=== PATIENT | male | born 1940 | race Caucasian/White ===

== ENCOUNTER 2022-03-30 22:26 | Inpatient (IN) | payer MEDICARE ==
--- NOTE | 2022-03-30 23:18 | ED ---
General Adult HPI - General Chief complaint: Weakness Stated complaint: Weakness Time Seen by Provider: 03/30/22 22:48 Source: patient, RN notes reviewed Mode of arrival: EMS Limitations: no limitations - History of Present Illness Initial comments: 82-year-old male presents to the emergency department via EMS from home with complaints of progressive weakness. Patient was discharged from [facility] on March 19 after having had prostate surgery. States he has had a Humphrey catheter in for the past week but it was removed yesterday. Reports difficulty with urine output today. Also states he is constipated. Reports 2 falls today in which his legs just gave out and he was unable to maintain weight-bearing despite utilizing his walker. Patient states he has no injuries from his falls and denies head neck or back pain. He does not take any blood thinning medicines. Denies fever, chills, headache, dizziness, chest pain, shortness of breath, cough, abdominal pain, nausea, vomiting, or diarrhea. - Related Data Home Medications Medication Instructions Recorded Confirmed Atorvastatin [Lipitor] 40 mg PO DAILY@189903/30/22 03/30/22 Cholecalciferol [Vitamin D3 (25 50 mcg PO DAILY@59903/30/22 03/30/22 Mcg = 1000 Iu)] Colchicine [Colcrys] 0.6 mg PO DAILY PRN 03/30/22 03/31/22 Furosemide [Lasix] 20 mg PO MOWEFR 03/30/22 03/30/22 Insulin Lispro [humaLOG Kwikpen] See Protocol SQ DAILY PRN 03/30/22 03/30/22 Insulin NPH Human Isophane 42 unit SQ DAILY@59903/30/22 03/30/22 [humuLIN N Kwikpen] Losartan Potassium 100 mg PO HS@199903/30/22 03/30/22 Magnesium Oxide [Mag-Ox] 400 mg PO DAILY@59903/30/22 03/30/22 Metoprolol Succinate (ER) [Toprol 100 mg PO DAILY@59903/30/22 03/30/22 Xl] Multivitamins, Thera [Multivitamin 1 tab PO DAILY@59903/30/22 03/30/22 (formulary)] Mycophenolate Sodium [Mycophenolic 720 mg PO BID@0600,1900 08/02/22 08/03/22 Acid] NIFEdipine XL [Procardia Xl] 90 mg PO DAILY@0600 03/30/22 03/30/22 Nitroglycerin Sl Tabs [Nitrostat] 0.4 mg SUBLINGUAL Q5M PRN 03/30/22 03/30/22 Sertraline [Zoloft] 50 mg PO DAILY@1900 03/30/22 03/30/22 Sirolimus 3 mg PO DAILY@0600 03/30/22 03/31/22 Vit C/E/Zn/Coppr/Lutein/Zeaxan 1 cap PO BID@0600,1900 03/30/22 03/30/22 [Preservision Areds 2 Softgel] Allergies Allergy/AdvReac Type Severity Reaction Status Date / Time No Known Allergies Allergy Verified 03/30/22 23:38 Review of Systems ROS Statement: Those systems with pertinent positive or pertinent negative responses have been documented in the HPI. ROS Other: All systems not noted in ROS Statement are negative. Past Medical History Past Medical History: Coronary Artery Disease (CAD), Chest Pain / Angina, CVA/TIA Additional Past Surgical History / Comment(s): Kidney Transplant - Past Family History Father Family Medical History: Chest Pain / Angina General Exam Limitations: no limitations General appearance: alert, in no apparent distress (Well-developed, well- nourished male in no acute distress. Initial temperature 99.0, pulse 72, r espirations 18, blood pressure 143/77, pulse ox 96% on 2 L.) Head exam: Present: atraumatic, normocephalic, normal inspection Eye exam: Present: normal appearance, PERRL, EOMI. Absent: scleral icterus, conjunctival injection, periorbital swelling ENT exam: Present: normal exam, normal oropharynx, mucous membranes moist Neck exam: Present: normal inspection, full ROM. Absent: tenderness, meningis mus, lymphadenopathy Respiratory exam: Present: normal lung sounds bilaterally. Absent: respiratory distress, wheezes, rales, rhonchi, stridor, chest wall tenderness Cardiovascular Exam: Present: regular rate, normal rhythm, normal heart sounds. Absent: systolic murmur, diastolic murmur, rubs, gallop, clicks GI/Abdominal exam: Present: soft, normal bowel sounds. Absent: distended, tenderness, guarding, rebound, rigid Extremities exam: Present: full ROM, normal capillary refill, pedal edema (+1 pretibial and pedal edema bilateral lower extremities.). Absent: tenderness, joint swelling, calf tenderness Back exam: Present: normal inspection, full ROM. Absent: CVA tenderness (R), CVA tenderness (L), paraspinal tenderness, vertebral tenderness Neurological exam: Present: alert, oriented X3 Expanded Patient oriented to: Present: person, place, time Speech: Present: fluid speech Cranial nerves: EOM's Intact: Normal, Nystagmus: Normal Motor strength exam: RUE: 4, LUE: 4, RLE: 4, LLE: 4 Eye Response: (4) open spontaneously Motor Response: (6) obeys commands Verbal Response: (5) oriented Matthew Total: 15 Psychiatric exam: Present: flat affect Skin exam: Present: warm, dry, intact, other (Scattered contusions various stages of healing on bilateral upper extremities.) Course Vital Signs 03/30/22 03/31/22 22:37 02:19 Temperature 99 F Pulse Rate 72 61 Respiratory 18 18 Rate Blood Pressure 143/77 143/77 O2 Sat by Pulse 96 96 Oximetry - Reevaluation(s) Reevaluation #1: 03/31/22 02:30 This patient's care was discussed at length with my attending, Dr. Owen. Patient updated on results. Discussed hospital admission and patient is agreeable with this plan of care. 03/31/22 03:45 Dr. Owen spoke with Dr. Melo who agrees to accept this admission. Medical Decision Making - Medical Decision Making This is a 82-year-old male with a past medical history of kidney transplant, prostate surgery, CAD, and CABG who presents to the emergency department via EMS for evaluation of worsening generalized weakness and 2 falls today. Upon exam, patient is awake and alert, and in no acute distress. Vital signs are stable. Physical exam reveals no focal neurological deficit. There are no injuries from his falls today. Bladder scan reveals approximately 400 mls of retained urine therefore Humphrey catheter was placed. Laboratory Studies reveal leukocytosis (WBC 16.4), mild hyponatremia (Na 132), and renal impairment (BUN 35, creatinine 1.41)- baseline renal function is unknown. Urinalysis reveals 2+ protein, 1+ glucose, moderate blood, large leukocyte esterase with urine WBC 80, moderate amount of urine WBC clumps, and occasional urine bacteria. Covid test is negative. Given patient's leukocytosis, generalized weakness with falls, and UTI, patient will be admitted to the hospital for further evaluation and treatment. Antibiotic therapy initiated. Patient and spouse are agreeable with this plan of care. Attending: Lexie. - Lab Data Result diagrams: 03/31/22 10:44 03/31/22 10:44 Lab Results 03/30/22 03/30/22 03/30/22 Range/Units 23:09 23:32 23:32 WBC 16.4 H (3.8-10.6) k/uL RBC 4.37 (4.30-5.90) m/uL Hgb 11.2 L (13.0-17.5) gm/dL Hct 35.6 L (39.0-53.0) % MCV 81.6 (80.0-100.0) fL MCH 25.5 (25.0-35.0) pg MCHC 31.3 (31.0-37.0) g/dL RDW 15.6 H (11.5-15.5) % Plt Count 243 (150-450) k/uL MPV 7.1 Neutrophils % 88 % Lymphocytes % 3 % Monocytes % 8 % Eosinophils % 0 % Basophils % 0 % Neutrophils # 14.4 H (1.3-7.7) k/uL Lymphocytes # 0.5 L (1.0-4.8) k/uL Monocytes # 1.2 H (0-1.0) k/uL Eosinophils # 0.0 (0-0.7) k/uL Basophils # 0.0 (0-0.2) k/uL Hypochromasia Slight PT 10.9 (9.0-12.0) sec INR 1.0 (<1.2) APTT 24.7 (22.0-30.0) sec Sodium (137-145) mmol/L Potassium (3.5-5.1) mmol/L Chloride (98-107) mmol/L Carbon Dioxide (22-30) mmol/L Anion Gap mmol/L BUN (9-20) mg/dL Creatinine (0.66-1.25) mg/dL Est GFR (CKD-EPI)AfAm (>60 ml/min/1.73 sqM) Est GFR (CKD-EPI)NonAf (>60 ml/min/1.73 sqM) Glucose (74-99) mg/dL POC Glucose (mg/dL) (70-110) mg/dL POC Glu Contract Mail Carrier ID Plasma Lactic Acid Connor (0.7-2.0) mmol/L Calcium (8.4-10.2) mg/dL Phosphorus (2.5-4.5) mg/dL Magnesium (1.6-2.3) mg/dL Total Bilirubin (0.2-1.3) mg/dL AST (17-59) U/L ALT (4-49) U/L Alkaline Phosphatase (38-126) U/L Troponin I (0.000-0.034) ng/mL NT-Pro-B Natriuret Pep pg/mL Total Protein (6.3-8.2) g/dL Albumin (3.5-5.0) g/dL Urine Color Light Yellow Urine Appearance Cloudy (Clear) Urine pH 5.5 (5.0-8.0) Ur Specific [place] 1.008 (1.001-1.035) Urine Protein 2+ H (Negative) Urine Glucose (UA) 1+ H (Negative) Urine Ketones Negative (Negative) Urine Blood Moderate H (Negative) Urine Nitrite Negative (Negative) Urine Bilirubin Negative (Negative) Urine Urobilinogen <2.0 (<2.0) mg/dL Ur Leukocyte Esterase Large H (Negative) Urine RBC 2 (0-5) /hpf Urine WBC 80 H (0-5) /hpf Urine WBC Clumps Moderate H (None) /hpf Urine Bacteria Occasional H (None) /hpf Urine Mucus Rare H (None) /hpf Coronavirus (PCR) (Not Detectd) 03/30/22 03/30/22 03/30/22 Range/Units 23:32 23:32 23:32 WBC (3.8-10.6) k/uL RBC (4.30-5.90) m/uL Hgb (13.0-17.5) gm/dL Hct (39.0-53.0) % MCV (80.0-100.0) fL MCH (25.0-35.0) pg MCHC (31.0-37.0) g/dL RDW (11.5-15.5) % Plt Count (150-450) k/uL MPV Neutrophils % % Lymphocytes % % Monocytes % % Eosinophils % % Basophils % % Neutrophils # (1.3-7.7) k/uL Lymphocytes # (1.0-4.8) k/uL Monocytes # (0-1.0) k/uL Eosinophils # (0-0.7) k/uL Basophils # (0-0.2) k/uL Hypochromasia PT (9.0-12.0) sec INR (<1.2) APTT (22.0-30.0) sec Sodium 132 L (137-145) mmol/L Potassium 5.1 (3.5-5.1) mmol/L Chloride 101 (98-107) mmol/L Carbon Dioxide 25 (22-30) mmol/L Anion Gap 6 mmol/L BUN 35 H (9-20) mg/dL Creatinine 1.41 H (0.66-1.25) mg/dL Est GFR (CKD-EPI)AfAm 54 (>60 ml/min/1.73 sqM) Est GFR (CKD-EPI)NonAf 47 (>60 ml/min/1.73 sqM) Glucose 142 H (74-99) mg/dL POC Glucose (mg/dL) (70-110) mg/dL POC Glu Contract Mail Carrier ID Plasma Lactic Acid Connor 1.0 (0.7-2.0) mmol/L Calcium 9.1 (8.4-10.2) mg/dL Phosphorus 3.0 (2.5-4.5) mg/dL Magnesium 1.7 (1.6-2.3) mg/dL Total Bilirubin 0.3 (0.2-1.3) mg/dL AST 28 (17-59) U/L ALT 51 H (4-49) U/L Alkaline Phosphatase 108 (38-126) U/L Troponin I 0.027 (0.000-0.034) ng/mL NT-Pro-B Natriuret Pep pg/mL Total Protein 5.5 L (6.3-8.2) g/dL Albumin 2.9 L (3.5-5.0) g/dL Urine Color Urine Appearance (Clear) Urine pH (5.0-8.0) Ur Specific [place] (1.001-1.035) Urine Protein (Negative) Urine Glucose (UA) (Negative) Urine Ketones (Negative) Urine Blood (Negative) Urine Nitrite (Negative) Urine Bilirubin (Negative) Urine Urobilinogen (<2.0) mg/dL Ur Leukocyte Esterase (Negative) Urine RBC (0-5) /hpf Urine WBC (0-5) /hpf Urine WBC Clumps (None) /hpf Urine Bacteria (None) /hpf Urine Mucus (None) /hpf Coronavirus (PCR) (Not Detectd) 03/30/22 03/31/22 03/31/22 Range/Units 23:32 02:16 05:23 WBC (3.8-10.6) k/uL RBC (4.30-5.90) m/uL Hgb (13.0-17.5) gm/dL Hct (39.0-53.0) % MCV (80.0-100.0) fL MCH (25.0-35.0) pg MCHC (31.0-37.0) g/dL RDW (11.5-15.5) % Plt Count (150-450) k/uL MPV Neutrophils % % Lymphocytes % % Monocytes % % Eosinophils % % Basophils % % Neutrophils # (1.3-7.7) k/uL Lymphocytes # (1.0-4.8) k/uL Monocytes # (0-1.0) k/uL Eosinophils # (0-0.7) k/uL Basophils # (0-0.2) k/uL Hypochromasia PT (9.0-12.0) sec INR (<1.2) APTT (22.0-30.0) sec Sodium (137-145) mmol/L Potassium (3.5-5.1) mmol/L Chloride (98-107) mmol/L Carbon Dioxide (22-30) mmol/L Anion Gap mmol/L BUN (9-20) mg/dL Creatinine (0.66-1.25) mg/dL Est GFR (CKD-EPI)AfAm (>60 ml/min/1.73 sqM) Est GFR (CKD-EPI)NonAf (>60 ml/min/1.73 sqM) Glucose (74-99) mg/dL POC Glucose (mg/dL) 156 H (70-110) mg/dL POC Glu Contract Mail Carrier ID Martha Oseiyline Plasma Lactic Acid Connor (0.7-2.0) mmol/L Calcium (8.4-10.2) mg/dL Phosphorus (2.5-4.5) mg/dL Magnesium (1.6-2.3) mg/dL Total Bilirubin (0.2-1.3) mg/dL AST (17-59) U/L ALT (4-49) U/L Alkaline Phosphatase (38-126) U/L Troponin I (0.000-0.034) ng/mL NT-Pro-B Natriuret Pep 2950 pg/mL Total Protein (6.3-8.2) g/dL Albumin (3.5-5.0) g/dL Urine Color Urine Appearance (Clear) Urine pH (5.0-8.0) Ur Specific [place] (1.001-1.035) Urine Protein (Negative) Urine Glucose (UA) (Negative) Urine Ketones (Negative) Urine Blood (Negative) Urine Nitrite (Negative) Urine Bilirubin (Negative) Urine Urobilinogen (<2.0) mg/dL Ur Leukocyte Esterase (Negative) Urine RBC (0-5) /hpf Urine WBC (0-5) /hpf Urine WBC Clumps (None) /hpf Urine Bacteria (None) /hpf Urine Mucus (None) /hpf Coronavirus (PCR) Not Detected (Not Detectd) 03/31/22 Range/Units 07:45 WBC (3.8-10.6) k/uL RBC (4.30-5.90) m/uL Hgb (13.0-17.5) gm/dL Hct (39.0-53.0) % MCV (80.0-100.0) fL MCH (25.0-35.0) pg MCHC (31.0-37.0) g/dL RDW (11.5-15.5) % Plt Count (150-450) k/uL MPV Neutrophils % % Lymphocytes % % Monocytes % % Eosinophils % % Basophils % % Neutrophils # (1.3-7.7) k/uL Lymphocytes # (1.0-4.8) k/uL Monocytes # (0-1.0) k/uL Eosinophils # (0-0.7) k/uL Basophils # (0-0.2) k/uL Hypochromasia PT (9.0-12.0) sec INR (<1.2) APTT (22.0-30.0) sec Sodium (137-145) mmol/L Potassium (3.5-5.1) mmol/L Chloride (98-107) mmol/L Carbon Dioxide (22-30) mmol/L Anion Gap mmol/L BUN (9-20) mg/dL Creatinine (0.66-1.25) mg/dL Est GFR (CKD-EPI)AfAm (>60 ml/min/1.73 sqM) Est GFR (CKD-EPI)NonAf (>60 ml/min/1.73 sqM) Glucose (74-99) mg/dL POC Glucose (mg/dL) 168 H (70-110) mg/dL POC Glu Contract Mail Carrier ID Jayne Navarro Plasma Lactic Acid Connor (0.7-2.0) mmol/L Calcium (8.4-10.2) mg/dL Phosphorus (2.5-4.5) mg/dL Magnesium (1.6-2.3) mg/dL Total Bilirubin (0.2-1.3) mg/dL AST (17-59) U/L ALT (4-49) U/L Alkaline Phosphatase (38-126) U/L Troponin I (0.000-0.034) ng/mL NT-Pro-B Natriuret Pep pg/mL Total Protein (6.3-8.2) g/dL Albumin (3.5-5.0) g/dL Urine Color Urine Appearance (Clear) Urine pH (5.0-8.0) Ur Specific [place] (1.001-1.035) Urine Protein (Negative) Urine Glucose (UA) (Negative) Urine Ketones (Negative) Urine Blood (Negative) Urine Nitrite (Negative) Urine Bilirubin (Negative) Urine Urobilinogen (<2.0) mg/dL Ur Leukocyte Esterase (Negative) Urine RBC (0-5) /hpf Urine WBC (0-5) /hpf Urine WBC Clumps (None) /hpf Urine Bacteria (None) /hpf Urine Mucus (None) /hpf Coronavirus (PCR) (Not Detectd) - EKG Data Rate: normal EKG Comments: EKG obtained at 2222 shows atrial fibrillation with nonspecific T-wave abnormality. Ventricular rate 76, CO interval indeterminate, QRS duration 89, QT/QTC 348/379. Interpretation abnormal rhythm ECG. When compared to previous EKG there are: previous EKG unavailable - Radiology Data Radiology results: report reviewed, image reviewed Two-view chest x-ray was obtained. Report was reviewed in its entirety. Impression per Dr. Solorzano is pulmonary mild interstitial fibrotic changes. No definite acute lung disease. Disposition Clinical Impression: Generalized weakness, Falls, UTI (urinary tract infection) Disposition: ADMITTED IP TO THIS [facility] Condition: Serious Is patient prescribed a controlled substance at d/c from ED?: No Decision Date: 03/31/22 Decision Time: 03:16
[2022-03-30 23:59] LABS: Basophils % (A) 0 %; Eosinophils % (A) 0 %; HCT 35.6 % (39.0-53.0); HGB 11.2 gm/dL (13.0-17.5); Hypochromasia Slight; Lymphocytes # (A) 0.5 k/uL (1.0-4.8); Lymphocytes % (A) 3 %; MCH 25.5 pg (25.0-35.0); MCHC 31.3 g/dL (31.0-37.0); MCV 81.6 fL (80.0-100.0); Mean Platelet Volume 7.1; Monocytes # (A) 1.2 k/uL (0-1.0); Monocytes % (A) 8 %; Neutrophils # (A) 14.4 k/uL (1.3-7.7); Neutrophils % (A) 88 %; Platelet Count 243 k/uL (150-450); RBC 4.37 m/uL (4.30-5.90); RDW 15.6 % (11.5-15.5); WBC 16.4 k/uL (3.8-10.6)
[2022-03-31 00:07] LABS: Albumin 2.9 g/dL (3.5-5.0); Calcium 9.1 mg/dL (8.4-10.2); Magnesium 1.7 mg/dL (1.6-2.3); Potassium 5.1 mmol/L (3.5-5.1); Total Bilirubin 0.3 mg/dL (0.2-1.3); Total Protein 5.5 g/dL (6.3-8.2)
--- NOTE | 2022-03-31 00:08 | XR ---
EXAMINATION TYPE: XR chest 2V DATE OF EXAM: 03/30/2022 COMPARISON: NONE HISTORY: Weakness TECHNIQUE: 2 views FINDINGS: There is no heart failure or confluent pneumonic infiltrate. There is coarsening of interst itial markings. There are sternal wires. Costophrenic angles are fairly clear. Heart size is fairly n ormal. Bony thorax appears intact. IMPRESSION: Pulmonary mild interstitial fibrotic changes. No definite acute lung disease.
[2022-03-31 00:16] LABS: Partial Thromboplastin Time 24.7 sec (22.0-30.0); Prothrombin Time 10.9 sec (9.0-12.0)
[2022-03-31 02:41] LABS: Appearance,Urine Cloudy (Clear); Bacteria,Urine Occasional /hpf; Bilirubin,Urine Negative (Negative); Blood,Urine Moderate (Negative); Color,Urine Light Yellow; Glucose,Urine (UA) 1+ (Negative); Ketones,Urine Negative (Negative); Leukocyte Esterase,Urine Large (Negative); Mucus,Urine Rare /hpf; Nitrite,Urine Negative (Negative); PH, Urine 5.5 (5.0-8.0); Protein,Urine 2+ (Negative); RBC,Urine 2 /hpf (0-5); Specific Gravity,Urine 1.008 (1.001-1.035); Urobilinogen,Urine <2.0 mg/dL (<2.0); WBC,Urine 80 /hpf (0-5)
[2022-03-31] MEDS ORDERED: cefTRIAXone IN SWFI 1,000 MG/10 ML SYRINGE IVP STA (03:51)
[2022-03-31] MEDS ORDERED: NALOXONE 0.4 MG/ML 1 ML VIAL IV PRN (03:52)
[2022-03-31] MEDS ORDERED: HYDROmorphone 0.5 MG/0.5 ML SYRINGE IVP PRN (03:52)
[2022-03-31] MEDS ORDERED: MYCOPHENOLATE SODIUM 360 MG PO SCH (04:00)
--- NOTE | 2022-03-31 05:04 | P.HPIM ---
History of Present Illness H&P Date: 03/31/22 Patient is a 82-year-old male with a PMH of coronary artery disease, BPH, and kidney transplant who presents to the emergency room with complaints of weakness and falls. The patient reports that he underwent a TURP procedure on March 19 and postoperatively had a Humphrey catheter placed which was removed yesterday. Since removal of the catheter, he has been experiencing urinary incontinence as well as dysuria. Also reports that over the past few days, he has noted gradually worsening weakness. States that his legs simply gave out and he is following the ground 3-4 times, not having lost consciousness and without any head trauma. Denied fever, chills, chest pain, shortness of breath, nausea, vomiting, abdominal pain, diarrhea. After evaluation revealed a UA consistent with UTI, BUN 35, creatinine 1.41, and WBC count 16.4. Chest x-ray revealed mild interstitial fibrotic changes with no acute abnormalities noted. Review of systems: Pertinent positives and negatives as discussed in HPI, a complete review of systems was performed and all other systems are negative. Physical examination: General: non toxic, no distress, appears at stated age, overweight Derm: no unusual rashes/lesions, warm Head: atraumatic, normocephalic, symmetric Eyes: EOMI, no lid lag, anicteric sclera, pupils equal round reactive to light ENT: Nose and ears atraumatic Neck: No cervical lymphadenopathy, trachea midline, supple Mouth: no lip lesion, mucus membranes moist Cardiovascular: S1S2 reg, no murmur, positive dorsalis pedis pulse bilateral, no edema Lungs: CTA bilateral, no rhonchi, no rales, no accessory muscle use Abdominal: soft, nontender to palpation, no guarding Ext: muscle strength 5 out of 5 in all 4 extremities grossly, no gross muscle atrophy, no contractures, Neuro: CN II-XI grossly intact, no gross focal neuro deficits Psych: Alert, oriented, appropriate affect Assessment/plan UTI status post Humphrey catheter removal and recent TURP procedure -Continue with ceftriaxone -IV fluids -Urology consult in light of incontinence Chronic conditions: COPD, BPH, kidney transplant -Continue home meds DVT prophylaxis -Heparin subq The patient is admitted with an anticipated less than 2 midnight stay for evaluation of UTI. CODE STATUS: Full Code Discussed with: Patient Anticipated discharge date: In a.m. Anticipated discharge place: Home Past Medical History Past Medical History: Coronary Artery Disease (CAD), Chest Pain / Angina, CVA /TIA Additional Past Surgical History / Comment(s): Kidney Transplant - Past Family History Father Family Medical History: Chest Pain / Angina Medications and Allergies Home Medications Medication Instructions Recorded Confirmed Type Atorvastatin [Lipitor] 40 mg PO DAILY@1900 03/30/22 03/30/22 History Canagliflozin [Invokana] 50 mg PO DAILY@59903/30/22 03/30/22 History Cholecalciferol [Vitamin D3 (25 50 mcg PO DAILY@59903/30/22 03/30/22 History Mcg = 1000 Iu)] Colchicine [Colcrys] 0.6 mg PO DIRECTED PRN 03/30/22 03/30/22 History Furosemide [Lasix] 20 mg PO MOWEFR 03/30/22 03/30/22 History Insulin Lispro [humaLOG Kwikpen] See Protocol SQ DAILY PRN 03/30/22 03/30/22 History Insulin NPH Human Isophane 42 unit SQ DAILY@59903/30/22 03/30/22 History [humuLIN N Kwikpen] Losartan Potassium 100 mg PO HS@199903/30/22 03/30/22 History Magnesium Oxide [Mag-Ox] 400 mg PO DAILY@59903/30/22 03/30/22 History Metoprolol Succinate (ER) [Toprol 100 mg PO DAILY@59903/30/22 03/30/22 History Xl] Multivitamins, Thera [Multivitamin 1 tab PO DAILY@59903/30/22 03/30/22 History (formulary)] Mycophenolate Sodium [Mycophenolic 720 mg PO DIRECTED 03/30/22 03/30/22 History Acid] NIFEdipine XL [Procardia Xl] 90 mg PO DAILY@59903/30/22 03/30/22 History Nitroglycerin Sl Tabs [Nitrostat] 0.4 mg SUBLINGUAL Q5M PRN 03/30/22 03/30/22 History Sertraline [Zoloft] 50 mg PO DAILY@0 03/30/22 03/30/22 History Sirolimus 3 mg PO DIRECTED 03/30/22 03/30/22 History Vit C/E/Zn/Coppr/Lutein/Zeaxan 1 cap PO BID@0600,1900 03/30/22 03/30/22 History [Preservision Areds 2 Softgel] Allergies Allergy/AdvReac Type Severity Reaction Status Date / Time No Known Allergies Allergy Verified 03/30/22 23:38 Physical Exam Vitals: Vital Signs Temp Pulse Resp BP Pulse Ox 03/31/22 02:19 61 18 143/77 96 03/30/22 22:37 99 F 72 18 143/77 96 Intake and Output 03/30/22 03/30/22 03/31/22 14:59 22:59 06:59 Other: Weight 99.337 kg Results CBC & Chem 7: 03/30/22 23:32 03/30/22 23:32 Labs: Abnormal Lab Results - Last 24 Hours (Table) 03/30/22 03/30/22 03/30/22 Range/Units 23:09 23:32 23:32 WBC 16.4 H (3.8-10.6) k/uL Hgb 11.2 L (13.0-17.5) gm/dL Hct 35.6 L (39.0-53.0) % RDW 15.6 H (11.5-15.5) % Neutrophils # 14.4 H (1.3-7.7) k/uL Lymphocytes # 0.5 L (1.0-4.8) k/uL Monocytes # 1.2 H (0-1.0) k/uL Sodium 132 L (137-145) mmol/L BUN 35 H (9-20) mg/dL Creatinine 1.41 H (0.66-1.25) mg/dL Glucose 142 H (74-99) mg/dL ALT 51 H (4-49) U/L Total Protein 5.5 L (6.3-8.2) g/dL Albumin 2.9 L (3.5-5.0) g/dL Urine Protein 2+ H (Negative) Urine Glucose (UA) 1+ H (Negative) Urine Blood Moderate H (Negative) Ur Leukocyte Esterase Large H (Negative) Urine WBC 80 H (0-5) /hpf Urine WBC Clumps Moderate H (None) /hpf Urine Bacteria Occasional H (None) /hpf Urine Mucus Rare H (None) /hpf
[2022-03-31 05:25] LABS: Glucose,Whole Blood 156 mg/dL (70-110)
[2022-03-31] MEDS: CHOLECALCIFEROL 25 MCG (1000 IU) TABLET PO SCH (05:30)
[2022-03-31] MEDS: INSULIN NPH 300 UNIT/3 ML VIAL SQ SCH (05:30)
[2022-03-31] MEDS: METOPROLOL SUCCINATE (ER) 100 MG TAB.ER.24H PO SCH (05:30)
[2022-03-31] MEDS: ACETAMINOPHEN TAB 325 MG TAB PO PRN ×3 (05:30→19:33)
[2022-03-31] MEDS: NIFEdipine XL 90 MG TAB.ER.24 PO SCH (05:30)
[2022-03-31] MEDS: MULTIVITAMINS, THERA 1 EACH TAB PO SCH (05:31)
[2022-03-31] MEDS ORDERED: NON FORMULARY DRUG (Canagliflozin [Invokana] 100 MG Tablet) PO SCH (06:00)
[2022-03-31 07:46] LABS: Glucose,Whole Blood 168 mg/dL (70-110)
[2022-03-31] MEDS ORDERED: FAMOTIDINE 20 MG TAB PO SCH (09:00)
--- NOTE | 2022-03-31 09:34 | P.PN ---
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 Patient presented to the emergency department with a chief complaint of weakness, falls, urinary incontinence, frequency, and dysuria. Patient underwent full evaluation in the emergency department and was found to have leukocytosis with WBC count of 16.4 and renal function and BUN 35, creatinine 1.41, and GFR 47 with unknown baseline creatinine. Urine culture positive for blood and infection inpatient febrile with temperature 100.9F. Patient was admitted under our services for acute p yelonephritis in patient with history of right sided renal transplant with consultation to nephrology and infectious disease. Physical exam: Patient seen and fully evaluated at bedside. Patient very diaphoretic and febrile with temperature 100.9F at this time. Patient reported urinary frequency and burning with incontinence prior to arrival. Patient received Rocephin 1 g in ED. Rocephin discontinued and patient started on cefepime 1 g every 12 hours pending urine culture and sensitivity report. Patient started on gentle hydration with 0.9% normal saline at 50 mL per hour. Patient reports overall weakness but denies any other complaints at this time. Humphrey catheter in place. Vital signs reviewed and stable. General: Nontoxic, no distress and appears stated age. Derm: Skin warm and dry, normal coloration for ethnicity. Head: Atraumatic, normocephalic and symmetric. Eyes: EOMs intact, no lid lag, and anicteric sclera Mouth: no lip lesions, mucus membranes moist Cardiovascular: regular rate and rhythm with normal S1S2, no murmur, positive posterior tibial pulses bilaterally, and cap refill < 2 seconds. Lungs: Respirations even, regular, and unlabored on room air. Lungs CTA bilaterally, no rhonchi, no rales, no wheezing, and no accessory muscle usage. Abdominal: soft, nontender to palpation, no guarding, no appreciable organomegaly Ext: ROM intact. No gross muscle atrophy, no edema, no contractures Neuro: Speech clear, face symmetrical and CN II-XII grossly intact with no noted focal neuro deficits Psych: Alert and oriented to person, place, time, and situation. Appropriate and pleasant affect. Assessment and Plan of Care: Pyelonephritis in patient with history of right sided renal transplant and current stage III chronic kidney disease with baseline creatinine of 1.4 -Nephrology consulted -IV antibiotics: Cefepime pending urine culture and sensitivity report. -Infectious disease consulted -Symptomatic care and pain management with Tylenol as needed for pain and/or fever -Humphrey catheter care, monitor output closely. -Continue anti-rejection medication with sirolimus and hold mycophenolate sodium as recommended by nephrology due to acute pyelonephritis and signs of sepsis in patient with renal transplant. -Continue close monitoring of renal function and obtain sirolimus level with a.m. labs. -Follow up with urine culture and sensitivity reports. -Gentle IV fluid hydration with 0.9% normal saline at 50 mL's per hour. Insulin-dependent diabetes mellitus type 2 -Discontinue Invokana, places patient at risk for UTIs which poses a danger in patients with renal transplants. -Patient placed on glycemic protocol with NovoLog sliding scale Hypertension -Monitor vital signs and continue daily medication regimen with losartan and metoprolol. Hyperlipidemia -Continue daily medication regimen with atorvastatin. Generalized Weakness and recurrent falls -Patient denies injuries or pain. Reports his legs just give out and patient very weak. Likely secondary to acute pyelonephritis infection. -Treat underlying cause of acute pyelonephritis. -PT/OT consulted -Fall precautions CODE STATUS: Full code DVT prophylaxis: Heparin Discussed with: Patient and RN Anticipated discharge date: Clinical course to determine Anticipated discharge place: Home versus senior living facility A total of 40 minutes was spent on the care of this complex patient more than 50% of the time was spent in counseling and care coordination. I reviewed the documentation as provided by the MALAIKA above, who is the original author of this note. I agree with the documented assessment and plan, with the following changes: none Objective - Vital Signs Vital signs: Vital Signs Temp 100.9 F H 03/31/22 07:00 Pulse 65 03/31/22 07:00 Resp 17 03/31/22 07:00 BP 173/68 03/31/22 07:00 Pulse Ox 95 03/31/22 07:00 FiO2 Intake & Output 03/30/22 03/31/22 03/31/22 18:59 06:59 18:59 Intake Total 591 Output Total 800 Balance -800 591 Weight 99.337 kg Intake: Oral 591 Output: Urine 800 Other: Voiding Method Indwelling Catheter - Labs CBC & Chem 7: 03/31/22 10:44 03/31/22 10:44 Labs: Abnormal Lab Results - Last 24 Hours (Table) 03/30/22 03/30/22 03/30/22 Range/Units 23:09 23:32 23:32 WBC 16.4 H (3.8-10.6) k/uL Hgb 11.2 L (13.0-17.5) gm/dL Hct 35.6 L (39.0-53.0) % RDW 15.6 H (11.5-15.5) % Neutrophils # 14.4 H (1.3-7.7) k/uL Lymphocytes # 0.5 L (1.0-4.8) k/uL Monocytes # 1.2 H (0-1.0) k/uL Sodium 132 L (137-145) mmol/L BUN 35 H (9-20) mg/dL Creatinine 1.41 H (0.66-1.25) mg/dL Glucose 142 H (74-99) mg/dL POC Glucose (mg/dL) (70-110) mg/dL ALT 51 H (4-49) U/L Total Protein 5.5 L (6.3-8.2) g/dL Albumin 2.9 L (3.5-5.0) g/dL Urine Protein 2+ H (Negative) Urine Glucose (UA) 1+ H (Negative) Urine Blood Moderate H (Negative) Ur Leukocyte Esterase Large H (Negative) Urine WBC 80 H (0-5) /hpf Urine WBC Clumps Moderate H (None) /hpf Urine Bacteria Occasional H (None) /hpf Urine Mucus Rare H (None) /hpf 03/31/22 03/31/22 Range/Units 05:23 07:45 WBC (3.8-10.6) k/uL Hgb (13.0-17.5) gm/dL Hct (39.0-53.0) % RDW (11.5-15.5) % Neutrophils # (1.3-7.7) k/uL Lymphocytes # (1.0-4.8) k/uL Monocytes # (0-1.0) k/uL Sodium (137-145) mmol/L BUN (9-20) mg/dL Creatinine (0.66-1.25) mg/dL Glucose (74-99) mg/dL POC Glucose (mg/dL) 156 H 168 H (70-110) mg/dL ALT (4-49) U/L Total Protein (6.3-8.2) g/dL Albumin (3.5-5.0) g/dL Urine Protein (Negative) Urine Glucose (UA) (Negative) Urine Blood (Negative) Ur Leukocyte Esterase (Negative) Urine WBC (0-5) /hpf Urine WBC Clumps (None) /hpf Urine Bacteria (None) /hpf Urine Mucus (None) /hpf
[2022-03-31] MEDS ORDERED: hydrALAZINE HCL 20 MG/ML 1 ML VIAL IVP PRN (09:57)
[2022-03-31] MEDS ORDERED: CEFEPIME 2 GM in SODIUM CHLORIDE 0.9% 100 ML IVPB SCH (10:00)
[2022-03-31] MEDS ORDERED: DEXTROSE 50% SYRINGE 50 ML IVP PRN ×2 (10:01)
--- NOTE | 2022-03-31 10:30 | P.NPCON ---
History of Present Illness - Reason for Consult chronic renal failure - History of Present Illness Reason for consultation: Chronic kidney disease and renal transplant management History of present illness: Patient is a 82-year-old male seen in consultation for chronic kidney disease and renal transplant management. Patient has history of chronic kidney disease stage III a with baseline creatinine in the range of 1.4-2.1 outpatient. Patient received a living unrelated renal allograft from his in June 2004. He is maintained on Myfortic and Rapamune outpatient. Patient is quite confused and is not able to provide much history. Patient underwent TURP in February 2022 and has been feeling progressively weaker. He has also sustained falls along with urinary frequency and incontinence and dysuria. Patient was noted to have an elevated white count of 16.4 on admission. He is also noted to be febrile with a temperature of 100.9F this morning. Humphrey catheter was placed. He is nonoliguric. Patient does have history of diabetes. Patient was taking Invokana outpatient. Blood pressure has been on the higher side this admission. He is on room air. I don't see any nonsteroidals and his home medication list. Vital signs - Blood pressure in the higher side. Febrile. General: Awake. No acute distress. HEENT: Head exam is unremarkable. LUNGS: Breath sounds decreased. HEART: Rate and Rhythm are regular. ABDOMEN: Soft, no distention. EXTREMITITES: No edema. Past Medical History Past Medical History: Coronary Artery Disease (CAD), Chest Pain / Angina, CVA/TIA History of Any Multi-Drug Resistant Organisms: None Reported Additional Past Surgical History / Comment(s): Kidney Transplant Smoking Status: Former smoker - Past Family History Father Family Medical History: Chest Pain / Angina Medications and Allergies Home Medications Medication Instructions Recorded Confirmed Type Atorvastatin [Lipitor] 40 mg PO DAILY@1900 03/30/22 03/30/22 History Cholecalciferol [Vitamin D3 (25 50 mcg PO DAILY@0600 03/30/22 03/30/22 History Mcg = 1000 Iu)] Colchicine [Colcrys] 0.6 mg PO DAILY PRN 03/30/22 03/31/22 History Furosemide [Lasix] 20 mg PO MOWEFR 03/30/22 03/30/22 History Insulin Lispro [humaLOG Kwikpen] See Protocol SQ DAILY PRN 03/30/22 03/30/22 History Insulin NPH Human Isophane 42 unit SQ DAILY@59903/30/22 03/30/22 History [humuLIN N Kwikpen] Magnesium Oxide [Mag-Ox] 400 mg PO DAILY@59903/30/22 03/30/22 History Metoprolol Succinate (ER) [Toprol 100 mg PO DAILY@59903/30/22 03/30/22 History Xl] Multivitamins, Thera [Multivitamin 1 tab PO DAILY@59903/30/22 03/30/22 History (formulary)] Mycophenolate Sodium [Mycophenolic 720 mg PO BID@0600,189903/30/22 03/31/22 History Acid] NIFEdipine XL [Procardia Xl] 90 mg PO DAILY@59903/30/22 03/30/22 History Nitroglycerin Sl Tabs [Nitrostat] 0.4 mg SUBLINGUAL Q5M PRN 03/30/22 03/30/22 History RX: Losartan Potassium 100 mg PO HS@199903/30/22 03/30/22 History RX: Sirolimus 3 mg PO DAILY@59903/30/22 03/31/22 History Sertraline [Zoloft] 50 mg PO DAILY@189903/30/22 03/30/22 History Vit C/E/Zn/Coppr/Lutein/Zeaxan 1 cap PO BID@0600,189903/30/22 03/30/22 History [Preservision Areds 2 Softgel] Allergies Allergy/AdvReac Type Severity Reaction Status Date / Time No Known Allergies Allergy Verified 03/30/22 23:38 Physical Exam Vitals: Vital Signs Temp Pulse Pulse Resp BP BP BP 03/31/22 07:00 100.9 F H 65 17 173/68 03/31/22 05:27 185/54 03/31/22 04:57 100.8 F H 85 16 203/65 03/31/22 02:19 61 18 143/77 03/30/22 22:37 99 F 72 18 143/77 Pulse Ox 03/31/22 07:00 95 03/31/22 05:27 03/31/22 04:57 96 03/31/22 02:19 96 03/30/22 22:37 96 Intake and Output 03/30/22 03/31/22 03/31/22 22:59 06:59 14:59 Intake Total 591 Output Total 800 Balance -800 591 Intake: Oral 591 Output: Urine 800 Other: Voiding Method Indwelling Catheter Weight 99.337 kg 99.337 kg Results - Lab Results Most recent lab results Calcium 9.1 mg/dL (8.4-10.2) 03/30/22 23:32 Phosphorus 3.0 mg/dL (2.5-4.5) 03/30/22 23:32 Magnesium 1.7 mg/dL (1.6-2.3) 03/30/22 23:32 03/30/22 23:32 03/30/22 23:32 Assessment and Plan Plan: Assessment: 1. Chronic kidney disease stage IIIa. Baseline creatinine in the range of 1.42 outpatient. GFR near baseline. 2. Status post living unrelated renal transplant in 2003. 3. UTI on antibiotics. Underwent TURP in February 2022 and was also on Invokana outpatient. 4. Diabetes mellitus. 5. Hypovolemic hyponatremia. 6. Hypertension with chronic kidney disease. Plan: Start normal saline at 50 mL an hour. Hold Myfortic for now due to acute infection. Maintain home dose sirolimus. Check sirolimus level. Home antihypertensives resumed. Add hydralazine 10 mg IV every 4 hours as needed for systolic blood pressure greater than 160. Change Rocephin to cefepime. Consultations infectious disease. Continue to monitor renal function and urine output. Follow-up cultures. Case discussed with the primary team. Thank you for the consultation. I will continue to follow the patient daily during his hospital stay.
[2022-03-31 11:07] LABS: HGB 11.4 gm/dL (13.0-17.5); Hypochromasia Moderate; MCH 25.8 pg (25.0-35.0); MCHC 30.8 g/dL (31.0-37.0); MCV 83.6 fL (80.0-100.0); Mean Platelet Volume 7.5; Platelet Count 255 k/uL (150-450); RBC 4.43 m/uL (4.30-5.90); RDW 15.9 % (11.5-15.5); WBC 14.8 k/uL (3.8-10.6)
[2022-03-31 11:23] LABS: ALT 42 U/L (4-49); AST 25 U/L (17-59); African American GFR (CKD) 53 (>60 ml/min/1.73 sqM); Albumin 2.7 g/dL (3.5-5.0); Albumin/Globulin Ratio 1.1; Alkaline Phosphatase 105 U/L (38-126); Anion Gap 5 mmol/L; Blood Urea Nitrogen 34 mg/dL (9-20); Calcium 8.7 mg/dL (8.4-10.2); Carbon Dioxide 26 mmol/L (22-30); Chloride 101 mmol/L (98-107); Globulin 2.5 g/dL; Glucose 226 mg/dL (74-99); Non-African American GFR(CKD) 46 (>60 ml/min/1.73 sqM); Potassium 4.5 mmol/L (3.5-5.1); Sodium 132 mmol/L (137-145); Total Bilirubin 0.3 mg/dL (0.2-1.3); Total Protein 5.2 g/dL (6.3-8.2)
[2022-03-31] MEDS: SIROLIMUS 1 MG PO SCH (11:30)
[2022-03-31 12:36] LABS: Glucose,Whole Blood 215 mg/dL (70-110)
[2022-03-31] MEDS: SODIUM CHLORIDE 0.9% 1,000 ML IV SCH (12:47)
[2022-03-31] MEDS: INSULIN ASPART (NovoLOG) 100 UNIT/ML VIAL SQ SCH ×3 (13:01→20:39)
[2022-03-31 17:07] LABS: Glucose,Whole Blood 275 mg/dL (70-110)
[2022-03-31] MEDS: DOCUSATE 100 MG CAP PO PRN (17:54)
[2022-03-31] MEDS: SERTRALINE 50 MG TAB PO SCH (18:15)
[2022-03-31] MEDS: ATORVASTATIN 40 MG TAB PO SCH (18:15)
[2022-03-31] MEDS: HEPARIN SODIUM,PORCINE/PF 5,000 UNIT/0.5 ML SYRINGE SQ SCH (19:33)
[2022-03-31] MEDS: LOSARTAN 50 MG TAB PO SCH (19:33)
[2022-03-31 20:14] LABS: Glucose,Whole Blood 260 mg/dL (70-110)
--- NOTE | 2022-03-31 22:01 | P.CONS ---
History of Present Illness - Reason for Consult Consult date: 03/31/22 Polynephritis in transplant patient Requesting physician: Robert Cassidy - Chief Complaint Weakness and fall x 1 day - History of Present Illness Patient is a 82-year-old male with a past medical history significant for end-stage renal disease in this patient who is s/p living related renal transplant from his in 2003 and the patient has been maintained on imm unosuppressive medication since then, patient recently did have a prostate surgery done at [facility] and apparently the patient did have a postop urinary retention requiring Humphrey catheter please which was removed 2 days ago on Tuesday patient has been brought into the ER for progressive weakness and apparently the patient did have a fall with urinary frequency and some incontinence and dysuria, patient denies having any suprapubic or flank pain some nausea but no vomiting and denies having any diarrhea no chest pain shortness of breath or cough on presentation to the hospital the patient did have a fever of 100.8 F, patient did have white count of 14.8 with a left shift BUN and creatinine some mildly elevated liver enzymes are normal patient did have a positive UA whittington PCR was negative blood cultures obtained coming back positive for gram-negative bacilli patient was initially on Rocephin antibiotic was switched over to cefepime infectious disease was consulted for further m anagement of antibiotic therapy Review of Systems Positive point has been mentioned in the HPI rest of the systems are negative Past Medical History Past Medical History: Coronary Artery Disease (CAD), Chest Pain / Angina, CVA/TIA History of Any Multi-Drug Resistant Organisms: None Reported Additional Past Surgical History / Comment(s): Kidney Transplant Smoking Status: Former smoker - Past Family History Father Family Medical History: Chest Pain / Angina Medications and Allergies Home Medications Medication Instructions Recorded Confirmed Type Atorvastatin [Lipitor] 40 mg PO DAILY@1900 03/30/22 03/30/22 History Cholecalciferol [Vitamin D3 (25 50 mcg PO DAILY@0600 03/30/22 03/30/22 History Mcg = 1000 Iu)] Colchicine [Colcrys] 0.6 mg PO DAILY PRN 03/30/22 03/31/22 History Furosemide [Lasix] 20 mg PO MOWEFR 03/30/22 03/30/22 History Insulin Lispro [humaLOG Kwikpen] See Protocol SQ DAILY PRN 03/30/22 03/30/22 History Insulin NPH Human Isophane 42 unit SQ DAILY@59903/30/22 03/30/22 History [humuLIN N Kwikpen] Losartan Potassium 100 mg PO HS@199903/30/22 03/30/22 History Magnesium Oxide [Mag-Ox] 400 mg PO DAILY@59903/30/22 03/30/22 History Metoprolol Succinate (ER) [Toprol 100 mg PO DAILY@59903/30/22 03/30/22 History Xl] Multivitamins, Thera [Multivitamin 1 tab PO DAILY@59903/30/22 03/30/22 History (formulary)] Mycophenolate Sodium [Mycophenolic 720 mg PO BID@0600,189903/30/22 03/31/22 History Acid] NIFEdipine XL [Procardia Xl] 90 mg PO DAILY@59903/30/22 03/30/22 History Nitroglycerin Sl Tabs [Nitrostat] 0.4 mg SUBLINGUAL Q5M PRN 03/30/22 03/30/22 History Sertraline [Zoloft] 50 mg PO DAILY@189903/30/22 03/30/22 History Sirolimus 3 mg PO DAILY@59903/30/22 03/31/22 History Vit C/E/Zn/Coppr/Lutein/Zeaxan 1 cap PO BID@0600,0 03/30/22 03/30/22 History [Preservision Areds 2 Softgel] Allergies Allergy/AdvReac Type Severity Reaction Status Date / Time No Known Allergies Allergy Verified 03/30/22 23:38 Physical Exam Vitals: Vital Signs Temp Pulse Pulse Resp BP BP BP 03/31/22 11:11 98.4 F 156/60 03/31/22 08:00 65 17 03/31/22 07:00 100.9 F H 65 17 173/68 03/31/22 05:27 185/54 03/31/22 04:57 100.8 F H 85 16 203/65 03/31/22 02:19 61 18 143/77 03/30/22 22:37 99 F 72 18 143/77 Pulse Ox 03/31/22 11:11 03/31/22 08:00 03/31/22 07:00 95 03/31/22 05:27 03/31/22 04:57 96 03/31/22 02:19 96 03/30/22 22:37 96 Intake and Output 03/31/22 03/31/22 03/31/22 06:59 14:59 22:59 Intake Total 591 Output Total 800 Balance -800 591 Intake: Oral 591 Output: Urine 800 Other: Voiding Method Indwelling Catheter Indwelling Catheter Weight 99.337 kg GENERAL DESCRIPTION: Elderly male lying in bed, no distress. No tachypnea or accessory muscle of respiration use. HEENT: Shows Pallor , no scleral icterus. Oral mucous membrane is dry. No pharyngeal erythema or thrush NECK: Trachea central, no thyromegaly. LUNGS: Unlabored breathing. Clear to auscultation anteriorly. No wheeze or crackle. HEART: S1, S2, regular rate and rhythm. No loud murmur ABDOMEN: Soft, no tenderness , guarding or rigidity, no organomegaly EXTREMITIES: No edema of feet. SKIN: No rash, no masses palpable. NEUROLOGICAL: The patient is awake, alert, oriented x3, mood and affect normal. Results CBC & Chem 7: 04/03/22 06:07 04/03/22 06:07 Labs: Abnormal Lab Results - Last 24 Hours (Table) 03/30/22 03/30/22 03/30/22 Range/Units 23:09 23:32 23:32 WBC 16.4 H (3.8-10.6) k/uL Hgb 11.2 L (13.0-17.5) gm/dL Hct 35.6 L (39.0-53.0) % MCHC (31.0-37.0) g/dL RDW 15.6 H (11.5-15.5) % Neutrophils # 14.4 H (1.3-7.7) k/uL Lymphocytes # 0.5 L (1.0-4.8) k/uL Monocytes # 1.2 H (0-1.0) k/uL Sodium 132 L (137-145) mmol/L BUN 35 H (9-20) mg/dL Creatinine 1.41 H (0.66-1.25) mg/dL Glucose 142 H (74-99) mg/dL POC Glucose (mg/dL) (70-110) mg/dL Hemoglobin A1c (0.0-6.0) % ALT 51 H (4-49) U/L Total Protein 5.5 L (6.3-8.2) g/dL Albumin 2.9 L (3.5-5.0) g/dL Urine Protein 2+ H (Negative) Urine Glucose (UA) 1+ H (Negative) Urine Blood Moderate H (Negative) Ur Leukocyte Esterase Large H (Negative) Urine WBC 80 H (0-5) /hpf Urine WBC Clumps Moderate H (None) /hpf Urine Bacteria Occasional H (None) /hpf Urine Mucus Rare H (None) /hpf 03/31/22 03/31/22 03/31/22 Range/Units 05:23 07:45 10:44 WBC 14.8 H (3.8-10.6) k/uL Hgb 11.4 L (13.0-17.5) gm/dL Hct 37.0 L (39.0-53.0) % MCHC 30.8 L (31.0-37.0) g/dL RDW 15.9 H (11.5-15.5) % Neutrophils # (1.3-7.7) k/uL Lymphocytes # (1.0-4.8) k/uL Monocytes # (0-1.0) k/uL Sodium (137-145) mmol/L BUN (9-20) mg/dL Creatinine (0.66-1.25) mg/dL Glucose (74-99) mg/dL POC Glucose (mg/dL) 156 H 168 H (70-110) mg/dL Hemoglobin A1c (0.0-6.0) % ALT (4-49) U/L Total Protein (6.3-8.2) g/dL Albumin (3.5-5.0) g/dL Urine Protein (Negative) Urine Glucose (UA) (Negative) Urine Blood (Negative) Ur Leukocyte Esterase (Negative) Urine WBC (0-5) /hpf Urine WBC Clumps (None) /hpf Urine Bacteria (None) /hpf Urine Mucus (None) /hpf 03/31/22 03/31/22 03/31/22 Range/Units 10:44 10:44 12:34 WBC (3.8-10.6) k/uL Hgb (13.0-17.5) gm/dL Hct (39.0-53.0) % MCHC (31.0-37.0) g/dL RDW (11.5-15.5) % Neutrophils # (1.3-7.7) k/uL Lymphocytes # (1.0-4.8) k/uL Monocytes # (0-1.0) k/uL Sodium 132 L (137-145) mmol/L BUN 34 H (9-20) mg/dL Creatinine 1.43 H (0.66-1.25) mg/dL Glucose 226 H (74-99) mg/dL POC Glucose (mg/dL) 215 H (70-110) mg/dL Hemoglobin A1c 7.7 H (0.0-6.0) % ALT (4-49) U/L Total Protein 5.2 L (6.3-8.2) g/dL Albumin 2.7 L (3.5-5.0) g/dL Urine Protein (Negative) Urine Glucose (UA) (Negative) Urine Blood (Negative) Ur Leukocyte Esterase (Negative) Urine WBC (0-5) /hpf Urine WBC Clumps (None) /hpf Urine Bacteria (None) /hpf Urine Mucus (None) /hpf Microbiology - Last 24 Hours (Table) 03/30/22 23:32 Blood Culture - Final Blood 03/30/22 23:09 Urine Culture - Preliminary Urine,Voided Assessment and Plan (1) Bacteremia Current Visit: Yes Status: Acute Code(s): R78.81 - BACTEREMIA SNOMED Code(s): 6602427 (2) UTI (urinary tract infection) Current Visit: Yes Status: Acute Code(s): N39.0 - URINARY TRACT INFECTION, SITE NOT SPECIFIED SNOMED Code(s): 19364641 Plan: 1patient presented to hospital with sepsis in this patient who did have fever elevated white count tachycardia with gram-negative bacteremia source likely urinary in this patient with recent prostate surgery done at the outside facility and the patient seem to have problem with postop retention. 2patient would benefit from a CT abdominal pelvis to make sure evidence of any prostate bed abscess. 3blood cultures will be repeated document clearance of bacteremia. 4patient to continue with the cefepime dose adjusted to the kidney function by pharmacy. We will follow on clinical condition and cultures to further adjust medication if needed Thank you for this consultation will follow this patient along with you Time with Patient: Greater than 30
[2022-04-01] MEDS ORDERED: CEFEPIME 1 GM in SODIUM CHLORIDE 0.9% 50 ML IVPB SCH (01:00)
[2022-04-01] MEDS: METOPROLOL SUCCINATE (ER) 100 MG TAB.ER.24H PO SCH (05:32)
[2022-04-01] MEDS: CHOLECALCIFEROL 25 MCG (1000 IU) TABLET PO SCH (05:44)
[2022-04-01] MEDS: NIFEdipine XL 90 MG TAB.ER.24 PO SCH (05:44)
[2022-04-01] MEDS: INSULIN NPH 300 UNIT/3 ML VIAL SQ SCH (05:45)
[2022-04-01] MEDS: MULTIVITAMINS, THERA 1 EACH TAB PO SCH (05:45)
[2022-04-01] MEDS: SODIUM CHLORIDE 0.9% 1,000 ML IV SCH (05:46)
[2022-04-01 07:28] LABS: Glucose,Whole Blood 139 mg/dL (70-110)
[2022-04-01] MEDS: INSULIN ASPART (NovoLOG) 100 UNIT/ML VIAL SQ SCH ×4 (09:13→22:36)
[2022-04-01 09:30] LABS: African American GFR (CKD) 54.6 (60.0-200.0); Albumin 2.9 g/dL (3.8-4.9); Albumin/Globulin Ratio 1.16 (1.60-3.17); Anion Gap 9.7 mmol/L (10.00-18.00); BUN/Creat Ratio 21.79 Ratio (12.00-20.00); Blood Urea Nitrogen 30.5 mg/dL (9.0-27.0); Calcium 8.7 mg/dL (8.7-10.3); Carbon Dioxide 23.3 mmol/L (20.0-27.5); Globulin 2.5 g/dL (1.6-3.3); Non-African American GFR(CKD) 47.1 (60.0-200.0); Potassium 4.5 mmol/L (3.5-5.5); Total Bilirubin 0.3 mg/dL (0.30-1.20); Total Protein 5.4 g/dL (6.2-8.2)
[2022-04-01] MEDS: HEPARIN SODIUM,PORCINE/PF 5,000 UNIT/0.5 ML SYRINGE SQ SCH ×2 (09:30→20:03)
[2022-04-01] MEDS: FAMOTIDINE 20 MG TAB PO SCH (09:30)
[2022-04-01 09:33] LABS: HCT 36.3 % (39.6-50.0); HGB 10.8 g/dL (13.0-17.0); MCH 24.4 pg (27.0-32.0); MCHC 29.8 g/dL (32.0-37.0); MCV 82.1 fL (80.0-97.0); Mean Platelet Volume 10.2 fL (9.5-12.2); NRBC Per 100 WBC 0 /100 WBCS (0.0-0.0); Platelet Count 261 X 10*3/uL (140-440); RBC 4.42 X 10*6/uL (4.40-5.60); RDW 16.7 % (11.5-14.5); WBC 13.25 X 10*3/uL (4.50-10.00)
--- NOTE | 2022-04-01 09:44 | P.PN ---
Subjective Patient is seen in follow-up for chronic kidney disease and renal transplant management. Renal function stable. Awake. Denies chest pain or shortness of breath. Has a Humphrey catheter. Nonoliguric. No vomiting or diarrhea. Vital signs are stable. General: Awake. No acute distress. HEENT: Head exam is unremarkable. LUNGS: Breath sounds decreased. HEART: Rate and Rhythm are regular. ABDOMEN: Soft, no distention. EXTREMITITES: No edema. Objective - Vital Signs Vital signs: Vital Signs Temp 98.8 F 04/01/22 07:56 Pulse 59 L 04/01/22 07:56 Resp 17 04/01/22 07:56 BP 168/59 04/01/22 07:56 Pulse Ox 95 04/01/22 07:56 FiO2 Intake & Output 03/31/22 04/01/22 04/01/22 18:59 06:59 18:59 Intake Total 709 118 Output Total 900 1500 Balance -191 -1500 118 Intake: Oral 709 118 Output: Urine 900 1500 Other: Voiding Method Indwelling Catheter Indwelling Catheter - Labs CBC & Chem 7: 04/01/22 06:46 04/01/22 06:46 Labs: Abnormal Lab Results - Last 24 Hours (Table) 03/31/22 03/31/22 03/31/22 Range/Units 10:44 10:44 10:44 WBC 14.8 H (3.8-10.6) k/uL Hgb 11.4 L (13.0-17.5) gm/dL Hct 37.0 L (39.0-53.0) % MCH (27.0-32.0) pg MCHC 30.8 L (31.0-37.0) g/dL RDW 15.9 H (11.5-15.5) % Sodium 132 L (137-145) mmol/L Anion Gap (10.00-18.00) mmol/L BUN 34 H (9-20) mg/dL Creatinine 1.43 H (0.66-1.25) mg/dL Est GFR (CKD-EPI)AfAm (60.0-200.0) Est GFR (CKD-EPI)NonAf (60.0-200.0) BUN/Creatinine Ratio (12.00-20.00) Ratio Glucose 226 H (74-99) mg/dL POC Glucose (mg/dL) (70-110) mg/dL Hemoglobin A1c 7.7 H (0.0-6.0) % Total Protein 5.2 L (6.3-8.2) g/dL Albumin 2.7 L (3.5-5.0) g/dL Albumin/Globulin Ratio (1.60-3.17) g/dL 03/31/22 03/31/22 03/31/22 Range/Units 12:34 17:05 20:13 WBC (3.8-10.6) k/uL Hgb (13.0-17.5) gm/dL Hct (39.0-53.0) % MCH (27.0-32.0) pg MCHC (31.0-37.0) g/dL RDW (11.5-15.5) % Sodium (137-145) mmol/L Anion Gap (10.00-18.00) mmol/L BUN (9-20) mg/dL Creatinine (0.66-1.25) mg/dL Est GFR (CKD-EPI)AfAm (60.0-200.0) Est GFR (CKD-EPI)NonAf (60.0-200.0) BUN/Creatinine Ratio (12.00-20.00) Ratio Glucose (74-99) mg/dL POC Glucose (mg/dL) 215 H 275 H 260 H (70-110) mg/dL Hemoglobin A1c (0.0-6.0) % Total Protein (6.3-8.2) g/dL Albumin (3.5-5.0) g/dL Albumin/Globulin Ratio (1.60-3.17) g/dL 04/01/22 04/01/22 04/01/22 Range/Units 06:46 06:46 07:26 WBC 13.25 H (3.8-10.6) k/uL Hgb 10.8 L (13.0-17.5) gm/dL Hct 36.3 L (39.0-53.0) % MCH 24.4 L (27.0-32.0) pg MCHC 29.8 L (31.0-37.0) g/dL RDW 16.7 H (11.5-15.5) % Sodium (137-145) mmol/L Anion Gap 9.70 L (10.00-18.00) mmol/L BUN 30.5 H (9-20) mg/dL Creatinine (0.66-1.25) mg/dL Est GFR (CKD-EPI)AfAm 54.6 L (60.0-200.0) Est GFR (CKD-EPI)NonAf 47.1 L (60.0-200.0) BUN/Creatinine Ratio 21.79 H (12.00-20.00) Ratio Glucose 140 H (74-99) mg/dL POC Glucose (mg/dL) 139 H (70-110) mg/dL Hemoglobin A1c (0.0-6.0) % Total Protein 5.4 L (6.3-8.2) g/dL Albumin 2.9 L (3.5-5.0) g/dL Albumin/Globulin Ratio 1.16 L (1.60-3.17) g/dL Microbiology - Last 24 Hours (Table) 03/30/22 23:24 Blood Culture Gram Stain - Preliminary Blood Blood Culture - Preliminary 03/30/22 23:32 Blood Culture Gram Stain - Preliminary Blood 03/30/22 23:32 Blood Culture - Final Blood 03/30/22 23:32 Blood Culture - Final Blood 03/30/22 23:09 Urine Culture - Preliminary Urine,Voided Assessment and Plan Plan: Assessment: 1. Chronic kidney disease stage IIIa. Baseline creatinine in the range of 1.4- 2 outpatient. GFR near baseline. 2. Status post living unrelated renal transplant in 2003. 3. UTI on antibiotics. Underwent TURP in February 2022 and was also on Invokana outpatient. Blood culture positive for gram-negative rods. ID following. 4. Diabetes mellitus. 5. Hypovolemic hyponatremia. Improved with IV hydration. 6. Hypertension with chronic kidney disease. Plan: Maintain normal saline at 50 mL an hour. Hold Myfortic for now due to acute infection. Maintain home dose sirolimus. Follow-up sirolimus level. Add scheduled hydralazine 25 mg 3 times daily. Hold for systolic blood pressure less than 125. Continue to monitor renal function and urine output. Follow-up cultures.
[2022-04-01] MEDS: SIROLIMUS 1 MG PO SCH (11:07)
[2022-04-01] MEDS: IOPAMIDOL CONTRAST (ORAL USE) VIAL PO PRN ×2 (11:13→12:11)
[2022-04-01 12:22] LABS: Glucose,Whole Blood 169 mg/dL (70-110)
--- NOTE | 2022-04-01 12:42 | P.PN ---
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 Patient presented to the emergency department with a chief complaint of weakness, falls, urinary incontinence, frequency, and dysuria. Patient underwent full evaluation in the emergency department and was found to have leukocytosis with WBC count of 16.4 and renal function and BUN 35, creatinine 1.41, and GFR 47 with unknown baseline creatinine. Urine culture positive for blood and infection inpatient febrile with temperature 100.9F. Patient was admitted under our services for acute p yelonephritis in patient with history of right sided renal transplant with consultation to nephrology and infectious disease. Preliminary blood cultures resulting positive for gram-negative bacilli. Patient on cefepime which will provide coverage for gram-negative organisms, no further orders at this time pending culture and sensitivity reports. Physical exam: Patient seen and fully evaluated at bedside. He was sitting up in chair this morning and appeared to be feeling much better. Humphrey catheter remains in place and patient has had a total of 2400 mL of urinary output over the past 24 hours. Preliminary blood cultures were resulting for gram-negative bacilli. Patient to remain on IV antibiotic cefepime at this time pending final culture and sensitivity reports.. Patient denies having any headache, lightheadedness, dizziness, chest pain, palpitations, shortness of breath, or experiencing any abdominal pain or discomfort. Patient is tolerating oral intake without any episodes of nausea or vomiting. Patient reports having normal bowel movement yesterday. Highest temp over the past 24 hours was 101.5F, currently patient afebrile with temp 98.8F. Morning labs reviewed. CBC revealing improvement in leukocytosis with WBC count down to 13.25 and hemoglobin 10.8. BMP revealing resolution of previously noted hyponatremia with sodium of 138 this morning and stable renal function with BUN of 30.5, creatinine 1.4, and GFR of 47.1. Infectious disease and nephrology following. Vital signs reviewed and stable. General: Nontoxic, no distress and appears stated age. Derm: Skin warm and dry, normal coloration for ethnicity. Head: Atraumatic, normocephalic and symmetric. Eyes: EOMs intact, no lid lag, and anicteric sclera Mouth: no lip lesions, mucus membranes moist Cardiovascular: regular rate and rhythm with normal S1S2, no murmur, positive posterior tibial pulses bilaterally, and cap refill < 2 seconds. Lungs: Respirations even, regular, and unlabored on room air. Lungs CTA bilaterally, no rhonchi, no rales, no wheezing, and no accessory muscle usage. Abdominal: Obese abdomen soft, nontender to palpation, bowel sounds 4 quadrants, no guarding, no appreciable organomegaly Ext: ROM intact. No gross muscle atrophy, no edema, no contractures Neuro: Speech clear, face symmetrical and CN II-XII grossly intact with no noted focal neuro deficits Psych: Alert and oriented to person, place, time, and situation. Appropriate and pleasant affect. Poor historian. Assessment and Plan of Care: Pyelonephritis in patient with history of right sided renal transplant and current stage III chronic kidney disease with baseline creatinine of 1.4 Sepsis secondary to above -Nephrology following -IV antibiotics: Cefepime pending urine culture and sensitivity report. -Infectious disease following -Symptomatic care and pain management with Tylenol as needed for pain and/or fever -Humphrey catheter care, monitor output closely. -Continue anti-rejection medication with sirolimus and hold mycophenolate sodium as recommended by nephrology due to acute pyelonephritis and signs of sepsis in patient with renal transplant. -Continue close monitoring of renal function and obtain sirolimus level with a.m. labs. -Follow up with urine culture and sensitivity reports. -Gentle IV fluid hydration with 0.9% normal saline at 50 mL's per hour. Gram Negative Bacteremia -Preliminary blood cultures resulting positive for gram-negative bacilli. -We will continue with IV antibiotic cefepime which will provide coverage for gram-negative organisms, no further orders at this time pending culture and sensitivity reports. Insulin-dependent diabetes mellitus type 2 -Discontinue Invokana, places patient at risk for UTIs which poses a danger in patients with renal transplants. -Patient placed on glycemic protocol with NovoLog sliding scale Hypertension -Monitor vital signs and continue daily medication regimen with losartan and metoprolol. Hyperlipidemia -Continue daily medication regimen with atorvastatin. Hyponatremia -Resolved Generalized Weakness and recurrent falls -Patient denies injuries or pain. Reports his legs just give out and patient very weak. Likely secondary to acute infection with pyelonephritis and bacteremia. -Treat underlying infection of acute pyelonephritis and bacteremia. -PT/OT consulted -Fall precautions CODE STATUS: Full code DVT prophylaxis: Heparin Discussed with: Patient and RN Anticipated discharge date: Clinical course to determine Anticipated discharge place: Home versus snf facility A total of 38 minutes was spent on the care of this complex patient more than 50% of the time was spent in counseling and care coordination. I reviewed the documentation as provided by the MALAIKA above, who is the original author of this note. I agree with the documented assessment and plan, with the following changes: none Objective - Vital Signs Vital signs: Vital Signs Temp 98.8 F 04/01/22 07:56 Pulse 59 L 04/01/22 07:56 Resp 17 04/01/22 07:56 BP 168/59 04/01/22 07:56 Pulse Ox 95 04/01/22 07:56 FiO2 Intake & Output 03/31/22 04/01/22 04/01/22 18:59 06:59 18:59 Intake Total 709 Output Total 900 1500 Balance -191 -1500 Intake: Oral 709 Output: Urine 900 1500 Other: Voiding Method Indwelling Catheter Indwelling Catheter - Labs CBC & Chem 7: 04/01/22 06:46 04/01/22 06:46 Labs: Abnormal Lab Results - Last 24 Hours (Table) 03/31/22 03/31/22 03/31/22 Range/Units 10:44 10:44 10:44 WBC 14.8 H (3.8-10.6) k/uL Hgb 11.4 L (13.0-17.5) gm/dL Hct 37.0 L (39.0-53.0) % MCHC 30.8 L (31.0-37.0) g/dL RDW 15.9 H (11.5-15.5) % Sodium 132 L (137-145) mmol/L BUN 34 H (9-20) mg/dL Creatinine 1.43 H (0.66-1.25) mg/dL Glucose 226 H (74-99) mg/dL POC Glucose (mg/dL) (70-110) mg/dL Hemoglobin A1c 7.7 H (0.0-6.0) % Total Protein 5.2 L (6.3-8.2) g/dL Albumin 2.7 L (3.5-5.0) g/dL 03/31/22 03/31/22 03/31/22 Range/Units 12:34 17:05 20:13 WBC (3.8-10.6) k/uL Hgb (13.0-17.5) gm/dL Hct (39.0-53.0) % MCHC (31.0-37.0) g/dL RDW (11.5-15.5) % Sodium (137-145) mmol/L BUN (9-20) mg/dL Creatinine (0.66-1.25) mg/dL Glucose (74-99) mg/dL POC Glucose (mg/dL) 215 H 275 H 260 H (70-110) mg/dL Hemoglobin A1c (0.0-6.0) % Total Protein (6.3-8.2) g/dL Albumin (3.5-5.0) g/dL 04/01/22 Range/Units 07:26 WBC (3.8-10.6) k/uL Hgb (13.0-17.5) gm/dL Hct (39.0-53.0) % MCHC (31.0-37.0) g/dL RDW (11.5-15.5) % Sodium (137-145) mmol/L BUN (9-20) mg/dL Creatinine (0.66-1.25) mg/dL Glucose (74-99) mg/dL POC Glucose (mg/dL) 139 H (70-110) mg/dL Hemoglobin A1c (0.0-6.0) % Total Protein (6.3-8.2) g/dL Albumin (3.5-5.0) g/dL Microbiology - Last 24 Hours (Table) 03/30/22 23:24 Blood Culture Gram Stain - Preliminary Blood Blood Culture - Preliminary 03/30/22 23:32 Blood Culture Gram Stain - Preliminary Blood 03/30/22 23:32 Blood Culture - Final Blood 03/30/22 23:32 Blood Culture - Final Blood 03/30/22 23:09 Urine Culture - Preliminary Urine,Voided
--- NOTE | 2022-04-01 13:30 | CT ---
EXAMINATION TYPE: CT abdomen pelvis wo con CT DLP: 1037.8 mGycm, Automated exposure control for dose reduction was used. DATE OF EXAM: 04/01/2022 1:06 PM COMPARISON: None CLINICAL INDICATION:Male, 82 years old with history of pelvic/prostate bed abscess; TECHNIQUE: Standard CT of the abdomen and pelvis following the administration of oral contrast. Cor onal and sagittal reformats were performed. FINDINGS: Limited evaluation due to lack of IV contrast. LOWER CHEST: Bibasilar patchy tree-in-bud opacities. Coronary artery calcifications and/or stents. ABDOMEN LIVER: Unremarkable noncontrast appearance. GALLBLADDER AND BILE DUCTS: Unremarkable. PANCREAS: Unremarkable noncontrast appearance. SPLEEN: Nonenlarged. Punctate calcifications possibly related to calcified granulomas. ADRENAL GLANDS: Unremarkable noncontrast appearance. KIDNEYS AND URETERS: Atrophic bilateral holy cross kidneys with vascular calcifications versus nonobstruc ting renal calculi. No evidence for hydronephrosis. Left lower quadrant renal transplant without fe dence of hydronephrosis. There are sinus cysts identified. PELVIS BLADDER: Decompressed urinary bladder Humphrey catheter placement. There is nondependent gas identified with perivesicular fat stranding demonstrated. REPRODUCTIVE: Prostate is enlarged in size measuring 5.2 cm in transverse dimension. No fluid collect ions within the prostate bed. ABDOMEN & PELVIS STOMACH AND BOWEL: Small hiatal hernia, duodenum is unremarkable. Stool is present within the colon. The appendix is within normal limits. No focal wall thickening or surrounding inflammatory changes. N o evidence of bowel obstruction. PERITONEUM: No evidence of pneumoperitoneum or free fluid. No organized fluid collection. VASCULATURE: Severe atherosclerotic calcifications are present throughout the abdominal aorta and its branches. No evidence of aortic aneurysm. MUSCULOSKELETAL: No acute osseous abnormalities. Median sternotomy wires partially visualized. Degene rative changes of the visualized spine. LYMPH NODES: No gross evidence for lymphadenopathy. SOFT TISSUE/ABDOMINAL WALL: Spinal stimulator demonstrated within the left back subcutaneous tissues with lead entering the left S3 neural foramen. Left ventral wall dystrophic calcifications noted. Sma ll fat filled umbilical hernia. Subcutaneous gas within the ventral wall likely related to medication injection. IMPRESSION: 1. No evidence for pelvic/prostate bed abscess. 2. Decompressed urinary bladder Humphrey catheter in place and surrounding perivesicular fat stranding. Correlate with urinalysis for cystitis. 3. Bibasilar patchy tree-in-bud opacities concerning for an infectious/inflammatory process.
[2022-04-01] MEDS: CEFEPIME 2 GM in SODIUM CHLORIDE 0.9% 100 ML IVPB SCH (13:40)
[2022-04-01] MEDS: hydrALAZINE HCL 25 MG TAB PO SCH ×2 (17:23→22:37)
[2022-04-01 17:41] LABS: Glucose,Whole Blood 160 mg/dL (70-110)
[2022-04-01] MEDS: ATORVASTATIN 40 MG TAB PO SCH (20:03)
[2022-04-01] MEDS: SERTRALINE 50 MG TAB PO SCH (20:03)
[2022-04-01] MEDS: LOSARTAN 50 MG TAB PO SCH (20:03)
[2022-04-01 20:33] LABS: Glucose,Whole Blood 202 mg/dL (70-110)
[2022-04-02] MEDS: CEFEPIME 2 GM in SODIUM CHLORIDE 0.9% 100 ML IVPB SCH ×2 (01:43→13:55)
[2022-04-02] MEDS: SODIUM CHLORIDE 0.9% 1,000 ML IV SCH ×2 (01:44→21:21)
[2022-04-02] MEDS: CHOLECALCIFEROL 25 MCG (1000 IU) TABLET PO SCH (05:50)
[2022-04-02] MEDS: NIFEdipine XL 90 MG TAB.ER.24 PO SCH (05:50)
[2022-04-02] MEDS: MULTIVITAMINS, THERA 1 EACH TAB PO SCH (05:50)
[2022-04-02] MEDS: SIROLIMUS 1 MG PO SCH (05:51)
[2022-04-02] MEDS: INSULIN NPH 300 UNIT/3 ML VIAL SQ SCH (05:53)
[2022-04-02 06:37] LABS: African American GFR (CKD) 56 (>60 ml/min/1.73 sqM); Anion Gap 3 mmol/L; Blood Urea Nitrogen 33 mg/dL (9-20); Calcium 8.3 mg/dL (8.4-10.2); Carbon Dioxide 25 mmol/L (22-30); Chloride 108 mmol/L (98-107); Glucose 102 mg/dL (74-99); Magnesium 1.8 mg/dL (1.6-2.3); Non-African American GFR(CKD) 48 (>60 ml/min/1.73 sqM); Potassium 4.6 mmol/L (3.5-5.1); Sodium 136 mmol/L (137-145)
[2022-04-02] MEDS: METOPROLOL SUCCINATE (ER) 100 MG TAB.ER.24H PO SCH (06:40)
[2022-04-02 07:18] LABS: Glucose,Whole Blood 115 mg/dL (70-110)
[2022-04-02] MEDS: INSULIN ASPART (NovoLOG) 100 UNIT/ML VIAL SQ SCH ×4 (08:19→21:18)
--- NOTE | 2022-04-02 09:42 | P.PN ---
Subjective Patient is seen in follow-up for chronic kidney disease and renal transplant management. Renal function stable. Awake. Denies chest pain or shortness of breath. Has a Humphrey catheter. Nonoliguric. No vomiting or diarrhea. Urine and blood culture positive for gram-negative bacilli. Vital signs are stable. General: Awake. No acute distress. HEENT: Head exam is unremarkable. LUNGS: Breath sounds decreased. HEART: Rate and Rhythm are regular. ABDOMEN: Soft, no distention. EXTREMITITES: No edema. Objective - Vital Signs Vital signs: Vital Signs Temp 98.2 F 04/02/22 08:00 Pulse 60 04/02/22 08:00 Resp 22 04/02/22 08:00 BP 164/67 04/02/22 08:00 Pulse Ox 93 L 04/02/22 08:00 FiO2 Intake & Output 04/01/22 04/02/22 04/02/22 18:59 06:59 18:59 Intake Total 354 Output Total 1600 1500 Balance -1246 -1500 Intake: Oral 354 Output: Urine 1600 1500 Other: Voiding Method Indwelling Catheter Indwelling Catheter - Labs CBC & Chem 7: 04/01/22 06:46 04/02/22 05:59 Labs: Abnormal Lab Results - Last 24 Hours (Table) 03/31/22 04/01/22 04/01/22 Range/Units 10:44 12:19 17:40 Sodium (137-145) mmol/L Chloride (98-107) mmol/L BUN (9-20) mg/dL Creatinine (0.66-1.25) mg/dL Glucose (74-99) mg/dL POC Glucose (mg/dL) 169 H 160 H (70-110) mg/dL Calcium (8.4-10.2) mg/dL Sirolimus <2.0 L (4.0-12.0) ng/mL 04/01/22 04/02/22 04/02/22 Range/Units 20:32 05:59 07:14 Sodium 136 L (137-145) mmol/L Chloride 108 H (98-107) mmol/L BUN 33 H (9-20) mg/dL Creatinine 1.37 H (0.66-1.25) mg/dL Glucose 102 H (74-99) mg/dL POC Glucose (mg/dL) 202 H 115 H (70-110) mg/dL Calcium 8.3 L (8.4-10.2) mg/dL Sirolimus (4.0-12.0) ng/mL Microbiology - Last 24 Hours (Table) 03/30/22 23:09 Urine Culture - Preliminary Urine,Voided Gram Neg Bacilli 03/30/22 23:32 Blood Culture Gram Stain - Preliminary Blood Blood Culture - Preliminary Gram Neg Bacilli 03/30/22 23:24 Blood Culture Gram Stain - Preliminary Blood Blood Culture - Preliminary Assessment and Plan Plan: Assessment: 1. Chronic kidney disease stage IIIa. Baseline creatinine in the range of 1.4- 2 outpatient. GFR near baseline. 2. Status post living unrelated renal transplant in 2003. 3. UTI on antibiotics. Underwent TURP in February 2022 and was also on Invokana outpatient. Blood and urine culture positive for gram-negative bacilli. ID following. 4. Diabetes mellitus. 5. Hypovolemic hyponatremia. Improved with IV hydration. 6. Hypertension with chronic kidney disease. Plan: Maintain normal saline at 50 mL an hour. Hold Myfortic for now due to acute infection. Sirolimus dose increased as level was less than 2. Repeat level pending. Increase dose of hydralazine to 50 mg 3 times daily. Hold for systolic blood pressure less than 125. Continue to monitor renal function and urine output. Follow-up cultures.
[2022-04-02] MEDS: hydrALAZINE HCL 25 MG TAB PO SCH (10:11)
[2022-04-02] MEDS: HEPARIN SODIUM,PORCINE/PF 5,000 UNIT/0.5 ML SYRINGE SQ SCH ×2 (10:13→20:17)
[2022-04-02] MEDS: FAMOTIDINE 20 MG TAB PO SCH (10:13)
--- NOTE | 2022-04-02 11:37 | P.PN ---
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 Patient presented to the emergency department with a chief complaint of weakness, falls, urinary incontinence, frequency, and dysuria. Patient underwent full evaluation in the emergency department and was found to have leukocytosis with WBC count of 16.4 and renal function and BUN 35, creatinine 1.41, and GFR 47 with unknown baseline creatinine. Urine culture positive for blood and infection inpatient febrile with temperature 100.9F. Patient was admitted under our services for acute p yelonephritis in patient with history of right sided renal transplant with consultation to nephrology and infectious disease. Preliminary blood cultures resulting positive for gram-negative bacilli. Patient on cefepime which will provide coverage for gram-negative organisms, no further orders at this time pending culture and sensitivity reports. Physical exam: Patient seen and fully evaluated at bedside. He was sitting up in chair and appeared to be doing well. When asked, patient reports feeling great this morning. He denied having any complaints including headache, lightheadedness, dizziness, chest pain, palpitations, shortness of breath, abdominal pain, nausea, vomiting, or any other complaints. Humphrey catheter remains in place and patient has had a total of 3100 mL of urinary output over the past 24 hours. Preliminary blood cultures and urine cultures were positive for gram-negative bacilli, and continue to await final culture and sensitivity report. Patient to remain on IV antibiotic cefepime at this time pending final culture and sensitivity reports.. Morning labs reviewed showing no significant abnormalities. Renal function remains at baseline with BUN of 33, creatinine 1.37, and GFR 48. Nephrology and infectious disease continue to follow. Vital signs reviewed and stable. General: Nontoxic, no distress and appears stated age. Derm: Skin warm and dry, normal coloration for ethnicity. Head: Atraumatic, normocephalic and symmetric. Eyes: EOMs intact, no lid lag, and anicteric sclera Mouth: no lip lesions, mucus membranes moist Cardiovascular: regular rate and rhythm with normal S1S2, no murmur, positive posterior tibial pulses bilaterally, and cap refill < 2 seconds. Lungs: Respirations even, regular, and unlabored on room air. Lungs CTA bilater ally, no rhonchi, no rales, no wheezing, and no accessory muscle usage. Abdominal: Obese abdomen soft, nontender to palpation, bowel sounds 4 quadrants, no guarding, no appreciable organomegaly Ext: ROM intact. No gross muscle atrophy, no edema, no contractures Neuro: Speech clear, face symmetrical and CN II-XII grossly intact with no noted focal neuro deficits Psych: Alert and oriented to person, place, time, and situation. Appropriate and pleasant affect. Poor historian. Assessment and Plan of Care: Pyelonephritis in patient with history of right sided renal transplant and current stage III chronic kidney disease with baseline creatinine of 1.4 Sepsis secondary to above -Nephrology following -IV antibiotics: Cefepime pending urine culture and sensitivity report. -Infectious disease following -Symptomatic care and pain management with Tylenol as needed for pain and/or fever -Humphrey catheter care, monitor output closely. -Continue anti-rejection medication with sirolimus and hold mycophenolate sodium as recommended by nephrology due to acute pyelonephritis and signs of sepsis in patient with renal transplant. -Continue close monitoring of renal function and obtain sirolimus level with a.m. labs. -Follow up with urine culture and sensitivity reports. -Gentle IV fluid hydration with 0.9% normal saline at 50 mL's per hour. Gram Negative Bacteremia -Preliminary blood cultures resulting positive for gram-negative bacilli. -We will continue with IV antibiotic cefepime which will provide coverage for gram-negative organisms, no further orders at this time pending culture and sensitivity reports. Insulin-dependent diabetes mellitus type 2 -Discontinue Invokana, places patient at risk for UTIs which poses a danger in patients with renal transplants. -Patient placed on glycemic protocol with NovoLog sliding scale Hypertension -Monitor vital signs and continue daily medication regimen with losartan and metoprolol. Hyperlipidemia -Continue daily medication regimen with atorvastatin. Hyponatremia -Resolved Generalized Weakness and recurrent falls -Patient denies injuries or pain. Reports his legs just give out and patient very weak. Likely secondary to acute infection with pyelonephritis and bacteremia. -Treat underlying infection of acute pyelonephritis and bacteremia. -PT/OT consulted -Fall precautions CODE STATUS: Full code DVT prophylaxis: Heparin Discussed with: Patient and RN Anticipated discharge date: Clinical course to determine Anticipated discharge place: Home [facility] A total of 38 minutes was spent on the care of this complex patient more than 50% of the time was spent in counseling and care coordination. I reviewed the documentation as provided by the MALAIKA above, who is the original author of this note. I agree with the documented assessment and plan, with the following changes: none Objective - Vital Signs Vital signs: Vital Signs Temp 98.2 F 04/02/22 08:00 Pulse 60 04/02/22 08:00 Resp 22 04/02/22 08:00 BP 164/67 04/02/22 08:00 Pulse Ox 93 L 04/02/22 08:00 FiO2 Intake & Output 04/01/22 04/02/22 04/02/22 18:59 06:59 18:59 Intake Total 354 118 Output Total 1600 1500 Balance -1246 -1500 118 Intake: Oral 354 118 Output: Urine 1600 1500 Other: Voiding Method Indwelling Catheter Indwelling Catheter - Labs CBC & Chem 7: 04/01/22 06:46 04/02/22 05:59 Labs: Abnormal Lab Results - Last 24 Hours (Table) 03/31/22 04/01/22 04/01/22 Range/Units 10:44 12:19 17:40 Sodium (137-145) mmol/L Chloride (98-107) mmol/L BUN (9-20) mg/dL Creatinine (0.66-1.25) mg/dL Glucose (74-99) mg/dL POC Glucose (mg/dL) 169 H 160 H (70-110) mg/dL Calcium (8.4-10.2) mg/dL Sirolimus <2.0 L (4.0-12.0) ng/mL 04/01/22 04/02/22 04/02/22 Range/Units 20:32 05:59 07:14 Sodium 136 L (137-145) mmol/L Chloride 108 H (98-107) mmol/L BUN 33 H (9-20) mg/dL Creatinine 1.37 H (0.66-1.25) mg/dL Glucose 102 H (74-99) mg/dL POC Glucose (mg/dL) 202 H 115 H (70-110) mg/dL Calcium 8.3 L (8.4-10.2) mg/dL Sirolimus (4.0-12.0) ng/mL Microbiology - Last 24 Hours (Table) 03/30/22 23:09 Urine Culture - Preliminary Urine,Voided Gram Neg Bacilli 03/30/22 23:32 Blood Culture Gram Stain - Preliminary Blood Blood Culture - Preliminary Gram Neg Bacilli 03/30/22 23:24 Blood Culture Gram Stain - Preliminary Blood Blood Culture - Preliminary
[2022-04-02 11:40] LABS: Glucose,Whole Blood 130 mg/dL (70-110)
--- NOTE | 2022-04-02 13:24 | P.PN ---
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 On today's evaluation that is 04/01/2022, the patient fever pattern has improved with a low-grade fever of 99.7, patient is feeling slightly better breathing comfortably no chest pain or shortness of cough no abdominal pain no diarrhea Objective - Vital Signs Vital signs: Vital Signs Temp 98.8 F 04/01/22 07:56 Pulse 59 L 04/01/22 07:56 Resp 17 04/01/22 07:56 BP 168/59 04/01/22 07:56 Pulse Ox 95 04/01/22 07:56 FiO2 Intake & Output 03/31/22 04/01/22 04/01/22 18:59 06:59 18:59 Intake Total 709 118 Output Total 900 1500 Balance -191 -1500 118 Intake: Oral 709 118 Output: Urine 900 1500 Other: Voiding Method Indwelling Catheter Indwelling Catheter - Exam GENERAL DESCRIPTION: An elderly male lying in bed in no distress RESPIRATORY SYSTEM: Unlabored breathing , decreased breath sounds at bases HEART: S1 S2 regular rate and rhythm , ABDOMEN: Soft , no tenderness EXTREMITIES: No edema feet - Labs CBC & Chem 7: 04/01/22 06:46 04/02/22 05:59 Labs: Abnormal Lab Results - Last 24 Hours (Table) 03/31/22 03/31/22 03/31/22 Range/Units 10:44 10:44 10:44 WBC 14.8 H (3.8-10.6) k/uL Hgb 11.4 L (13.0-17.5) gm/dL Hct 37.0 L (39.0-53.0) % MCH (27.0-32.0) pg MCHC 30.8 L (31.0-37.0) g/dL RDW 15.9 H (11.5-15.5) % Sodium 132 L (137-145) mmol/L Anion Gap (10.00-18.00) mmol/L BUN 34 H (9-20) mg/dL Creatinine 1.43 H (0.66-1.25) mg/dL Est GFR (CKD-EPI)AfAm (60.0-200.0) Est GFR (CKD-EPI)NonAf (60.0-200.0) BUN/Creatinine Ratio (12.00-20.00) Ratio Glucose 226 H (74-99) mg/dL POC Glucose (mg/dL) (70-110) mg/dL Hemoglobin A1c 7.7 H (0.0-6.0) % Total Protein 5.2 L (6.3-8.2) g/dL Albumin 2.7 L (3.5-5.0) g/dL Albumin/Globulin Ratio (1.60-3.17) g/dL 03/31/22 03/31/22 03/31/22 Range/Units 12:34 17:05 20:13 WBC (3.8-10.6) k/uL Hgb (13.0-17.5) gm/dL Hct (39.0-53.0) % MCH (27.0-32.0) pg MCHC (31.0-37.0) g/dL RDW (11.5-15.5) % Sodium (137-145) mmol/L Anion Gap (10.00-18.00) mmol/L BUN (9-20) mg/dL Creatinine (0.66-1.25) mg/dL Est GFR (CKD-EPI)AfAm (60.0-200.0) Est GFR (CKD-EPI)NonAf (60.0-200.0) BUN/Creatinine Ratio (12.00-20.00) Ratio Glucose (74-99) mg/dL POC Glucose (mg/dL) 215 H 275 H 260 H (70-110) mg/dL Hemoglobin A1c (0.0-6.0) % Total Protein (6.3-8.2) g/dL Albumin (3.5-5.0) g/dL Albumin/Globulin Ratio (1.60-3.17) g/dL 04/01/22 04/01/22 04/01/22 Range/Units 06:46 06:46 07:26 WBC 13.25 H (3.8-10.6) k/uL Hgb 10.8 L (13.0-17.5) gm/dL Hct 36.3 L (39.0-53.0) % MCH 24.4 L (27.0-32.0) pg MCHC 29.8 L (31.0-37.0) g/dL RDW 16.7 H (11.5-15.5) % Sodium (137-145) mmol/L Anion Gap 9.70 L (10.00-18.00) mmol/L BUN 30.5 H (9-20) mg/dL Creatinine (0.66-1.25) mg/dL Est GFR (CKD-EPI)AfAm 54.6 L (60.0-200.0) Est GFR (CKD-EPI)NonAf 47.1 L (60.0-200.0) BUN/Creatinine Ratio 21.79 H (12.00-20.00) Ratio Glucose 140 H (74-99) mg/dL POC Glucose (mg/dL) 139 H (70-110) mg/dL Hemoglobin A1c (0.0-6.0) % Total Protein 5.4 L (6.3-8.2) g/dL Albumin 2.9 L (3.5-5.0) g/dL Albumin/Globulin Ratio 1.16 L (1.60-3.17) g/dL Microbiology - Last 24 Hours (Table) 03/30/22 23:24 Blood Culture Gram Stain - Preliminary Blood Blood Culture - Preliminary 03/30/22 23:32 Blood Culture Gram Stain - Preliminary Blood 03/30/22 23:32 Blood Culture - Final Blood 03/30/22 23:32 Blood Culture - Final Blood 03/30/22 23:09 Urine Culture - Preliminary Urine,Voided Assessment and Plan (1) Bacteremia Current Visit: Yes Status: Acute Code(s): R78.81 - BACTEREMIA SNOMED Code(s): 8793355 (2) UTI (urinary tract infection) Current Visit: Yes Status: Acute Code(s): N39.0 - URINARY TRACT INFECTION, SITE NOT SPECIFIED SNOMED Code(s): 52005728 Plan: 1patient presented to hospital with sepsis in this patient who did have fever elevated white count tachycardia with gram-negative bacteremia source likely urinary in this patient with recent prostate surgery done at the outside [facility] and the patient seem to have problem with postop retention. 2patient would benefit from a CT abdominal pelvis to make sure evidence of any prostate bed abscess, which has been ordered the patient has been very upset and didn't want to go for the test however detailed discussion with the patient importance of not missing any abscess he finally agreed 3blood cultures has been repeated document clearance of bacteremia. 4patient to continue with the cefepime while waiting for the cultures to finalize Time with Patient: Greater than 30
--- NOTE | 2022-04-02 13:26 | P.PN ---
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 On today's evaluation that is 04/02/2022, the patient is afebrile this morning, patient is breathing comfortably on room air, the patient denies chest pain or shortness of cough no abdominal pain no diarrhea Objective - Vital Signs Vital signs: Vital Signs Temp 98.2 F 04/02/22 08:00 Pulse 60 04/02/22 08:00 Resp 22 04/02/22 08:00 BP 164/67 04/02/22 08:00 Pulse Ox 93 L 04/02/22 08:00 FiO2 Intake & Output 04/01/22 04/02/22 04/02/22 18:59 06:59 18:59 Intake Total 354 118 Output Total 1600 1500 Balance -1246 -1500 118 Intake: Oral 354 118 Output: Urine 1600 1500 Other: Voiding Method Indwelling Catheter Indwelling Catheter - Exam GENERAL DESCRIPTION: An elderly male lying in bed in no distress RESPIRATORY SYSTEM: Unlabored breathing , decreased breath sounds at bases HEART: S1 S2 regular rate and rhythm , ABDOMEN: Soft , no tenderness EXTREMITIES: No edema feet - Labs CBC & Chem 7: 04/01/22 06:46 04/02/22 05:59 Labs: Abnormal Lab Results - Last 24 Hours (Table) 03/31/22 04/01/22 04/01/22 Range/Units 10:44 12:19 17:40 Sodium (137-145) mmol/L Chloride (98-107) mmol/L BUN (9-20) mg/dL Creatinine (0.66-1.25) mg/dL Glucose (74-99) mg/dL POC Glucose (mg/dL) 169 H 160 H (70-110) mg/dL Calcium (8.4-10.2) mg/dL Sirolimus <2.0 L (4.0-12.0) ng/mL 04/01/22 04/02/22 04/02/22 Range/Units 20:32 05:59 07:14 Sodium 136 L (137-145) mmol/L Chloride 108 H (98-107) mmol/L BUN 33 H (9-20) mg/dL Creatinine 1.37 H (0.66-1.25) mg/dL Glucose 102 H (74-99) mg/dL POC Glucose (mg/dL) 202 H 115 H (70-110) mg/dL Calcium 8.3 L (8.4-10.2) mg/dL Sirolimus (4.0-12.0) ng/mL Microbiology - Last 24 Hours (Table) 03/30/22 23:09 Urine Culture - Preliminary Urine,Voided Gram Neg Bacilli 03/30/22 23:32 Blood Culture Gram Stain - Preliminary Blood Blood Culture - Preliminary Gram Neg Bacilli 03/30/22 23:24 Blood Culture Gram Stain - Preliminary Blood Blood Culture - Preliminary Assessment and Plan (1) Bacteremia Current Visit: Yes Status: Acute Code(s): R78.81 - BACTEREMIA SNOMED Code(s): 2427555 (2) UTI (urinary tract infection) Current Visit: Yes Status: Acute Code(s): N39.0 - URINARY TRACT INFECTION, SITE NOT SPECIFIED SNOMED Code(s): 30318771 Plan: 1patient presented to hospital with sepsis in this patient who did have fever elevated white count tachycardia with gram-negative bacteremia source likely urinary in this patient with recent prostate surgery done at the outside facility and the patient seem to have problem with postop retention. 2 CT abdominal pelvis did not show any evidence of prostate bed abscess 3blood cultures has been repeated document clearance of bacteremia which has been negative so far. 4patient to continue with the cefepime while waiting for the cultures to finalize to determine his discharge antibiotics Family the bedside questions were answered Time with Patient: Less than 30
[2022-04-02] MEDS: hydrALAZINE HCL 50 MG TAB PO SCH ×2 (16:19→21:19)
[2022-04-02 16:44] LABS: Glucose,Whole Blood 266 mg/dL (70-110)
[2022-04-02] MEDS: LOSARTAN 50 MG TAB PO SCH (20:17)
[2022-04-02] MEDS: SERTRALINE 50 MG TAB PO SCH (20:17)
[2022-04-02] MEDS: ATORVASTATIN 40 MG TAB PO SCH (20:17)
[2022-04-02 20:42] LABS: Glucose,Whole Blood 180 mg/dL (70-110)
[2022-04-02] MEDS: DOCUSATE 100 MG CAP PO PRN (21:19)
[2022-04-03] MEDS: CEFEPIME 2 GM in SODIUM CHLORIDE 0.9% 100 ML IVPB SCH ×2 (00:37→12:14)
[2022-04-03] MEDS: INSULIN NPH 300 UNIT/3 ML VIAL SQ SCH (05:24)
[2022-04-03] MEDS: MULTIVITAMINS, THERA 1 EACH TAB PO SCH (05:25)
[2022-04-03] MEDS: CHOLECALCIFEROL 25 MCG (1000 IU) TABLET PO SCH (05:25)
[2022-04-03] MEDS: SIROLIMUS 1 MG PO SCH (05:25)
[2022-04-03] MEDS: NIFEdipine XL 90 MG TAB.ER.24 PO SCH (05:25)
[2022-04-03] MEDS: METOPROLOL SUCCINATE (ER) 100 MG TAB.ER.24H PO SCH (05:36)
[2022-04-03 07:36] LABS: Glucose,Whole Blood 102 mg/dL (70-110)
[2022-04-03] MEDS: INSULIN ASPART (NovoLOG) 100 UNIT/ML VIAL SQ SCH ×4 (07:37→21:17)
[2022-04-03] MEDS: FAMOTIDINE 20 MG TAB PO SCH (08:36)
[2022-04-03] MEDS: DOCUSATE 100 MG CAP PO PRN (08:36)
[2022-04-03] MEDS: HEPARIN SODIUM,PORCINE/PF 5,000 UNIT/0.5 ML SYRINGE SQ SCH ×2 (08:36→21:21)
[2022-04-03] MEDS: hydrALAZINE HCL 50 MG TAB PO SCH (08:36)
[2022-04-03] MEDS: SODIUM CHLORIDE 0.9% 1,000 ML IV SCH (08:40)
[2022-04-03 08:43] LABS: HCT 36.1 % (39.6-50.0); HGB 10.9 g/dL (13.0-17.0); MCH 24.5 pg (27.0-32.0); MCHC 30.2 g/dL (32.0-37.0); MCV 81.1 fL (80.0-97.0); Mean Platelet Volume 10.1 fL (9.5-12.2); NRBC Per 100 WBC 0 /100 WBCS (0.0-0.0); Platelet Count 272 X 10*3/uL (140-440); RBC 4.45 X 10*6/uL (4.40-5.60); RDW 16.6 % (11.5-14.5); WBC 9.81 X 10*3/uL (4.50-10.00)
[2022-04-03 08:52] LABS: Magnesium 1.9 mg/dL (1.5-2.4)
[2022-04-03 09:11] LABS: African American GFR (CKD) 73.1 (60.0-200.0); Albumin 2.7 g/dL (3.8-4.9); Albumin/Globulin Ratio 1.13 (1.60-3.17); Anion Gap 7.9 mmol/L (10.00-18.00); BUN/Creat Ratio 24.36 Ratio (12.00-20.00); Blood Urea Nitrogen 26.8 mg/dL (9.0-27.0); Calcium 8.7 mg/dL (8.7-10.3); Carbon Dioxide 25.1 mmol/L (20.0-27.5); Globulin 2.4 g/dL (1.6-3.3); Non-African American GFR(CKD) 63.1 (60.0-200.0); Potassium 4.8 mmol/L (3.5-5.5); Total Bilirubin 0.2 mg/dL (0.30-1.20); Total Protein 5.1 g/dL (6.2-8.2)
[2022-04-03] MEDS ORDERED: hydrALAZINE HCL 25 MG TAB PO ONE (10:45)
--- NOTE | 2022-04-03 10:51 | P.PN ---
Subjective Progress Note Date: 04/03/22 Subjective: Patients and examined. States his doing well. They would like to look at physical therapy, who did not return yesterday. He denies any chest pain, shortness of breath, abdominal pain. Denies any lightheadedness or dizziness. No fevers or chills. Physical exam: Vital signs reviewed and stable. General: Nontoxic, no distress and appears stated age. Derm: Skin warm and dry, normal coloration for ethnicity. Head: Atraumatic, normocephalic and symmetric. Eyes: EOMs intact, no lid lag, and anicteric sclera Mouth: no lip lesions, mucus membranes moist Cardiovascular: regular rate and rhythm with normal S1S2, no murmur Lungs: Respirations even, regular, and unlabored on room air. Lungs CTA bilaterally, no rhonchi, no rales, no wheezing, and no accessory muscle usage. Abdominal: Obese abdomen soft, nontender to palpation, bowel sounds 4 quadrants, no guarding, no appreciable organomegaly Ext: ROM intact. No gross muscle atrophy, no edema, no contractures Psych: Alert and oriented to person, place, time, and situation. Appropriate and pleasant affect. Poor historian. Assessment and Plan of Care: Pyelonephritis in patient with history of right sided renal transplant and current stage III chronic kidney disease with baseline creatinine of 1.4 Sepsis secondary to above -Nephrology following -IV antibiotics: Cefepime pending urine culture and sensitivity report. -Infectious disease following -Symptomatic care and pain management with Tylenol as needed for pain and/or fever -Humphrey catheter care, monitor output closely. -Continue anti-rejection medication with sirolimus and hold mycophenolate sodium as recommended by nephrology due to acute pyelonephritis and signs of sepsis in patient with renal transplant. -Continue close monitoring of renal function -Follow up with urine culture and sensitivity reports. -Gentle IV fluid hydration with 0.9% normal saline at 50 mL's per hour. Gram Negative Bacteremia -Preliminary blood cultures resulting positive for gram-negative bacilli. -Repeat cultures from 04/02/22: No growth at 24 hours. -We will continue with IV antibiotic cefepime which will provide coverage for gram-negative organisms, no further orders at this time pending culture and sensitivity reports. Insulin-dependent diabetes mellitus type 2 -Discontinue Invokana, places patient at risk for UTIs which poses a danger in patients with renal transplants. -Patient placed on glycemic protocol with NovoLog sliding scale Hypertension -Monitor vital signs and continue daily medication regimen with losartan, nifedipine and metoprolol. -Increase hydralazine to 75 mg 3 times a day Hyperlipidemia -Continue daily medication regimen with atorvastatin. Hyponatremia -Resolved Severe ASCVD status post CABG Generalized Weakness and recurrent falls -Patient denies injuries or pain. Reports his legs just give out and patient very weak. Likely secondary to acute infection with pyelonephritis and bacteremia. -Treat underlying infection of acute pyelonephritis and bacteremia. -PT/OT consulted -Fall precautions Objective - Vital Signs Vital signs: Vital Signs Temp 98.4 F 04/03/22 08:00 Pulse 60 04/03/22 08:00 Resp 18 04/03/22 08:00 BP 183/65 04/03/22 08:00 Pulse Ox 98 04/03/22 08:00 FiO2 Intake & Output 04/02/22 04/03/22 04/03/22 18:59 06:59 18:59 Intake Total 476 Output Total 1500 3100 Balance -1024 -3100 Intake: Oral 476 Output: Urine 1500 3100 Other: Voiding Method Indwelling Catheter Indwelling Catheter Indwelling Catheter # Bowel Movements 0 1 - Labs CBC & Chem 7: 04/03/22 06:07 04/03/22 06:07 Labs: Abnormal Lab Results - Last 24 Hours (Table) 04/01/22 04/02/22 04/02/22 Range/Units 06:46 11:39 16:42 Hgb (13.0-17.0) g/dL Hct (39.6-50.0) % MCH (27.0-32.0) pg MCHC (32.0-37.0) g/dL RDW (11.5-14.5) % Anion Gap (10.00-18.00) mmol/L BUN/Creatinine Ratio (12.00-20.00) Ratio POC Glucose (mg/dL) 130 H 266 H (70-110) mg/dL Total Bilirubin (0.30-1.20) mg/dL AST (14-35) U/L ALT (10-49) U/L Total Protein (6.2-8.2) g/dL Albumin (3.8-4.9) g/dL Albumin/Globulin Ratio (1.60-3.17) g/dL Sirolimus 2.9 L (4.0-12.0) ng/mL 04/02/22 04/03/22 04/03/22 Range/Units 20:41 06:07 06:07 Hgb 10.9 L (13.0-17.0) g/dL Hct 36.1 L (39.6-50.0) % MCH 24.5 L (27.0-32.0) pg MCHC 30.2 L (32.0-37.0) g/dL RDW 16.6 H (11.5-14.5) % Anion Gap 7.90 L (10.00-18.00) mmol/L BUN/Creatinine Ratio 24.36 H (12.00-20.00) Ratio POC Glucose (mg/dL) 180 H (70-110) mg/dL Total Bilirubin 0.20 L (0.30-1.20) mg/dL AST 36 H (14-35) U/L ALT 55 H (10-49) U/L Total Protein 5.1 L (6.2-8.2) g/dL Albumin 2.7 L (3.8-4.9) g/dL Albumin/Globulin Ratio 1.13 L (1.60-3.17) g/dL Sirolimus (4.0-12.0) ng/mL Microbiology - Last 24 Hours (Table) 04/02/22 05:59 Blood Culture - Preliminary Blood No Growth after 24 hours 03/30/22 23:09 Urine Culture - Final Urine,Voided Escherichia coli
[2022-04-03 11:47] LABS: Glucose,Whole Blood 175 mg/dL (70-110)
--- NOTE | 2022-04-03 13:50 | P.PN ---
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 On today's evaluation that is 04/03/2022, the patient remains to be afebril, the patient is breathing comfortably on room air, the patient denies chest pain or shortness of breath and no significant cough , the patient denies nausea vomiting or abdominal pain no diarrhea Objective - Vital Signs Vital signs: Vital Signs Temp 98.4 F 04/03/22 08:00 Pulse 60 04/03/22 08:00 Resp 18 04/03/22 08:00 BP 171/61 04/03/22 12:05 Pulse Ox 98 04/03/22 08:00 FiO2 Intake & Output 04/02/22 04/03/22 04/03/22 18:59 06:59 18:59 Intake Total 476 Output Total 1500 3100 Balance -1024 -3100 Intake: Oral 476 Output: Urine 1500 3100 Other: Voiding Method Indwelling Catheter Indwelling Catheter Indwelling Catheter # Bowel Movements 0 1 - Exam GENERAL DESCRIPTION: An elderly male lying in bed in no distress RESPIRATORY SYSTEM: Unlabored breathing , decreased breath sounds at bases HEART: S1 S2 regular rate and rhythm , ABDOMEN: Soft , no tenderness EXTREMITIES: No edema feet - Labs CBC & Chem 7: 04/03/22 06:07 04/03/22 06:07 Labs: Abnormal Lab Results - Last 24 Hours (Table) 04/01/22 04/02/22 04/02/22 Range/Units 06:46 16:42 20:41 Hgb (13.0-17.0) g/dL Hct (39.6-50.0) % MCH (27.0-32.0) pg MCHC (32.0-37.0) g/dL RDW (11.5-14.5) % Anion Gap (10.00-18.00) mmol/L BUN/Creatinine Ratio (12.00-20.00) Ratio POC Glucose (mg/dL) 266 H 180 H (70-110) mg/dL Total Bilirubin (0.30-1.20) mg/dL AST (14-35) U/L ALT (10-49) U/L Total Protein (6.2-8.2) g/dL Albumin (3.8-4.9) g/dL Albumin/Globulin Ratio (1.60-3.17) g/dL Sirolimus 2.9 L (4.0-12.0) ng/mL 04/03/22 04/03/22 04/03/22 Range/Units 06:07 06:07 11:45 Hgb 10.9 L (13.0-17.0) g/dL Hct 36.1 L (39.6-50.0) % MCH 24.5 L (27.0-32.0) pg MCHC 30.2 L (32.0-37.0) g/dL RDW 16.6 H (11.5-14.5) % Anion Gap 7.90 L (10.00-18.00) mmol/L BUN/Creatinine Ratio 24.36 H (12.00-20.00) Ratio POC Glucose (mg/dL) 175 H (70-110) mg/dL Total Bilirubin 0.20 L (0.30-1.20) mg/dL AST 36 H (14-35) U/L ALT 55 H (10-49) U/L Total Protein 5.1 L (6.2-8.2) g/dL Albumin 2.7 L (3.8-4.9) g/dL Albumin/Globulin Ratio 1.13 L (1.60-3.17) g/dL Sirolimus (4.0-12.0) ng/mL Microbiology - Last 24 Hours (Table) 04/02/22 05:59 Blood Culture - Preliminary Blood No Growth after 24 hours 03/30/22 23:09 Urine Culture - Final Urine,Voided Escherichia coli Assessment and Plan (1) Bacteremia Current Visit: Yes Status: Acute Code(s): R78.81 - BACTEREMIA SNOMED Code(s): 4175729 (2) UTI (urinary tract infection) Current Visit: Yes Status: Acute Code(s): N39.0 - URINARY TRACT INFECTION, SITE NOT SPECIFIED SNOMED Code(s): 70367538 Plan: 1patient presented to hospital with sepsis in this patient who did have fever elevated white count tachycardia with gram-negative bacteremia source likely urinary in this patient with recent prostate surgery done at the outside facility and the patient seem to have problem with postop retention. 2 CT abdominal pelvis did not show any evidence of prostate bed abscess 3blood cultures has been repeated document clearance of bacteremia which has been negative so far. 4patient blood culture finalized with E. coli which is a sensitive pathogen we will discontinue cefepime start the patient on Rocephin 2 g daily Time with Patient: Less than 30
[2022-04-03] MEDS: hydrALAZINE HCL 25 MG TAB PO SCH ×2 (17:10→21:21)
[2022-04-03 17:16] LABS: Glucose,Whole Blood 109 mg/dL (70-110)
[2022-04-03 21:05] LABS: Glucose,Whole Blood 131 mg/dL (70-110)
[2022-04-03] MEDS: LOSARTAN 50 MG TAB PO SCH (21:21)
[2022-04-03] MEDS: SERTRALINE 50 MG TAB PO SCH (21:21)
[2022-04-03] MEDS: ATORVASTATIN 40 MG TAB PO SCH (21:21)
[2022-04-04 05:14] LABS: Glucose,Whole Blood 80 mg/dL (70-110)
[2022-04-04] MEDS: METOPROLOL SUCCINATE (ER) 100 MG TAB.ER.24H PO SCH (05:14)
[2022-04-04] MEDS: INSULIN NPH 300 UNIT/3 ML VIAL SQ SCH (05:14)
[2022-04-04] MEDS: SIROLIMUS 1 MG PO SCH (05:15)
[2022-04-04] MEDS: NIFEdipine XL 90 MG TAB.ER.24 PO SCH (05:15)
[2022-04-04] MEDS: MULTIVITAMINS, THERA 1 EACH TAB PO SCH (05:15)
[2022-04-04] MEDS: CHOLECALCIFEROL 25 MCG (1000 IU) TABLET PO SCH (05:15)
[2022-04-04 07:37] LABS: Glucose,Whole Blood 83 mg/dL (70-110)
[2022-04-04] MEDS: INSULIN ASPART (NovoLOG) 100 UNIT/ML VIAL SQ SCH ×4 (09:30→20:33)
--- NOTE | 2022-04-04 09:36 | P.PN ---
Subjective patient is seen for chronic kidney diseaseand renal transplant care. No significant complaints today Patient has an indwelling Humphrey catheter Currently maintained on antibiotics for UTI serum creatinine down to 1.1 yesterday on 04/03/2022 Objective - Vital Signs Vital signs: Vital Signs Temp 98.2 F 04/04/22 07:45 Pulse 57 L 04/04/22 07:45 Resp 17 04/04/22 07:45 BP 183/64 04/04/22 07:45 Pulse Ox 95 04/04/22 07:45 FiO2 Intake & Output 04/03/22 04/04/22 04/04/22 18:59 06:59 18:59 Intake Total 236 Output Total 1550 1650 Balance -1314 -1650 Intake: Oral 236 Output: Urine 1550 1650 Other: Voiding Method Indwelling Catheter Indwelling Catheter - Exam awake, comfortable, no acute distress Examination of the heart S1 and S2 Examination of the lungs bilateral breath sounds are heard Abdomen is soft nontender Examination of the lower extremity shows no edema FOOT ORTHOPEDIST exam grossly intact - Labs CBC & Chem 7: 04/03/22 06:07 04/03/22 06:07 Labs: Abnormal Lab Results - Last 24 Hours (Table) 04/02/22 04/03/22 04/03/22 Range/Units 05:59 11:45 21:04 POC Glucose (mg/dL) 175 H 131 H (70-110) mg/dL Sirolimus 3.9 L (4.0-12.0) ng/mL Microbiology - Last 24 Hours (Table) 04/03/22 06:07 Blood Culture - Preliminary Blood No Growth after 24 hours 04/02/22 05:59 Blood Culture - Preliminary Blood No Growth after 48 hours 03/30/22 23:32 Blood Culture Gram Stain - Final Blood Blood Culture - Final Pantoea species 03/30/22 23:24 Blood Culture Gram Stain - Final Blood Blood Culture - Final Pantoea species Assessment and Plan Assessment: 1. 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 Status post living unrelated renal transplant in 2003 3. UTI with history of TURP last month. Patient was also on in a currently discontinued 4. hypovolemic hyponatremia, improved with iv hydration 5. hypertension with ck d 6. Bacteremia with blood cultures growing pantoea species an urine culture growing E. coli Plan: check labs Resume Myfortic in 1-2 days Continue antibiotics
[2022-04-04 09:42] LABS: Basophils # (A) 0.03 X 10*3/uL (0.00-0.10); Basophils % (A) 0.3 %; Eosinophils # (A) 0.14 X 10*3/uL (0.04-0.35); Eosinophils % (A) 1.5 %; HCT 36.5 % (39.6-50.0); HGB 10.9 g/dL (13.0-17.0); Immature Grans, Automated 1.9 %; Lymphocytes # (A) 0.97 X 10*3/uL (0.90-5.00); Lymphocytes % (A) 10.2 %; MCH 24.5 pg (27.0-32.0); MCHC 29.9 g/dL (32.0-37.0); MCV 82.2 fL (80.0-97.0); Monocytes # (A) 1.28 X 10*3/uL (0.20-1.00); Monocytes % (A) 13.4 %; NRBC Per 100 WBC 0 /100 WBCS (0.0-0.0); Neutrophils # (A) 6.92 X 10*3/uL (1.80-7.70); Neutrophils % (A) 72.7 %; Platelet Count 327 X 10*3/uL (140-440); RBC 4.44 X 10*6/uL (4.40-5.60); RDW 16.9 % (11.5-14.5); WBC 9.52 X 10*3/uL (4.50-10.00)
[2022-04-04] MEDS: FAMOTIDINE 20 MG TAB PO SCH (09:48)
[2022-04-04] MEDS: hydrALAZINE HCL 25 MG TAB PO SCH ×3 (09:48→20:33)
[2022-04-04] MEDS: HEPARIN SODIUM,PORCINE/PF 5,000 UNIT/0.5 ML SYRINGE SQ SCH ×2 (09:48→20:33)
[2022-04-04 09:52] LABS: African American GFR (CKD) 64.5 (60.0-200.0); Anion Gap 10.8 mmol/L (10.00-18.00); BUN/Creat Ratio 19.67 Ratio (12.00-20.00); Calcium 8.5 mg/dL (8.7-10.3); Carbon Dioxide 21.7 mmol/L (20.0-27.5); Non-African American GFR(CKD) 55.7 (60.0-200.0); Potassium 4.7 mmol/L (3.5-5.5)
--- NOTE | 2022-04-04 11:03 | P.PN ---
Subjective Progress Note Date: 04/04/22 Subjective: Patients and examined. States his doing well. He is sitting up in the chair. He denies any chest pain, shortness of breath, abdominal pain. Denies any lightheadedness or dizziness. No fevers or chills. Physical exam: Vital signs reviewed and stable. General: Nontoxic, no distress and appears stated age. Derm: Skin warm and dry, normal coloration for ethnicity. Head: Atraumatic, normocephalic and symmetric. Eyes: EOMs intact, no lid lag, and anicteric sclera Mouth: no lip lesions, mucus membranes moist Cardiovascular: regular rate and rhythm with normal S1S2, no murmur Lungs: Respirations even, regular, and unlabored on room air. Lungs CTA bilaterally, no rhonchi, no rales, no wheezing, and no accessory muscle usage. Abdominal: Obese abdomen soft, nontender to palpation, bowel sounds 4 quadrants, no guarding, no appreciable organomegaly Ext: ROM intact. No gross muscle atrophy, no edema, no contractures Psych: Alert and oriented to person, place, time, and situation. Appropriate and pleasant affect. Poor historian. Assessment and Plan of Care: Pyelonephritis in patient with history of right sided renal transplant and current stage III chronic kidney disease with baseline creatinine of 1.4 Sepsis secondary to above -Nephrology following -IV antibiotics: Cefepime pending urine culture and sensitivity report. -Infectious disease following -Symptomatic care and pain management with Tylenol as needed for pain and/or fever -Humphrey catheter care, monitor output closely. -Continue anti-rejection medication with sirolimus and hold mycophenolate sodium as recommended by nephrology due to acute pyelonephritis and signs of sepsis in patient with renal transplant. -Continue close monitoring of renal function -Follow up with urine culture and sensitivity reports. -Gentle IV fluid hydration with 0.9% normal saline at 50 mL's per hour. Gram Negative Bacteremia -Preliminary blood cultures resulting positive for gram-negative bacilli. -Repeat cultures from 04/02/22: No growth at 24 hours. -We will continue with IV antibiotic ceftriaxone which will provide coverage for gram-negative organism Insulin-dependent diabetes mellitus type 2 -Discontinue Invokana, places patient at risk for UTIs which poses a danger in patients with renal transplants. -Patient placed on glycemic protocol with NovoLog sliding scale Hypertension -Monitor vital signs and continue daily medication regimen with losartan, nifedipine -Continue hydralazine to 75 mg 3 times a day - Patient is currently on max doses of losartan, nifedipine. - Patient has been bradycardic hence we'll stop the metoprolol and hold off any AV schuyler blocking agents. -Nephrology recommendations and patient consented on diuretic or spinolactone. - We'll start clonidine 0.1 mg twice a day Hyperlipidemia -Continue daily medication regimen with atorvastatin. Hyponatremia -Resolved Severe ASCVD status post CABG Generalized Weakness and recurrent falls -Patient denies injuries or pain. Reports his legs just give out and patient very weak. Likely secondary to acute infection with pyelonephritis and bacteremia. -Treat underlying infection of acute pyelonephritis and bacteremia. -PT/OT consulted -Fall precautions Objective - Vital Signs Vital signs: Vital Signs Temp 98.2 F 04/04/22 07:45 Pulse 57 L 04/04/22 07:45 Resp 17 04/04/22 07:45 BP 183/64 04/04/22 07:45 Pulse Ox 95 04/04/22 07:45 FiO2 Intake & Output 04/03/22 04/04/22 04/04/22 18:59 06:59 18:59 Intake Total 236 Output Total 1550 1650 Balance -1314 -1650 Intake: Oral 236 Output: Urine 1550 1650 Other: Voiding Method Indwelling Catheter Indwelling Catheter Indwelling Catheter - Labs CBC & Chem 7: 04/04/22 04:42 04/04/22 04:42 Labs: Abnormal Lab Results - Last 24 Hours (Table) 04/02/22 04/03/22 04/03/22 Range/Units 05:59 11:45 21:04 Hgb (13.0-17.0) g/dL Hct (39.6-50.0) % MCH (27.0-32.0) pg MCHC (32.0-37.0) g/dL RDW (11.5-14.5) % Immature Gran # (0.00-0.04) X 10*3/uL Monocytes # (0.20-1.00) X 10*3/uL Est GFR (CKD-EPI)NonAf (60.0-200.0) POC Glucose (mg/dL) 175 H 131 H (70-110) mg/dL Calcium (8.7-10.3) mg/dL Sirolimus 3.9 L (4.0-12.0) ng/mL 04/04/22 04/04/22 Range/Units 04:42 04:42 Hgb 10.9 L (13.0-17.0) g/dL Hct 36.5 L (39.6-50.0) % MCH 24.5 L (27.0-32.0) pg MCHC 29.9 L (32.0-37.0) g/dL RDW 16.9 H (11.5-14.5) % Immature Gran # 0.18 H (0.00-0.04) X 10*3/uL Monocytes # 1.28 H (0.20-1.00) X 10*3/uL Est GFR (CKD-EPI)NonAf 55.7 L (60.0-200.0) POC Glucose (mg/dL) (70-110) mg/dL Calcium 8.5 L (8.7-10.3) mg/dL Sirolimus (4.0-12.0) ng/mL Microbiology - Last 24 Hours (Table) 04/03/22 06:07 Blood Culture - Preliminary Blood No Growth after 24 hours 04/02/22 05:59 Blood Culture - Preliminary Blood No Growth after 48 hours 03/30/22 23:32 Blood Culture Gram Stain - Final Blood Blood Culture - Final Pantoea species 03/30/22 23:24 Blood Culture Gram Stain - Final Blood Blood Culture - Final Pantoea species
[2022-04-04 11:41] LABS: Glucose,Whole Blood 116 mg/dL (70-110)
[2022-04-04] MEDS: cloNIDine HCL 0.1 MG TAB PO SCH ×2 (12:26→20:33)
[2022-04-04] MEDS: SODIUM CHLORIDE 0.9% 1,000 ML IV SCH (12:26)
[2022-04-04 17:16] LABS: Glucose,Whole Blood 206 mg/dL (70-110)
[2022-04-04 20:23] LABS: Glucose,Whole Blood 221 mg/dL (70-110)
[2022-04-04] MEDS: LOSARTAN 50 MG TAB PO SCH (20:33)
[2022-04-04] MEDS: ATORVASTATIN 40 MG TAB PO SCH (20:33)
[2022-04-04] MEDS: SERTRALINE 50 MG TAB PO SCH (20:33)
[2022-04-05 05:27] LABS: Glucose,Whole Blood 135 mg/dL (70-110)
[2022-04-05] MEDS: INSULIN NPH 300 UNIT/3 ML VIAL SQ SCH (05:29)
[2022-04-05] MEDS: NIFEdipine XL 90 MG TAB.ER.24 PO SCH (05:32)
[2022-04-05] MEDS: MULTIVITAMINS, THERA 1 EACH TAB PO SCH (05:32)
[2022-04-05] MEDS: SIROLIMUS 1 MG PO SCH (05:32)
[2022-04-05] MEDS: CHOLECALCIFEROL 25 MCG (1000 IU) TABLET PO SCH (05:33)
[2022-04-05 07:08] LABS: Glucose,Whole Blood 148 mg/dL (70-110)
[2022-04-05] MEDS: INSULIN ASPART (NovoLOG) 100 UNIT/ML VIAL SQ SCH ×5 (07:32→23:26)
--- NOTE | 2022-04-05 08:19 | P.PN ---
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 On today's evaluation that is 04/04/2022, the patient denies any fever or any chills, the patient is breathing comfortably on room air, the patient denies chest pain or shortness of breath and no significant cough , the patient denies nausea vomiting or abdominal pain no diarrhea Objective - Vital Signs Vital signs: Vital Signs Temp 98.1 F 04/04/22 11:53 Pulse 58 L 04/04/22 11:53 Resp 17 04/04/22 11:53 BP 171/51 04/04/22 11:53 Pulse Ox 96 04/04/22 11:53 FiO2 Intake & Output 04/03/22 04/04/22 04/04/22 18:59 06:59 18:59 Intake Total 236 Output Total 1550 1650 800 Balance -1314 -1650 -800 Intake: Oral 236 Output: Urine 1550 1650 800 Other: Voiding Method Indwelling Catheter Indwelling Catheter Indwelling Catheter - Exam GENERAL DESCRIPTION: An elderly male lying in bed in no distress RESPIRATORY SYSTEM: Unlabored breathing , decreased breath sounds at bases HEART: S1 S2 regular rate and rhythm , ABDOMEN: Soft , no tenderness EXTREMITIES: No edema feet - Labs CBC & Chem 7: 04/04/22 04:42 04/04/22 04:42 Labs: Abnormal Lab Results - Last 24 Hours (Table) 04/02/22 04/03/22 04/04/22 Range/Units 05:59 21:04 04:42 Hgb 10.9 L (13.0-17.0) g/dL Hct 36.5 L (39.6-50.0) % MCH 24.5 L (27.0-32.0) pg MCHC 29.9 L (32.0-37.0) g/dL RDW 16.9 H (11.5-14.5) % Immature Gran # 0.18 H (0.00-0.04) X 10*3/uL Monocytes # 1.28 H (0.20-1.00) X 10*3/uL Est GFR (CKD-EPI)NonAf (60.0-200.0) POC Glucose (mg/dL) 131 H (70-110) mg/dL Calcium (8.7-10.3) mg/dL Sirolimus 3.9 L (4.0-12.0) ng/mL 04/04/22 04/04/22 Range/Units 04:42 11:39 Hgb (13.0-17.0) g/dL Hct (39.6-50.0) % MCH (27.0-32.0) pg MCHC (32.0-37.0) g/dL RDW (11.5-14.5) % Immature Gran # (0.00-0.04) X 10*3/uL Monocytes # (0.20-1.00) X 10*3/uL Est GFR (CKD-EPI)NonAf 55.7 L (60.0-200.0) POC Glucose (mg/dL) 116 H (70-110) mg/dL Calcium 8.5 L (8.7-10.3) mg/dL Sirolimus (4.0-12.0) ng/mL Microbiology - Last 24 Hours (Table) 04/03/22 06:07 Blood Culture - Preliminary Blood No Growth after 24 hours 04/02/22 05:59 Blood Culture - Preliminary Blood No Growth after 48 hours 03/30/22 23:32 Blood Culture Gram Stain - Final Blood Blood Culture - Final Pantoea species 03/30/22 23:24 Blood Culture Gram Stain - Final Blood Blood Culture - Final Pantoea species Assessment and Plan (1) Bacteremia Current Visit: Yes Status: Acute Code(s): R78.81 - BACTEREMIA SNOMED Code(s): 1973388 (2) UTI (urinary tract infection) Current Visit: Yes Status: Acute Code(s): N39.0 - URINARY TRACT INFECTION, SITE NOT SPECIFIED SNOMED Code(s): 72768345 Plan: 1patient presented to hospital with sepsis in this patient who did have fever elevated white count tachycardia with gram-negative bacteremia source likely urinary in this patient with recent prostate surgery done at the outside facility and the patient seem to have problem with postop retention. 2 CT abdominal pelvis did not show any evidence of prostate bed abscess 3blood cultures has been repeated document clearance of bacteremia which has been negative so far. 4patient urine culture finalized with E. coli which is a sensitive pathogen , however the blood cultures are growing Pantoea species with the sensitivities currently pending patient to continue with the Rocephin while waiting for the blood culture to be finalized to determine his discharge antibiotics
[2022-04-05] MEDS: cloNIDine HCL 0.1 MG TAB PO SCH ×2 (08:32→20:09)
[2022-04-05] MEDS: HEPARIN SODIUM,PORCINE/PF 5,000 UNIT/0.5 ML SYRINGE SQ SCH ×2 (08:32→20:10)
[2022-04-05] MEDS: hydrALAZINE HCL 25 MG TAB PO SCH ×3 (08:33→20:10)
[2022-04-05] MEDS: FAMOTIDINE 20 MG TAB PO SCH (08:33)
[2022-04-05] MEDS: SODIUM CHLORIDE 0.9% 1,000 ML IV SCH (08:34)
--- NOTE | 2022-04-05 10:55 | P.PN ---
Subjective Patient is seen for chronic kidney disease and renal transplant care. No significant complaints today Patient has an indwelling Humphrey catheter Currently maintained on antibiotics for UTI Serum creatinine down to 1.2 good urine output, documented at 3.4 L for 24 hours Objective - Vital Signs Vital signs: Vital Signs Temp 98.3 F 04/05/22 08:00 Pulse 63 04/05/22 08:00 Resp 20 04/05/22 08:00 BP 175/61 04/05/22 08:00 Pulse Ox 95 04/05/22 08:00 FiO2 Intake & Output 04/04/22 04/05/22 04/05/22 18:59 06:59 18:59 Intake Total 118 Output Total 1550 1850 400 Balance -3227 -7869 -400 Intake: Oral 118 Output: Urine 1550 1850 400 Other: Voiding Method Indwelling Catheter Indwelling Catheter # Bowel Movements 1 - Exam awake, comfortable, no acute distress Examination of the heart S1 and S2 Examination of the lungs bilateral breath sounds are heard Abdomen is soft nontender Examination of the lower extremity shows no edema RISK CONTROL REPRESENTATIVE exam grossly intact - Labs CBC & Chem 7: 04/04/22 04:42 04/04/22 04:42 Labs: Abnormal Lab Results - Last 24 Hours (Table) 04/04/22 04/04/22 04/04/22 Range/Units 11:39 17:14 20:21 POC Glucose (mg/dL) 116 H 206 H 221 H (70-110) mg/dL 04/05/22 04/05/22 Range/Units 05:26 07:06 POC Glucose (mg/dL) 135 H 148 H (70-110) mg/dL Microbiology - Last 24 Hours (Table) 04/03/22 06:07 Blood Culture - Preliminary Blood No Growth after 48 hours 04/02/22 05:59 Blood Culture - Preliminary Blood No Growth after 72 hours Assessment and Plan Assessment: 1. 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 Status post living unrelated renal transplant in 2003 3. UTI with history of TURP last month. Patient was on Invokana, currently discontinued 4. Hypovolemic hyponatremia, improved with iv hydration 5. Hypertension with CKD, uncontrolled 6. Bacteremia with blood cultures growing pantoea species an urine culture growing E. coli Plan: DC normal saline Add Coreg, Lopressor discontinued due to low heart rate Resume Myfortic in 1-2 days Continue antibiotics
[2022-04-05 11:48] LABS: Glucose,Whole Blood 242 mg/dL (70-110)
[2022-04-05 16:23] LABS: Glucose,Whole Blood 250 mg/dL (70-110)
--- NOTE | 2022-04-05 17:22 | P.PN ---
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 Patient presented to the emergency department with a chief complaint of weakness, falls, urinary incontinence, frequency, and dysuria. Patient underwent full evaluation in the emergency department and was found to have leukocytosis with WBC count of 16.4 and renal function and BUN 35, creatinine 1.41, and GFR 47 with unknown baseline creatinine. Urine culture positive for blood and infection inpatient febrile with temperature 100.9F. Patient was admitted under our services for acute pyelonephritis in patient with history of right sided renal transplant with consultation to nephrology and infectious disease. Urine culture positive for E. coli. Blood cultures positive for gram-negative Pantoea species. Infectious disease changing antibiotic to Rocephin. Repeat blood culture showing no growth 48 hours. Physical exam: Patient seen and fully evaluated at bedside. He was sitting up in chair and continues to do well. Patient has been having difficulties standing and with ambulation. Physical therapy recommending halfway facility placement upon discharge. Patient stating he would prefer to go home especially if he will not require IV antibiotics. Patient currently denies having any headache, lightheadedness, dizziness, chest pain, palpitations, shortness of breath, or any other complaints. Humphrey catheter in place with purulent appearing urine in tubing and collection bag. Vital signs reviewed and stable. General: Nontoxic, no distress and appears stated age. Derm: Skin warm and dry, normal coloration for ethnicity. Head: Atraumatic, normocephalic and symmetric. Eyes: EOMs intact, no lid lag, and anicteric sclera Mouth: no lip lesions, mucus membranes moist Cardiovascular: regular rate and rhythm with normal S1S2, no murmur, positive posterior tibial pulses bilaterally, and cap refill < 2 seconds. Lungs: Respirations even, regular, and unlabored on room air. Lungs CTA bilaterally, no rhonchi, no rales, no wheezing, and no accessory muscle usage. Abdominal: Obese abdomen soft, nontender to palpation, bowel sounds 4 quadrants, no guarding, no appreciable organomegaly Ext: ROM intact. No gross muscle atrophy, no edema, no contractures Neuro: Speech clear, face symmetrical and CN II-XII grossly intact with no noted focal neuro deficits Psych: Alert and oriented to person, place, time, and situation. Appropriate and pleasant affect. Poor historian. Assessment and Plan of Care: Pyelonephritis in patient with history of right sided renal transplant and current stage III chronic kidney disease with baseline creatinine of 1.4 Sepsis secondary to above -Nephrology following -IV antibiotics:Rocephin -Infectious disease following -Symptomatic care and pain management with Tylenol as needed for pain and/or fev er -Humphrey catheter care, monitor output closely. -Continue anti-rejection medication with sirolimus and hold mycophenolate sodium as recommended by nephrology due to acute pyelonephritis and signs of sepsis in patient with renal transplant. -Continue close monitoring of renal function and obtain sirolimus level with a.m. labs. -Urine culture positive for E. coli. Gram Negative Bacteremia, Pantoea species Blood cultures resulting positive for gram-negative bacilli, Pantoea species -We will continue with IV antibiotic Rocephin as directed by infectious disease. Insulin-dependent diabetes mellitus type 2 -Discontinue Invokana, places patient at risk for UTIs which poses a danger in patients with renal transplants. -Patient placed on glycemic protocol with NovoLog sliding scale Hypertension -Monitor vital signs and continue daily medication regimen with losartan. Metoprolol was discontinued secondary to bradycardic rate. Hyperlipidemia -Continue daily medication regimen with atorvastatin. Hyponatremia -Resolved Generalized Weakness and recurrent falls -Patient denies injuries or pain. Reports his legs just give out and patient very weak. Likely secondary to acute infection with pyelonephritis and bacteremia. -Treat underlying infection of acute pyelonephritis and bacteremia. -PT/OT consulted -Fall precautions CAD status post CABG -Continue daily cardiac medication regimen. CODE STATUS: Full code DVT prophylaxis: Heparin Discussed with: Patient and RN Anticipated discharge date: Clinical course to determine Anticipated discharge place: Home with home care versus halfway facility A total of 35 minutes was spent on the care of this complex patient more than 50% of the time was spent in counseling and care coordination. Objective - Vital Signs Vital signs: Vital Signs Temp 98.3 F 04/05/22 08:00 Pulse 63 04/05/22 08:00 Resp 20 04/05/22 08:00 BP 175/61 04/05/22 08:00 Pulse Ox 95 04/05/22 08:00 FiO2 Intake & Output 04/04/22 04/05/22 04/05/22 18:59 06:59 18:59 Intake Total 118 Output Total 1550 1850 Balance -1432 -1850 Intake: Oral 118 Output: Urine 1550 1850 Other: Voiding Method Indwelling Catheter Indwelling Catheter # Bowel Movements 1 - Labs CBC & Chem 7: 04/04/22 04:42 04/04/22 04:42 Labs: Abnormal Lab Results - Last 24 Hours (Table) 04/04/22 04/04/22 04/04/22 Range/Units 04:42 04:42 11:39 Hgb 10.9 L (13.0-17.0) g/dL Hct 36.5 L (39.6-50.0) % MCH 24.5 L (27.0-32.0) pg MCHC 29.9 L (32.0-37.0) g/dL RDW 16.9 H (11.5-14.5) % Immature Gran # 0.18 H (0.00-0.04) X 10*3/uL Monocytes # 1.28 H (0.20-1.00) X 10*3/uL Est GFR (CKD-EPI)NonAf 55.7 L (60.0-200.0) POC Glucose (mg/dL) 116 H (70-110) mg/dL Calcium 8.5 L (8.7-10.3) mg/dL 04/04/22 04/04/22 04/05/22 Range/Units 17:14 20:21 05:26 Hgb (13.0-17.0) g/dL Hct (39.6-50.0) % MCH (27.0-32.0) pg MCHC (32.0-37.0) g/dL RDW (11.5-14.5) % Immature Gran # (0.00-0.04) X 10*3/uL Monocytes # (0.20-1.00) X 10*3/uL Est GFR (CKD-EPI)NonAf (60.0-200.0) POC Glucose (mg/dL) 206 H 221 H 135 H (70-110) mg/dL Calcium (8.7-10.3) mg/dL 04/05/22 Range/Units 07:06 Hgb (13.0-17.0) g/dL Hct (39.6-50.0) % MCH (27.0-32.0) pg MCHC (32.0-37.0) g/dL RDW (11.5-14.5) % Immature Gran # (0.00-0.04) X 10*3/uL Monocytes # (0.20-1.00) X 10*3/uL Est GFR (CKD-EPI)NonAf (60.0-200.0) POC Glucose (mg/dL) 148 H (70-110) mg/dL Calcium (8.7-10.3) mg/dL Microbiology - Last 24 Hours (Table) 04/03/22 06:07 Blood Culture - Preliminary Blood No Growth after 48 hours 04/02/22 05:59 Blood Culture - Preliminary Blood No Growth after 72 hours
[2022-04-05] MEDS: carvediloL 6.25 MG TAB PO SCH (17:41)
[2022-04-05 19:14] LABS: Glucose,Whole Blood 206 mg/dL (70-110)
[2022-04-05] MEDS: LOSARTAN 50 MG TAB PO SCH (20:09)
[2022-04-05] MEDS: SERTRALINE 50 MG TAB PO SCH (20:09)
[2022-04-05] MEDS: ATORVASTATIN 40 MG TAB PO SCH (20:09)
[2022-04-06 05:22] LABS: Glucose,Whole Blood 142 mg/dL (70-110)
[2022-04-06] MEDS: SIROLIMUS 1 MG PO SCH (05:32)
[2022-04-06] MEDS: NIFEdipine XL 90 MG TAB.ER.24 PO SCH (05:32)
[2022-04-06] MEDS: MULTIVITAMINS, THERA 1 EACH TAB PO SCH (05:32)
[2022-04-06] MEDS: CHOLECALCIFEROL 25 MCG (1000 IU) TABLET PO SCH (05:32)
[2022-04-06] MEDS: INSULIN NPH 300 UNIT/3 ML VIAL SQ SCH (05:42)
[2022-04-06 07:22] LABS: Glucose,Whole Blood 156 mg/dL (70-110)
[2022-04-06] MEDS: HEPARIN SODIUM,PORCINE/PF 5,000 UNIT/0.5 ML SYRINGE SQ SCH ×2 (08:27→20:49)
[2022-04-06] MEDS: carvediloL 6.25 MG TAB PO SCH ×2 (08:27→18:02)
[2022-04-06] MEDS: cloNIDine HCL 0.1 MG TAB PO SCH ×2 (08:27→20:49)
[2022-04-06] MEDS: hydrALAZINE HCL 25 MG TAB PO SCH ×3 (08:27→20:49)
[2022-04-06] MEDS: FAMOTIDINE 20 MG TAB PO SCH (08:27)
[2022-04-06] MEDS: INSULIN ASPART (NovoLOG) 100 UNIT/ML VIAL SQ SCH ×4 (08:27→21:12)
[2022-04-06 09:12] LABS: HCT 34.7 % (39.6-50.0); HGB 10.3 g/dL (13.0-17.0); MCH 24.5 pg (27.0-32.0); MCHC 29.7 g/dL (32.0-37.0); MCV 82.6 fL (80.0-97.0); Mean Platelet Volume 10.1 fL (9.5-12.2); NRBC Per 100 WBC 0 /100 WBCS (0.0-0.0); Platelet Count 329 X 10*3/uL (140-440); RDW 17.1 % (11.5-14.5); WBC 8.38 X 10*3/uL (4.50-10.00)
--- NOTE | 2022-04-06 11:17 | CDI ---
Documentation Clarification Form Date: 04/06/2022 10:56:41 AM From: Annmarie Jose CCS, CCDS Admit Date: 03/31/2022 09:53:00 AM Patient Name: Kapil Ramos Visit Number: [id number] Discharge Date: ATTENTION: The Clinical Documentation Specialists (CDI) and [facility] Coding Staff appreciate your assistance in clarifying documentation. Please respond to the clarification below the line at the bottom and electronically sign. The CDI & [facility] Coding staff will review the response and follow-up if needed. Please note: Queries are made part of the Legal Health Record. If you have any questions, please contact the author of this message via ITS. Dr. Kaleb Nguyễn: Per the 04/05 Attending Progress Note, the patient is diagnosed with Pyelonephritis and Sepsis 03/30 Urine culture is positive for E Coli. Per the 03/30 ED Note: the patient was discharged from [facility] on March 19 after having Prostate Surgery (TURP), his Humphrey catheter was removed yesterday, having difficulty with urine output today. Additional clarification regarding the etiology of the UTI is requested. History/Risk Factors per the 03/31 H/P: BPH, CAD, CKD, CVA Clinical Indicators: Presented to the ED on 03/30 via EMS from home with progressive weakness, recent surgery as above. Complaining of difficulty with urine output and constipation, Humphrey catheter removed day prior, has had 2 falls today. Admit with Generalized Weakness, Falls, UTI. 03/30 VS: T 99, P 72, R 18, BP 143/77, PO 96 RA 03/31 VS: T 100.8, P 85, R 16, BP 143/77, PO 96 RA 03/30 LAB: WBC 16.4, Hgb 11.2, Hct 35.6, Neutrophils 14.4, Lymph 0.5, [place] 1.2; Na 132, BUN 35, Creatinine 1.41, Glucose 142, ALT 51, Total Protein 5.5, Albumin 2.9 03/30 UA: Light yellow, cloudy, 2+ protein, 1+ glucose, Moderate Blood, Large Esterase, WBC 80. 03/30 Urine Culture: Final: E Coli 03/31 Bladder Scan >300 ml Treatment 03/30: Bladder scan. 03/31: Blood glucose monitoring, Fall precautions, Infectious Disease Consult, Nephrology Consult, IV Rocephin 1,000 mg x1, IV Dilaudid 0.5 mg q3H, IV Cefepime 100 mls @ 25 mls/hr q8H, IV Rocephin 50 mls @ 100 mls/hr q24H, IV Na Chl 1,000 mls @ 50 mls/hr q20H. Per the Nursing Assessment 03/31: patient had in indwelling catheter placed in the ED on 03/30 for retention & difficulty urinating. Catheter is patent & draining. 04/06 Indwelling Catheter remains. Please clarify the etiology of the UTI, if known: [ ] UTI (Sepsis with Pyelonephritis) is related to the Humphrey catheter [ ] UTI (Sepsis with Pyelonephritis) is not related to the Humphrey Catheter [ ] Other condition, please specify: [ ] Unable to determine (Template Last Revised: October 2020) UTI (Sepsis with Pyelonephritis) is related to the Humphrey catheter (Humphrey catheter that was inserted prior to admission) MTDD
[2022-04-06 11:33] LABS: ALT 51 U/L (10-49); AST 33 U/L (14-35); African American GFR (CKD) 65.8 (60.0-200.0); Albumin 2.7 g/dL (3.8-4.9); Albumin/Globulin Ratio 1.17 (1.60-3.17); Alkaline Phosphatase 109 U/L (41-126); Blood Urea Nitrogen 25.2 mg/dL (9.0-27.0); Calcium 8.3 mg/dL (8.7-10.3); Chloride 106 mmol/L (96-109); Globulin 2.3 g/dL (1.6-3.3); Glucose 132 mg/dL (70-110); Non-African American GFR(CKD) 56.8 (60.0-200.0); Potassium 4.8 mmol/L (3.5-5.5); Sodium 139 mmol/L (135-145); Total Bilirubin <0.15 mg/dL (0.30-1.20)
--- NOTE | 2022-04-06 11:42 | P.PN ---
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 On today's evaluation that is 04/05/2022, the patient remains to be febrile , the patient is breathing comfortably on room air, the patient denies chest pain or shortness of breath, did have occasional cough , the patient denies nausea vomiting or abdominal pain no diarrhea Objective - Vital Signs Vital signs: Vital Signs Temp 98 F 04/05/22 13:25 Pulse 65 04/05/22 13:25 Resp 18 04/05/22 13:25 BP 159/56 04/05/22 13:25 Pulse Ox 96 04/05/22 13:25 FiO2 Intake & Output 04/04/22 04/05/22 04/05/22 18:59 06:59 18:59 Intake Total 118 Output Total 1550 1850 400 Balance -1432 -1850 -400 Intake: Oral 118 Output: Urine 1550 1850 400 Other: Voiding Method Indwelling Catheter Indwelling Catheter # Bowel Movements 1 - Exam GENERAL DESCRIPTION: An elderly male lying in bed in no distress RESPIRATORY SYSTEM: Unlabored breathing , decreased breath sounds at bases HEART: S1 S2 regular rate and rhythm , ABDOMEN: Soft , no tenderness EXTREMITIES: No edema feet - Labs CBC & Chem 7: 04/06/22 04:58 04/06/22 04:58 Labs: Abnormal Lab Results - Last 24 Hours (Table) 04/04/22 04/04/22 04/05/22 Range/Units 17:14 20:21 05:26 POC Glucose (mg/dL) 206 H 221 H 135 H (70-110) mg/dL 04/05/22 04/05/22 Range/Units 07:06 11:46 POC Glucose (mg/dL) 148 H 242 H (70-110) mg/dL Microbiology - Last 24 Hours (Table) 04/03/22 06:07 Blood Culture - Preliminary Blood No Growth after 48 hours 04/02/22 05:59 Blood Culture - Preliminary Blood No Growth after 72 hours Assessment and Plan (1) Bacteremia Current Visit: Yes Status: Acute Code(s): R78.81 - BACTEREMIA SNOMED Code(s): 3005474 (2) UTI (urinary tract infection) Current Visit: Yes Status: Acute Code(s): N39.0 - URINARY TRACT INFECTION, SITE NOT SPECIFIED SNOMED Code(s): 40976216 Plan: 1patient presented to hospital with sepsis in this patient who did have fever elevated white count tachycardia with gram-negative bacteremia source likely urinary in this patient with recent prostate surgery done at the outside facility and the patient seem to have problem with postop retention. 2 CT abdominal pelvis did not show any evidence of prostate bed abscess 3blood cultures has been repeated document clearance of bacteremia which has been negative. 4patient urine culture finalized with E. coli which is a sensitive pathogen , however the blood cultures are growing Pantoea species with the same sensitivities as E. coli with a question of possible misidentification of the blood cultures discussed with the INSURANCE VERIFICATION SPECIALIST for admitting the patient able to go home on oral Ceftin 10 days Time with Patient: Less than 30
--- NOTE | 2022-04-06 11:44 | P.PN ---
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 On today's evaluation that is 04/06/2022, the patient denies any fever or chills , the patient is breathing comfortably on room air, the patient denies chest pain or shortness of breath no significant cough , the patient denies nausea vomiting or abdominal pain no diarrhea, patient is feeling better wants to go home Objective - Vital Signs Vital signs: Vital Signs Temp 98.4 F 04/06/22 07:39 Pulse 61 04/06/22 07:39 Resp 17 04/06/22 07:39 BP 157/55 04/06/22 07:39 Pulse Ox 96 04/06/22 07:39 FiO2 Intake & Output 04/05/22 04/06/22 04/06/22 18:59 06:59 18:59 Intake Total 358 118 Output Total 975 700 Balance -617 -700 118 Intake: Oral 358 118 Output: Urine 975 700 Other: Voiding Method Indwelling Catheter Indwelling Catheter - Exam GENERAL DESCRIPTION: An elderly male lying in bed in no distress RESPIRATORY SYSTEM: Unlabored breathing , decreased breath sounds at bases HEART: S1 S2 regular rate and rhythm , ABDOMEN: Soft , no tenderness EXTREMITIES: No edema feet - Labs CBC & Chem 7: 04/06/22 04:58 04/06/22 04:58 Labs: Abnormal Lab Results - Last 24 Hours (Table) 04/05/22 04/05/22 04/05/22 Range/Units 11:46 16:22 19:13 RBC (4.40-5.60) X 10*6/uL Hgb (13.0-17.0) g/dL Hct (39.6-50.0) % MCH (27.0-32.0) pg MCHC (32.0-37.0) g/dL RDW (11.5-14.5) % POC Glucose (mg/dL) 242 H 250 H 206 H (70-110) mg/dL 04/06/22 04/06/22 04/06/22 Range/Units 04:58 05:21 07:21 RBC 4.20 L (4.40-5.60) X 10*6/uL Hgb 10.3 L (13.0-17.0) g/dL Hct 34.7 L (39.6-50.0) % MCH 24.5 L (27.0-32.0) pg MCHC 29.7 L (32.0-37.0) g/dL RDW 17.1 H (11.5-14.5) % POC Glucose (mg/dL) 142 H 156 H (70-110) mg/dL Microbiology - Last 24 Hours (Table) 04/03/22 06:07 Blood Culture - Preliminary Blood No Growth after 72 hours 04/02/22 05:59 Blood Culture - Preliminary Blood No Growth after 96 hours Assessment and Plan (1) Bacteremia Current Visit: Yes Status: Acute Code(s): R78.81 - BACTEREMIA SNOMED Code(s): 6227946 (2) UTI (urinary tract infection) Current Visit: Yes Status: Acute Code(s): N39.0 - URINARY TRACT INFECTION, SITE NOT SPECIFIED SNOMED Code(s): 34694643 Plan: 1patient presented to hospital with sepsis in this patient who did have fever elevated white count tachycardia with gram-negative bacteremia source likely urinary in this patient with recent prostate surgery done at the outside facility and the patient seem to have problem with postop retention. 2 CT abdominal pelvis did not show any evidence of prostate bed abscess 3blood cultures has been repeated document clearance of bacteremia which has been negative. 4patient urine culture finalized with E. coli which is a sensitive pathogen , however the blood cultures are growing Pantoea species with the same sensitiv ities as E. coli with a question of possible misidentification of the blood cultures, patient has cleared his bacteremia and had shown clinical improvement will finish therapy with oral Ceftin 500 mg twice a day for 10 days, with close out patient follow-up Time with Patient: Less than 30
[2022-04-06 11:48] LABS: Glucose,Whole Blood 94 mg/dL (70-110)
[2022-04-06 17:37] LABS: Glucose,Whole Blood 180 mg/dL (70-110)
--- NOTE | 2022-04-06 18:29 | P.PN ---
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 Patient presented to the emergency department with a chief complaint of weakness, falls, urinary incontinence, frequency, and dysuria. Patient underwent full evaluation in the emergency department and was found to have leukocytosis with WBC count of 16.4 and renal function and BUN 35, creatinine 1.41, and GFR 47 with unknown baseline creatinine. Urine culture positive for blood and infection inpatient febrile with temperature 100.9F. Patient was admitted under our services for acute pyelonephritis in patient with history of right sided renal transplant with consultation to nephrology and infectious disease. Urine culture positive for E. coli. Blood cultures positive for gram-negative Pantoea species. Infectious disease changing antibiotic to Rocephin. Repeat blood culture showing no growth 48 hours. Physical exam: Patient seen and fully evaluated at bedside this morning. Patient appears to be doing well this morning. He reports feeling much better. Patient requesting to have an attempt at removing Humphrey catheter and perform voiding challenge. D iscussed with RN patient to have catheter removed today and if he is able to urinate without any further episodes of post void residual patient may be discharged home tomorrow morning without catheter. Plan is for patient to be discharged home with home care. Infectious disease recommending patient to be discharged home on oral Ceftin 500 mg twice daily for 10 days. Vital signs reviewed and stable. General: Nontoxic, no distress and appears stated age. Derm: Skin warm and dry, normal coloration for ethnicity. Head: Atraumatic, normocephalic and symmetric. Eyes: EOMs intact, no lid lag, and anicteric sclera Mouth: no lip lesions, mucus membranes moist Cardiovascular: regular rate and rhythm with normal S1S2, no murmur, positive posterior tibial pulses bilaterally, and cap refill < 2 seconds. Lungs: Respirations even, regular, and unlabored on room air. Lungs CTA bilaterally, no rhonchi, no rales, no wheezing, and no accessory muscle usage. Abdominal: Obese abdomen soft, nontender to palpation, bowel sounds 4 quadrants, no guarding, no appreciable organomegaly Ext: ROM intact. No gross muscle atrophy, no edema, no contractures Neuro: Speech clear, face symmetrical and CN II-XII grossly intact with no noted focal neuro deficits Psych: Alert and oriented to person, place, time, and situation. Appropriate and pleasant affect. Poor historian. Assessment and Plan of Care: Pyelonephritis in patient with history of right sided renal transplant and current stage III chronic kidney disease with baseline creatinine of 1.4 E. coli UTI Sepsis secondary to above Status post TURP 03/19/22 -Nephrology following -IV antibiotics:Rocephin -Infectious disease following -Symptomatic care and pain management with Tylenol as needed for pain and/or fever -Humphrey catheter care, monitor output closely. Humphrey catheter to be removed today and we will perform voiding challenge. -Continue anti-rejection medication with sirolimus and hold mycophenolate sodium as recommended by nephrology due to acute pyelonephritis and signs of sepsis in patient with renal transplant. -Continue close monitoring of renal function and obtain sirolimus level with a.m. labs. -Urine culture positive for E. coli. Gram Negative Bacteremia, Pantoea species. -Repeat blood cultures negative. -Patient to continue with IV antibiotic Rocephin and plan is for discharge home on Ceftin 500 mg twice daily 10 days. Insulin-dependent diabetes mellitus type 2 -Discontinue Invokana, places patient at risk for UTIs which poses a danger in patients with renal transplants. -Patient placed on glycemic protocol with NovoLog sliding scale Hypertension -Monitor vital signs and continue daily medication regimen with losartan. Metoprolol was discontinued secondary to bradycardic rate. Hyperlipidemia -Continue daily medication regimen with atorvastatin. Hyponatremia -Resolved Generalized Weakness and recurrent falls -Patient denies injuries or pain. Reports his legs just give out and patient very weak. Likely secondary to acute infection with pyelonephritis and bacteremia. -Treat underlying infection of acute pyelonephritis and bacteremia. -PT/OT consulted -Fall precautions CAD status post CABG -Continue daily cardiac medication regimen. CODE STATUS: Full code DVT prophylaxis: Heparin Discussed with: Patient and RN Anticipated discharge date: Tomorrow Anticipated discharge place: Home with home care A total of 35 minutes was spent on the care of this complex patient more than 50% of the time was spent in counseling and care coordination. Objective - Vital Signs Vital signs: Vital Signs Temp 98.4 F 04/06/22 07:39 Pulse 61 08/09/22 07:39 Resp 17 04/06/22 07:39 BP 157/55 04/06/22 07:39 Pulse Ox 96 04/06/22 07:39 FiO2 Intake & Output 04/05/22 04/06/22 04/06/22 18:59 06:59 18:59 Intake Total 358 Output Total 975 700 Balance -617 -700 Intake: Oral 358 Output: Urine 975 700 Other: Voiding Method Indwelling Catheter Indwelling Catheter - Labs CBC & Chem 7: 04/06/22 04:58 04/06/22 04:58 Labs: Abnormal Lab Results - Last 24 Hours (Table) 04/05/22 04/05/22 04/05/22 Range/Units 11:46 16:22 19:13 POC Glucose (mg/dL) 242 H 250 H 206 H (70-110) mg/dL 04/06/22 04/06/22 Range/Units 05:21 07:21 POC Glucose (mg/dL) 142 H 156 H (70-110) mg/dL Microbiology - Last 24 Hours (Table) 04/03/22 06:07 Blood Culture - Preliminary Blood No Growth after 72 hours 04/02/22 05:59 Blood Culture - Preliminary Blood No Growth after 96 hours
[2022-04-06] MEDS: SERTRALINE 50 MG TAB PO SCH (20:49)
[2022-04-06] MEDS: LOSARTAN 50 MG TAB PO SCH (20:49)
[2022-04-06] MEDS: ATORVASTATIN 40 MG TAB PO SCH (20:49)
[2022-04-06 20:54] LABS: Glucose,Whole Blood 165 mg/dL (70-110)
[2022-04-07] MEDS: SIROLIMUS 1 MG PO SCH (05:36)
[2022-04-07] MEDS: NIFEdipine XL 90 MG TAB.ER.24 PO SCH (05:37)
[2022-04-07] MEDS: MULTIVITAMINS, THERA 1 EACH TAB PO SCH (05:37)
[2022-04-07] MEDS: CHOLECALCIFEROL 25 MCG (1000 IU) TABLET PO SCH (05:37)
[2022-04-07 05:43] LABS: Glucose,Whole Blood 137 mg/dL (70-110)
[2022-04-07] MEDS: INSULIN NPH 300 UNIT/3 ML VIAL SQ SCH (05:43)
[2022-04-07 07:18] LABS: Glucose,Whole Blood 138 mg/dL (70-110)
[2022-04-07 07:40] VITALS: BP 176/65; PULSE 67; RESP 18; TEMP 97.8
[2022-04-07] MEDS: INSULIN ASPART (NovoLOG) 100 UNIT/ML VIAL SQ SCH (07:48)
[2022-04-07] MEDS: carvediloL 6.25 MG TAB PO SCH (07:49)
[2022-04-07] MEDS: HEPARIN SODIUM,PORCINE/PF 5,000 UNIT/0.5 ML SYRINGE SQ SCH (07:50)
[2022-04-07] MEDS: hydrALAZINE HCL 25 MG TAB PO SCH (07:53)
[2022-04-07] MEDS: cloNIDine HCL 0.1 MG TAB PO SCH (07:53)
[2022-04-07] MEDS: FAMOTIDINE 20 MG TAB PO SCH (07:56)
--- NOTE | 2022-04-07 17:14 | P.DS ---
Providers Date of admission: 03/31/22 09:53 Expected date of discharge: 04/07/22 Attending physician: Donald Melo MD Consults: 03/31/22 09:34 Consult Physician Routine Consulting Provider: Mich Márquez Consult Reason/Comments: pylonephritis in pt w/ hx R-sided kidney transplant, live donar Do you want consulting provider notified?: Yes 03/31/22 09:52 Consult Physician Urgent Consulting Provider: Sonny Montelongo Consult Reason/Comments: pylonephritis in pt with hx of renal transplant, live donar Do you want consulting provider notified?: Yes Primary care physician: Physician Nonstaff Hospital Course: Patient is a very pleasant 82-year-old male with a past medical history of coronary artery disease status post CABG, hypertension, hyperlipidemia, insulin- dependent diabetes mellitus, history of right-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 Patient presented to the emergency department with a chief complaint of weakness, falls, urinary incontinence, frequency, and dysuria. Patient underwent full evaluation in the emergency department and was found to have leukocytosis with WBC count of 16.4 and renal function and BUN 35, creatinine 1.41, and GFR 47 with unknown baseline creatinine. Urine culture positive for blood and infection inpatient febrile with temperature 100.9F. Patient was admitted under our services for acute pyelonephritis in patient with history of right sided renal transplant with consultation to nephrology and infectious disease. Urine culture positive for E. coli. Blood cultures positive for gram-negative Pantoea species. Infectious disease changing antibiotic to Rocephin. Repeat blood culture showing no growth at 120 and 96 hours. Infectious disease recommended switching Rocephin to Ceftin 500 mg by mouth twice a day for 10 days. Patient was seen and examined on April 07, 2022. He reported feeling well with no complaints. Patient reported wanting to follow-up with the urologist in [place] rather than [facility]. He was able to urinate freely with PVR of 180 cc. He is advised follow-up with his PCP within 1-2 days of discharge. Follow-up with urologist Dr. Yip within 1 week of discharge. Patient advised to discontinue Invokana. Scripts for Clonidine, Coreg and hydralazine was sent to his pharmacy. Patient verbalized understanding of the plan. General: [non toxic], [no distress], [appears at stated age] Derm: [warm], [dry] Head: [atraumatic], [normocephalic], [symmetric] Eyes: [EOMI], [no lid lag], [anicteric sclera] Mouth: [no lip lesion], [mucus membranes moist] Cardiovascular: [S1S2 reg], [no murmur] Lungs: [CTA bilateral], [no rhonchi, no rales] , [no accessory muscle use] Abdominal: [soft], [ nontender to palpation], [no guarding], [no appreciable organomegaly] Ext: [no gross muscle atrophy], [no edema], [no contractures] Neuro: [no focal neuro deficits] Psych: [Alert], [oriented], [appropriate affect] Discharge Diagnosis: Pyelonephritis in patient with history of right sided renal transplant and current stage III chronic kidney disease with baseline creatinine of 1.4 E. coli UTI Sepsis secondary to above Status post TURP 03/19/22 Gram Negative Bacteremia, Pantoea species. Insulin-dependent diabetes mellitus type 2 Hypertension Dyslipidemia Generalized weakness with recurrent falls History of CAD post CABG Resolved: Hyponatremia This complex discharge took about 45 minutes to complete. Pertinent Studies: CT A/P Patient Condition at Discharge: Stable Plan - Discharge Summary New Discharge Prescriptions: New cefUROXime axetiL [Ceftin] 500 mg PO BID 10 Days #20 tab cloNIDine HCL [Catapres] 0.1 mg PO BID #60 tab carvediloL [Coreg] 6.25 mg PO AC-BID #60 tablet hydrALAZINE HCL [Apresoline] 100 mg PO AC-TID #90 tablet Continue Cholecalciferol [Vitamin D3 (25 Mcg = 1000 Iu)] 50 mcg PO DAILY@0600 Sertraline [Zoloft] 50 mg PO DAILY@1900 NIFEdipine XL [Procardia XL] 90 mg PO DAILY@0600 Magnesium Oxide [Mag-Ox] 400 mg PO DAILY@0600 Insulin NPH Human Isophane [humuLIN N Kwikpen] 42 unit SQ DAILY@0600 Furosemide [Lasix] 20 mg PO MOWEFR Atorvastatin [Lipitor] 40 mg PO DAILY@1900 Colchicine [Colcrys] 0.6 mg PO DAILY PRN PRN Reason: GOUT Mycophenolate Sodium [Mycophenolic Acid] 720 mg PO BID@0600,1900 Vit C/E/Zn/Coppr/Lutein/Zeaxan [Preservision Areds 2 Softgel] 1 cap PO BID@0600,0 Nitroglycerin Sl Tabs [Nitrostat] 0.4 mg SUBLINGUAL Q5M PRN PRN Reason: Chest Pain Multivitamins, Thera [Multivitamin (formulary)] 1 tab PO DAILY@0600 Losartan Potassium 100 mg PO HS@1999 Insulin Lispro [humaLOG Kwikpen] See Protocol SQ DAILY PRN PRN Reason: HIGH BLOOD SUGAR Sirolimus 3 mg PO DAILY@0600 Discontinued Canagliflozin [Invokana] 50 mg PO DAILY@0600 Metoprolol Succinate (ER) [Toprol Xl] 100 mg PO DAILY@0600 Discharge Medication List Atorvastatin [Lipitor] 40 mg PO DAILY@189903/30/22 [History] Cholecalciferol [Vitamin D3 (25 Mcg = 1000 Iu)] 50 mcg PO DAILY@59903/30/22 [History] Colchicine [Colcrys] 0.6 mg PO DAILY PRN 03/30/22 [History] Furosemide [Lasix] 20 mg PO MOWEFR 03/30/22 [History] Insulin Lispro [humaLOG Kwikpen] See Protocol SQ DAILY PRN 03/30/22 [History] Insulin NPH Human Isophane [humuLIN N Kwikpen] 42 unit SQ DAILY@59903/30/22 [History] Losartan Potassium 100 mg PO HS@199903/30/22 [History] Magnesium Oxide [Mag-Ox] 400 mg PO DAILY@59903/30/22 [History] Multivitamins, Thera [Multivitamin (formulary)] 1 tab PO DAILY@0603/30/22 [History] Mycophenolate Sodium [Mycophenolic Acid] 720 mg PO BID@0600,1900 03/30/22 [History] NIFEdipine XL [Procardia XL] 90 mg PO DAILY@0603/30/22 [History] Nitroglycerin Sl Tabs [Nitrostat] 0.4 mg SUBLINGUAL Q5M PRN 03/30/22 [History] Sertraline [Zoloft] 50 mg PO DAILY@189903/30/22 [History] Sirolimus 3 mg PO DAILY@59903/30/22 [History] Vit C/E/Zn/Coppr/Lutein/Zeaxan [Preservision Areds 2 Softgel] 1 cap PO BID@0600,1900 03/30/22 [History] carvediloL [Coreg] 6.25 mg PO AC-BID #60 tablet 04/07/22 [Rx] cefUROXime axetiL [Ceftin] 500 mg PO BID 10 Days #20 tab 04/07/22 [Rx] cloNIDine HCL [Catapres] 0.1 mg PO BID #60 tab 04/07/22 [Rx] hydrALAZINE HCL [Apresoline] 100 mg PO AC-TID #90 tablet 04/07/22 [Rx] Follow up Appointment(s)/Referral(s): Nonstaff,Physician [Primary Care Provider] - 1-2 days Vishnu Yip MD [STAFF PHYSICIAN] - 1 Week (information given to office. office will call patient if accepted. ) Patient Instructions/Handouts: Urinary Tract Infection in Men (GEN), Weakness (GEN) Activity/Diet/Wound Care/Special Instructions: Diet: Low salt Follow up with your PCP within 1-2 days of discharge. Follow up with Urology within 1 week of discharge. Take all medications as advised. Come back to the ED or call 911 for worsening abdominal pain, fever > 100.4F, chest pain, shortness of breath, lightheadedness. Discharge Disposition: HOME SELF-CARE
== END 2022-04-07 11:36 | disposition home health service (06) | DRG 698 ==
LOC: EC 22:26 → 6NMEDSUR 03-31 03:44 → OBSVTOIN 03-31 09:53
PROVIDERS: ADMIT Internal Medicine; ATTEND Internal Medicine
DX: T83.511A Infection and inflammatory reaction due to indwelling urethral catheter, initial encounter (principal); A41.51 Sepsis due to Escherichia coli [E. coli]; T86.12 Kidney transplant failure; E87.1 Hypo-osmolality and hyponatremia; N10 Acute pyelonephritis; E11.22 Type 2 diabetes mellitus with diabetic chronic kidney disease; E78.5 Hyperlipidemia, unspecified; J44.9 Chronic obstructive pulmonary disease, unspecified; N18.31 Chronic kidney disease, stage 3a; Z79.4 Long term (current) use of insulin; Z20.822 Contact with and (suspected) exposure to COVID-19; I12.9 Hypertensive chronic kidney disease with stage 1 through stage 4 chronic kidney disease, or unspecified chronic kidney disease; E86.1 Hypovolemia; R32 Unspecified urinary incontinence; K59.00 Constipation, unspecified; I25.10 Atherosclerotic heart disease of native coronary artery without angina pectoris; R29.6 Repeated falls; E66.9 Obesity, unspecified; Z68.28 Body mass index [BMI] 28.0-28.9, adult; Z79.84 Long term (current) use of oral hypoglycemic drugs; Z79.899 Other long term (current) drug therapy; Z91.81 History of falling; Z95.1 Presence of aortocoronary bypass graft; Z87.891 Personal history of nicotine dependence; Z90.79 Acquired absence of other genital organ(s); Z86.73 Personal history of transient ischemic attack (TIA), and cerebral infarction without residual deficits; Y83.0 Surgical operation with transplant of whole organ as the cause of abnormal reaction of the patient, or of later complication, without mention of misadventure at the time of the procedure; Z82.49 Family history of ischemic heart disease and other diseases of the circulatory system; Y84.6 Urinary catheterization as the cause of abnormal reaction of the patient, or of later complication, without mention of misadventure at the time of the procedure
CPT/HCPCS: 36415; 71046; 74176; 80048; 80053; 80195; 81001; 83036; 83605; 83735; 83880; 84100; 84484; 85025; 85027; 85610; 85730; 87040; 87077; 87086; 87186; 87635; 93005; 96374; 99285

== ENCOUNTER 2022-06-01 16:53 | Inpatient (IN) | payer MEDICARE ==
[2022-06-01] MEDS ORDERED: ACETAMINOPHEN TAB 500 MG TAB PO STA (17:16)
[2022-06-01] MEDS ORDERED: IBUPROFEN 600 MG TAB PO STA (17:16)
--- NOTE | 2022-06-01 17:24 | ED ---
General Adult HPI - General Chief complaint: Upper Respiratory Infection Stated complaint: Needs chest Xray-sent by PCP Time Seen by Provider: 06/01/22 17:00 Source: patient, family, RN notes reviewed, old records reviewed Mode of arrival: ambulatory Limitations: no limitations - History of Present Illness Initial comments: This is an 82-year-old male who presents emergency Department complaining that he has generalized weakness. Patient states he woke up this morning and felt good and was able to walk around with a walker and now he is too weak to stand on his own. Patient states she was in the hospital recent for urinary tract infection and sent him a half-way and he just got home yesterday. Patient denies having a fever or chills. Patient denies chest pain or palpitations. Patient denies any difficulty breathing. Patient states she does have an occasional cough. Patient denies any abdominal pain patient denies nausea vomiting diarrhea. Patient denies any recent injury or trauma. Patient denies any areas of rash or redness or any lesions. - Related Data Home Medications Medication Instructions Recorded Confirmed Atorvastatin [Lipitor] 40 mg PO DAILY@19003/30/22 03/30/22 Cholecalciferol [Vitamin D3 (25 50 mcg PO DAILY@59903/30/22 03/30/22 Mcg = 1000 Iu)] Colchicine [Colcrys] 0.6 mg PO DAILY PRN 03/30/22 03/31/22 Furosemide [Lasix] 20 mg PO MOWEFR 03/30/22 03/30/22 Insulin Lispro [humaLOG Kwikpen] See Protocol SQ DAILY PRN 03/30/22 03/30/22 Insulin NPH Human Isophane 42 unit SQ DAILY@59903/30/22 03/30/22 [humuLIN N Kwikpen] Losartan Potassium 100 mg PO HS@199903/30/22 03/30/22 Magnesium Oxide [Mag-Ox] 400 mg PO DAILY@59903/30/22 03/30/22 Multivitamins, Thera [Multivitamin 1 tab PO DAILY@59903/30/22 03/30/22 (formulary)] Mycophenolate Sodium [Mycophenolic 720 mg PO BID@0600,1900 03/30/22 03/31/22 Acid] NIFEdipine XL [Procardia XL] 90 mg PO DAILY@59903/30/22 03/30/22 Nitroglycerin Sl Tabs [Nitrostat] 0.4 mg SUBLINGUAL Q5M PRN 03/30/22 03/30/22 Sertraline [Zoloft] 50 mg PO DAILY@1900 03/30/22 03/30/22 Sirolimus 3 mg PO DAILY@0600 03/30/22 03/31/22 Vit C/E/Zn/Coppr/Lutein/Zeaxan 1 cap PO BID@0600,1900 03/30/22 03/30/22 [Preservision Areds 2 Softgel] Previous Rx's Medication Instructions Recorded carvediloL [Coreg] 6.25 mg PO AC-BID #60 tablet 04/07/22 cefUROXime axetiL [Ceftin] 500 mg PO BID 10 Days #20 tab 04/07/22 cloNIDine HCL [Catapres] 0.1 mg PO BID #60 tab 04/07/22 hydrALAZINE HCL [Apresoline] 100 mg PO AC-TID #90 tablet 04/07/22 Allergies Allergy/AdvReac Type Severity Reaction Status Date / Time No Known Allergies Allergy Verified 06/01/22 16:59 Review of Systems ROS Statement: Those systems with pertinent positive or pertinent negative responses have been documented in the HPI. ROS Other: All systems not noted in ROS Statement are negative. Past Medical History Past Medical History: Coronary Artery Disease (CAD), Chest Pain / Angina, CVA/TIA Additional Past Medical History / Comment(s): UTI History of Any Multi-Drug Resistant Organisms: None Reported Additional Past Surgical History / Comment(s): Kidney Transplant Past Psychological History: No Psychological Hx Reported Smoking Status: Former smoker Past Alcohol Use History: None Reported Past Drug Use History: None Reported - Past Family History Father Family Medical History: Chest Pain / Angina General Exam - General Exam Comments Initial Comments: GENERAL: Patient is well-developed and well-nourished. Patient is nontoxic and well-hydrated and is in mild distress. ENT: Neck is soft and supple. No significant lymphadenopathy is noted. Oropharynx is clear. Moist mucous membranes. Neck has full range of motion without eliciting any pain. EYES: The sclera were anicteric and conjunctiva were pink and moist. Extraocular movements were intact and pupils were equal round and reactive to light. Eyelids were unremarkable. PULMONARY: Unlabored respirations. Good breath sounds bilaterally. No audible rales rhonchi or wheezing was noted. CARDIOVASCULAR: Patient has an irregular irregular heartbeat at about 95 beats a minute ABDOMEN: Soft and nontender with normal bowel sounds. SKIN: Skin is clear with no lesions or rashes and otherwise unremarkable. NEUROLOGIC: Patient is alert and oriented x3. Cranial nerves II through XII are grossly intact. Motor and sensory are also intact. Normal speech, volume and content. Symmetrical smile. MUSCULOSKELETAL: Normal extremities with adequate strength and full range of motion. LYMPHATICS: No significant lymphadenopathy is noted PSYCHIATRIC: Normal psychiatric evaluation. Limitations: no limitations Course Vital Signs 06/01/22 06/01/22 06/01/22 16:56 17:17 18:18 Temperature 98.5 F 100 F H 99 F Pulse Rate 100 90 Respiratory 20 16 Rate Blood Pressure 135/44 143/55 O2 Sat by Pulse 98 98 Oximetry Medical Decision Making - Medical Decision Making EKG shows atrial fibrillation at 95 bpm QRS is 90 QT interval 300 QTC is 352. Patient's EKG shows no ST segment elevation or depression. Chest x-ray shows pulmonary edema. I ordered 1 unit of packed red blood cells for the patient. Patient has a urinary tract infectious I gave the patient 2 g of Rocephin emergency department. I spoke with some physicians a agreed to admit the patient admitted the patient wrote admitting orders. - Lab Data Result diagrams: 06/01/22 17:38 06/01/22 17:38 Lab Results 06/01/22 06/01/22 06/01/22 Range/Units 17:38 17:38 17:38 WBC 9.9 (3.8-10.6) k/uL RBC 2.50 L (4.30-5.90) m/uL Hgb 6.1 L* D (13.0-17.5) gm/dL Hct 19.7 L* (39.0-53.0) % MCV 79.0 L (80.0-100.0) fL MCH 24.4 L (25.0-35.0) pg MCHC 30.9 L (31.0-37.0) g/dL RDW 15.6 H (11.5-15.5) % Plt Count 314 (150-450) k/uL MPV 7.8 Neutrophils % 77 % Lymphocytes % 10 % Monocytes % 9 % Eosinophils % 1 % Basophils % 0 % Neutrophils # 7.6 (1.3-7.7) k/uL Lymphocytes # 1.0 (1.0-4.8) k/uL Monocytes # 0.9 (0-1.0) k/uL Eosinophils # 0.1 (0-0.7) k/uL Basophils # 0.0 (0-0.2) k/uL Hypochromasia Marked PT 11.9 (9.0-12.0) sec INR 1.1 (<1.2) APTT 25.5 (22.0-30.0) sec Sodium (137-145) mmol/L Potassium (3.5-5.1) mmol/L Chloride (98-107) mmol/L Carbon Dioxide (22-30) mmol/L Anion Gap mmol/L BUN (9-20) mg/dL Creatinine (0.66-1.25) mg/dL Est GFR (CKD-EPI)AfAm (>60 ml/min/1.73 sqM) Est GFR (CKD-EPI)NonAf (>60 ml/min/1.73 sqM) Glucose (74-99) mg/dL Plasma Lactic Acid Connor (0.7-2.0) mmol/L Calcium (8.4-10.2) mg/dL Total Bilirubin (0.2-1.3) mg/dL AST (17-59) U/L ALT (4-49) U/L Alkaline Phosphatase (38-126) U/L Total Protein (6.3-8.2) g/dL Albumin (3.5-5.0) g/dL Urine Color Urine Appearance (Clear) Urine pH (5.0-8.0) Ur Specific [place] (1.001-1.035) Urine Protein (Negative) Urine Glucose (UA) (Negative) Urine Ketones (Negative) Urine Blood (Negative) Urine Nitrite (Negative) Urine Bilirubin (Negative) Urine Urobilinogen (<2.0) mg/dL Ur Leukocyte Esterase (Negative) Urine RBC (0-5) /hpf Urine WBC (0-5) /hpf Urine WBC Clumps (None) /hpf Urine Bacteria (None) /hpf Stool Occult Blood (Negative) Coronavirus (PCR) Not Detected (Not Detectd) 06/01/22 06/01/22 06/01/22 Range/Units 17:38 17:38 18:13 WBC (3.8-10.6) k/uL RBC (4.30-5.90) m/uL Hgb (13.0-17.5) gm/dL Hct (39.0-53.0) % MCV (80.0-100.0) fL MCH (25.0-35.0) pg MCHC (31.0-37.0) g/dL RDW (11.5-15.5) % Plt Count (150-450) k/uL MPV Neutrophils % % Lymphocytes % % Monocytes % % Eosinophils % % Basophils % % Neutrophils # (1.3-7.7) k/uL Lymphocytes # (1.0-4.8) k/uL Monocytes # (0-1.0) k/uL Eosinophils # (0-0.7) k/uL Basophils # (0-0.2) k/uL Hypochromasia PT (9.0-12.0) sec INR (<1.2) APTT (22.0-30.0) sec Sodium 132 L (137-145) mmol/L Potassium 5.5 H (3.5-5.1) mmol/L Chloride 102 (98-107) mmol/L Carbon Dioxide 18 L (22-30) mmol/L Anion Gap 12 mmol/L BUN 64 H (9-20) mg/dL Creatinine 1.41 H (0.66-1.25) mg/dL Est GFR (CKD-EPI)AfAm 54 (>60 ml/min/1.73 sqM) Est GFR (CKD-EPI)NonAf 47 (>60 ml/min/1.73 sqM) Glucose 193 H (74-99) mg/dL Plasma Lactic Acid Connor 3.3 H* (0.7-2.0) mmol/L Calcium 8.6 (8.4-10.2) mg/dL Total Bilirubin 0.2 (0.2-1.3) mg/dL AST 21 (17-59) U/L ALT 24 (4-49) U/L Alkaline Phosphatase 76 (38-126) U/L Total Protein 5.0 L (6.3-8.2) g/dL Albumin 2.8 L (3.5-5.0) g/dL Urine Color Light Yellow Urine Appearance Turbid (Clear) Urine pH 5.5 (5.0-8.0) Ur Specific [place] 1.013 (1.001-1.035) Urine Protein 2+ H (Negative) Urine Glucose (UA) Negative (Negative) Urine Ketones Negative (Negative) Urine Blood Small H (Negative) Urine Nitrite Negative (Negative) Urine Bilirubin Negative (Negative) Urine Urobilinogen <2.0 (<2.0) mg/dL Ur Leukocyte Esterase Large H (Negative) Urine RBC 15 H (0-5) /hpf Urine WBC >182 H (0-5) /hpf Urine WBC Clumps Many H (None) /hpf Urine Bacteria Occasional H (None) /hpf Stool Occult Blood (Negative) Coronavirus (PCR) (Not Detectd) 06/01/22 Range/Units 18:32 WBC (3.8-10.6) k/uL RBC (4.30-5.90) m/uL Hgb (13.0-17.5) gm/dL Hct (39.0-53.0) % MCV (80.0-100.0) fL MCH (25.0-35.0) pg MCHC (31.0-37.0) g/dL RDW (11.5-15.5) % Plt Count (150-450) k/uL MPV Neutrophils % % Lymphocytes % % Monocytes % % Eosinophils % % Basophils % % Neutrophils # (1.3-7.7) k/uL Lymphocytes # (1.0-4.8) k/uL Monocytes # (0-1.0) k/uL Eosinophils # (0-0.7) k/uL Basophils # (0-0.2) k/uL Hypochromasia PT (9.0-12.0) sec INR (<1.2) APTT (22.0-30.0) sec Sodium (137-145) mmol/L Potassium (3.5-5.1) mmol/L Chloride (98-107) mmol/L Carbon Dioxide (22-30) mmol/L Anion Gap mmol/L BUN (9-20) mg/dL Creatinine (0.66-1.25) mg/dL Est GFR (CKD-EPI)AfAm (>60 ml/min/1.73 sqM) Est GFR (CKD-EPI)NonAf (>60 ml/min/1.73 sqM) Glucose (74-99) mg/dL Plasma Lactic Acid Connor (0.7-2.0) mmol/L Calcium (8.4-10.2) mg/dL Total Bilirubin (0.2-1.3) mg/dL AST (17-59) U/L ALT (4-49) U/L Alkaline Phosphatase (38-126) U/L Total Protein (6.3-8.2) g/dL Albumin (3.5-5.0) g/dL Urine Color Urine Appearance (Clear) Urine pH (5.0-8.0) Ur Specific [place] (1.001-1.035) Urine Protein (Negative) Urine Glucose (UA) (Negative) Urine Ketones (Negative) Urine Blood (Negative) Urine Nitrite (Negative) Urine Bilirubin (Negative) Urine Urobilinogen (<2.0) mg/dL Ur Leukocyte Esterase (Negative) Urine RBC (0-5) /hpf Urine WBC (0-5) /hpf Urine WBC Clumps (None) /hpf Urine Bacteria (None) /hpf Stool Occult Blood Positive (Negative) Coronavirus (PCR) (Not Detectd) Critical Care Time Critical Care Time: Yes Total Critical Care Time: 35 Disposition Clinical Impression: Anemia, GI bleed, Urinary tract infection, Pulmonary edema Disposition: ADMITTED IP TO THIS [facility] Referrals: Nonstaff,Physician [REFERRING] - 1-2 days Time of Disposition: 18:41
[2022-06-01 17:47] LABS: Basophils % (A) 0 %; Eosinophils # (A) 0.1 k/uL (0-0.7); Eosinophils % (A) 1 %; Hypochromasia Marked; Lymphocytes % (A) 10 %; MCH 24.4 pg (25.0-35.0); MCHC 30.9 g/dL (31.0-37.0); Mean Platelet Volume 7.8; Monocytes # (A) 0.9 k/uL (0-1.0); Monocytes % (A) 9 %; Neutrophils # (A) 7.6 k/uL (1.3-7.7); Neutrophils % (A) 77 %; Platelet Count 314 k/uL (150-450); RDW 15.6 % (11.5-15.5); WBC 9.9 k/uL (3.8-10.6)
[2022-06-01 17:56] LABS: INR 1.1 (<1.2); Partial Thromboplastin Time 25.5 sec (22.0-30.0); Prothrombin Time 11.9 sec (9.0-12.0)
[2022-06-01 17:58] LABS: Albumin 2.8 g/dL (3.5-5.0); Calcium 8.6 mg/dL (8.4-10.2); Potassium 5.5 mmol/L (3.5-5.1); Total Bilirubin 0.2 mg/dL (0.2-1.3)
--- NOTE | 2022-06-01 18:02 | XR ---
EXAMINATION TYPE: XR chest 2V DATE OF EXAM: 06/01/2022 5:47 PM COMPARISON: 03/30/2022 TECHNIQUE: XR chest 2V Frontal and lateral views of the chest. CLINICAL INDICATION:Male, 82 years old with history of Fever; FINDINGS: Lungs/Pleura: Scattered subtle reticular and hazy opacities. No evidence of pneumothorax, focal conso lidation or pleural effusion. Pulmonary vascularity: Unremarkable. Heart/mediastinum: Cardiomediastinal silhouette is unremarkable. Musculoskeletal: No acute osseous pathology. Midline sternotomy wires are noted. IMPRESSION: Diffuse airspace opacities correlate for atypical pneumonia versus vascular congestion.
[2022-06-01 18:19] LABS: HCT 19.7 % (39.0-53.0); HGB 6.1 gm/dL (13.0-17.5)
[2022-06-01 18:28] LABS: Appearance,Urine Turbid (Clear); Bacteria,Urine Occasional /hpf; Bilirubin,Urine Negative (Negative); Blood,Urine Small (Negative); Color,Urine Light Yellow; Glucose,Urine (UA) Negative (Negative); Ketones,Urine Negative (Negative); Leukocyte Esterase,Urine Large (Negative); Nitrite,Urine Negative (Negative); PH, Urine 5.5 (5.0-8.0); Protein,Urine 2+ (Negative); RBC,Urine 15 /hpf (0-5); Specific Gravity,Urine 1.013 (1.001-1.035); Urobilinogen,Urine <2.0 mg/dL (<2.0); WBC,Urine >182 /hpf (0-5)
[2022-06-01] MEDS ORDERED: cefTRIAXone IN SWFI 1,000 MG/10 ML SYRINGE IVP STA (18:39)
[2022-06-01] MEDS ORDERED: SODIUM CHLORIDE 0.9% 1,000 ML IV ONE (18:41)
[2022-06-01] MEDS ORDERED: FUROSEMIDE 10 MG/ML 2 ML VIAL IV ONE (18:44)
--- NOTE | 2022-06-02 03:29 | P.HPIM ---
History of Present Illness H&P Date: 06/01/22 Chief Complaint: Symptomatic anemia 82-year-old male with hypertension, history of CAD status post CABG, renal transplant 2003 live donor Patient was recently discharged from the hospital March of this year where he was treated for pyelonephritis. He later was discharged to long term spent a week or 2 over the and then was sent home couple days ago with his . Ho wever today patient felt extremely weak he was feeling tired and dizzy when he gets up and some heavy breathing denies any chest pain denies any falls denies any abdominal pain denies any nausea vomiting denies any GI bleed. Patient denies any changes in bowel or urinary habits denies any coughing denies any fevers or chills Patient mainly complains of generalized weakness and inability to stand up on his own which which started gradually over the past couple days since he moved back home Workup in the ED revealed significant anemia with hemoglobin 6.1 patient denies any history of GI bleed or blood transfusions. He denies any active GI bleed at this time. However guaiac-positive was in the ED, blood work revealed stable chronic kidney disease, lactic acidosis, Patient denies being on any blood thinners denies taking any NSAIDs denies any tobacco smoking illicit drugs or alcohol Review of Systems Pertinent positives as noted in HPI. All other systems were reviewed and are negative Past Medical History Past Medical History: Coronary Artery Disease (CAD), Chest Pain / Angina, CVA/TIA Additional Past Medical History / Comment(s): UTI History of Any Multi-Drug Resistant Organisms: None Reported Additional Past Surgical History / Comment(s): Kidney Transplant Past Psychological History: No Psychological Hx Reported Smoking Status: Former smoker Past Alcohol Use History: None Reported Past Drug Use History: None Reported - Past Family History Father Family Medical History: Chest Pain / Angina Medications and Allergies Home Medications Medication Instructions Recorded Confirmed Type Atorvastatin [Lipitor] 40 mg PO DAILY@1900 03/30/22 06/01/22 History Cholecalciferol [Vitamin D3 (25 50 mcg PO DAILY@0600 03/30/22 06/01/22 History Mcg = 1000 Iu)] Furosemide [Lasix] 20 mg PO MOWEFR 03/30/22 06/01/22 History Insulin Lispro [humaLOG Kwikpen] See Protocol SQ AC-SUPPER PRN 03/30/22 06/01/22 History Insulin NPH Human Isophane 45 unit SQ DAILY@59903/30/22 06/01/22 History [humuLIN N Kwikpen] Losartan Potassium 100 mg PO HS@199903/30/22 06/01/22 History Magnesium Oxide [Mag-Ox] 400 mg PO DAILY@59903/30/22 06/01/22 History Multivitamins, Thera [Multivitamin 1 tab PO DAILY@59903/30/22 06/01/22 History (formulary)] Mycophenolate Sodium [Mycophenolic 360 mg PO BID@0600,19003/30/22 06/01/22 History Acid] NIFEdipine XL [Procardia XL] 90 mg PO DAILY@59903/30/22 06/01/22 History Nitroglycerin Sl Tabs [Nitrostat] 0.4 mg SUBLINGUAL Q5M PRN 03/30/22 06/01/22 History Sertraline [Zoloft] 50 mg PO DAILY@189903/30/22 06/01/22 History Sirolimus 2 mg PO DAILY@59903/30/22 06/01/22 History Vit C/E/Zn/Coppr/Lutein/Zeaxan 1 cap PO BID@0600,0 03/30/22 06/01/22 History [Preservision Areds 2 Softgel] carvediloL [Coreg] 6.25 mg PO AC-BID #60 tablet 04/07/22 06/01/22 Rx cloNIDine HCL [Catapres] 0.1 mg PO BID #60 tab 04/07/22 06/01/22 Rx hydrALAZINE HCL [Apresoline] 100 mg PO AC-TID #90 tablet 04/07/22 06/01/22 Rx Allergies Allergy/AdvReac Type Severity Reaction Status Date / Time No Known Allergies Allergy Verified 06/01/22 16:59 Physical Exam Vitals: Vital Signs Temp Pulse Resp BP Pulse Ox 06/01/22 18:18 99 F 90 16 143/55 98 06/01/22 17:17 100 F H 06/01/22 16:56 98.5 F 100 20 135/44 98 Intake and Output 06/01/22 06/01/22 06/01/22 06:59 14:59 22:59 Other: Weight 95.254 kg Constitutional: No acute distress, conversant, pleasant Eyes: Anicteric sclerae, moist conjunctiva, Pupils equal round reactive to light ENMT: NC/AT Oropharynx clear, no erythema, or exudates Neck: Supple, no masses, or JVD No carotid bruits No thyromegaly Lungs: Clear to auscultation Clear to percussion Normal respiratory effort, no accessory muscle use Cardiovascular: Heart regular in rate and rhythm, No murmurs, gallops, or rubs No peripheral edema Abdominal: Soft Nontender, no guarding, rebound or rigidity Abdomen moving with respiration Normoactive bowel sounds No hepatomegaly, No splenomegaly No palpable mass No abdominal wall hernia noted Skin: Normal temperature, tone, texture, turgor No induration No subcutaneous nodules No rash, lesions No ulcers Extremities: No digital cyanosis No clubbing Pedal pulses intact and symmetrical Radial pulses intact and symmetrical No calf tenderness Psychiatric: Alert and oriented to person, place Appropriate affect fair judgement Neuro Muscles Strength 4/5 in all 4 extremities Sensation to light touch grossly present throughout Cranial nerves II-XII grossly intact No focal sensory deficits Lymphatics: no palpable cervical or supraclavicular , or inguinal lymph nodes Results CBC & Chem 7: 06/01/22 17:38 06/01/22 17:38 Labs: Abnormal Lab Results - Last 24 Hours (Table) 06/01/22 06/01/22 06/01/22 Range/Units 17:38 17:38 17:38 RBC 2.50 L (4.30-5.90) m/uL Hgb 6.1 L* D (13.0-17.5) gm/dL Hct 19.7 L* (39.0-53.0) % MCV 79.0 L (80.0-100.0) fL MCH 24.4 L (25.0-35.0) pg MCHC 30.9 L (31.0-37.0) g/dL RDW 15.6 H (11.5-15.5) % Sodium 132 L (137-145) mmol/L Potassium 5.5 H (3.5-5.1) mmol/L Carbon Dioxide 18 L (22-30) mmol/L BUN 64 H (9-20) mg/dL Creatinine 1.41 H (0.66-1.25) mg/dL Glucose 193 H (74-99) mg/dL Plasma Lactic Acid Connor 3.3 H* (0.7-2.0) mmol/L Total Protein 5.0 L (6.3-8.2) g/dL Albumin 2.8 L (3.5-5.0) g/dL Urine Protein (Negative) Urine Blood (Negative) Ur Leukocyte Esterase (Negative) Urine RBC (0-5) /hpf Urine WBC (0-5) /hpf Urine WBC Clumps (None) /hpf Urine Bacteria (None) /hpf Crossmatch 06/01/22 06/01/22 Range/Units 18:13 18:30 RBC (4.30-5.90) m/uL Hgb (13.0-17.5) gm/dL Hct (39.0-53.0) % MCV (80.0-100.0) fL MCH (25.0-35.0) pg MCHC (31.0-37.0) g/dL RDW (11.5-15.5) % Sodium (137-145) mmol/L Potassium (3.5-5.1) mmol/L Carbon Dioxide (22-30) mmol/L BUN (9-20) mg/dL Creatinine (0.66-1.25) mg/dL Glucose (74-99) mg/dL Plasma Lactic Acid Connor (0.7-2.0) mmol/L Total Protein (6.3-8.2) g/dL Albumin (3.5-5.0) g/dL Urine Protein 2+ H (Negative) Urine Blood Small H (Negative) Ur Leukocyte Esterase Large H (Negative) Urine RBC 15 H (0-5) /hpf Urine WBC >182 H (0-5) /hpf Urine WBC Clumps Many H (None) /hpf Urine Bacteria Occasional H (None) /hpf Crossmatch See Detail Assessment and Plan Assessment: acute symptomatic anemia suspected GI bleed Monitor hemoglobin closely GI consultation Status post 1 unit transfusion of blood Monitor hemoglobin every 6 hours Avoid NSAIDs, or anticoagulation PPI twice a day Chronic conditions CK D stable Hypertension resume home blood pressure medications amlodipine losartan and Coreg and hydralazine and nifedipine Status post renal transplant 1999 for live donor continue with antirejection medications Hyperlipidemia continue statin Diabetes mellitus insulin sliding scale DVT prophylaxis mechanical Full code
[2022-06-02] MEDS: NON FORMULARY DRUG (Sirolimus [Sirolimus] 1 MG Tablet) PO SCH (05:09)
[2022-06-02] MEDS: MYCOPHENOLATE SODIUM DR 180 MG TABLET.DR PO SCH ×2 (05:12→20:49)
[2022-06-02] MEDS ORDERED: NIFEdipine XL 90 MG TAB.ER.24 PO SCH (06:00)
[2022-06-02] MEDS ORDERED: carvediloL 6.25 MG TAB PO SCH (07:30)
[2022-06-02] MEDS ORDERED: PANTOPRAZOLE 40 MG TABLET PO SCH (07:30)
[2022-06-02] MEDS ORDERED: hydrALAZINE HCL 20 MG/ML 1 ML VIAL IVP PRN (08:12)
[2022-06-02] MEDS: hydrALAZINE HCL 50 MG TAB PO SCH (08:48)
[2022-06-02 08:53] LABS: Glucose,Whole Blood 251 mg/dL (70-110)
[2022-06-02] MEDS ORDERED: cloNIDine HCL 0.1 MG TAB PO SCH (09:00)
[2022-06-02] MEDS: INSULIN ASPART (NovoLOG) 100 UNIT/ML VIAL SQ SCH ×4 (09:06→21:11)
[2022-06-02] MEDS: PANTOPRAZOLE 40 MG/10 ML VIAL IVP SCH ×2 (09:16→20:51)
[2022-06-02 09:59] LABS: Basophils % (A) 0 %; Eosinophils # (A) 0.1 k/uL (0-0.7); Eosinophils % (A) 1 %; Hypochromasia Marked; Lymphocytes # (A) 0.4 k/uL (1.0-4.8); Lymphocytes % (A) 7 %; MCH 25.6 pg (25.0-35.0); MCHC 31.8 g/dL (31.0-37.0); MCV 80.5 fL (80.0-100.0); Mean Platelet Volume 8.5; Monocytes # (A) 0.4 k/uL (0-1.0); Monocytes % (A) 7 %; Neutrophils % (A) 82 %; Platelet Count 244 k/uL (150-450); Poikilocytosis Slight; RBC 1.86 m/uL (4.30-5.90); RDW 15.5 % (11.5-15.5); WBC 6.1 k/uL (3.8-10.6)
[2022-06-02 10:10] LABS: MCH 25.3 pg (27.0-32.0); MCHC 31.6 g/dL (32.0-37.0); MCV 79.9 fL (80.0-97.0); Mean Platelet Volume 9.8 fL (9.5-12.2); NRBC Per 100 WBC 0 /100 WBCS (0.0-0.0); Platelet Count 203 X 10*3/uL (140-440); RBC 1.94 X 10*6/uL (4.40-5.60); WBC 8.12 X 10*3/uL (4.50-10.00)
[2022-06-02 10:11] LABS: Acanthocytes 2+; Basophils # (M) 0.08 X 10*3/uL (0.00-0.10); Eosinophils # (M) 0.08 X 10*3/uL (0.04-0.35); Lymphocytes # (M) 1.06 X 10*3/uL (0.90-5.00); Monocytes # (M) 0.97 X 10*3/uL (0.20-1.00); Neutrophils # (M) 5.93 X 10*3/uL (2.00-8.90); Neutrophils % (M) 73 %
[2022-06-02 10:12] LABS: African American GFR (CKD) 56 (>60 ml/min/1.73 sqM); Albumin 2.3 g/dL (3.5-5.0); Albumin/Globulin Ratio 1.2; Anion Gap 10 mmol/L; Carbon Dioxide 18 mmol/L (22-30); Chloride 108 mmol/L (98-107); Globulin 1.9 g/dL; Glucose 218 mg/dL (74-99); Non-African American GFR(CKD) 49 (>60 ml/min/1.73 sqM); Potassium 4.7 mmol/L (3.5-5.1); Sodium 136 mmol/L (137-145); Total Protein 4.2 g/dL (6.3-8.2)
[2022-06-02 10:15] LABS: HGB 4.8 gm/dL (13.0-17.5)
[2022-06-02 10:25] LABS: ALT 20 U/L (4-49); AST 17 U/L (17-59); Alkaline Phosphatase 59 U/L (38-126); Blood Urea Nitrogen 93 mg/dL (9-20); Calcium 8.2 mg/dL (8.4-10.2); Total Bilirubin <0.1 mg/dL (0.2-1.3)
--- NOTE | 2022-06-02 10:54 | P.CONS ---
History of Present Illness - Reason for Consult Consult date: 06/02/22 GI bleed Requesting physician: Nabeel Benavides - Chief Complaint Weakness - History of Present Illness This is a frail 82-year-old male who presented to the emergency department with complaints of significant weakness. Patient was admitted to the hospital approximately one month ago for urinary tract infection, weakness and discharged to outpatient rehab. Apparently patient had reportedly just gotten home and felt extremely weak, difficulty with getting around the house and presented back for further evaluation. Patient has a past medical history including coronary artery disease CVA, UTI, and chronic kidney disease he is also status post a kidney transplant. He is not on any anticoagulation and does not appear to be on any NSAIDs. Patient seems somewhat confused and is a poor historian. He states he does not believe he has had a history of GI bleed in the past, he is unsure if he's had any bleeding or black stool. He states he believes he had a colonoscopy 5 years ago, however he isn't sure where or who performed the procedure. He states that he overall just does not feel well, nursing just changed the patient and stated that he had a large black tarry stool. Admitting labs he had a hemoglobin of 6.1 and was given 1 unit of blood. Repeat labs are pending this morning, resulted now with a hemoglobin of 4.9. Review of Systems REVIEW OF SYSTEMS: CARDIOPULMONARY: No chest pain or shortness of breath. Gastrointestinal: No abdominal pain. No nausea or vomiting. No hematemesis, coffee-ground emesis. Patient reports he does not know were believed that he had any blood in his stool. Nursing reporting black tarry stool. GENITOURINARY: No dysuria or hematuria. MUSCULOSKELETAL: Reports normal range of motion. Joint pain. SKIN: No rashes. No jaundice. ENDOCRINE: No chills, fevers. No excessive weight gain or loss. No polydipsia or polyuria. PSYCHIATRIC: Unremarkable. NEUROLOGY: No change in mental status. Denies dizziness, headache. Gait imbalance, weakness. ENT: Vision unremarkable. CONSTITUTIONAL: No recent weight loss. No fever, chills, night sweats. Increased weakness and fatigue. ROS unobtainable: due to mental status Past Medical History Past Medical History: Coronary Artery Disease (CAD), Chest Pain / Angina, CVA/TI A Additional Past Medical History / Comment(s): UTI History of Any Multi-Drug Resistant Organisms: None Reported Additional Past Surgical History / Comment(s): Kidney Transplant Past Psychological History: No Psychological Hx Reported Smoking Status: Former smoker Past Alcohol Use History: None Reported Past Drug Use History: None Reported - Past Family History Father Family Medical History: Chest Pain / Angina Medications and Allergies Home Medications Medication Instructions Recorded Confirmed Type Atorvastatin [Lipitor] 40 mg PO DAILY@189903/30/22 06/01/22 History Cholecalciferol [Vitamin D3 (25 50 mcg PO DAILY@59903/30/22 06/01/22 History Mcg = 1000 Iu)] Furosemide [Lasix] 20 mg PO MOWEFR 03/30/22 06/01/22 History Insulin Lispro [humaLOG Kwikpen] See Protocol SQ AC-SUPPER PRN 03/30/22 06/01/22 History Insulin NPH Human Isophane 45 unit SQ DAILY@59903/30/22 06/01/22 History [humuLIN N Kwikpen] Losartan Potassium 100 mg PO HS@199903/30/22 06/01/22 History Magnesium Oxide [Mag-Ox] 400 mg PO DAILY@59903/30/22 06/01/22 History Multivitamins, Thera [Multivitamin 1 tab PO DAILY@59903/30/22 06/01/22 History (formulary)] Mycophenolate Sodium [Mycophenolic 360 mg PO BID@0600,189903/30/22 06/01/22 History Acid] NIFEdipine XL [Procardia XL] 90 mg PO DAILY@59903/30/22 06/01/22 History Nitroglycerin Sl Tabs [Nitrostat] 0.4 mg SUBLINGUAL Q5M PRN 03/30/22 06/01/22 History Sertraline [Zoloft] 50 mg PO DAILY@189903/30/22 06/01/22 History Sirolimus 2 mg PO DAILY@59903/30/22 06/01/22 History Vit C/E/Zn/Coppr/Lutein/Zeaxan 1 cap PO BID@0600,1900 03/30/22 06/01/22 History [Preservision Areds 2 Softgel] carvediloL [Coreg] 6.25 mg PO AC-BID #60 tablet 04/07/22 06/01/22 Rx cloNIDine HCL [Catapres] 0.1 mg PO BID #60 tab 04/07/22 06/01/22 Rx hydrALAZINE HCL [Apresoline] 100 mg PO AC-TID #90 tablet 04/07/22 06/01/22 Rx Allergies Allergy/AdvReac Type Severity Reaction Status Date / Time No Known Allergies Allergy Verified 06/01/22 16:59 Physical Exam Vitals: Vital Signs Temp Pulse Pulse Resp BP BP Pulse Ox 06/02/22 02:00 98.0 F 85 18 159/56 99 06/02/22 00:33 98.0 F 79 18 144/54 99 06/02/22 00:32 98.0 F 82 18 144/54 99 06/01/22 23:05 98.4 F 79 18 136/48 98 06/01/22 23:02 98.4 F 79 18 136/48 98 06/01/22 22:45 98.4 F 82 18 138/47 97 06/01/22 22:35 98.3 F 83 18 123/44 83 L 06/01/22 20:00 98.3 F 83 18 123/44 99 06/01/22 18:18 99 F 90 16 143/55 98 06/01/22 17:17 100 F H 06/01/22 16:56 98.5 F 100 20 135/44 98 Intake and Output 06/01/22 06/02/22 06/02/22 22:59 06:59 14:59 Intake Total 0 310 Balance 0 310 Intake: Blood Product 0 310 Rc As-1 Unit 0 310 [id number] Other: # Voids 3 # Bowel Movements 1 1 Weight 95.254 kg General appearance: The patient is alert, oriented, appears in no acute distress. HET: Head is normocephalic and atraumatic. Conjunctiva pink. Sclera anicteric. Neck: Supple without lymphadenopathy. Trachea midline. Heart: S1 S2. Regular rate and rhythm. Lungs: Clear to auscultation. Abdomen: Soft, nontender, nondistended with bowel sounds. No guarding or rigidity. Skin: No rashes. No jaundice. Extremities: Normal skin color and turgor. No pedal edema. Neurological: No focal deficits. Alert and oriented. Results CBC & Chem 7: 06/02/22 09:43 06/02/22 09:43 Labs: Abnormal Lab Results - Last 24 Hours (Table) 06/01/22 06/01/22 06/01/22 Range/Units 17:38 17:38 17:38 RBC 2.50 L (4.30-5.90) m/uL Hgb 6.1 L* D (13.0-17.5) gm/dL Hct 19.7 L* (39.0-53.0) % MCV 79.0 L (80.0-100.0) fL MCH 24.4 L (25.0-35.0) pg MCHC 30.9 L (31.0-37.0) g/dL RDW 15.6 H (11.5-15.5) % Sodium 132 L (137-145) mmol/L Potassium 5.5 H (3.5-5.1) mmol/L Carbon Dioxide 18 L (22-30) mmol/L BUN 64 H (9-20) mg/dL Creatinine 1.41 H (0.66-1.25) mg/dL Glucose 193 H (74-99) mg/dL Plasma Lactic Acid Connor 3.3 H* (0.7-2.0) mmol/L Total Protein 5.0 L (6.3-8.2) g/dL Albumin 2.8 L (3.5-5.0) g/dL Urine Protein (Negative) Urine Blood (Negative) Ur Leukocyte Esterase (Negative) Urine RBC (0-5) /hpf Urine WBC (0-5) /hpf Urine WBC Clumps (None) /hpf Urine Bacteria (None) /hpf Crossmatch 06/01/22 06/01/22 06/01/22 Range/Units 18:13 18:30 21:24 RBC (4.30-5.90) m/uL Hgb (13.0-17.5) gm/dL Hct (39.0-53.0) % MCV (80.0-100.0) fL MCH (25.0-35.0) pg MCHC (31.0-37.0) g/dL RDW (11.5-15.5) % Sodium (137-145) mmol/L Potassium (3.5-5.1) mmol/L Carbon Dioxide (22-30) mmol/L BUN (9-20) mg/dL Creatinine (0.66-1.25) mg/dL Glucose (74-99) mg/dL Plasma Lactic Acid Connor 2.7 H* (0.7-2.0) mmol/L Total Protein (6.3-8.2) g/dL Albumin (3.5-5.0) g/dL Urine Protein 2+ H (Negative) Urine Blood Small H (Negative) Ur Leukocyte Esterase Large H (Negative) Urine RBC 15 H (0-5) /hpf Urine WBC >182 H (0-5) /hpf Urine WBC Clumps Many H (None) /hpf Urine Bacteria Occasional H (None) /hpf Crossmatch See Detail Microbiology - Last 24 Hours (Table) 06/01/22 18:13 Urine Culture - Preliminary Urine,Voided Assessment and Plan (1) GI bleed Narrative/Plan: 82-year-old male who presented to the emergency department with feelings of significant weakness, difficulty ambulating at home. Patient was recently admitted to the hospital with UTI and sent to rehab. Yesterday he apparently had gone home but felt too weak to even get around his home. He was noted to have a hemoglobin of 6.1 on admission. He was given 1 unit of PRBC transfusion. Initially labs were not resulted however came back with a hemoglobin of 4.9. Patient was unsure if he had been having any black stool or blood in his stool. Denies any history of previous GI bleed. Believes his last colonoscopy was approximately 5 years ago and denies any history of peptic ulcer disease or EGD. Patient med list reviewed, takes a baby aspirin no NSAIDs or anticoagulation listed. Possible etiologies include peptic ulcer disease, AVM, gastritis, esophagitis, or other possible etiologies. The patient is scheduled for EGD. Current Visit: Yes Status: Acute Code(s): K92.2 - GASTROINTESTINAL HEMORRHAGE, UNSPECIFIED SNOMED Code(s): 70572157 (2) Anemia Current Visit: Yes Status: Acute Code(s): D64.9 - ANEMIA, UNSPECIFIED SNOMED Code(s): 189145168 (3) Generalized weakness Current Visit: No Status: Acute Code(s): R53.1 - WEAKNESS SNOMED Code(s): 13059504 Plan: 1. Continue symptomatic and supportive care 2. Agree with 2 units blood transfusion 3. Will change Protonix to 40 mg IV twice a day 4. Daily CBC, transfuse for hemoglobin less than 7 5. Avoid NSAIDs 6. Plan is for EGD this afternoon 7. Keep nothing by mouth Thank you for this consultation, we will continue to follow. Dr. René Dotson I agree with the dictator's note, documented as a scribe by Ethel Mcneil.
[2022-06-02 10:58] LABS: Glucose,Whole Blood 255 mg/dL (70-110)
[2022-06-02 11:17] LABS: HCT 15.5 % (39.6-50.0); HGB 4.9 g/dL (13.0-17.0)
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
--- NOTE | 2022-06-02 12:53 | P.CNPUL ---
History of Present Illness Consult date: 06/02/22 Requesting physician: Octavia Rodriguez Reason for consult: other Chief complaint: GI bleed. History of present illness: Pulmonary consult dated 06/02/2022. 82-year-old male seen in the emergency department on June 01. He apparently came in with complaints of generalized weakness. The patient apparently was complaining of some nausea, and was found to have a gastrointestinal bleed. He was admitted to the hospital, on the general medical floor. His initial hemoglobin was in the low 6 range, and the patient received 1 unit of blood. The patient was seen by gastroenterology. Sometime this morning, the patient's repeat hemoglobin was 4.9, and 2 additional units of blood were ordered. The patient was transferred to the intensive care unit for further monitoring and management. I see him today and room 260. He is currently on 2 L of oxygen. He is receiving the first unit of 2, here in the intensive care unit. He is not having any distress. No abdominal pain. His blood pressure is normal. White count 6.1, hemoglobin 4.8, hematocrit 15, and platelet count 244,000. Sodium 136, potassium 4.7, chlorides 108, CO2 18, BUN 93, and creatinine 1.36. N- terminal proBNP was 3380. Chest x-ray showed diffuse infiltrates, most likely consistent with fluid overload. The patient has a history of hypertension, hyperlipidemia, diabetes, kidney transplant, and bypass surgery. Review of Systems REVIEW OF SYSTEMS: CONSTITUTIONAL: Weakness NEUROLOGIC: [ Negative.] HEENT: [ Negative.] CARDIAC: [Negative.] PULMONARY: [Negative.] GI: GI bleed, nausea. : [Negative.] RHEUMATOLOGIC: [ Negative.] IMMUNOLOGIC: [ Negative.] ENDOCRINE: [Negative. ] DERMATOLOGIC: [Negative.] Past Medical History Past Medical History: Coronary Artery Disease (CAD), Chest Pain / Angina, CVA/TIA Additional Past Medical History / Comment(s): UTI History of Any Multi-Drug Resistant Organisms: None Reported Additional Past Surgical History / Comment(s): Kidney Transplant Past Psychological History: No Psychological Hx Reported Smoking Status: Former smoker Past Alcohol Use History: None Reported Past Drug Use History: None Reported - Past Family History Father Family Medical History: Chest Pain / Angina Medications and Allergies Home Medications Medication Instructions Recorded Confirmed Type Atorvastatin [Lipitor] 40 mg PO DAILY@1900 08/02/22 10/04/22 History Cholecalciferol [Vitamin D3 (25 50 mcg PO DAILY@59903/30/22 06/01/22 History Mcg = 1000 Iu)] Furosemide [Lasix] 20 mg PO MOWEFR 03/30/22 06/01/22 History Insulin Lispro [humaLOG Kwikpen] See Protocol SQ AC-SUPPER PRN 03/30/22 06/01/22 History Insulin NPH Human Isophane 45 unit SQ DAILY@59903/30/22 06/01/22 History [humuLIN N Kwikpen] Losartan Potassium 100 mg PO HS@199903/30/22 06/01/22 History Magnesium Oxide [Mag-Ox] 400 mg PO DAILY@59903/30/22 06/01/22 History Multivitamins, Thera [Multivitamin 1 tab PO DAILY@59903/30/22 06/01/22 History (formulary)] Mycophenolate Sodium [Mycophenolic 360 mg PO BID@0600,189903/30/22 06/01/22 History Acid] NIFEdipine XL [Procardia XL] 90 mg PO DAILY@59903/30/22 06/01/22 History Nitroglycerin Sl Tabs [Nitrostat] 0.4 mg SUBLINGUAL Q5M PRN 03/30/22 06/01/22 History Sertraline [Zoloft] 50 mg PO DAILY@189903/30/22 06/01/22 History Sirolimus 2 mg PO DAILY@59903/30/22 06/01/22 History Vit C/E/Zn/Coppr/Lutein/Zeaxan 1 cap PO BID@0600,189903/30/22 06/01/22 History [Preservision Areds 2 Softgel] carvediloL [Coreg] 6.25 mg PO AC-BID #60 tablet 04/07/22 06/01/22 Rx cloNIDine HCL [Catapres] 0.1 mg PO BID #60 tab 04/07/22 06/01/22 Rx hydrALAZINE HCL [Apresoline] 100 mg PO AC-TID #90 tablet 04/07/22 06/01/22 Rx Allergies Allergy/AdvReac Type Severity Reaction Status Date / Time No Known Allergies Allergy Verified 06/01/22 16:59 Physical Exam Osteopathic Statement: *. No significant issues noted on an osteopathic structural exam other than those noted in the History and Physical/Consult. Vitals: Vital Signs Temp Pulse Pulse Resp BP BP BP 06/02/22 11:20 97.9 F 76 14 121/45 06/02/22 11:15 76 17 101/32 06/02/22 11:00 97.8 F 80 22 133/51 06/02/22 10:21 96.4 F L 75 14 100/47 121/50 06/02/22 09:04 96 17 132/53 06/02/22 09:03 80 151/69 06/02/22 02:00 98.0 F 85 18 159/56 06/02/22 00:33 98.0 F 79 18 144/54 06/02/22 00:32 98.0 F 82 18 144/54 06/01/22 23:05 98.4 F 79 18 136/48 06/01/22 23:02 98.4 F 79 18 136/48 06/01/22 22:45 98.4 F 82 18 138/47 06/01/22 22:35 98.3 F 83 18 123/44 06/01/22 20:00 98.3 F 83 18 123/44 06/01/22 18:18 99 F 90 16 143/55 06/01/22 17:17 100 F H 06/01/22 16:56 98.5 F 100 20 135/44 Pulse Ox 06/02/22 11:20 99 06/02/22 11:15 100 06/02/22 11:00 94 L 06/02/22 10:21 100 06/02/22 09:04 06/02/22 09:03 06/02/22 02:00 99 06/02/22 00:33 99 06/02/22 00:32 99 06/01/22 23:05 98 06/01/22 23:02 98 06/01/22 22:45 97 06/01/22 22:35 83 L 06/01/22 20:00 99 06/01/22 18:18 98 06/01/22 17:17 06/01/22 16:56 98 Intake and Output 06/01/22 06/02/22 06/02/22 22:59 06:59 14:59 Intake Total 0 310 0 Balance 0 310 0 Intake: Blood Product 0 310 0 Unit 0 Rc As-1 Unit 0 310 [id number] Other: # Voids 3 # Bowel Movements 1 2 Weight 95.254 kg No acute distress, oriented 3. No respiratory distress. The patient's on 2 L. He has a bit pale. HEENT examination is grossly unremarkable. Neck supple. Full range of motion. No adenopathy thyromegaly or neck vein distention. Cardiovascular examination reveals regular rhythm rate. S1-S2 normal. No S3 or S4. No discernible murmur noted. Heart rate 76 bpm. Lungs reveal clear breath sounds. Breath sounds are equal bilaterally. No adventitious lung sounds including wheezes rhonchi or crackles. Abdomen soft bowel sounds are heard. No masses or tenderness. Extremities are intact. No cyanosis clubbing or edema. Skin is without rash or lesion. Neurologic examination is brief but nonfocal. Results - Laboratory Findings CBC and BMP: 06/02/22 09:43 06/02/22 09:43 PT/INR, D-dimer PT 11.9 sec (9.0-12.0) 06/01/22 17:38 INR 1.1 (<1.2) 06/01/22 17:38 Abnormal lab findings: Abnormal Labs 06/01/22 06/01/22 06/01/22 17:38 17:38 17:38 RBC 2.50 L Hgb 6.1 L* D Hct 19.7 L* MCV 79.0 L MCH 24.4 L MCHC 30.9 L RDW 15.6 H Lymphocytes # Sodium 132 L Potassium 5.5 H Chloride Carbon Dioxide 18 L BUN 64 H Creatinine 1.41 H Glucose 193 H POC Glucose (mg/dL) Plasma Lactic Acid Connor 3.3 H* Calcium Total Bilirubin Total Protein 5.0 L Albumin 2.8 L Urine Protein Urine Blood Ur Leukocyte Esterase Urine RBC Urine WBC Urine WBC Clumps Urine Bacteria Crossmatch 06/01/22 06/01/22 06/01/22 18:13 18:30 21:24 RBC Hgb Hct MCV MCH MCHC RDW Lymphocytes # Sodium Potassium Chloride Carbon Dioxide BUN Creatinine Glucose POC Glucose (mg/dL) Plasma Lactic Acid Connor 2.7 H* Calcium Total Bilirubin Total Protein Albumin Urine Protein 2+ H Urine Blood Small H Ur Leukocyte Esterase Large H Urine RBC 15 H Urine WBC >182 H Urine WBC Clumps Many H Urine Bacteria Occasional H Crossmatch See Detail 06/02/22 06/02/22 06/02/22 04:53 08:50 09:43 RBC 1.94 L 1.86 L Hgb 4.9 L* 4.8 L* Hct 15.5 L* 15.0 L* MCV 79.9 L MCH 25.3 L MCHC 31.6 L RDW 16.0 H Lymphocytes # 0.4 L Sodium Potassium Chloride Carbon Dioxide BUN Creatinine Glucose POC Glucose (mg/dL) 251 H Plasma Lactic Acid Connor Calcium Total Bilirubin Total Protein Albumin Urine Protein Urine Blood Ur Leukocyte Esterase Urine RBC Urine WBC Urine WBC Clumps Urine Bacteria Crossmatch 06/02/22 06/02/22 09:43 10:56 RBC Hgb Hct MCV MCH MCHC RDW Lymphocytes # Sodium 136 L Potassium Chloride 108 H Carbon Dioxide 18 L BUN 93 H Creatinine 1.36 H Glucose 218 H POC Glucose (mg/dL) 255 H Plasma Lactic Acid Connor Calcium 8.2 L Total Bilirubin <0.1 L Total Protein 4.2 L Albumin 2.3 L Urine Protein Urine Blood Ur Leukocyte Esterase Urine RBC Urine WBC Urine WBC Clumps Urine Bacteria Crossmatch - Diagnostic Findings Chest x-ray: image reviewed Assessment and Plan Assessment: Acute gastrointestinal bleed, with resultant anemia, patient scheduled for EGD today. History of previous bypass grafting for CAD. History of kidney transplant. History of hypertension. History of CVA. History of hyperlipidemia. History of diabetes mellitus. History of recurrent urinary tract infections. Prior history of tobacco use. Plan: Plan dated 06/02/2022. Patient is seen today in the intensive care unit, room 260. Hemodynamically, and pulmonary white, the patient stable. He's on 2 L. The patient received 1 unit of blood yesterday. He'll receive another 2 units of blood today. He apparently is going to have an EGD later today. We will continue to follow. Prognosis is guarded. Labs, x-rays, and medications are all reviewed. Time with Patient: Greater than 30
--- NOTE | 2022-06-02 13:31 | P.PN ---
Subjective Progress Note Date: 06/02/22 Patient seen and examined at bedside. Patient was not doing well this morning he looked pale and a little shaken. Patient was cleaned up after having 2 large dark stools. Patient denied chest pain shortness of breath. Vitals were stable. She is hemoglobin this morning came down to 4.8. Patient was tr ansferred to the ICU for further monitoring. Gastroenterology was informed. Patient will have an EGD later today. 2 units of packed red blood cells was ordered. Objective - Vital Signs Vital signs: Vital Signs Temp 97.9 F 06/02/22 11:20 Pulse 76 06/02/22 11:20 Resp 14 06/02/22 11:20 BP 121/45 06/02/22 11:20 Pulse Ox 99 06/02/22 11:20 FiO2 Intake & Output 06/01/22 06/02/22 06/02/22 18:59 06:59 18:59 Intake Total 310 0 Balance 310 0 Weight 95.254 kg Intake: Blood Product 310 0 Unit 0 Rc As-1 Unit 310 [id number] Other: # Voids 3 # Bowel Movements 1 2 - Exam General: [Pale], [in distress], [appears at stated age] Derm: [warm], [dry] pale Head: [atraumatic], [normocephalic], [symmetric] Eyes: [EOMI], [no lid lag], [anicteric sclera] Mouth: [no lip lesion], [mucus membranes moist] Cardiovascular: [S1S2 reg], [no murmur], [positive posterior tibial pulse bilateral], Lungs: [CTA bilateral], [no rhonchi, no rales] , [no accessory muscle use] Abdominal: [soft], [ nontender to palpation], [no guarding], [no appreciable organomegaly] Ext: [no gross muscle atrophy], [no edema], [no contractures] Neuro: [ CN II-XI grossly intact], [no focal neuro deficits] Psych: [Alert], [oriented], [appropriate affect] - Labs CBC & Chem 7: 06/02/22 09:43 06/02/22 09:43 Labs: Abnormal Lab Results - Last 24 Hours (Table) 06/01/22 06/01/22 06/01/22 Range/Units 17:38 17:38 17:38 RBC 2.50 L (4.30-5.90) m/uL Hgb 6.1 L* D (13.0-17.5) gm/dL Hct 19.7 L* (39.0-53.0) % MCV 79.0 L (80.0-100.0) fL MCH 24.4 L (25.0-35.0) pg MCHC 30.9 L (31.0-37.0) g/dL RDW 15.6 H (11.5-15.5) % Lymphocytes # (1.0-4.8) k/uL Sodium 132 L (137-145) mmol/L Potassium 5.5 H (3.5-5.1) mmol/L Chloride (98-107) mmol/L Carbon Dioxide 18 L (22-30) mmol/L BUN 64 H (9-20) mg/dL Creatinine 1.41 H (0.66-1.25) mg/dL Glucose 193 H (74-99) mg/dL POC Glucose (mg/dL) (70-110) mg/dL Plasma Lactic Acid Connor 3.3 H* (0.7-2.0) mmol/L Calcium (8.4-10.2) mg/dL Total Bilirubin (0.2-1.3) mg/dL Total Protein 5.0 L (6.3-8.2) g/dL Albumin 2.8 L (3.5-5.0) g/dL Urine Protein (Negative) Urine Blood (Negative) Ur Leukocyte Esterase (Negative) Urine RBC (0-5) /hpf Urine WBC (0-5) /hpf Urine WBC Clumps (None) /hpf Urine Bacteria (None) /hpf Crossmatch 06/01/22 06/01/22 06/01/22 Range/Units 18:13 18:30 21:24 RBC (4.30-5.90) m/uL Hgb (13.0-17.5) gm/dL Hct (39.0-53.0) % MCV (80.0-100.0) fL MCH (25.0-35.0) pg MCHC (31.0-37.0) g/dL RDW (11.5-15.5) % Lymphocytes # (1.0-4.8) k/uL Sodium (137-145) mmol/L Potassium (3.5-5.1) mmol/L Chloride (98-107) mmol/L Carbon Dioxide (22-30) mmol/L BUN (9-20) mg/dL Creatinine (0.66-1.25) mg/dL Glucose (74-99) mg/dL POC Glucose (mg/dL) (70-110) mg/dL Plasma Lactic Acid Connor 2.7 H* (0.7-2.0) mmol/L Calcium (8.4-10.2) mg/dL Total Bilirubin (0.2-1.3) mg/dL Total Protein (6.3-8.2) g/dL Albumin (3.5-5.0) g/dL Urine Protein 2+ H (Negative) Urine Blood Small H (Negative) Ur Leukocyte Esterase Large H (Negative) Urine RBC 15 H (0-5) /hpf Urine WBC >182 H (0-5) /hpf Urine WBC Clumps Many H (None) /hpf Urine Bacteria Occasional H (None) /hpf Crossmatch See Detail 06/02/22 06/02/22 06/02/22 Range/Units 04:53 08:50 09:43 RBC 1.94 L 1.86 L (4.30-5.90) m/uL Hgb 4.9 L* 4.8 L* (13.0-17.5) gm/dL Hct 15.5 L* 15.0 L* (39.0-53.0) % MCV 79.9 L (80.0-100.0) fL MCH 25.3 L (25.0-35.0) pg MCHC 31.6 L (31.0-37.0) g/dL RDW 16.0 H (11.5-15.5) % Lymphocytes # 0.4 L (1.0-4.8) k/uL Sodium (137-145) mmol/L Potassium (3.5-5.1) mmol/L Chloride (98-107) mmol/L Carbon Dioxide (22-30) mmol/L BUN (9-20) mg/dL Creatinine (0.66-1.25) mg/dL Glucose (74-99) mg/dL POC Glucose (mg/dL) 251 H (70-110) mg/dL Plasma Lactic Acid Connor (0.7-2.0) mmol/L Calcium (8.4-10.2) mg/dL Total Bilirubin (0.2-1.3) mg/dL Total Protein (6.3-8.2) g/dL Albumin (3.5-5.0) g/dL Urine Protein (Negative) Urine Blood (Negative) Ur Leukocyte Esterase (Negative) Urine RBC (0-5) /hpf Urine WBC (0-5) /hpf Urine WBC Clumps (None) /hpf Urine Bacteria (None) /hpf Crossmatch 06/02/22 06/02/22 Range/Units 09:43 10:56 RBC (4.30-5.90) m/uL Hgb (13.0-17.5) gm/dL Hct (39.0-53.0) % MCV (80.0-100.0) fL MCH (25.0-35.0) pg MCHC (31.0-37.0) g/dL RDW (11.5-15.5) % Lymphocytes # (1.0-4.8) k/uL Sodium 136 L (137-145) mmol/L Potassium (3.5-5.1) mmol/L Chloride 108 H (98-107) mmol/L Carbon Dioxide 18 L (22-30) mmol/L BUN 93 H (9-20) mg/dL Creatinine 1.36 H (0.66-1.25) mg/dL Glucose 218 H (74-99) mg/dL POC Glucose (mg/dL) 255 H (70-110) mg/dL Plasma Lactic Acid Connor (0.7-2.0) mmol/L Calcium 8.2 L (8.4-10.2) mg/dL Total Bilirubin <0.1 L (0.2-1.3) mg/dL Total Protein 4.2 L (6.3-8.2) g/dL Albumin 2.3 L (3.5-5.0) g/dL Urine Protein (Negative) Urine Blood (Negative) Ur Leukocyte Esterase (Negative) Urine RBC (0-5) /hpf Urine WBC (0-5) /hpf Urine WBC Clumps (None) /hpf Urine Bacteria (None) /hpf Crossmatch Microbiology - Last 24 Hours (Table) 06/01/22 17:35 Blood Culture - Final Blood 06/01/22 18:13 Urine Culture - Preliminary Urine,Voided Assessment and Plan Assessment: 1. Acute blood loss anemia likely due to upper GI bleed Transfuse 2 units of packed red blood cells stat patient received 1 unit yesterday in the ER GI informed patient is to have an EGD done this afternoon Patient transferred to the ICU H&H every 6 hours 2. Bilateral pleural effusions likely due to fluid overload Oxygenation is currently stable Echocardiogram revealed preserved ejection fraction with mild to moderate tricuspid regurgitation Continue to monitor 3. History of CKD stable Trend BUN/creatinine 4. History of hypertension Parameters placed on antihypertensives given the current situation of acute GI bleed Pressure is to be checked before medications are to be given Monitor vitals every 4 hours Losartan decreased to 50 mg by mouth daily with parameters Oral hydralazine discontinued for the time being PRN IV hydralazine ordered 5. Hyperlipidemia Resume statin 6. Diabetes mellitus Insulin sliding scale Add Levemir 5 units subcu daily Check hemoglobin A1c GI DVT prophylaxis A.m. labs
[2022-06-02] MEDS ORDERED: IV FLUID CONTINUATION 1,000 ML IV ONE (13:41)
[2022-06-02] MEDS ORDERED: PROPOFOL 10 MG/ML 20 ML VIAL IV ONE (13:43)
[2022-06-02] MEDS ORDERED: LIDOCAINE 2% INJ 20 MG/ML (2 ML VIAL) ONE (13:43)
[2022-06-02] MEDS ORDERED: LACTATED RINGERS 1,000 ML IV ONE (13:46)
--- NOTE | 2022-06-02 13:55 | P.PCN ---
Date of Procedure: 06/02/22 Procedure(s) Performed: BRIEF HISTORY: Patient is a 82-year-old, pleasant, white male admitted hospital with black tarry stools and hemoglobin of 6.5 g/dL. White was on the floor hemoglobin dropped 4.9 g/dL and patient had significant amount of black tarry stools. He was transferred from intensive care unit and currently on Prilosec 20 mg twice daily and scheduled for an upper endoscopy to evaluate for upper GI source of bleeding. PROCEDURE PERFORMED: Esophagogastroduodenoscopy. PREOPERATIVE DIAGNOSIS: Black tarry stools and severe symptomatic anemia. IV sedation per anesthesia. PROCEDURE: After informed consent was obtained, the patient was brought into the endoscopy unit. IV sedation was administered by Anesthesia under continuous monitoring. Initially the Olympus GIF-140 video endoscope was inserted into the mouth. Esophagus intubated without any difficulty. It was gradually advanced into the stomach and duodenum and carefully examined. The bulb and the second part of the duodenum appeared normal. The scope at this time was withdrawn to the stomach, adequately insufflated with air, and upon careful examination, mucosa of the antrum, body, cardia and the fundus appeared normal. No active upper GI bleed seen. The scope was then withdrawn into the esophagus. The GE junction was located at 39 cm from the incisors. The esophagus appeared normal. There were 2 superficial erosions consistent with mild distal reflux esophagitis and the patient tolerated the procedure well. IMPRESSION: 1. Mild distal esophagitis. 2. No evidence of active upper GI. RECOMMENDATIONS: The findings of this examination were discussed with the patient as well as his family. At this time will continue to monitor him closely. Continue with a clear liquid diet. Schedule him for a colonoscopy tomorrow..
[2022-06-02] MEDS ORDERED: PEG 3350 (236 GM/BTL) + LYTES 4,000 ML BOTTLE PO ONE (14:30)
[2022-06-02] MEDS ORDERED: PIPERACILLIN-TAZOBACTAM 3.375 GM in SODIUM CHLORIDE 0.9% 100 ML IVPB SCH (16:00)
[2022-06-02] MEDS: carvediloL 6.25 MG TAB PO SCH (16:13)
[2022-06-02 16:49] LABS: Glucose,Whole Blood 221 mg/dL (70-110)
[2022-06-02] MEDS ORDERED: MEROPENEM 2 GM in SODIUM CHLORIDE 0.9% 100 ML IVPB STA (20:04)
[2022-06-02 20:19] LABS: HCT 21.4 % (39.0-53.0); Hypochromasia Slight; MCH 28.1 pg (25.0-35.0); MCHC 34.2 g/dL (31.0-37.0); MCV 82.2 fL (80.0-100.0); Platelet Count 211 k/uL (150-450); Poikilocytosis Slight; RBC 2.61 m/uL (4.30-5.90); WBC 9.9 k/uL (3.8-10.6)
[2022-06-02 20:33] LABS: HGB 7.3 gm/dL (13.0-17.5)
[2022-06-02] MEDS: ATORVASTATIN 40 MG TAB PO SCH (20:48)
[2022-06-02] MEDS: cloNIDine HCL 0.1 MG TAB PO SCH (20:49)
[2022-06-02] MEDS ORDERED: LOSARTAN 50 MG TAB PO SCH (21:00)
[2022-06-02 21:10] LABS: Glucose,Whole Blood 150 mg/dL (70-110)
[2022-06-02] MEDS: SERTRALINE 50 MG TAB PO SCH (21:12)
[2022-06-03] MEDS: MEROPENEM 2 GM in SODIUM CHLORIDE 0.9% 100 ML IVPB SCH ×3 (00:56→18:09)
[2022-06-03 02:00] LABS: HCT 20.6 % (39.0-53.0); HGB 7.1 gm/dL (13.0-17.5); Hypochromasia Slight; MCH 28.3 pg (25.0-35.0); MCHC 34.5 g/dL (31.0-37.0); Mean Platelet Volume 7.9; Platelet Count 205 k/uL (150-450); Poikilocytosis Slight; RBC 2.52 m/uL (4.30-5.90); WBC 8.4 k/uL (3.8-10.6)
[2022-06-03 06:35] LABS: Basophils % (A) 0 %; Eosinophils # (A) 0.1 k/uL (0-0.7); Eosinophils % (A) 1 %; HCT 20.9 % (39.0-53.0); Hypochromasia Moderate; Lymphocytes # (A) 0.8 k/uL (1.0-4.8); Lymphocytes % (A) 9 %; MCHC 33.6 g/dL (31.0-37.0); MCV 83.2 fL (80.0-100.0); Mean Platelet Volume 8.1; Monocytes # (A) 0.8 k/uL (0-1.0); Monocytes % (A) 10 %; Neutrophils # (A) 6.6 k/uL (1.3-7.7); Neutrophils % (A) 77 %; Platelet Count 215 k/uL (150-450); Poikilocytosis Slight; RBC 2.51 m/uL (4.30-5.90); RDW 15.2 % (11.5-15.5); WBC 8.6 k/uL (3.8-10.6)
[2022-06-03 06:48] LABS: Albumin 2.7 g/dL (3.5-5.0); Calcium 8.5 mg/dL (8.4-10.2); Total Bilirubin 0.4 mg/dL (0.2-1.3); Total Protein 4.8 g/dL (6.3-8.2)
[2022-06-03] MEDS: MYCOPHENOLATE SODIUM DR 180 MG TABLET.DR PO SCH ×2 (07:35→21:06)
[2022-06-03 07:41] LABS: Glucose,Whole Blood 197 mg/dL (70-110)
[2022-06-03] MEDS: INSULIN DETEMIR (LEVEMIR) 100 UNIT/ML SYR SQ SCH (07:44)
[2022-06-03] MEDS: INSULIN ASPART (NovoLOG) 100 UNIT/ML VIAL SQ SCH ×3 (07:44→18:08)
[2022-06-03] MEDS: carvediloL 6.25 MG TAB PO SCH ×2 (08:24→20:47)
[2022-06-03] MEDS: cloNIDine HCL 0.1 MG TAB PO SCH ×2 (08:24→21:05)
[2022-06-03] MEDS: PANTOPRAZOLE 40 MG/10 ML VIAL IVP SCH ×2 (08:24→21:05)
[2022-06-03] MEDS: LOSARTAN 50 MG TAB PO SCH (08:24)
[2022-06-03] MEDS: NIFEdipine XL 90 MG TAB.ER.24 PO SCH (08:25)
--- NOTE | 2022-06-03 10:50 | P.PN ---
Subjective Progress Note Date: 06/03/22 Principal diagnosis: GI bleed. Pulmonary consult dated 06/02/2022. 82-year-old male seen in the emergency department on June 01. He apparently came in with complaints of generalized weakness. The patient apparently was complaining of some nausea, and was found to have a gastrointestinal bleed. He was admitted to the hospital, on the general medical floor. His initial he moglobin was in the low 6 range, and the patient received 1 unit of blood. The patient was seen by gastroenterology. Sometime this morning, the patient's repeat hemoglobin was 4.9, and 2 additional units of blood were ordered. The patient was transferred to the intensive care unit for further monitoring and management. I see him today and room 260. He is currently on 2 L of oxygen. He is receiving the first unit of 2, here in the intensive care unit. He is not having any distress. No abdominal pain. His blood pressure is normal. White count 6.1, hemoglobin 4.8, hematocrit 15, and platelet count 244,000. Sodium 136, potassium 4.7, chlorides 108, CO2 18, BUN 93, and creatinine 1.36. N- terminal proBNP was 3380. Chest x-ray showed diffuse infiltrates, most likely consistent with fluid overload. The patient has a history of hypertension, hyperlipidemia, diabetes, kidney transplant, and bypass surgery. Progress note dated 06/03/2022. This patient was seen in consultation yesterday. He remains in the intensive care unit, room 260. He is currently not receiving any IV fluids. He is on room air. The patient had an EGD done yesterday, June 02, which showed no active bleeding, and some mild distal esophagitis. Since he been in the hospital, he has received 3 units of packed red blood cells. Blood sampling was positive for Klebsiella pneumoniae. Urine showed evidence of gram-negative bacilli. He is on IV meropenem. He is supposed to have a colonoscopy today. W taylor count 8.6, hemoglobin 7, hematocrit 20.9, count 215,000. Sodium 141, potassium 4, chlorides 110, CO2 19, anion gap 12, BUN 71, and creatinine 1.23 Objective - Vital Signs Vital signs: Vital Signs Temp 98.0 F 06/03/22 08:00 Pulse 72 06/03/22 09:00 Resp 14 06/03/22 09:00 BP 124/59 06/03/22 09:00 Pulse Ox 96 06/03/22 09:00 FiO2 21 06/03/22 07:39 Intake & Output 06/02/22 06/03/22 06/03/22 18:59 06:59 18:59 Intake Total 2800 390 130 Output Total 400 150 Balance 2800 -10 -20 Weight 94 kg Intake: IV 1200 390 130 0.9 NS @ 20 90 30 Lactated Ringers 1,000 ml 1000 @ 0 mls/hr IV .[facility] Rx#:[id number] Meropenem 2 gm In Sodium 200 100 Chloride 0.9% 100 ml @ 200 mls/hr IVPB ONCE STA Rx#:[id number] Piperacillin-Tazobactam 3 100 100 .375 gm In Sodium Chloride 0.9% 100 ml @ 25 mls/hr IVPB Q8HR [facility] Rx# :[id number] Oral 360 Blood Product 1240 Rc As-1 Unit 310 [id number] Rc As-1 Unit 310 [id number] Output: Urine 400 150 Other: Voiding Method External Catheter External Catheter # Voids 1 1 1 # Bowel Movements 2 1 1 - Exam No acute distress, oriented 3. No respiratory distress. The patient's currently on room air. HEENT examination is grossly unremarkable. Neck supple. Full range of motion. No adenopathy thyromegaly or neck vein distention. Cardiovascular examination reveals regular rhythm rate. S1-S2 normal. No S3 or S4. No discernible murmur noted. Heart rate 72 bpm. Lungs reveal clear breath sounds. Breath sounds are equal bilaterally. No adventitious lung sounds including wheezes rhonchi or crackles. Abdomen soft bowel sounds are heard. No masses or tenderness. Extremities are intact. No cyanosis clubbing or edema. Skin is without rash or lesion. Neurologic examination is brief but nonfocal. - Labs CBC & Chem 7: 06/03/22 05:52 06/03/22 05:52 Labs: Abnormal Lab Results - Last 24 Hours (Table) 06/01/22 06/02/22 06/02/22 Range/Units 18:30 04:53 09:43 RBC (4.30-5.90) m/uL Hgb 4.9 L* (13.0-17.0) g/dL Hct 15.5 L* (39.6-50.0) % Lymphocytes # (1.0-4.8) k/uL Chloride (98-107) mmol/L Carbon Dioxide (22-30) mmol/L BUN (9-20) mg/dL Glucose (74-99) mg/dL POC Glucose (mg/dL) (70-110) mg/dL Hemoglobin A1c (0.0-6.0) % Total Protein (6.3-8.2) g/dL Albumin (3.5-5.0) g/dL Procalcitonin 0.25 H (0.02-0.09) ng/mL Crossmatch See Detail 06/02/22 06/02/22 06/02/22 Range/Units 09:43 10:56 16:47 RBC (4.30-5.90) m/uL Hgb (13.0-17.0) g/dL Hct (39.6-50.0) % Lymphocytes # (1.0-4.8) k/uL Chloride (98-107) mmol/L Carbon Dioxide (22-30) mmol/L BUN (9-20) mg/dL Glucose (74-99) mg/dL POC Glucose (mg/dL) 255 H 221 H (70-110) mg/dL Hemoglobin A1c 7.2 H (0.0-6.0) % Total Protein (6.3-8.2) g/dL Albumin (3.5-5.0) g/dL Procalcitonin (0.02-0.09) ng/mL Crossmatch 06/02/22 06/02/22 06/03/22 Range/Units 20:12 21:08 01:37 RBC 2.61 L 2.52 L (4.30-5.90) m/uL Hgb 7.3 L D 7.1 L (13.0-17.0) g/dL Hct 21.4 L 20.6 L (39.6-50.0) % Lymphocytes # (1.0-4.8) k/uL Chloride (98-107) mmol/L Carbon Dioxide (22-30) mmol/L BUN (9-20) mg/dL Glucose (74-99) mg/dL POC Glucose (mg/dL) 150 H (70-110) mg/dL Hemoglobin A1c (0.0-6.0) % Total Protein (6.3-8.2) g/dL Albumin (3.5-5.0) g/dL Procalcitonin (0.02-0.09) ng/mL Crossmatch 06/03/22 06/03/22 06/03/22 Range/Units 05:52 05:52 07:40 RBC 2.51 L (4.30-5.90) m/uL Hgb 7.0 L (13.0-17.0) g/dL Hct 20.9 L (39.6-50.0) % Lymphocytes # 0.8 L (1.0-4.8) k/uL Chloride 110 H (98-107) mmol/L Carbon Dioxide 19 L (22-30) mmol/L BUN 71 H (9-20) mg/dL Glucose 168 H (74-99) mg/dL POC Glucose (mg/dL) 197 H (70-110) mg/dL Hemoglobin A1c (0.0-6.0) % Total Protein 4.8 L (6.3-8.2) g/dL Albumin 2.7 L (3.5-5.0) g/dL Procalcitonin (0.02-0.09) ng/mL Crossmatch Microbiology - Last 24 Hours (Table) 06/01/22 18:13 Urine Culture - Preliminary Urine,Voided Gram Neg Bacilli 06/01/22 17:35 Blood Culture Gram Stain - Preliminary Blood Blood Culture - Preliminary Klebsiella pneumoniae 06/01/22 17:30 Blood Culture - Preliminary Blood No Growth after 24 hours 06/01/22 17:35 Blood Culture - Final Blood Assessment and Plan Assessment: Acute gastrointestinal bleed, with resultant anemia, EGD, June 02, revealed no active bleeding, and only mild distal esophagitis. Klebsiella pneumoniae bacteremia. History of previous bypass grafting for CAD. History of kidney transplant. History of hypertension. History of CVA. History of hyperlipidemia. History of diabetes mellitus. History of recurrent urinary tract infections. Prior history of tobacco use. Plan: Plan dated 06/02/2022. Patient is seen today in the intensive care unit, room 260. Hemodynamically, and pulmonary white, the patient stable. He's on 2 L. The patient received 1 unit of blood yesterday. He'll receive another 2 units of blood today. He apparently is going to have an EGD later today. We will continue to follow. Prognosis is guarded. Labs, x-rays, and medications are all reviewed. Plan dated 06/03/2022. The patient remains on meropenem for his Klebsiella pneumoniae bacteremia. The patient has received a total of 3 units of packed red blood cells. He is on room air. No IV fluids. No current active bleeding. The patient is scheduled for colonoscopy later today. The patient may or may come back to the intensive care unit. Labs, x-rays, medications are reviewed. Prognosis is guarded. Time with Patient: Less than 30
--- NOTE | 2022-06-03 11:04 | P.PN ---
Subjective Progress Note Date: 06/03/22 Principal diagnosis: GI bleed This is a frail 82-year-old male who presented to the emergency department with complaints of significant weakness. Patient was admitted to the hospital approximately one month ago for urinary tract infection, weakness and discharged to outpatient rehab. Apparently patient had reportedly just gotten home and felt extremely weak, difficulty with getting around the house and presented back for further evaluation. Patient has a past medical history including coronary artery disease CVA, UTI, and chronic kidney disease he is also status post a kidney transplant. He is not on any anticoagulation and does not appear to be on any NSAIDs. Patient seems somewhat confused and is a poor historian. He states he does not believe he has had a history of GI bleed in the past, he is unsure if he's had any bleeding or black stool. He states he believes he had a colonoscopy 5 years ago, however he isn't sure where or who performed the procedure. He states that he overall just does not feel well, nursing just changed the patient and stated that he had a large black tarry stool. Admitting labs he had a hemoglobin of 6.1 and was given 1 unit of blood. Repeat labs are pending this morning, resulted now with a hemoglobin of 4.9. 06/03/2022: Patient was seen and examined today for follow-up for GI bleed. Yesterday he had 2-3 episodes of large black tarry bowel movements. He had a dropped his hemoglobin to 4.8 he has had a total of 3 units of blood. Yesterday he underwent EGD yesterday evening he had a bowel prep and is scheduled today for colonoscopy. Today's repeat hemoglobin 7.0 no further bleeding at this time. Objective - Vital Signs Vital signs: Vital Signs Temp 98.0 F 06/03/22 08:00 Pulse 72 06/03/22 09:00 Resp 14 06/03/22 09:00 BP 124/59 06/03/22 09:00 Pulse Ox 96 06/03/22 09:00 FiO2 21 06/03/22 07:39 Intake & Output 06/02/22 06/03/22 06/03/22 18:59 06:59 18:59 Intake Total 2800 390 130 Output Total 400 150 Balance 2800 -10 -20 Weight 94 kg Intake: IV 1200 390 130 0.9 NS @ 20 90 30 Lactated Ringers 1,000 ml 1000 @ 0 mls/hr IV .STK-MED ONE Rx#:[id number] Meropenem 2 gm In Sodium 200 100 Chloride 0.9% 100 ml @ 200 mls/hr IVPB ONCE STA Rx#:[id number] Piperacillin-Tazobactam 3 100 100 .375 gm In Sodium Chloride 0.9% 100 ml @ 25 mls/hr IVPB Q8HR [facility] Rx# :[id number] Oral 360 Blood Product 1240 Rc As-1 Unit 310 [id number] Rc As-1 Unit 310 [id number] Output: Urine 400 150 Other: Voiding Method External Catheter External Catheter # Voids 1 1 1 # Bowel Movements 2 1 1 - Exam General appearance: The patient is alert, oriented, appears in no acute distress. HET: Head is normocephalic and atraumatic. Conjunctiva pink. Sclera anicteric. Neck: Supple without lymphadenopathy. Abdomen: Soft, nontender, nondistended with bowel sounds. No guarding or rigidity. Extremities: Normal skin color and turgor. No pedal edema Skin: No rashes, no jaundice Neurological: No focal deficits. Alert and oriented. - Labs CBC & Chem 7: 06/03/22 05:52 06/03/22 05:52 Labs: Abnormal Lab Results - Last 24 Hours (Table) 06/01/22 06/02/22 06/02/22 Range/Units 18:30 04:53 09:43 RBC (4.30-5.90) m/uL Hgb 4.9 L* (13.0-17.0) g/dL Hct 15.5 L* (39.6-50.0) % Lymphocytes # (1.0-4.8) k/uL Chloride (98-107) mmol/L Carbon Dioxide (22-30) mmol/L BUN (9-20) mg/dL Glucose (74-99) mg/dL POC Glucose (mg/dL) (70-110) mg/dL Hemoglobin A1c (0.0-6.0) % Total Protein (6.3-8.2) g/dL Albumin (3.5-5.0) g/dL Procalcitonin 0.25 H (0.02-0.09) ng/mL Crossmatch See Detail 06/02/22 06/02/22 06/02/22 Range/Units 09:43 16:47 20:12 RBC 2.61 L (4.30-5.90) m/uL Hgb 7.3 L D (13.0-17.0) g/dL Hct 21.4 L (39.6-50.0) % Lymphocytes # (1.0-4.8) k/uL Chloride (98-107) mmol/L Carbon Dioxide (22-30) mmol/L BUN (9-20) mg/dL Glucose (74-99) mg/dL POC Glucose (mg/dL) 221 H (70-110) mg/dL Hemoglobin A1c 7.2 H (0.0-6.0) % Total Protein (6.3-8.2) g/dL Albumin (3.5-5.0) g/dL Procalcitonin (0.02-0.09) ng/mL Crossmatch 06/02/22 06/03/22 06/03/22 Range/Units 21:08 01:37 05:52 RBC 2.52 L 2.51 L (4.30-5.90) m/uL Hgb 7.1 L 7.0 L (13.0-17.0) g/dL Hct 20.6 L 20.9 L (39.6-50.0) % Lymphocytes # 0.8 L (1.0-4.8) k/uL Chloride (98-107) mmol/L Carbon Dioxide (22-30) mmol/L BUN (9-20) mg/dL Glucose (74-99) mg/dL POC Glucose (mg/dL) 150 H (70-110) mg/dL Hemoglobin A1c (0.0-6.0) % Total Protein (6.3-8.2) g/dL Albumin (3.5-5.0) g/dL Procalcitonin (0.02-0.09) ng/mL Crossmatch 06/03/22 06/03/22 Range/Units 05:52 07:40 RBC (4.30-5.90) m/uL Hgb (13.0-17.0) g/dL Hct (39.6-50.0) % Lymphocytes # (1.0-4.8) k/uL Chloride 110 H (98-107) mmol/L Carbon Dioxide 19 L (22-30) mmol/L BUN 71 H (9-20) mg/dL Glucose 168 H (74-99) mg/dL POC Glucose (mg/dL) 197 H (70-110) mg/dL Hemoglobin A1c (0.0-6.0) % Total Protein 4.8 L (6.3-8.2) g/dL Albumin 2.7 L (3.5-5.0) g/dL Procalcitonin (0.02-0.09) ng/mL Crossmatch Microbiology - Last 24 Hours (Table) 06/01/22 18:13 Urine Culture - Preliminary Urine,Voided Gram Neg Bacilli 06/01/22 17:35 Blood Culture Gram Stain - Preliminary Blood Blood Culture - Preliminary Klebsiella pneumoniae 06/01/22 17:30 Blood Culture - Preliminary Blood No Growth after 24 hours 06/01/22 17:35 Blood Culture - Final Blood Assessment and Plan (1) GI bleed Narrative/Plan: 82-year-old male who presented to the emergency department with feelings of significant weakness, difficulty ambulating at home. Patient was recently admitted to the hospital with UTI and sent to rehab. Yesterday he apparently had gone home but felt too weak to even get around his home. He was noted to have a hemoglobin of 6.1 on admission. He was given 1 unit of PRBC transfusion. Initially labs were not resulted however came back with a hemoglobin of 4.9. Patient was unsure if he had been having any black stool or blood in his stool. Denies any history of previous GI bleed. Believes his last colonoscopy was approximately 5 years ago and denies any history of peptic ulcer disease or EGD. Patient med list reviewed, takes a baby aspirin no NSAIDs or anticoagulation listed. Possible etiologies include peptic ulcer disease, AVM, gastritis, esophagitis, or other possible etiologies. The patient is scheduled for EGD. Current Visit: Yes Status: Acute Code(s): K92.2 - GASTROINTESTINAL HEMORRHAGE, UNSPECIFIED SNOMED Code(s): 36501274 (2) Anemia Current Visit: Yes Status: Acute Code(s): D64.9 - ANEMIA, UNSPECIFIED SNOMED Code(s): 290512062 (3) Generalized weakness Current Visit: No Status: Acute Code(s): R53.1 - WEAKNESS SNOMED Code(s): 91049850 Plan: 1. Continue symptomatic and supportive care 2. Daily CBC, transfuse for hemoglobin less than 7 3. Continue Protonix to 40 mg IV twice a day 4. Avoid NSAIDs 5. Patient scheduled for colonoscopy this afternoon 6. Keep nothing by mouth Thank you for this consultation, we will continue to follow. Dr. René Dotson I agree with the dictator's note, documented as a scribe by Ethel Mcneil.
[2022-06-03 11:09] LABS: Glucose,Whole Blood 191 mg/dL (70-110)
[2022-06-03] MEDS: SIROLIMUS 1 MG PO SCH (12:14)
[2022-06-03 12:48] VITALS: BMI 26.6
[2022-06-03] MEDS ORDERED: PROPOFOL 10 MG/ML 20 ML VIAL IV ONE (14:36)
[2022-06-03] MEDS ORDERED: IV FLUID CONTINUATION 1,000 ML IV ONE ×2 (14:40)
--- NOTE | 2022-06-03 15:08 | P.PCN ---
Date of Procedure: 06/03/22 Procedure(s) Performed: BRIEF HISTORY: Patient is a 82-year-old pleasant white female admitted hospital with severe symptomatic anemia and black tarry stools. Hemoglobin was 4.5 g/dL. He complains of PRBC transfusion. He had an upper endoscopy yesterday was unremarkable. His and scheduled scheduled for an elective colonoscopy as a part of acute GI bleed/anemia PROCEDURE PERFORMED: Colonoscopy. PREOPERATIVE DIAGNOSIS: Acute GI bleed/negative upper endoscopy yesterday. IV sedation per Anesthesia. PROCEDURE: After informed consent was obtained, the patient, was brought into the endoscopy unit. IV sedation was administered by Anesthesia under continuous monitoring. Digital rectal examination was normal. Initially the Olympus CF-160 flexible video colonoscope was then inserted in the rectum, gradually advanced into the cecum without any difficulty. Careful examination was performed as the scope was gradually being withdrawn. Ileocecal valve and the appendiceal orifice were visualized and appeared normal. Prep was excellent. No active bleeding noted. Terminal ileum was intubated and 20 cm visualized and appeared normal. Mucosa of the cecum, ascending colon, transverse colon, descending colon, sigmoid colon, and rectum appeared normal. Retroflexion was performed in the rectum and no lesions were seen. The patient tolerated the procedure well. IMPRESSION: Normal-appearing colon from rectum to cecum with no evidence of colitis or colorectal neoplasia. No diverticulosis seen. . RECOMMENDATIONS: Findings of this examination were discussed with the patient as well as his family. At this time will be scheduled for a small bowel capsule endoscopy to evaluate for small bowel source of bleeding..
[2022-06-03] MEDS ORDERED: SIMETHICONE 40 MG/0.6 ML DROPS 2,000 MG/30 ML BOTTLE PO ONE (16:00)
[2022-06-03 16:23] LABS: Glucose,Whole Blood 136 mg/dL (70-110)
--- NOTE | 2022-06-03 17:34 | P.PN ---
Subjective Progress Note Date: 06/03/22 Patient seen and examined at bedside. Patient appears to be improved from yesterday. Patient has more color in his skin. Hemoglobin is stable at 7.0. Patient had EGD which revealed no evidence of upper GI bleeding. Patient scheduled for colonoscopy. Patient denies chest pain shortness breath nausea v omiting fevers or chills. was in the room time of exam. Objective - Vital Signs Vital signs: Vital Signs Temp 98.0 F 06/03/22 08:00 Pulse 78 06/03/22 16:00 Resp 14 06/03/22 16:00 BP 156/58 06/03/22 14:00 Pulse Ox 96 06/03/22 16:00 FiO2 21 06/03/22 07:39 Intake & Output 06/02/22 06/03/22 06/03/22 18:59 06:59 18:59 Intake Total 2800 390 260 Output Total 400 450 Balance 2800 -10 -190 Weight 94 kg 94 kg Intake: IV 1200 390 260 0.9 NS @ 20 90 60 Lactated Ringers 1,000 ml 1000 @ 0 mls/hr IV .STK-MED ONE Rx#:[id number] Meropenem 2 gm In Sodium 200 100 Chloride 0.9% 100 ml @ 200 mls/hr IVPB ONCE STA Rx#:[id number] Piperacillin-Tazobactam 3 100 100 .375 gm In Sodium Chloride 0.9% 100 ml @ 25 mls/hr IVPB Q8HR [facility] Rx# :[id number] Oral 360 Blood Product 1240 Rc As-1 Unit 310 [id number] Rc As-1 Unit 310 [id number] Output: Urine 400 450 Other: Voiding Method External Catheter External Catheter # Voids 1 1 1 # Bowel Movements 2 1 1 - Exam General: [Pale], [no distress], [appears at stated age] Derm: [warm], [dry] pale Head: [atraumatic], [normocephalic], [symmetric] Eyes: [EOMI], [no lid lag], [anicteric sclera] Mouth: [no lip lesion], [mucus membranes moist] Cardiovascular: [S1S2 reg], [no murmur], [positive posterior tibial pulse bilateral], Lungs: [CTA bilateral], [no rhonchi, no rales] , [no accessory muscle use] Abdominal: [soft], [ nontender to palpation], [no guarding], [no appreciable organomegaly] Ext: [no gross muscle atrophy], [no edema], [no contractures] Neuro: [ CN II-XI grossly intact], [no focal neuro deficits] Psych: [Alert], [oriented], [appropriate affect. - Labs CBC & Chem 7: 06/03/22 05:52 06/03/22 05:52 Labs: Abnormal Lab Results - Last 24 Hours (Table) 06/01/22 06/02/22 06/02/22 Range/Units 18:30 09:43 20:12 RBC 2.61 L (4.30-5.90) m/uL Hgb 7.3 L D (13.0-17.5) gm/dL Hct 21.4 L (39.0-53.0) % Lymphocytes # (1.0-4.8) k/uL Chloride (98-107) mmol/L Carbon Dioxide (22-30) mmol/L BUN (9-20) mg/dL Glucose (74-99) mg/dL POC Glucose (mg/dL) (70-110) mg/dL Hemoglobin A1c 7.2 H (0.0-6.0) % Total Protein (6.3-8.2) g/dL Albumin (3.5-5.0) g/dL Crossmatch See Detail 06/02/22 06/03/22 06/03/22 Range/Units 21:08 01:37 05:52 RBC 2.52 L 2.51 L (4.30-5.90) m/uL Hgb 7.1 L 7.0 L (13.0-17.5) gm/dL Hct 20.6 L 20.9 L (39.0-53.0) % Lymphocytes # 0.8 L (1.0-4.8) k/uL Chloride (98-107) mmol/L Carbon Dioxide (22-30) mmol/L BUN (9-20) mg/dL Glucose (74-99) mg/dL POC Glucose (mg/dL) 150 H (70-110) mg/dL Hemoglobin A1c (0.0-6.0) % Total Protein (6.3-8.2) g/dL Albumin (3.5-5.0) g/dL Crossmatch 06/03/22 06/03/22 06/03/22 Range/Units 05:52 07:40 11:07 RBC (4.30-5.90) m/uL Hgb (13.0-17.5) gm/dL Hct (39.0-53.0) % Lymphocytes # (1.0-4.8) k/uL Chloride 110 H (98-107) mmol/L Carbon Dioxide 19 L (22-30) mmol/L BUN 71 H (9-20) mg/dL Glucose 168 H (74-99) mg/dL POC Glucose (mg/dL) 197 H 191 H (70-110) mg/dL Hemoglobin A1c (0.0-6.0) % Total Protein 4.8 L (6.3-8.2) g/dL Albumin 2.7 L (3.5-5.0) g/dL Crossmatch 06/03/22 Range/Units 16:10 RBC (4.30-5.90) m/uL Hgb (13.0-17.5) gm/dL Hct (39.0-53.0) % Lymphocytes # (1.0-4.8) k/uL Chloride (98-107) mmol/L Carbon Dioxide (22-30) mmol/L BUN (9-20) mg/dL Glucose (74-99) mg/dL POC Glucose (mg/dL) 136 H (70-110) mg/dL Hemoglobin A1c (0.0-6.0) % Total Protein (6.3-8.2) g/dL Albumin (3.5-5.0) g/dL Crossmatch Microbiology - Last 24 Hours (Table) 06/01/22 17:35 Blood Culture Gram Stain - Preliminary Blood Blood Culture - Preliminary Klebsiella pneumoniae 06/01/22 18:13 Urine Culture - Preliminary Urine,Voided Gram Neg Bacilli 06/01/22 17:30 Blood Culture - Preliminary Blood No Growth after 24 hours Assessment and Plan Assessment: 1. Klebsiella pneumonia bacteremia likely urogenital source continue IV antibiotics ID recommendations appreciated 2. Acute blood loss anemia likely due to upper GI bleed Transfused 2 units of packed red blood cells stat patient received 1 unit in the ER GI performed EGD was negative for upper GI bleed source patient is to have colonoscopy H&H every 6 hours Hemoglobin stable at 7.0 2. UTI Antibiotics as indicated #1 3.Bilateral pleural effusions likely due to fluid overload Oxygenation is currently stable Echocardiogram revealed preserved ejection fraction with mild to moderate tricuspid regurgitation Continue to monitor 4. History of CKD stable Trend BUN/creatinine 5. History of hypertension Parameters placed on antihypertensives given the current situation of acute GI bleed Pressure is to be checked before medications are to be given Monitor vitals every 4 hours Losartan decreased to 50 mg by mouth daily with parameters Oral hydralazine discontinued for the time being PRN IV hydralazine ordered 6. Hyperlipidemia Resume statin 7. Diabetes mellitus Insulin sliding scale Add Levemir 5 units subcu daily hemoglobin A1c 7.2% GI DVT prophylaxis A.m. labs
[2022-06-03] MEDS: ATORVASTATIN 40 MG TAB PO SCH (21:05)
[2022-06-03] MEDS: SERTRALINE 50 MG TAB PO SCH (21:05)
[2022-06-03 21:48] LABS: Glucose,Whole Blood 111 mg/dL (70-110)
--- NOTE | 2022-06-03 22:25 | P.CONS ---
History of Present Illness - Reason for Consult Consult date: 06/03/22 Bacteremia Requesting physician: Toya Beltran - Chief Complaint Weakness x few days - History of Present Illness Patient is a 82-year-old male presenting to the hospital 2 days ago on 06/01/2022 for evaluation of weakness feeling tired and dizzy when he gets up and did have difficulty breathing however the patient denies having any chest pain or cough no nausea no vomiting no headache or URI symptoms no abdominal pain or any diarrhea patient on presentation to the hospital did have a low-grade fever 100 degrees formulae the patient has been afebrile since then patient did have a normal white count low hemoglobin creatinine has been normal liver enzymes are normal did have a positive UA COVID testing was negative patient did have blood cultures coming back positive with Klebsiella infectious disease was consulted for further management of antibiotic therapy patient did have a chest x-ray diffuse airspace opacity correlate for atypical pneumonia, patient not very clear about his any urinary symptoms of burning or frequency however denies any difficulty with urination and no suprapubic or flank pain some nausea but no vomiting or diarrhea Review of Systems Positive point has been mentioned in the HPI rest of the systems are negative Past Medical History Past Medical History: Coronary Artery Disease (CAD), Chest Pain / Angina, CVA/TIA Additional Past Medical History / Comment(s): UTI History of Any Multi-Drug Resistant Organisms: None Reported Additional Past Surgical History / Comment(s): Kidney Transplant Past Psychological History: No Psychological Hx Reported Smoking Status: Former smoker Past Alcohol Use History: None Reported Past Drug Use History: None Reported - Past Family History Father Family Medical History: Chest Pain / Angina Medications and Allergies Home Medications Medication Instructions Recorded Confirmed Type Atorvastatin [Lipitor] 40 mg PO DAILY@189903/30/22 06/01/22 History Cholecalciferol [Vitamin D3 (25 50 mcg PO DAILY@59903/30/22 06/01/22 History Mcg = 1000 Iu)] Magnesium Oxide [Mag-Ox] 400 mg PO DAILY@59903/30/22 06/01/22 History Multivitamins, Thera [Multivitamin 1 tab PO DAILY@59903/30/22 06/01/22 History (formulary)] Mycophenolate Sodium [Mycophenolic 360 mg PO BID@0600,189903/30/22 06/01/22 History Acid] Nitroglycerin Sl Tabs [Nitrostat] 0.4 mg SUBLINGUAL Q5M PRN 03/30/22 06/01/22 History Sertraline [Zoloft] 50 mg PO DAILY@1900 03/30/22 06/01/22 History Sirolimus 2 mg PO DAILY@0600 03/30/22 06/01/22 History Vit C/E/Zn/Coppr/Lutein/Zeaxan 1 cap PO BID@0600,1900 03/30/22 06/01/22 History [Preservision Areds 2 Softgel] carvediloL [Coreg] 6.25 mg PO AC-BID #60 tablet 04/07/22 06/01/22 Rx cloNIDine HCL [Catapres] 0.1 mg PO BID #60 tab 04/07/22 06/01/22 Rx hydrALAZINE HCL [Apresoline] 100 mg PO AC-TID #90 tablet 04/07/22 06/01/22 Rx Ertapenem [INVanz] 1 gm IVPB Q24H #10 each 06/08/22 Rx Ferrous Sulfate [Iron (65 MG 325 mg PO BID-W/MEALS tab 06/08/22 Rx Elemental)] INSULIN ASPART (NovoLOG) [NovoLOG 0 unit SQ ACHS each 06/08/22 Rx (formulary)] Insulin Detemir (Levemir) [Levemir] 5 unit SQ DAILY@0700 each 06/08/22 Rx Losartan [Cozaar] 50 mg PO DAILY #0 tab 06/08/22 Rx NIFEdipine XL [Procardia XL] 120 mg PO DAILY tab 06/08/22 Rx Pantoprazole [Protonix] 40 mg PO DAILY #30 tab 06/08/22 Rx Allergies Allergy/AdvReac Type Severity Reaction Status Date / Time No Known Allergies Allergy Verified 06/01/22 16:59 Physical Exam Vitals: Vital Signs Temp Pulse Pulse Resp BP BP Pulse Ox 06/03/22 16:00 78 14 96 06/03/22 14:00 50 L 96 14 139/67 156/58 95 06/03/22 13:00 73 13 143/52 98 06/03/22 12:00 36 L 17 143/52 97 06/03/22 11:00 84 10 L 139/62 95 06/03/22 10:00 65 14 124/53 96 06/03/22 09:00 72 14 124/59 96 06/03/22 08:00 98.0 F 81 15 141/57 94 L 06/03/22 07:39 97 06/03/22 07:00 71 16 150/50 96 06/03/22 06:00 89 16 162/60 95 06/03/22 05:00 85 20 148/50 96 06/03/22 04:00 98.3 F 73 82 20 137/45 93 L 06/03/22 03:10 79 18 153/65 97 06/03/22 02:00 79 16 138/51 96 06/03/22 01:00 80 19 137/53 98 06/03/22 00:00 98.2 F 85 82 23 123/52 96 06/02/22 23:00 80 23 130/48 97 06/02/22 22:00 75 18 126/46 99 06/02/22 21:00 81 25 H 145/52 97 06/02/22 20:00 98.4 F 85 75 24 130/47 98 06/02/22 19:00 88 20 143/60 97 06/02/22 18:45 86 11 L 144/54 98 06/02/22 18:30 86 24 133/102 98 06/02/22 18:15 89 21 150/54 97 FiO2 06/03/22 16:00 06/03/22 14:00 06/03/22 13:00 06/03/22 12:00 06/03/22 11:00 06/03/22 10:00 06/03/22 09:00 06/03/22 08:00 06/03/22 07:39 21 06/03/22 07:00 06/03/22 06:00 06/03/22 05:00 06/03/22 04:00 06/03/22 03:10 06/03/22 02:00 06/03/22 01:00 06/03/22 00:00 06/02/22 23:00 06/02/22 22:00 06/02/22 21:00 06/02/22 20:00 06/02/22 19:00 06/02/22 18:45 06/02/22 18:30 06/02/22 18:15 Intake and Output 06/03/22 06/03/2206/03/22 06:59 14:59 22:59 Intake Total 180 160 100 Output Total 400 450 Balance -220 -290 100 Intake: IV 180 160 100 0.9 NS @ 20 80 60 Meropenem 2 gm In Sodium 100 100 Chloride 0.9% 100 ml @ 200 mls/hr IVPB ONCE STA Rx#:[id number] Output: Urine 400 450 Other: Voiding Method External Catheter External Catheter # Voids 1 # Bowel Movements 1 1 Weight 94 kg 94 kg GENERAL DESCRIPTION: Elderly male lying in bed, no distress. No tachypnea or accessory muscle of respiration use. HEENT: Shows Pallor , no scleral icterus. Oral mucous membrane is dry. No pharyngeal erythema or thrush NECK: Trachea central, no thyromegaly. LUNGS: Unlabored breathing. Decreased breath sounds at the base. HEART: S1, S2, regular rate and rhythm. No loud murmur ABDOMEN: Soft, no tenderness , guarding or rigidity, no organomegaly EXTREMITIES: No edema of feet. SKIN: No rash, no masses palpable. NEUROLOGICAL: The patient is awake, alert, oriented x3, mood and affect normal. Results CBC & Chem 7: 06/08/22 05:33 06/08/22 05:33 Labs: Abnormal Lab Results - Last 24 Hours (Table) 06/02/22 06/02/22 06/02/22 Range/Units 09:43 20:12 21:08 RBC 2.61 L (4.30-5.90) m/uL Hgb 7.3 L D (13.0-17.5) gm/dL Hct 21.4 L (39.0-53.0) % Lymphocytes # (1.0-4.8) k/uL Chloride (98-107) mmol/L Carbon Dioxide (22-30) mmol/L BUN (9-20) mg/dL Glucose (74-99) mg/dL POC Glucose (mg/dL) 150 H (70-110) mg/dL Hemoglobin A1c 7.2 H (0.0-6.0) % Total Protein (6.3-8.2) g/dL Albumin (3.5-5.0) g/dL 06/03/22 06/03/22 06/03/22 Range/Units 01:37 05:52 05:52 RBC 2.52 L 2.51 L (4.30-5.90) m/uL Hgb 7.1 L 7.0 L (13.0-17.5) gm/dL Hct 20.6 L 20.9 L (39.0-53.0) % Lymphocytes # 0.8 L (1.0-4.8) k/uL Chloride 110 H (98-107) mmol/L Carbon Dioxide 19 L (22-30) mmol/L BUN 71 H (9-20) mg/dL Glucose 168 H (74-99) mg/dL POC Glucose (mg/dL) (70-110) mg/dL Hemoglobin A1c (0.0-6.0) % Total Protein 4.8 L (6.3-8.2) g/dL Albumin 2.7 L (3.5-5.0) g/dL 06/03/22 06/03/22 06/03/22 Range/Units 07:40 11:07 16:10 RBC (4.30-5.90) m/uL Hgb (13.0-17.5) gm/dL Hct (39.0-53.0) % Lymphocytes # (1.0-4.8) k/uL Chloride (98-107) mmol/L Carbon Dioxide (22-30) mmol/L BUN (9-20) mg/dL Glucose (74-99) mg/dL POC Glucose (mg/dL) 197 H 191 H 136 H (70-110) mg/dL Hemoglobin A1c (0.0-6.0) % Total Protein (6.3-8.2) g/dL Albumin (3.5-5.0) g/dL Microbiology - Last 24 Hours (Table) 06/01/22 17:35 Blood Culture Gram Stain - Preliminary Blood Blood Culture - Preliminary Klebsiella pneumoniae 06/01/22 18:13 Urine Culture - Preliminary Urine,Voided Gram Neg Bacilli 06/01/22 17:30 Blood Culture - Preliminary Blood No Growth after 24 hours Assessment and Plan (1) Bacteremia Status: Acute Code(s): R78.81 - BACTEREMIA SNOMED Code(s): 8676304 Plan: 1patient with ESBL Klebsiella UTI and bacteremia antibiotic has been adjusted to meropenem however the dose will be adjusted to 1 g every 8 hours 2we will obtain ultrasound of the kidneys to make sure evidence of any structural abnormality 3-blood cultures will be repeated document clearance of bacteremia We will follow on clinical condition and cultures to further adjust medication if needed Thank you for this consultation will follow this patient along with you Time with Patient: Greater than 30
[2022-06-04] MEDS: INSULIN ASPART (NovoLOG) 100 UNIT/ML VIAL SQ SCH ×5 (00:38→21:01)
[2022-06-04] MEDS: MEROPENEM 1 GM in SODIUM CHLORIDE 0.9% 100 ML IVPB SCH ×3 (01:51→17:54)
[2022-06-04] MEDS: MYCOPHENOLATE SODIUM DR 180 MG TABLET.DR PO SCH ×2 (05:52→17:54)
[2022-06-04] MEDS: SIROLIMUS 1 MG PO SCH (05:53)
[2022-06-04 05:54] LABS: Basophils % (A) 1 %; Eosinophils # (A) 0.2 k/uL (0-0.7); Eosinophils % (A) 3 %; HCT 20.6 % (39.0-53.0); Hypochromasia Moderate; Lymphocytes # (A) 0.7 k/uL (1.0-4.8); Lymphocytes % (A) 11 %; MCH 27.5 pg (25.0-35.0); MCHC 32.7 g/dL (31.0-37.0); MCV 84.2 fL (80.0-100.0); Monocytes # (A) 0.7 k/uL (0-1.0); Monocytes % (A) 11 %; Neutrophils # (A) 4.6 k/uL (1.3-7.7); Neutrophils % (A) 72 %; Platelet Count 231 k/uL (150-450); Poikilocytosis Slight; RBC 2.44 m/uL (4.30-5.90); RDW 15.9 % (11.5-15.5); WBC 6.4 k/uL (3.8-10.6)
[2022-06-04 06:08] LABS: Albumin 2.5 g/dL (3.5-5.0); Calcium 8.3 mg/dL (8.4-10.2); Potassium 3.8 mmol/L (3.5-5.1); Total Bilirubin 0.3 mg/dL (0.2-1.3); Total Protein 4.5 g/dL (6.3-8.2)
[2022-06-04 06:14] LABS: HGB 6.7 gm/dL (13.0-17.5)
[2022-06-04] MEDS: carvediloL 6.25 MG TAB PO SCH ×2 (07:11→17:54)
[2022-06-04] MEDS: INSULIN DETEMIR (LEVEMIR) 100 UNIT/ML SYR SQ SCH (07:11)
--- NOTE | 2022-06-04 08:41 | US ---
EXAMINATION TYPE: US kidneys/renal and bladder DATE OF EXAM: 06/04/2022 COMPARISON: CT A4 22. CLINICAL HISTORY: uti and bacteremia. UTI, transplant kidney EXAM MEASUREMENTS: [place] Right Kidney: 5.1 x 3.4 x 2.6 cm [place] Left Kidney: 6.1 x 3.0 x 3.0 cm [place] Right Kidney: Atrophic . No hydronephrosis or shadowing calculi. [place] Left Kidney: Atrophic . No shadowing calculi or hydronephrosis. Bladder: Bladder wall thickening. Bilateral Jets seen: No Transplant kidney located within LLQ,= 12.9 x 6.9 x 6.2 cm, no evidence of hydro, renal sinus cyst mi d= 2.7 x 2.4 x 2.2 cm. No shadowing calculi. Normal arterial and venous waveforms identified. IMPRESSION: 1. Left lower quadrant transplant kidney without evidence of hydronephrosis or shadowing calculi. No perinephric fluid collections. 2. Atrophic bilateral [place] kidneys without hydronephrosis or shadowing calculi. No perinephric flu id collections. 3. Bladder wall thickening likely related to known urinary tract infection.
[2022-06-04] MEDS: PANTOPRAZOLE 40 MG/10 ML VIAL IVP SCH ×2 (08:48→21:13)
[2022-06-04] MEDS: NIFEdipine XL 90 MG TAB.ER.24 PO SCH (08:48)
[2022-06-04] MEDS: cloNIDine HCL 0.1 MG TAB PO SCH ×2 (08:48→21:13)
[2022-06-04] MEDS: LOSARTAN 50 MG TAB PO SCH (08:48)
--- NOTE | 2022-06-04 11:08 | P.PN ---
Subjective Progress Note Date: 06/04/22 Principal diagnosis: GI bleed. Pulmonary consult dated 06/02/2022. 82-year-old male seen in the emergency department on June 01. He apparently came in with complaints of generalized weakness. The patient apparently was complaining of some nausea, and was found to have a gastrointestinal bleed. He was admitted to the hospital, on the general medical floor. His initial he moglobin was in the low 6 range, and the patient received 1 unit of blood. The patient was seen by gastroenterology. Sometime this morning, the patient's repeat hemoglobin was 4.9, and 2 additional units of blood were ordered. The patient was transferred to the intensive care unit for further monitoring and management. I see him today and room 260. He is currently on 2 L of oxygen. He is receiving the first unit of 2, here in the intensive care unit. He is not having any distress. No abdominal pain. His blood pressure is normal. White count 6.1, hemoglobin 4.8, hematocrit 15, and platelet count 244,000. Sodium 136, potassium 4.7, chlorides 108, CO2 18, BUN 93, and creatinine 1.36. N- terminal proBNP was 3380. Chest x-ray showed diffuse infiltrates, most likely consistent with fluid overload. The patient has a history of hypertension, hyperlipidemia, diabetes, kidney transplant, and bypass surgery. Progress note dated 06/03/2022. This patient was seen in consultation yesterday. He remains in the intensive care unit, room 260. He is currently not receiving any IV fluids. He is on room air. The patient had an EGD done yesterday, June 02, which showed no active bleeding, and some mild distal esophagitis. Since he been in the hospital, he has received 3 units of packed red blood cells. Blood sampling was positive for Klebsiella pneumoniae. Urine showed evidence of gram-negative bacilli. He is on IV meropenem. He is supposed to have a colonoscopy today. W taylor count 8.6, hemoglobin 7, hematocrit 20.9, count 215,000. Sodium 141, potassium 4, chlorides 110, CO2 19, anion gap 12, BUN 71, and creatinine 1.23 Progress note dated 06/04/2022. The patient was seen again in room 260. He was seen in consultation 2 days ago. He was admitted with a diagnosis of GI bleed. The patient had an EGD, which showed only mild esophagitis. Apparently the colonoscopy was relatively normal. No active bleeding. He is receiving 1 additional unit of blood. That makes a total of 4 units of packed red blood cells since she's been here. He is on room air. He's getting saline at KVO. His hemoglobin this morning was 6.7. White count was 6.4, hematocrit 20.6, and platelet count was normal. Sodium 141, potassium 3.8, chlorides 113, CO2 20, BUN 57, creatinine 1.12. Blood cultures and urine cultures are showing evidence of Klebsiella pneumoniae. The colonos copy was done on June 03. The patient will end up having a capsule endoscopy. Objective - Vital Signs Vital signs: Vital Signs Temp 98.0 F 06/04/22 10:53 Pulse 68 06/04/22 10:53 Resp 16 06/04/22 10:53 BP 141/80 06/04/22 10:53 Pulse Ox 97 06/04/22 10:53 FiO2 21 06/03/22 07:39 Intake & Output 06/03/22 06/04/22 06/04/22 18:59 06:59 18:59 Intake Total 420 0 Output Total 450 700 Balance -30 -700 0 Weight 94 kg Intake: IV 420 0.9 NS @ 20 120 Meropenem 2 gm In Sodium 200 Chloride 0.9% 100 ml @ 200 mls/hr IVPB ONCE STA Rx#:[id number] Blood Product 0 Rc Pheresis 2 As3 Unit 0 [id number] Output: Urine 450 700 Other: Voiding Method External Catheter External Catheter # Voids 1 # Bowel Movements 1 - Exam No acute distress, oriented 3. No respiratory distress. The patient's currently on room air. Saturations are 97%. HEENT examination is grossly unremarkable. Neck supple. Full range of motion. No adenopathy thyromegaly or neck vein distention. Cardiovascular examination reveals regular rhythm rate. S1-S2 normal. No S3 or S4. No discernible murmur noted. Heart rate 68 bpm. Lungs reveal clear breath sounds. Breath sounds are equal bilaterally. No adventitious lung sounds including wheezes rhonchi or crackles. Abdomen soft bowel sounds are heard. No masses or tenderness. Extremities are intact. No cyanosis clubbing or edema. Skin is without rash or lesion. Neurologic examination is brief but nonfocal. - Labs CBC & Chem 7: 06/04/22 05:23 06/04/22 05:23 Labs: Abnormal Lab Results - Last 24 Hours (Table) 06/01/22 06/03/22 06/03/22 Range/Units 18:30 11:07 16:10 RBC (4.30-5.90) m/uL Hgb (13.0-17.5) gm/dL Hct (39.0-53.0) % RDW (11.5-15.5) % Lymphocytes # (1.0-4.8) k/uL Chloride (98-107) mmol/L Carbon Dioxide (22-30) mmol/L BUN (9-20) mg/dL Glucose (74-99) mg/dL POC Glucose (mg/dL) 191 H 136 H (70-110) mg/dL Calcium (8.4-10.2) mg/dL Total Protein (6.3-8.2) g/dL Albumin (3.5-5.0) g/dL Crossmatch See Detail 06/03/22 06/04/22 06/04/22 Range/Units 21:46 05:23 05:23 RBC 2.44 L (4.30-5.90) m/uL Hgb 6.7 L* (13.0-17.5) gm/dL Hct 20.6 L (39.0-53.0) % RDW 15.9 H (11.5-15.5) % Lymphocytes # 0.7 L (1.0-4.8) k/uL Chloride 113 H (98-107) mmol/L Carbon Dioxide 20 L (22-30) mmol/L BUN 57 H (9-20) mg/dL Glucose 127 H (74-99) mg/dL POC Glucose (mg/dL) 111 H (70-110) mg/dL Calcium 8.3 L (8.4-10.2) mg/dL Total Protein 4.5 L (6.3-8.2) g/dL Albumin 2.5 L (3.5-5.0) g/dL Crossmatch Microbiology - Last 24 Hours (Table) 06/01/22 18:13 Urine Culture - Final Urine,Voided Klebsiella pneumoniae 06/01/22 17:30 Blood Culture - Preliminary Blood No Growth after 48 hours 06/01/22 17:35 Blood Culture Gram Stain - Preliminary Blood Blood Culture - Preliminary Klebsiella pneumoniae Assessment and Plan Assessment: Acute gastrointestinal bleed, with resultant anemia, EGD, June 02, revealed no active bleeding, and only mild distal esophagitis. Colonoscopy was nondiagnostic. Klebsiella pneumoniae bacteremia. History of previous bypass grafting for CAD. History of kidney transplant. History of hypertension. History of CVA. History of hyperlipidemia. History of diabetes mellitus. History of recurrent urinary tract infections. Prior history of tobacco use. Plan: Plan dated 06/02/2022. Patient is seen today in the intensive care unit, room 260. Hemodynamically, and pulmonary white, the patient stable. He's on 2 L. The patient received 1 unit of blood yesterday. He'll receive another 2 units of blood today. He apparently is going to have an EGD later today. We will continue to follow. Prognosis is guarded. Labs, x-rays, and medications are all reviewed. Plan dated 06/03/2022. The patient remains on meropenem for his Klebsiella pneumoniae bacteremia. The patient has received a total of 3 units of packed red blood cells. He is on room air. No IV fluids. No current active bleeding. The patient is scheduled for colonoscopy later today. The patient may or may come back to the intensive care unit. Labs, x-rays, medications are reviewed. Prognosis is guarded. Plan dated 06/04/2022. The patient remains on meropenem for Klebsiella pneumoniae bacteremia. The patient will receive a another unit of blood today. I will make 4 total units. His hemoglobin this morning was 6.7. The patient's on room air. The patient's on saline at KVO. The patient is not having any abdominal discomfort. Labs, x- rays, and medications are reviewed. The plan is for capsule endoscopy. Time with Patient: Less than 30
[2022-06-04 11:53] LABS: Glucose,Whole Blood 224 mg/dL (70-110)
--- NOTE | 2022-06-04 13:04 | P.PN ---
Subjective Progress Note Date: 06/04/22 Principal diagnosis: GI bleed This is a frail 82-year-old male who presented to the emergency department with complaints of significant weakness. Patient was admitted to the hospital approximately one month ago for urinary tract infection, weakness and discharged to outpatient rehab. Apparently patient had reportedly just gotten home and felt extremely weak, difficulty with getting around the house and presented back for further evaluation. Patient has a past medical history including coronary artery disease CVA, UTI, and chronic kidney disease he is also status post a kidney transplant. He is not on any anticoagulation and does not appear to be on any NSAIDs. Patient seems somewhat confused and is a poor historian. He states he does not believe he has had a history of GI bleed in the past, he is unsure if he's had any bleeding or black stool. He states he believes he had a colonoscopy 5 years ago, however he isn't sure where or who performed the procedure. He states that he overall just does not feel well, nursing just changed the patient and stated that he had a large black tarry stool. Admitting labs he had a hemoglobin of 6.1 and was given 1 unit of blood. Repeat labs are pending this morning, resulted now with a hemoglobin of 4.9. 06/03/2022: Patient was seen and examined today for follow-up for GI bleed. Yesterday he had 2-3 episodes of large black tarry bowel movements. He had a dropped his hemoglobin to 4.8 he has had a total of 3 units of blood. Yesterday he underwent EGD yesterday evening he had a bowel prep and is scheduled today for colonoscopy. Today's repeat hemoglobin 7.0 no further bleeding at this time. 06/04/2022. Yesterday he underwent colonoscopy with findings of a normal appearing colon from rectum to cecum with no evidence of colitis or colorectal neoplasia. No diverticulosis seen. He then underwent a small bowel video capsule endoscopy study yesterday evening. And had multiple nonbleeding erosions starting with the proximal jejunum likely related to previous NSAID use. No active bleeding or old blood noted. He did have a drop in his hemoglobin to 6.7. And 1 unit of blood ordered. Objective - Vital Signs Vital signs: Vital Signs Temp 98.5 F 06/04/22 02:00 Pulse 61 06/04/22 02:00 Resp 18 06/04/22 02:00 BP 131/52 06/04/22 02:00 Pulse Ox 96 06/04/22 02:00 FiO2 21 06/03/22 07:39 Intake & Output 06/03/22 06/04/22 06/04/22 18:59 06:59 18:59 Intake Total 420 Output Total 450 700 Balance -30 -700 Weight 94 kg Intake: IV 420 0.9 NS @ 20 120 Meropenem 2 gm In Sodium 200 Chloride 0.9% 100 ml @ 200 mls/hr IVPB ONCE STA Rx#:[id number] Output: Urine 450 700 Other: Voiding Method External Catheter External Catheter # Voids 1 # Bowel Movements 1 - Exam General appearance: The patient is alert, oriented, appears in no acute distress. HET: Head is normocephalic and atraumatic. Conjunctiva pink. Sclera anicteric. Neck: Supple without lymphadenopathy. Abdomen: Soft, nontender, nondistended with bowel sounds. No guarding or rigidity. Extremities: Normal skin color and turgor. No pedal edema Skin: No rashes, no jaundice Neurological: No focal deficits. Alert and oriented. - Labs CBC & Chem 7: 06/04/22 05:23 06/04/22 05:23 Labs: Abnormal Lab Results - Last 24 Hours (Table) 06/01/22 06/03/22 06/03/22 Range/Units 18:30 11:07 16:10 RBC (4.30-5.90) m/uL Hgb (13.0-17.5) gm/dL Hct (39.0-53.0) % RDW (11.5-15.5) % Lymphocytes # (1.0-4.8) k/uL Chloride (98-107) mmol/L Carbon Dioxide (22-30) mmol/L BUN (9-20) mg/dL Glucose (74-99) mg/dL POC Glucose (mg/dL) 191 H 136 H (70-110) mg/dL Calcium (8.4-10.2) mg/dL Total Protein (6.3-8.2) g/dL Albumin (3.5-5.0) g/dL Crossmatch See Detail 06/03/22 06/04/22 06/04/22 Range/Units 21:46 05:23 05:23 RBC 2.44 L (4.30-5.90) m/uL Hgb 6.7 L* (13.0-17.5) gm/dL Hct 20.6 L (39.0-53.0) % RDW 15.9 H (11.5-15.5) % Lymphocytes # 0.7 L (1.0-4.8) k/uL Chloride 113 H (98-107) mmol/L Carbon Dioxide 20 L (22-30) mmol/L BUN 57 H (9-20) mg/dL Glucose 127 H (74-99) mg/dL POC Glucose (mg/dL) 111 H (70-110) mg/dL Calcium 8.3 L (8.4-10.2) mg/dL Total Protein 4.5 L (6.3-8.2) g/dL Albumin 2.5 L (3.5-5.0) g/dL Crossmatch Microbiology - Last 24 Hours (Table) 06/01/22 18:13 Urine Culture - Final Urine,Voided Klebsiella pneumoniae 06/01/22 17:30 Blood Culture - Preliminary Blood No Growth after 48 hours 06/01/22 17:35 Blood Culture Gram Stain - Preliminary Blood Blood Culture - Preliminary Klebsiella pneumoniae Assessment and Plan (1) GI bleed Narrative/Plan: 82-year-old male who presented to the emergency department with feelings of significant weakness, difficulty ambulating at home. Patient was recently admitted to the hospital with UTI and sent to rehab. Yesterday he apparently had gone home but felt too weak to even get around his home. He was noted to have a hemoglobin of 6.1 on admission. He was given 1 unit of PRBC transfusion. Initially labs were not resulted however came back with a hemoglobin of 4.9. Patient was unsure if he had been having any black stool or blood in his stool. Denies any history of previous GI bleed. Believes his last colonoscopy was approximately 5 years ago and denies any history of peptic ulcer disease or EGD. Patient med list reviewed, takes a baby aspirin no NSAIDs or anticoagulation listed. Possible etiologies include peptic ulcer disease, AVM, gastritis, esophagitis, or other possible etiologies. The patient is scheduled for EGD. Patient is status post EGD and colonoscopy without any evidence of old blood or active bleeding. EGD showed mild distal esophagitis, colonoscopy was normal without any evidence of colorectal neoplasia or diverticulosis. Patient is pend ing small bowel capsule endoscopy results. Current Visit: Yes Status: Acute Code(s): K92.2 - GASTROINTESTINAL HEMORRHAGE, UNSPECIFIED SNOMED Code(s): 19254534 (2) Anemia Current Visit: Yes Status: Acute Code(s): D64.9 - ANEMIA, UNSPECIFIED SNOMED Code(s): 069986518 (3) Generalized weakness Current Visit: No Status: Acute Code(s): R53.1 - WEAKNESS SNOMED Code(s): 10826620 Plan: 1. Continue symptomatic and supportive care 2. Daily CBC, transfuse for hemoglobin less than 7 3. Continue Protonix to 40 mg IV twice a day 4. Avoid NSAIDs 5. Patient has undergone EGD and colonoscopy with no evidence of active b leeding or old blood noted. 6. Patient may have full liquid diet 7. Small bowel endoscopy study doubt any active bleeding or old blood noted. Thank you for allowing us to participate in the care of the patient, the GI service will sign off, gastroenterology will not be available at the hospital this weekend and through next week. If further evaluation by gastroenterology is required the patient will need transfer as per the primary team's discretion. Dr. René Dotson I agree with the dictator's note, documented as a scribe by Ethel Mcneil.
--- NOTE | 2022-06-04 13:59 | P.PN ---
Subjective Progress Note Date: 06/04/22 Objective - Vital Signs Vital signs: Vital Signs Temp 98.0 F 06/04/22 10:53 Pulse 68 06/04/22 10:53 Resp 16 06/04/22 10:53 BP 141/80 06/04/22 10:53 Pulse Ox 97 06/04/22 10:53 FiO2 21 06/03/22 07:39 Intake & Output 06/03/22 06/04/22 06/04/22 18:59 06:59 18:59 Intake Total 420 0 Output Total 450 700 Balance -30 -700 0 Weight 94 kg Intake: IV 420 0.9 NS @ 20 120 Meropenem 2 gm In Sodium 200 Chloride 0.9% 100 ml @ 200 mls/hr IVPB ONCE STA Rx#:[id number] Blood Product 0 Rc Pheresis 2 As3 Unit 0 [id number] Output: Urine 450 700 Other: Voiding Method External Catheter External Catheter External Catheter # Voids 1 # Bowel Movements 1 - Exam General: [Pale], [no distress], [appears at stated age] Derm: [warm], [dry] pale Head: [atraumatic], [normocephalic], [symmetric] Eyes: [EOMI], [no lid lag], [anicteric sclera] Mouth: [no lip lesion], [mucus membranes moist] Cardiovascular: [S1S2 reg], [no murmur], [positive posterior tibial pulse bilateral], Lungs: [CTA bilateral], [no rhonchi, no rales] , [no accessory muscle use] Abdominal: [soft], [ nontender to palpation], [no guarding], [no appreciable organomegaly] Ext: [no gross muscle atrophy], [no edema], [no contractures] Neuro: [ CN II-XI grossly intact], [no focal neuro deficits] Psych: [Alert], [oriented], [appropriate affect, - Labs CBC & Chem 7: 06/04/22 05:23 06/04/22 05:23 Labs: Abnormal Lab Results - Last 24 Hours (Table) 06/01/22 06/03/22 06/03/22 Range/Units 18:30 16:10 21:46 RBC (4.30-5.90) m/uL Hgb (13.0-17.5) gm/dL Hct (39.0-53.0) % RDW (11.5-15.5) % Lymphocytes # (1.0-4.8) k/uL Chloride (98-107) mmol/L Carbon Dioxide (22-30) mmol/L BUN (9-20) mg/dL Glucose (74-99) mg/dL POC Glucose (mg/dL) 136 H 111 H (70-110) mg/dL Calcium (8.4-10.2) mg/dL Total Protein (6.3-8.2) g/dL Albumin (3.5-5.0) g/dL Crossmatch See Detail 06/04/22 06/04/22 06/04/22 Range/Units 05:23 05:23 11:51 RBC 2.44 L (4.30-5.90) m/uL Hgb 6.7 L* (13.0-17.5) gm/dL Hct 20.6 L (39.0-53.0) % RDW 15.9 H (11.5-15.5) % Lymphocytes # 0.7 L (1.0-4.8) k/uL Chloride 113 H (98-107) mmol/L Carbon Dioxide 20 L (22-30) mmol/L BUN 57 H (9-20) mg/dL Glucose 127 H (74-99) mg/dL POC Glucose (mg/dL) 224 H (70-110) mg/dL Calcium 8.3 L (8.4-10.2) mg/dL Total Protein 4.5 L (6.3-8.2) g/dL Albumin 2.5 L (3.5-5.0) g/dL Crossmatch Microbiology - Last 24 Hours (Table) 06/01/22 18:13 Urine Culture - Final Urine,Voided Klebsiella pneumoniae 06/01/22 17:30 Blood Culture - Preliminary Blood No Growth after 48 hours 06/01/22 17:35 Blood Culture Gram Stain - Preliminary Blood Blood Culture - Preliminary Klebsiella pneumoniae Assessment and Plan Assessment: 1. Klebsiella pneumonia bacteremia likely urogenital source continue IV antibiotics ID recommendations appreciated 2. Acute blood loss anemia Transfused 2 units of packed red blood cells stat patient received 1 unit in the ER GI performed EGD and colonoscopy was negative for upper GI bleed source Small Capsule Endoscopy performed H&H every 6 hours Hemoglobin 6.7 this Am another one unit of PRBCs given to patient 2. UTI Antibiotics as indicated #1 3.Bilateral pleural effusions likely due to fluid overload Oxygenation is currently stable Echocardiogram revealed preserved ejection fraction with mild to moderate tricuspid regurgitation Continue to monitor 4. History of CKD stable Trend BUN/creatinine 5. History of hypertension Parameters placed on antihypertensives given the current situation of acute GI bleed Pressure is to be checked before medications are to be given Monitor vitals every 4 hours Losartan decreased to 50 mg by mouth daily with parameters Oral hydralazine discontinued for the time being PRN IV hydralazine ordered 6. Hyperlipidemia Resume statin 7. Diabetes mellitus Insulin sliding scale Add Levemir 5 units subcu daily hemoglobin A1c 7.2% GI DVT prophylaxis A.m. labs
[2022-06-04 15:47] LABS: Anisocytosis Slight; Basophils % (A) 0 %; Eosinophils # (A) 0.1 k/uL (0-0.7); Eosinophils % (A) 2 %; HCT 24.4 % (39.0-53.0); HGB 8.1 gm/dL (13.0-17.5); Hypochromasia Moderate; Lymphocytes # (A) 0.8 k/uL (1.0-4.8); Lymphocytes % (A) 11 %; MCH 28.4 pg (25.0-35.0); MCHC 33.3 g/dL (31.0-37.0); MCV 85.3 fL (80.0-100.0); Mean Platelet Volume 8.2; Monocytes # (A) 0.8 k/uL (0-1.0); Monocytes % (A) 11 %; Neutrophils # (A) 5.2 k/uL (1.3-7.7); Neutrophils % (A) 73 %; Platelet Count 241 k/uL (150-450); Poikilocytosis Moderate; RBC 2.85 m/uL (4.30-5.90); WBC 7.1 k/uL (3.8-10.6)
[2022-06-04 16:48] LABS: Glucose,Whole Blood 233 mg/dL (70-110)
[2022-06-04] MEDS: FERROUS SULFATE 325 MG TAB PO SCH (17:54)
[2022-06-04 20:28] LABS: Glucose,Whole Blood 135 mg/dL (70-110)
[2022-06-04] MEDS: SERTRALINE 50 MG TAB PO SCH (21:13)
[2022-06-04] MEDS: ATORVASTATIN 40 MG TAB PO SCH (21:13)
[2022-06-04] MEDS ORDERED: MELATONIN 5 MG TABLET PO ONE (21:41)
[2022-06-05] MEDS: MEROPENEM 1 GM in SODIUM CHLORIDE 0.9% 100 ML IVPB SCH ×3 (01:30→17:05)
[2022-06-05 06:33] LABS: Anisocytosis Slight; Basophils % (A) 1 %; Eosinophils # (A) 0.3 k/uL (0-0.7); Eosinophils % (A) 4 %; HCT 23.8 % (39.0-53.0); HGB 7.9 gm/dL (13.0-17.5); Hypochromasia Moderate; Lymphocytes # (A) 0.9 k/uL (1.0-4.8); Lymphocytes % (A) 14 %; MCH 28.6 pg (25.0-35.0); MCHC 33.1 g/dL (31.0-37.0); MCV 86.3 fL (80.0-100.0); Mean Platelet Volume 7.8; Monocytes # (A) 0.9 k/uL (0-1.0); Monocytes % (A) 14 %; Neutrophils # (A) 4.1 k/uL (1.3-7.7); Neutrophils % (A) 65 %; Platelet Count 246 k/uL (150-450); Poikilocytosis Moderate; RBC 2.76 m/uL (4.30-5.90); RDW 16.4 % (11.5-15.5); WBC 6.4 k/uL (3.8-10.6)
[2022-06-05 06:34] LABS: Albumin 2.6 g/dL (3.5-5.0); Calcium 8.1 mg/dL (8.4-10.2); Potassium 3.9 mmol/L (3.5-5.1); Total Bilirubin 0.3 mg/dL (0.2-1.3); Total Protein 4.7 g/dL (6.3-8.2)
[2022-06-05 06:50] LABS: Glucose,Whole Blood 168 mg/dL (70-110)
[2022-06-05] MEDS: INSULIN ASPART (NovoLOG) 100 UNIT/ML VIAL SQ SCH ×4 (07:17→20:30)
[2022-06-05] MEDS: INSULIN DETEMIR (LEVEMIR) 100 UNIT/ML SYR SQ SCH (07:18)
[2022-06-05] MEDS: carvediloL 6.25 MG TAB PO SCH ×2 (07:18→17:05)
[2022-06-05] MEDS: FERROUS SULFATE 325 MG TAB PO SCH ×2 (07:18→17:05)
[2022-06-05] MEDS: SIROLIMUS 1 MG PO SCH (07:18)
[2022-06-05] MEDS: MYCOPHENOLATE SODIUM DR 180 MG TABLET.DR PO SCH ×2 (07:19→20:30)
--- NOTE | 2022-06-05 08:21 | P.PN ---
Subjective Progress Note Date: 06/04/22 Principal diagnosis: Transplant nephritis and bacteremia Patient is a 82-year-old male with multiple comorbidities and history of recurrent UTI presented to hospital with feeling tired and dizzy and weakness patient did have evidence of ESBL Klebsiella UTI and bacteremia On today's evaluation that is 06/04/2022, the patient denies having any fever or chills, the patient is breathing comfortably denies having any chest pain or shortness of breath or cough no nausea no vomiting no abdominal pain no diarrhea/ Objective - Vital Signs Vital signs: Vital Signs Temp 98.2 F 06/04/22 14:48 Pulse 71 06/04/22 14:48 Resp 16 06/04/22 14:48 BP 138/62 06/04/22 14:48 Pulse Ox 96 06/04/22 14:48 FiO2 21 06/03/22 07:39 Intake & Output 06/04/22 06/04/22 06/05/22 06:59 18:59 06:59 Intake Total 1004 Output Total 700 300 Balance -700 704 Intake: IV 160 0.9 NS @ 20 160 Intake, IV Titration 200 Amount Meropenem 1 gm In Sodium 200 Chloride 0.9% 100 ml @ 33 .3 mls/hr IVPB Q8H [facility] Rx #:[id number] Oral 360 Blood Product 284 Rc Pheresis 2 As3 Unit 284 [id number] Output: Urine 700 300 Other: Voiding Method External Catheter External Catheter - Exam GENERAL DESCRIPTION: An elderly male lying in bed in no distress RESPIRATORY SYSTEM: Unlabored breathing , decreased breath sounds at bases HEART: S1 S2 regular rate and rhythm , ABDOMEN: Soft , no tenderness EXTREMITIES: No edema feet - Labs CBC & Chem 7: 06/05/22 06:01 06/05/22 06:01 Labs: Abnormal Lab Results - Last 24 Hours (Table) 06/01/22 06/04/22 06/04/22 Range/Units 18:30 05:23 05:23 RBC 2.44 L (4.30-5.90) m/uL Hgb 6.7 L* (13.0-17.5) gm/dL Hct 20.6 L (39.0-53.0) % RDW 15.9 H (11.5-15.5) % Lymphocytes # 0.7 L (1.0-4.8) k/uL Chloride 113 H (98-107) mmol/L Carbon Dioxide 20 L (22-30) mmol/L BUN 57 H (9-20) mg/dL Glucose 127 H (74-99) mg/dL POC Glucose (mg/dL) (70-110) mg/dL Calcium 8.3 L (8.4-10.2) mg/dL Total Protein 4.5 L (6.3-8.2) g/dL Albumin 2.5 L (3.5-5.0) g/dL Crossmatch See Detail 06/04/22 06/04/22 06/04/22 Range/Units 11:51 14:46 16:46 RBC 2.85 L (4.30-5.90) m/uL Hgb 8.1 L (13.0-17.5) gm/dL Hct 24.4 L (39.0-53.0) % RDW 16.0 H (11.5-15.5) % Lymphocytes # 0.8 L (1.0-4.8) k/uL Chloride (98-107) mmol/L Carbon Dioxide (22-30) mmol/L BUN (9-20) mg/dL Glucose (74-99) mg/dL POC Glucose (mg/dL) 224 H 233 H (70-110) mg/dL Calcium (8.4-10.2) mg/dL Total Protein (6.3-8.2) g/dL Albumin (3.5-5.0) g/dL Crossmatch 06/04/22 Range/Units 20:27 RBC (4.30-5.90) m/uL Hgb (13.0-17.5) gm/dL Hct (39.0-53.0) % RDW (11.5-15.5) % Lymphocytes # (1.0-4.8) k/uL Chloride (98-107) mmol/L Carbon Dioxide (22-30) mmol/L BUN (9-20) mg/dL Glucose (74-99) mg/dL POC Glucose (mg/dL) 135 H (70-110) mg/dL Calcium (8.4-10.2) mg/dL Total Protein (6.3-8.2) g/dL Albumin (3.5-5.0) g/dL Crossmatch Microbiology - Last 24 Hours (Table) 06/01/22 17:30 Blood Culture - Preliminary Blood No Growth after 72 hours 06/01/22 17:35 Blood Culture Gram Stain - Final Blood Blood Culture - Final Klebsiella pneumoniae 06/01/22 18:13 Urine Culture - Final Urine,Voided Klebsiella pneumoniae Assessment and Plan (1) UTI (urinary tract infection) Current Visit: Yes Status: Acute Code(s): N39.0 - URINARY TRACT INFECTION, SITE NOT SPECIFIED SNOMED Code(s): 70000716 (2) Bacteremia Current Visit: No Status: Acute Code(s): R78.81 - BACTEREMIA SNOMED Code(s): 7250452 Plan: 1patient with ESBL Klebsiella UTI /transplant nephritis with secondary bacteremia 2patient did have ultrasound of the kidneys without evidence of any hydronephrosis or abscess 3-blood cultures has been repeated to document clearance of bacteremia 4patient to continue with the meropenem and more monitor his clinical course closely Time with Patient: Less than 30
[2022-06-05] MEDS: NIFEdipine XL 90 MG TAB.ER.24 PO SCH (09:08)
[2022-06-05] MEDS: LOSARTAN 50 MG TAB PO SCH (09:08)
[2022-06-05] MEDS: cloNIDine HCL 0.1 MG TAB PO SCH ×2 (09:08→20:30)
[2022-06-05] MEDS: PANTOPRAZOLE 40 MG/10 ML VIAL IVP SCH ×2 (09:19→20:30)
--- NOTE | 2022-06-05 10:56 | P.PN ---
Subjective Progress Note Date: 06/05/22 Principal diagnosis: GI bleed. Pulmonary consult dated 06/02/2022. 82-year-old male seen in the emergency department on June 01. He apparently came in with complaints of generalized weakness. The patient apparently was complaining of some nausea, and was found to have a gastrointestinal bleed. He was admitted to the hospital, on the general medical floor. His initial he moglobin was in the low 6 range, and the patient received 1 unit of blood. The patient was seen by gastroenterology. Sometime this morning, the patient's repeat hemoglobin was 4.9, and 2 additional units of blood were ordered. The patient was transferred to the intensive care unit for further monitoring and management. I see him today and room 260. He is currently on 2 L of oxygen. He is receiving the first unit of 2, here in the intensive care unit. He is not having any distress. No abdominal pain. His blood pressure is normal. White count 6.1, hemoglobin 4.8, hematocrit 15, and platelet count 244,000. Sodium 136, potassium 4.7, chlorides 108, CO2 18, BUN 93, and creatinine 1.36. N- terminal proBNP was 3380. Chest x-ray showed diffuse infiltrates, most likely consistent with fluid overload. The patient has a history of hypertension, hyperlipidemia, diabetes, kidney transplant, and bypass surgery. Progress note dated 06/03/2022. This patient was seen in consultation yesterday. He remains in the intensive care unit, room 260. He is currently not receiving any IV fluids. He is on room air. The patient had an EGD done yesterday, June 02, which showed no active bleeding, and some mild distal esophagitis. Since he been in the hospital, he has received 3 units of packed red blood cells. Blood sampling was positive for Klebsiella pneumoniae. Urine showed evidence of gram-negative bacilli. He is on IV meropenem. He is supposed to have a colonoscopy today. W taylor count 8.6, hemoglobin 7, hematocrit 20.9, count 215,000. Sodium 141, potassium 4, chlorides 110, CO2 19, anion gap 12, BUN 71, and creatinine 1.23 Progress note dated 06/04/2022. The patient was seen again in room 260. He was seen in consultation 2 days ago. He was admitted with a diagnosis of GI bleed. The patient had an EGD, which showed only mild esophagitis. Apparently the colonoscopy was relatively normal. No active bleeding. He is receiving 1 additional unit of blood. That makes a total of 4 units of packed red blood cells since she's been here. He is on room air. He's getting saline at KVO. His hemoglobin this morning was 6.7. White count was 6.4, hematocrit 20.6, and platelet count was normal. Sodium 141, potassium 3.8, chlorides 113, CO2 20, BUN 57, creatinine 1.12. Blood cultures and urine cultures are showing evidence of Klebsiella pneumoniae. The colonos copy was done on June 03. The patient will end up having a capsule endoscopy. Progress note dated 06/05/2028. The patient is again seen in room 260. He was seen in consultation 3 days ago with a diagnosis of gastrointestinal bleed. The patient's on room air. He is getting saline at keep vein open. Since she's been here, the patient has had 4 units of packed red blood cells. He had a capsule endoscopy, which showed small bowel erosions. There is no active bleeding. Also, EGD and colonoscopy were nondiagnostic. In my opinion, the patient could be transferred to the general medical floor, without telemetry. His respiratory status and hemodynamic status has been stable. White count 6.4, hemoglobin 7.9, hematocrit 23.8, and platelet count 346,000. Sodium 137, potassium 3.9, chlorides 109, CO2 21, BUN 42, and creatinine 1.01. Albumin is 2.6. Microbiologic studies show evidence of both Klebsiella urinary tract infection and Klebsiella bacteremia. Objective - Vital Signs Vital signs: Vital Signs Temp 97.4 F L 06/05/22 08:00 Pulse 62 06/05/22 08:00 Resp 17 06/05/22 08:00 BP 105/75 06/05/22 08:00 Pulse Ox 97 06/05/22 08:00 FiO2 21 06/03/22 07:39 Intake & Output 06/04/22 06/05/22 06/05/22 18:59 06:59 18:59 Intake Total 1004 560 Output Total 300 550 Balance 704 10 Intake: IV 160 10 0.9 NS @ 20 160 10 Intake, IV Titration 200 100 Amount Meropenem 1 gm In Sodium 200 100 Chloride 0.9% 100 ml @ 33 .3 mls/hr IVPB Q8H [id number] Rx #:[id number] Oral 360 450 Blood Product 284 Rc Pheresis 2 As3 Unit 284 [id number] Output: Urine 300 550 Other: Voiding Method External Catheter External Catheter External Catheter # Voids 2 # Bowel Movements 0 - Exam No acute distress, oriented 3. No respiratory distress. The patient's currently on room air. Saturations are 97%. HEENT examination is grossly unremarkable. Neck supple. Full range of motion. No adenopathy thyromegaly or neck vein distention. Cardiovascular examination reveals regular rhythm rate. S1-S2 normal. No S3 or S4. No discernible murmur noted. Heart rate 62 bpm. Lungs reveal clear breath sounds. Breath sounds are equal bilaterally. No adventitious lung sounds including wheezes rhonchi or crackles. Abdomen soft bowel sounds are heard. No masses or tenderness. Extremities are intact. No cyanosis clubbing or edema. Skin is without rash or lesion. Neurologic examination is brief but nonfocal. - Labs CBC & Chem 7: 06/05/22 06:01 06/05/22 06:01 Labs: Abnormal Lab Results - Last 24 Hours (Table) 06/01/22 06/04/22 06/04/22 Range/Units 18:30 11:51 14:46 RBC 2.85 L (4.30-5.90) m/uL Hgb 8.1 L (13.0-17.5) gm/dL Hct 24.4 L (39.0-53.0) % RDW 16.0 H (11.5-15.5) % Lymphocytes # 0.8 L (1.0-4.8) k/uL Chloride (98-107) mmol/L Carbon Dioxide (22-30) mmol/L BUN (9-20) mg/dL Glucose (74-99) mg/dL POC Glucose (mg/dL) 224 H (70-110) mg/dL Calcium (8.4-10.2) mg/dL Total Protein (6.3-8.2) g/dL Albumin (3.5-5.0) g/dL Crossmatch See Detail 06/04/22 06/04/22 06/05/22 Range/Units 16:46 20:27 06:01 RBC 2.76 L (4.30-5.90) m/uL Hgb 7.9 L (13.0-17.5) gm/dL Hct 23.8 L (39.0-53.0) % RDW 16.4 H (11.5-15.5) % Lymphocytes # 0.9 L (1.0-4.8) k/uL Chloride (98-107) mmol/L Carbon Dioxide (22-30) mmol/L BUN (9-20) mg/dL Glucose (74-99) mg/dL POC Glucose (mg/dL) 233 H 135 H (70-110) mg/dL Calcium (8.4-10.2) mg/dL Total Protein (6.3-8.2) g/dL Albumin (3.5-5.0) g/dL Crossmatch 06/05/22 06/05/22 Range/Units 06:01 06:49 RBC (4.30-5.90) m/uL Hgb (13.0-17.5) gm/dL Hct (39.0-53.0) % RDW (11.5-15.5) % Lymphocytes # (1.0-4.8) k/uL Chloride 109 H (98-107) mmol/L Carbon Dioxide 21 L (22-30) mmol/L BUN 42 H (9-20) mg/dL Glucose 146 H (74-99) mg/dL POC Glucose (mg/dL) 168 H (70-110) mg/dL Calcium 8.1 L (8.4-10.2) mg/dL Total Protein 4.7 L (6.3-8.2) g/dL Albumin 2.6 L (3.5-5.0) g/dL Crossmatch Microbiology - Last 24 Hours (Table) 06/04/22 05:23 Blood Culture - Preliminary Blood No Growth after 24 hours 06/01/22 17:30 Blood Culture - Preliminary Blood No Growth after 72 hours 06/01/22 17:35 Blood Culture Gram Stain - Final Blood Blood Culture - Final Klebsiella pneumoniae Assessment and Plan Assessment: Acute gastrointestinal bleed, with resultant anemia, EGD, June 02, revealed no active bleeding, and only mild distal esophagitis. Colonoscopy was nondiagnostic. Endoscopy showed only small bowel erosions, without active b leeding. Klebsiella pneumoniae bacteremia/UTI. History of previous bypass grafting for CAD. History of kidney transplant. History of hypertension. History of CVA. History of hyperlipidemia. History of diabetes mellitus. History of recurrent urinary tract infections. Prior history of tobacco use. Plan: Plan dated 06/02/2022. Patient is seen today in the intensive care unit, room 260. Hemodynamically, and pulmonary white, the patient stable. He's on 2 L. The patient received 1 unit of blood yesterday. He'll receive another 2 units of blood today. He apparently is going to have an EGD later today. We will continue to follow. Prognosis is guarded. Labs, x-rays, and medications are all reviewed. Plan dated 06/03/2022. The patient remains on meropenem for his Klebsiella pneumoniae bacteremia. The patient has received a total of 3 units of packed red blood cells. He is on room air. No IV fluids. No current active bleeding. The patient is scheduled for colonoscopy later today. The patient may or may come back to the intensive care unit. Labs, x-rays, medications are reviewed. Prognosis is guarded. Plan dated 06/04/2022. The patient remains on meropenem for Klebsiella pneumoniae bacteremia. The patient will receive a another unit of blood today. I will make 4 total units. His hemoglobin this morning was 6.7. The patient's on room air. The patient's on saline at KVO. The patient is not having any abdominal discomfort. Labs, x- rays, and medications are reviewed. The plan is for capsule endoscopy. Plan dated 06/05/2022. The patient remains on meropenem for his Klebsiella pneumoniae bacteremia and urinary tract infection. The patient has received a total of 4 units of PRBCs. The patient is not requiring any supplemental oxygen. The patient's getting saline at KVO. The patient could be transferred out to the [facility] without telemetry. He's had no further bleeding. Hemoglobin appears to be stable. We will continue to follow the patient and make recommendations along the way. Labs, x-rays, and medications are all reviewed. Time with Patient: Less than 30
--- NOTE | 2022-06-05 11:50 | P.PN ---
Subjective Progress Note Date: 06/05/22 The patient was seen at bedside, no acute events overnight. Objective - Vital Signs Vital signs: Vital Signs Temp 97.4 F L 06/05/22 08:00 Pulse 62 06/05/22 08:00 Resp 17 06/05/22 08:00 BP 105/75 06/05/22 08:00 Pulse Ox 97 06/05/22 08:00 FiO2 21 06/03/22 07:39 Intake & Output 06/04/22 06/05/22 06/05/22 18:59 06:59 18:59 Intake Total 1004 560 Output Total 300 550 Balance 704 10 Intake: IV 160 10 0.9 NS @ 20 160 10 Intake, IV Titration 200 100 Amount Meropenem 1 gm In Sodium 200 100 Chloride 0.9% 100 ml @ 33 .3 mls/hr IVPB Q8H [facility] Rx #:[id number] Oral 360 450 Blood Product 284 Rc Pheresis 2 As3 Unit 284 [id number] Output: Urine 300 550 Other: Voiding Method External Catheter External Catheter External Catheter # Voids 2 # Bowel Movements 0 - Exam General: [non toxic], [no distress], [appears at stated age] Derm: [warm], [dry] Head: [atraumatic], [normocephalic], [symmetric] Eyes: [EOMI], [no lid lag], [anicteric sclera] Mouth: [no lip lesion], [mucus membranes moist] Cardiovascular: [S1S2 reg], [no murmur], [positive posterior tibial pulse bilateral], Lungs: [CTA bilateral], [no rhonchi, no rales] , [no accessory muscle use] Abdominal: [soft], [ nontender to palpation], [no guarding], [no appreciable org anomegaly] Ext: [no gross muscle atrophy], [no edema], [no contractures] Neuro: [ CN II-XI grossly intact], [no focal neuro deficits] Psych: [Alert], [oriented], [appropriate affect] - Labs CBC & Chem 7: 06/05/22 06:01 06/05/22 06:01 Labs: Abnormal Lab Results - Last 24 Hours (Table) 06/01/22 06/04/22 06/04/22 Range/Units 18:30 11:51 14:46 RBC 2.85 L (4.30-5.90) m/uL Hgb 8.1 L (13.0-17.5) gm/dL Hct 24.4 L (39.0-53.0) % RDW 16.0 H (11.5-15.5) % Lymphocytes # 0.8 L (1.0-4.8) k/uL Chloride (98-107) mmol/L Carbon Dioxide (22-30) mmol/L BUN (9-20) mg/dL Glucose (74-99) mg/dL POC Glucose (mg/dL) 224 H (70-110) mg/dL Calcium (8.4-10.2) mg/dL Total Protein (6.3-8.2) g/dL Albumin (3.5-5.0) g/dL Crossmatch See Detail 06/04/22 06/04/22 06/05/22 Range/Units 16:46 20:27 06:01 RBC 2.76 L (4.30-5.90) m/uL Hgb 7.9 L (13.0-17.5) gm/dL Hct 23.8 L (39.0-53.0) % RDW 16.4 H (11.5-15.5) % Lymphocytes # 0.9 L (1.0-4.8) k/uL Chloride (98-107) mmol/L Carbon Dioxide (22-30) mmol/L BUN (9-20) mg/dL Glucose (74-99) mg/dL POC Glucose (mg/dL) 233 H 135 H (70-110) mg/dL Calcium (8.4-10.2) mg/dL Total Protein (6.3-8.2) g/dL Albumin (3.5-5.0) g/dL Crossmatch 06/05/22 06/05/22 Range/Units 06:01 06:49 RBC (4.30-5.90) m/uL Hgb (13.0-17.5) gm/dL Hct (39.0-53.0) % RDW (11.5-15.5) % Lymphocytes # (1.0-4.8) k/uL Chloride 109 H (98-107) mmol/L Carbon Dioxide 21 L (22-30) mmol/L BUN 42 H (9-20) mg/dL Glucose 146 H (74-99) mg/dL POC Glucose (mg/dL) 168 H (70-110) mg/dL Calcium 8.1 L (8.4-10.2) mg/dL Total Protein 4.7 L (6.3-8.2) g/dL Albumin 2.6 L (3.5-5.0) g/dL Crossmatch Microbiology - Last 24 Hours (Table) 06/04/22 05:23 Blood Culture - Preliminary Blood No Growth after 24 hours 06/01/22 17:30 Blood Culture - Preliminary Blood No Growth after 72 hours 06/01/22 17:35 Blood Culture Gram Stain - Final Blood Blood Culture - Final Klebsiella pneumoniae Assessment and Plan Assessment: 1. Klebsiella pneumonia bacteremia likely urogenital source continue IV antibiotics ID recommendations appreciated 2. Acute blood loss anemia Transfused 2 units of packed red blood cells stat patient received 1 unit in the ER GI performed EGD and colonoscopy was negative for upper GI bleed source Small Capsule Endoscopy performed H&H every 6 hours Hemoglobin 7.9 this Am 2. UTI Antibiotics as indicated #1 3.Bilateral pleural effusions likely due to fluid overload Oxygenation is currently stable Echocardiogram revealed preserved ejection fraction with mild to moderate tricuspid regurgitation Continue to monitor 4. History of CKD stable Trend BUN/creatinine 5. History of hypertension Parameters placed on antihypertensives given the current situation of acute GI bleed Pressure is to be checked before medications are to be given Monitor vitals every 4 hours Losartan decreased to 50 mg by mouth daily with parameters Oral hydralazine discontinued for the time being PRN IV hydralazine ordered 6. Hyperlipidemia Resume statin 7. Diabetes mellitus Insulin sliding scale Add Levemir 5 units subcu daily hemoglobin A1c 7.2% GI DVT prophylaxis A.m. labs
[2022-06-05 12:08] LABS: Glucose,Whole Blood 163 mg/dL (70-110)
[2022-06-05 16:57] LABS: Glucose,Whole Blood 136 mg/dL (70-110)
[2022-06-05 19:44] LABS: Glucose,Whole Blood 208 mg/dL (70-110)
[2022-06-05] MEDS: ATORVASTATIN 40 MG TAB PO SCH (20:30)
[2022-06-05] MEDS: SERTRALINE 50 MG TAB PO SCH (20:30)
[2022-06-05] MEDS: MELATONIN 5 MG TABLET PO PRN (23:11)
[2022-06-06] MEDS: MEROPENEM 1 GM in SODIUM CHLORIDE 0.9% 100 ML IVPB SCH ×3 (01:36→17:08)
[2022-06-06 06:17] LABS: Glucose,Whole Blood 161 mg/dL (70-110)
[2022-06-06] MEDS: FERROUS SULFATE 325 MG TAB PO SCH ×2 (06:40→17:08)
[2022-06-06] MEDS: INSULIN DETEMIR (LEVEMIR) 100 UNIT/ML SYR SQ SCH (06:40)
[2022-06-06] MEDS: carvediloL 6.25 MG TAB PO SCH ×2 (06:40→17:08)
[2022-06-06] MEDS: MYCOPHENOLATE SODIUM DR 180 MG TABLET.DR PO SCH ×2 (06:41→18:06)
[2022-06-06] MEDS: SIROLIMUS 1 MG PO SCH (06:41)
[2022-06-06] MEDS: INSULIN ASPART (NovoLOG) 100 UNIT/ML VIAL SQ SCH ×4 (06:51→20:25)
[2022-06-06 07:22] LABS: Anisocytosis Slight; Basophils # (A) 0.1 k/uL (0-0.2); Basophils % (A) 1 %; Eosinophils # (A) 0.2 k/uL (0-0.7); Eosinophils % (A) 3 %; HCT 26.6 % (39.0-53.0); HGB 8.7 gm/dL (13.0-17.5); Hypochromasia Moderate; Lymphocytes % (A) 13 %; MCH 28.4 pg (25.0-35.0); MCHC 32.7 g/dL (31.0-37.0); Monocytes % (A) 14 %; Neutrophils # (A) 4.9 k/uL (1.3-7.7); Neutrophils % (A) 66 %; Platelet Count 274 k/uL (150-450); Poikilocytosis Moderate; RBC 3.06 m/uL (4.30-5.90); WBC 7.5 k/uL (3.8-10.6)
[2022-06-06 07:23] LABS: African American GFR (CKD) >90 (>60 ml/min/1.73 sqM); Anion Gap 7 mmol/L; Blood Urea Nitrogen 28 mg/dL (9-20); Calcium 8.6 mg/dL (8.4-10.2); Carbon Dioxide 22 mmol/L (22-30); Chloride 108 mmol/L (98-107); Glucose 147 mg/dL (74-99); Magnesium 1.6 mg/dL (1.6-2.3); Non-African American GFR(CKD) 79 (>60 ml/min/1.73 sqM); Phosphorus 2.5 mg/dL (2.5-4.5); Potassium 4.2 mmol/L (3.5-5.1); Sodium 137 mmol/L (137-145)
[2022-06-06] MEDS: NIFEdipine XL 90 MG TAB.ER.24 PO SCH (08:43)
[2022-06-06] MEDS: LOSARTAN 50 MG TAB PO SCH (08:43)
[2022-06-06] MEDS: PANTOPRAZOLE 40 MG/10 ML VIAL IVP SCH ×2 (08:43→20:25)
[2022-06-06] MEDS: cloNIDine HCL 0.1 MG TAB PO SCH ×2 (08:43→20:24)
--- NOTE | 2022-06-06 11:05 | P.PN ---
Subjective Progress Note Date: 06/06/22 Principal diagnosis: GI bleed. Pulmonary consult dated 06/02/2022. 82-year-old male seen in the emergency department on June 01. He apparently came in with complaints of generalized weakness. The patient apparently was complaining of some nausea, and was found to have a gastrointestinal bleed. He was admitted to the hospital, on the general medical floor. His initial he moglobin was in the low 6 range, and the patient received 1 unit of blood. The patient was seen by gastroenterology. Sometime this morning, the patient's repeat hemoglobin was 4.9, and 2 additional units of blood were ordered. The patient was transferred to the intensive care unit for further monitoring and management. I see him today and room 260. He is currently on 2 L of oxygen. He is receiving the first unit of 2, here in the intensive care unit. He is not having any distress. No abdominal pain. His blood pressure is normal. White count 6.1, hemoglobin 4.8, hematocrit 15, and platelet count 244,000. Sodium 136, potassium 4.7, chlorides 108, CO2 18, BUN 93, and creatinine 1.36. N- terminal proBNP was 3380. Chest x-ray showed diffuse infiltrates, most likely consistent with fluid overload. The patient has a history of hypertension, hyperlipidemia, diabetes, kidney transplant, and bypass surgery. Progress note dated 06/03/2022. This patient was seen in consultation yesterday. He remains in the intensive care unit, room 260. He is currently not receiving any IV fluids. He is on room air. The patient had an EGD done yesterday, June 02, which showed no active bleeding, and some mild distal esophagitis. Since he been in the hospital, he has received 3 units of packed red blood cells. Blood sampling was positive for Klebsiella pneumoniae. Urine showed evidence of gram-negative bacilli. He is on IV meropenem. He is supposed to have a colonoscopy today. W taylor count 8.6, hemoglobin 7, hematocrit 20.9, count 215,000. Sodium 141, potassium 4, chlorides 110, CO2 19, anion gap 12, BUN 71, and creatinine 1.23 Progress note dated 06/04/2022. The patient was seen again in room 260. He was seen in consultation 2 days ago. He was admitted with a diagnosis of GI bleed. The patient had an EGD, which showed only mild esophagitis. Apparently the colonoscopy was relatively normal. No active bleeding. He is receiving 1 additional unit of blood. That makes a total of 4 units of packed red blood cells since she's been here. He is on room air. He's getting saline at KVO. His hemoglobin this morning was 6.7. White count was 6.4, hematocrit 20.6, and platelet count was normal. Sodium 141, potassium 3.8, chlorides 113, CO2 20, BUN 57, creatinine 1.12. Blood cultures and urine cultures are showing evidence of Klebsiella pneumoniae. The colonos copy was done on June 03. The patient will end up having a capsule endoscopy. Progress note dated 06/05/2028. The patient is again seen in room 260. He was seen in consultation 3 days ago with a diagnosis of gastrointestinal bleed. The patient's on room air. He is getting saline at keep vein open. Since she's been here, the patient has had 4 units of packed red blood cells. He had a capsule endoscopy, which showed small bowel erosions. There is no active bleeding. Also, EGD and colonoscopy were nondiagnostic. In my opinion, the patient could be transferred to the general medical floor, without telemetry. His respiratory status and hemodynamic status has been stable. White count 6.4, hemoglobin 7.9, hematocrit 23.8, and platelet count 346,000. Sodium 137, potassium 3.9, chlorides 109, CO2 21, BUN 42, and creatinine 1.01. Albumin is 2.6. Microbiologic studies show evidence of both Klebsiella urinary tract infection and Klebsiella bacteremia. Progress note dated 06/06/2022. The patient is seen today in room 260. He's on room air. Is not requiring any IV fluids. The patient was diagnosed with a gastrointestinal bleed, but unfortunately, EGD, colonoscopy, and capsule endoscopy were not able to find a source of the bleeding. Today's hemoglobin is 8.7. The patient has had no further bleeding. He does have a history of Klebsiella bacteremia/urinary tract infection for which he is being treated. White count 7.5, hemoglobin 8.7, hematocrit 26.6, and platelet count 274,000. Sodium 137, potassium 4.2, chlorides 108, CO2 22, BUN 28, and creatinine 0.91. Objective - Vital Signs Vital signs: Vital Signs Temp 98 F 06/06/22 08:00 Pulse 71 06/06/22 08:00 Resp 14 06/06/22 08:00 BP 146/50 06/06/22 08:00 Pulse Ox 96 06/06/22 08:00 FiO2 21 06/03/22 07:39 Intake & Output 06/05/22 06/06/22 06/06/22 18:59 06:59 18:59 Intake Total 240 220 Output Total 800 1000 Balance -560 -780 Intake: IV 240 120 0.9 NS @ 20 240 120 Intake, IV Titration 100 Amount Meropenem 1 gm In Sodium 100 Chloride 0.9% 100 ml @ 33 .3 mls/hr IVPB Q8H [facility] Rx #:[id number] Output: Urine 800 1000 Other: Voiding Method External Catheter External Catheter External Catheter # Bowel Movements 0 - Exam No acute distress, oriented 3. No respiratory distress. The patient's currently on room air. Saturations are 96%. HEENT examination is grossly unremarkable. Neck supple. Full range of motion. No adenopathy thyromegaly or neck vein dist ention. Cardiovascular examination reveals regular rhythm rate. S1-S2 normal. No S3 or S4. No discernible murmur noted. Heart rate 71 bpm. Lungs reveal clear breath sounds. Breath sounds are equal bilaterally. No adventitious lung sounds including wheezes rhonchi or crackles. Abdomen is soft, with normal bowel sounds. No masses or tenderness appreciated. Extremities are intact. No cyanosis clubbing or edema. Skin is without rash or lesion. Neurologic examination is brief but nonfocal. - Labs CBC & Chem 7: 06/06/22 06:15 06/06/22 06:15 Labs: Abnormal Lab Results - Last 24 Hours (Table) 06/05/22 06/05/22 06/05/22 Range/Units 12:06 16:55 19:42 RBC (4.30-5.90) m/uL Hgb (13.0-17.5) gm/dL Hct (39.0-53.0) % RDW (11.5-15.5) % Chloride (98-107) mmol/L BUN (9-20) mg/dL Glucose (74-99) mg/dL POC Glucose (mg/dL) 163 H 136 H 208 H (70-110) mg/dL 06/06/22 06/06/22 06/06/22 Range/Units 06:15 06:15 06:15 RBC 3.06 L (4.30-5.90) m/uL Hgb 8.7 L (13.0-17.5) gm/dL Hct 26.6 L (39.0-53.0) % RDW 17.0 H (11.5-15.5) % Chloride 108 H (98-107) mmol/L BUN 28 H (9-20) mg/dL Glucose 147 H (74-99) mg/dL POC Glucose (mg/dL) 161 H (70-110) mg/dL Microbiology - Last 24 Hours (Table) 06/04/22 05:23 Blood Culture - Preliminary Blood No Growth after 48 hours 06/01/22 17:30 Blood Culture - Preliminary Blood No Growth after 96 hours Assessment and Plan Assessment: Acute gastrointestinal bleed, with resultant anemia, EGD, June 02, revealed no active bleeding, and only mild distal esophagitis. Colonoscopy was nondiagnostic. Capsule endoscopy showed only small bowel erosions, without active bleeding. Klebsiella pneumoniae bacteremia/UTI. History of previous bypass grafting for CAD. History of kidney transplant. History of hypertension. History of CVA. History of hyperlipidemia. History of diabetes mellitus. History of recurrent urinary tract infections. Prior history of tobacco use. Plan: Plan dated 06/02/2022. Patient is seen today in the intensive care unit, room 260. Hemodynamically, and pulmonary white, the patient stable. He's on 2 L. The patient received 1 unit of blood yesterday. He'll receive another 2 units of blood today. He apparently is going to have an EGD later today. We will continue to follow. Prognosis is guarded. Labs, x-rays, and medications are all reviewed. Plan dated 06/03/2022. The patient remains on meropenem for his Klebsiella pneumoniae bacteremia. The patient has received a total of 3 units of packed red blood cells. He is on room air. No IV fluids. No current active bleeding. The patient is scheduled for colonoscopy later today. The patient may or may come back to the intensive care unit. Labs, x-rays, medications are reviewed. Prognosis is guarded. Plan dated 06/04/2022. The patient remains on meropenem for Klebsiella pneumoniae bacteremia. The patient will receive a another unit of blood today. I will make 4 total units. His hemoglobin this morning was 6.7. The patient's on room air. The patient's on saline at KVO. The patient is not having any abdominal discomfort. Labs, x- rays, and medications are reviewed. The plan is for capsule endoscopy. Plan dated 06/05/2022. The patient remains on meropenem for his Klebsiella pneumoniae bacteremia and urinary tract infection. The patient has received a total of 4 units of PRBCs. The patient is not requiring any supplemental oxygen. The patient's getting saline at KVO. The patient could be transferred out to the general medical floor without telemetry. He's had no further bleeding. Hemoglobin appears to be stable. We will continue to follow the patient and make recommendations along the way. Labs, x-rays, and medications are all reviewed. Plan dated 06/06/2022. The patient appears to be doing reasonably well. No additional bleeding. Hemoglobin is stable. Labs, x-rays, and medications are all reviewed. He remains on meropenem for his Klebsiella infection. The patient could be transferred out to the general medical floor. We will continue to follow the patient and make recommendations along the way. Hemodynamically, he is stable. His respiratory status is also stable. Time with Patient: Less than 30
--- NOTE | 2022-06-06 11:42 | P.PN ---
Subjective Progress Note Date: 06/06/22 The patient was seen at bedside, no acute events overnight. Objective - Vital Signs Vital signs: Vital Signs Temp 98 F 06/06/22 08:00 Pulse 71 06/06/22 08:00 Resp 14 06/06/22 08:00 BP 146/50 06/06/22 08:00 Pulse Ox 96 06/06/22 08:00 FiO2 21 06/03/22 07:39 Intake & Output 06/05/22 06/06/22 06/06/22 18:59 06:59 18:59 Intake Total 240 220 Output Total 800 1000 Balance -560 -780 Intake: IV 240 120 0.9 NS @ 20 240 120 Intake, IV Titration 100 Amount Meropenem 1 gm In Sodium 100 Chloride 0.9% 100 ml @ 33 .3 mls/hr IVPB Q8H [facility] Rx #:[id number] Output: Urine 800 1000 Other: Voiding Method External Catheter External Catheter External Catheter # Bowel Movements 0 - Exam General: [non toxic], [no distress], [appears at stated age] Derm: [warm], [dry] Head: [atraumatic], [normocephalic], [symmetric] Eyes: [EOMI], [no lid lag], [anicteric sclera] Mouth: [no lip lesion], [mucus membranes moist] Cardiovascular: [S1S2 reg], [no murmur], [positive posterior tibial pulse bilateral], Lungs: [CTA bilateral], [no rhonchi, no rales] , [no accessory muscle use] Abdominal: [soft], [ nontender to palpation], [no guarding], [no appreciable organomegaly] Ext: [no gross muscle atrophy], [no edema], [no contractures] Neuro: [ CN II-XI grossly intact], [no focal neuro deficits] Psych: [Alert], [oriented], [appropriate affect] - Labs CBC & Chem 7: 06/06/22 06:15 06/06/22 06:15 Labs: Abnormal Lab Results - Last 24 Hours (Table) 06/05/22 06/05/22 06/05/22 Range/Units 12:06 16:55 19:42 RBC (4.30-5.90) m/uL Hgb (13.0-17.5) gm/dL Hct (39.0-53.0) % RDW (11.5-15.5) % Chloride (98-107) mmol/L BUN (9-20) mg/dL Glucose (74-99) mg/dL POC Glucose (mg/dL) 163 H 136 H 208 H (70-110) mg/dL 06/06/22 06/06/22 06/06/22 Range/Units 06:15 06:15 06:15 RBC 3.06 L (4.30-5.90) m/uL Hgb 8.7 L (13.0-17.5) gm/dL Hct 26.6 L (39.0-53.0) % RDW 17.0 H (11.5-15.5) % Chloride 108 H (98-107) mmol/L BUN 28 H (9-20) mg/dL Glucose 147 H (74-99) mg/dL POC Glucose (mg/dL) 161 H (70-110) mg/dL Microbiology - Last 24 Hours (Table) 06/04/22 05:23 Blood Culture - Preliminary Blood No Growth after 48 hours 06/01/22 17:30 Blood Culture - Preliminary Blood No Growth after 96 hours Assessment and Plan Assessment: 1. Klebsiella pneumonia bacteremia likely urogenital source continue IV antibiotics ID recommendations appreciated 2. Acute blood loss anemia Transfused 2 units of packed red blood cells stat patient received 1 unit in the ER GI performed EGD and colonoscopy was negative for upper GI bleed source Small Capsule Endoscopy performed H&H every 6 hours Hemoglobin 8.7 this Am 2. UTI Antibiotics as indicated #1 3.Bilateral pleural effusions likely due to fluid overload Oxygenation is currently stable Echocardiogram revealed preserved ejection fraction with mild to moderate tricuspid regurgitation Continue to monitor 4. History of CKD stable Trend BUN/creatinine 5. History of hypertension Parameters placed on antihypertensives given the current situation of acute GI bleed Pressure is to be checked before medications are to be given Monitor vitals every 4 hours Losartan decreased to 50 mg by mouth daily with parameters Oral hydralazine discontinued for the time being PRN IV hydralazine ordered 6. Hyperlipidemia Resume statin 7. Diabetes mellitus Insulin sliding scale Add Levemir 5 units subcu daily hemoglobin A1c 7.2% GI DVT prophylaxis A.m. labs The patient is pending final ID recommendations and will need replacement pending social work consult.
[2022-06-06 11:55] LABS: Glucose,Whole Blood 158 mg/dL (70-110)
[2022-06-06 16:53] LABS: Glucose,Whole Blood 145 mg/dL (70-110)
[2022-06-06 20:13] LABS: Glucose,Whole Blood 213 mg/dL (70-110)
[2022-06-06] MEDS: ATORVASTATIN 40 MG TAB PO SCH (20:24)
[2022-06-06] MEDS: MELATONIN 5 MG TABLET PO PRN (20:24)
[2022-06-06] MEDS: SERTRALINE 50 MG TAB PO SCH (20:24)
[2022-06-07] MEDS: MEROPENEM 1 GM in SODIUM CHLORIDE 0.9% 100 ML IVPB SCH ×3 (02:22→17:59)
[2022-06-07 04:15] LABS: Anisocytosis Slight; Basophils % (A) 1 %; Eosinophils # (A) 0.2 k/uL (0-0.7); Eosinophils % (A) 3 %; HCT 25.3 % (39.0-53.0); HGB 8.6 gm/dL (13.0-17.5); Hypochromasia Moderate; Lymphocytes # (A) 1.1 k/uL (1.0-4.8); Lymphocytes % (A) 17 %; MCH 29.1 pg (25.0-35.0); MCHC 33.9 g/dL (31.0-37.0); MCV 85.8 fL (80.0-100.0); Mean Platelet Volume 7.9; Monocytes # (A) 0.8 k/uL (0-1.0); Monocytes % (A) 13 %; Neutrophils # (A) 4.1 k/uL (1.3-7.7); Neutrophils % (A) 64 %; Platelet Count 267 k/uL (150-450); Poikilocytosis Moderate; RBC 2.95 m/uL (4.30-5.90); RDW 17.3 % (11.5-15.5); WBC 6.3 k/uL (3.8-10.6)
[2022-06-07 04:20] LABS: African American GFR (CKD) >90 (>60 ml/min/1.73 sqM); Anion Gap 8 mmol/L; Blood Urea Nitrogen 22 mg/dL (9-20); Calcium 8.4 mg/dL (8.4-10.2); Carbon Dioxide 22 mmol/L (22-30); Chloride 106 mmol/L (98-107); Glucose 149 mg/dL (74-99); Magnesium 1.5 mg/dL (1.6-2.3); Non-African American GFR(CKD) 81 (>60 ml/min/1.73 sqM); Phosphorus 2.6 mg/dL (2.5-4.5); Sodium 136 mmol/L (137-145)
[2022-06-07 05:09] LABS: Poikilocytosis (M) Present
[2022-06-07] MEDS: SIROLIMUS 1 MG PO SCH (06:13)
[2022-06-07] MEDS: INSULIN DETEMIR (LEVEMIR) 100 UNIT/ML SYR SQ SCH (06:14)
[2022-06-07] MEDS: MYCOPHENOLATE SODIUM DR 180 MG TABLET.DR PO SCH ×2 (06:14→18:00)
[2022-06-07 06:35] LABS: Glucose,Whole Blood 191 mg/dL (70-110)
[2022-06-07] MEDS: carvediloL 6.25 MG TAB PO SCH ×2 (06:40→17:59)
[2022-06-07] MEDS: FERROUS SULFATE 325 MG TAB PO SCH ×2 (06:40→17:59)
[2022-06-07] MEDS: INSULIN ASPART (NovoLOG) 100 UNIT/ML VIAL SQ SCH ×4 (06:41→21:07)
[2022-06-07] MEDS ORDERED: Magnesium Replacement Protocol 1 EACH MISC MISCELLANE PRN (08:30)
[2022-06-07] MEDS: PANTOPRAZOLE 40 MG/10 ML VIAL IVP SCH ×2 (08:34→21:07)
[2022-06-07] MEDS: LOSARTAN 50 MG TAB PO SCH (08:34)
[2022-06-07] MEDS: HEPARIN SODIUM,PORCINE/PF 5,000 UNIT/0.5 ML SYRINGE SQ SCH ×2 (08:34→21:07)
[2022-06-07] MEDS: MAGNESIUM SULFATE-D5W PMX 1 GM in DEXTROSE/WATER 1 100ML.BAG IVPB SCH ×2 (08:35→11:38)
[2022-06-07] MEDS: NIFEdipine XL 90 MG TAB.ER.24 PO SCH (08:35)
[2022-06-07] MEDS: cloNIDine HCL 0.1 MG TAB PO SCH ×2 (08:35→21:06)
--- NOTE | 2022-06-07 09:16 | P.PN ---
Subjective Progress Note Date: 06/05/22 Principal diagnosis: Transplant nephritis and bacteremia Patient is a 82-year-old male with multiple comorbidities and history of recurrent UTI presented to hospital with feeling tired and dizzy and weakness patient did have evidence of ESBL Klebsiella UTI and bacteremia On today's evaluation that is 06/05/2022, the patient remains to be afebrile, the patient is breathing comfortably on room air, the patient denies having any chest pain or shortness of breath or cough no nausea no vomiting no abdominal pain no diarrhea/ Objective - Vital Signs Vital signs: Vital Signs Temp 97.4 F L 06/05/22 08:00 Pulse 62 06/05/22 08:00 Resp 17 06/05/22 08:00 BP 105/75 06/05/22 08:00 Pulse Ox 97 06/05/22 08:00 FiO2 21 06/03/22 07:39 Intake & Output 06/04/22 06/05/22 06/05/22 18:59 06:59 18:59 Intake Total 1004 560 Output Total 300 550 Balance 704 10 Intake: IV 160 10 0.9 NS @ 20 160 10 Intake, IV Titration 200 100 Amount Meropenem 1 gm In Sodium 200 100 Chloride 0.9% 100 ml @ 33 .3 mls/hr IVPB Q8H [facility] Rx #:[id number] Oral 360 450 Blood Product 284 Rc Pheresis 2 As3 Unit 284 [id number] Output: Urine 300 550 Other: Voiding Method External Catheter External Catheter External Catheter # Voids 2 # Bowel Movements 0 - Exam GENERAL DESCRIPTION: An elderly male lying in bed in no distress RESPIRATORY SYSTEM: Unlabored breathing , decreased breath sounds at bases HEART: S1 S2 regular rate and rhythm , ABDOMEN: Soft , no tenderness EXTREMITIES: No edema feet - Labs CBC & Chem 7: 06/07/22 03:45 06/07/22 03:45 Labs: Abnormal Lab Results - Last 24 Hours (Table) 06/01/22 06/04/22 06/04/22 Range/Units 18:30 14:46 16:46 RBC 2.85 L (4.30-5.90) m/uL Hgb 8.1 L (13.0-17.5) gm/dL Hct 24.4 L (39.0-53.0) % RDW 16.0 H (11.5-15.5) % Lymphocytes # 0.8 L (1.0-4.8) k/uL Chloride (98-107) mmol/L Carbon Dioxide (22-30) mmol/L BUN (9-20) mg/dL Glucose (74-99) mg/dL POC Glucose (mg/dL) 233 H (70-110) mg/dL Calcium (8.4-10.2) mg/dL Total Protein (6.3-8.2) g/dL Albumin (3.5-5.0) g/dL Crossmatch See Detail 06/04/22 06/05/22 06/05/22 Range/Units 20:27 06:01 06:01 RBC 2.76 L (4.30-5.90) m/uL Hgb 7.9 L (13.0-17.5) gm/dL Hct 23.8 L (39.0-53.0) % RDW 16.4 H (11.5-15.5) % Lymphocytes # 0.9 L (1.0-4.8) k/uL Chloride 109 H (98-107) mmol/L Carbon Dioxide 21 L (22-30) mmol/L BUN 42 H (9-20) mg/dL Glucose 146 H (74-99) mg/dL POC Glucose (mg/dL) 135 H (70-110) mg/dL Calcium 8.1 L (8.4-10.2) mg/dL Total Protein 4.7 L (6.3-8.2) g/dL Albumin 2.6 L (3.5-5.0) g/dL Crossmatch 06/05/22 Range/Units 06:49 RBC (4.30-5.90) m/uL Hgb (13.0-17.5) gm/dL Hct (39.0-53.0) % RDW (11.5-15.5) % Lymphocytes # (1.0-4.8) k/uL Chloride (98-107) mmol/L Carbon Dioxide (22-30) mmol/L BUN (9-20) mg/dL Glucose (74-99) mg/dL POC Glucose (mg/dL) 168 H (70-110) mg/dL Calcium (8.4-10.2) mg/dL Total Protein (6.3-8.2) g/dL Albumin (3.5-5.0) g/dL Crossmatch Microbiology - Last 24 Hours (Table) 06/04/22 05:23 Blood Culture - Preliminary Blood No Growth after 24 hours 06/01/22 17:30 Blood Culture - Preliminary Blood No Growth after 72 hours 06/01/22 17:35 Blood Culture Gram Stain - Final Blood Blood Culture - Final Klebsiella pneumoniae Assessment and Plan (1) UTI (urinary tract infection) Current Visit: Yes Status: Acute Code(s): N39.0 - URINARY TRACT INFECTION, SITE NOT SPECIFIED SNOMED Code(s): 67915354 (2) Bacteremia Current Visit: No Status: Acute Code(s): R78.81 - BACTEREMIA SNOMED Code(s): 8531739 Plan: 1patient with ESBL Klebsiella UTI /transplant nephritis with secondary bacteremia 2patient did have ultrasound of the kidneys without evidence of any hydronephrosis or abscess 3-blood cultures has been repeated which are negative so far 4patient seemed to have shown clinical improvement and will continue with the meropenem and more monitor his clinical course closely Time with Patient: Less than 30
--- NOTE | 2022-06-07 09:17 | P.PN ---
Subjective Progress Note Date: 06/06/22 Principal diagnosis: Transplant nephritis and bacteremia Patient is a 82-year-old male with multiple comorbidities and history of recurrent UTI presented to hospital with feeling tired and dizzy and weakness patient did have evidence of ESBL Klebsiella UTI and bacteremia On today's evaluation that is 06/06/2022, the patient continues to be afebrile, the patient is breathing comfortably on room air, the patient denies having any chest pain or shortness of breath or cough, the patient denies nausea no vomiting no abdominal pain no diarrhea/ Objective - Vital Signs Vital signs: Vital Signs Temp 99.1 F 06/06/22 14:00 Pulse 77 06/06/22 14:00 Resp 15 06/06/22 14:00 BP 165/65 06/06/22 14:00 Pulse Ox 92 L 06/06/22 14:00 FiO2 21 06/03/22 07:39 Intake & Output 06/05/22 06/06/22 06/06/22 18:59 06:59 18:59 Intake Total 240 220 Output Total 800 1000 650 Balance -560 -780 -650 Intake: IV 240 120 0.9 NS @ 20 240 120 Intake, IV Titration 100 Amount Meropenem 1 gm In Sodium 100 Chloride 0.9% 100 ml @ 33 .3 mls/hr IVPB Q8H [facility] Rx #:[id number] Output: Urine 800 1000 650 Other: Voiding Method External Catheter External Catheter External Catheter # Bowel Movements 0 - Exam GENERAL DESCRIPTION: An elderly male lying in bed in no distress RESPIRATORY SYSTEM: Unlabored breathing , decreased breath sounds at bases HEART: S1 S2 regular rate and rhythm , ABDOMEN: Soft , no tenderness EXTREMITIES: No edema feet - Labs CBC & Chem 7: 06/07/22 03:45 06/07/22 03:45 Labs: Abnormal Lab Results - Last 24 Hours (Table) 06/05/22 06/05/22 06/06/22 Range/Units 16:55 19:42 06:15 RBC 3.06 L (4.30-5.90) m/uL Hgb 8.7 L (13.0-17.5) gm/dL Hct 26.6 L (39.0-53.0) % RDW 17.0 H (11.5-15.5) % Chloride (98-107) mmol/L BUN (9-20) mg/dL Glucose (74-99) mg/dL POC Glucose (mg/dL) 136 H 208 H (70-110) mg/dL 06/06/22 06/06/22 06/06/22 Range/Units 06:15 06:15 11:54 RBC (4.30-5.90) m/uL Hgb (13.0-17.5) gm/dL Hct (39.0-53.0) % RDW (11.5-15.5) % Chloride 108 H (98-107) mmol/L BUN 28 H (9-20) mg/dL Glucose 147 H (74-99) mg/dL POC Glucose (mg/dL) 161 H 158 H (70-110) mg/dL Microbiology - Last 24 Hours (Table) 06/04/22 05:23 Blood Culture - Preliminary Blood No Growth after 48 hours 06/01/22 17:30 Blood Culture - Preliminary Blood No Growth after 96 hours Assessment and Plan (1) UTI (urinary tract infection) Current Visit: Yes Status: Acute Code(s): N39.0 - URINARY TRACT INFECTION, SITE NOT SPECIFIED SNOMED Code(s): 67268333 (2) Bacteremia Current Visit: No Status: Acute Code(s): R78.81 - BACTEREMIA SNOMED Code(s): 2095708 Plan: 1patient with ESBL Klebsiella UTI /transplant nephritis with secondary bacteremia 2patient did have ultrasound of the kidneys without evidence of any hydronephrosis or abscess 3-blood cultures has been repeated which are negative so far 4patient seemed to have shown clinical improvement and will continue with the meropenem , we've we'll obtain midline and plan to finish therapy with IV Invanz 1 g daily for 10 days on discharge Time with Patient: Less than 30
--- NOTE | 2022-06-07 09:26 | P.PN ---
Subjective Progress Note Date: 06/07/22 82-year-old male patient is being seen in follow-up in intensive care unit on 06/07/2022. The patient's is in the intensive care unit for GI bleeding which is essentially recovered. The patient had an EGD and a colonoscopy including a capsule endoscopy that turned out to be negative. There were some nonbleeding ulceration in the small bowel on capsule endoscopy. The patient is currently in the intensive care unit and we have made recommendations the patient can be transferred out to the medical floor. The patient has demonstrated no further episodes of bleeding. The patient has a gram-negative bacteremia secondary to a UTI with Klebsiella and the patient is covered with appropriate antibiotic. Noted the patient has hypertension and hyperlipidemia and diabetes mellitus and the patient has a kidney transplant. The patient is also known to have coronary artery disease and the patient has undergone previous bypass surgery. In terms of his blood work, the hemoglobin today 8.6 and a patient also has a platelet count of 267. Sodium is 136, BMs at 22 with a creatinine of 0.8. The patient remains on IV meropenem as the Klebsiella was a ESBL producing organism. The patient is also on Levemir insulin 5 units and a sliding scale coverage. The patient remains on mycophenolate 360 mg by mouth twice a day and the creatinine is stable at 0.89. Objective - Vital Signs Vital signs: Vital Signs Temp 98.9 F 06/06/22 20:00 Pulse 35 L 06/07/22 02:00 Resp 16 06/07/22 02:00 BP 152/63 06/07/22 00:08 Pulse Ox 94 L 06/06/22 20:00 FiO2 21 06/03/22 07:39 Intake & Output 06/06/22 06/07/22 06/07/22 18:59 06:59 18:59 Intake Total 320 320 Output Total 1999 1000 Balance -1680 -680 Intake: IV 320 320 0.9 NS @ 20 120 120 Meropenem 1 gm In Sodium 200 200 Chloride 0.9% 100 ml @ 33 .3 mls/hr IVPB Q8H [facility] Rx #:[id number] Output: Urine 1999 1000 Other: Voiding Method External Catheter External Catheter - Exam No acute distress, oriented 3. No respiratory distress. The patient's curr ently on room air. Saturations are 96%. HEENT examination is grossly unremarkable. Neck supple. Full range of motion. No adenopathy thyromegaly or neck vein distention. Cardiovascular examination reveals regular rhythm rate. S1-S2 normal. No S3 or S4. No discernible murmur noted. Heart rate 71 bpm. Lungs reveal clear breath sounds. Breath sounds are equal bilaterally. No adventitious lung sounds including wheezes rhonchi or crackles. Abdomen is soft, with normal bowel sounds. No masses or tenderness appreciated. Extremities are intact. No cyanosis clubbing or edema. Skin is without rash or lesion. Neurologic examination is brief but nonfocal. - Labs CBC & Chem 7: 06/07/22 03:45 06/07/22 03:45 Labs: Abnormal Lab Results - Last 24 Hours (Table) 06/06/22 06/06/22 06/06/22 Range/Units 11:54 16:51 20:11 RBC (4.30-5.90) m/uL Hgb (13.0-17.5) gm/dL Hct (39.0-53.0) % RDW (11.5-15.5) % Sodium (137-145) mmol/L BUN (9-20) mg/dL Glucose (74-99) mg/dL POC Glucose (mg/dL) 158 H 145 H 213 H (70-110) mg/dL Magnesium (1.6-2.3) mg/dL 06/07/22 06/07/22 06/07/22 Range/Units 03:45 03:45 06:34 RBC 2.95 L (4.30-5.90) m/uL Hgb 8.6 L (13.0-17.5) gm/dL Hct 25.3 L (39.0-53.0) % RDW 17.3 H (11.5-15.5) % Sodium 136 L (137-145) mmol/L BUN 22 H (9-20) mg/dL Glucose 149 H (74-99) mg/dL POC Glucose (mg/dL) 191 H (70-110) mg/dL Magnesium 1.5 L (1.6-2.3) mg/dL Microbiology - Last 24 Hours (Table) 06/04/22 05:23 Blood Culture - Preliminary Blood No Growth after 72 hours 06/01/22 17:30 Blood Culture - Preliminary Blood No Growth after 120 hours Assessment and Plan Plan: Acute gastrointestinal bleed, with resultant anemia, EGD, June 02, revealed no active bleeding, and only mild distal esophagitis. Colonoscopy was nondiagnostic. Capsule endoscopy showed only small bowel erosions, without active bleeding. Klebsiella pneumoniae bacteremia/UTI. History of previous bypass grafting for CAD. History of kidney transplant. History of hypertension. History of CVA. History of hyperlipidemia. History of diabetes mellitus. History of recurrent urinary tract infections. the patient was septic due to a ESBL producing Klebsiella that was identified in the urine and in the blood. Prior history of tobacco use. Plan Hemoglobin stable at 8.6 Patient is not showing any further episodes of GI bleeding Patient is tolerating diet The patient is on immunosuppressive agents and the patient has a stable creatinine and the patient is a kidney transplant recipient Patient is on Levemir insulin and blood sugars under adequate control Patient remains on IV medical clinic regarding ESBL in the urine and the blood consistent with sepsis due to Klebsiella Hemodynamically stable and the patient is afebrile for now Patient is being transferred out of the intensive care unit. The patient is currently on room air oxygen. midline catheter insertion for ongoing antibiotic treatment Patient is currently on room air oxygen
[2022-06-07 11:19] LABS: Glucose,Whole Blood 158 mg/dL (70-110)
--- NOTE | 2022-06-07 12:28 | P.NPCON ---
History of Present Illness - Reason for Consult chronic renal failure - History of Present Illness Reason for consultation: Kidney transplant recipient History of present illness: Patient is a 82-year-old male seen in consultation for chronic kidney disease and renal transplant management. Patient received living unrelated renal allograft from his and 2004. Patient's baseline creatinine is in the range of 1-1.3. Renal function is stable with creatinine is 0.89. Patient presented to the hospital on 06/01/2022 with generalized weakness. Patient states he was weak and unable to stand on his own and came to the hospital. He was noted to have UTI as well as bacteremia blood culture positive for Klebsiella pneumonia. Denies chest pain or shortness of breath. Has been voiding. No hematuria. Blood pressures on the higher side. WBC count is normal. No vomiting or diarrhea. Currently having lunch. No active complaints. Possibly going to ECF today. He is maintained on his home immunosuppressive meds which are sirolimus and Myfortic. Vital signs are stable. General: Awake. No acute distress. HEENT: Head exam is unremarkable. LUNGS: Breath sounds decreased. HEART: Rate and Rhythm are regular. ABDOMEN: Soft, no distention. EXTREMITITES: No edema. Past Medical History Past Medical History: Coronary Artery Disease (CAD), Chest Pain / Angina, CVA/TIA Additional Past Medical History / Comment(s): UTI History of Any Multi-Drug Resistant Organisms: ESBL Date of last positivie culture/infection: 06/01/22 ESBL MDRO Source:: Blood and Urine Additional Past Surgical History / Comment(s): Kidney Transplant Past Psychological History: No Psychological Hx Reported Smoking Status: Former smoker Past Alcohol Use History: None Reported Past Drug Use History: None Reported - Past Family History Father Family Medical History: Chest Pain / Angina Medications and Allergies Home Medications Medication Instructions Recorded Confirmed Type Atorvastatin [Lipitor] 40 mg PO DAILY@1900 03/30/22 06/01/22 History Cholecalciferol [Vitamin D3 (25 50 mcg PO DAILY@0600 03/30/22 06/01/22 History Mcg = 1000 Iu)] Furosemide [Lasix] 20 mg PO MOWEFR 03/30/22 06/01/22 History Insulin Lispro [humaLOG Kwikpen] See Protocol SQ AC-SUPPER PRN 03/30/22 06/01/22 History Insulin NPH Human Isophane 45 unit SQ DAILY@0602/22 10/04/22 History [humuLIN N Kwikpen] Losartan Potassium 100 mg PO HS@199903/30/22 06/01/22 History Magnesium Oxide [Mag-Ox] 400 mg PO DAILY@59903/30/22 06/01/22 History Multivitamins, Thera [Multivitamin 1 tab PO DAILY@59903/30/22 06/01/22 History (formulary)] Mycophenolate Sodium [Mycophenolic 360 mg PO BID@0600,189903/30/22 06/01/22 History Acid] NIFEdipine XL [Procardia XL] 90 mg PO DAILY@59903/30/22 06/01/22 History Nitroglycerin Sl Tabs [Nitrostat] 0.4 mg SUBLINGUAL Q5M PRN 03/30/22 06/01/22 History Sertraline [Zoloft] 50 mg PO DAILY@189903/30/22 06/01/22 History Sirolimus 2 mg PO DAILY@59903/30/22 06/01/22 History Vit C/E/Zn/Coppr/Lutein/Zeaxan 1 cap PO BID@0600,19003/30/22 06/01/22 History [Preservision Areds 2 Softgel] carvediloL [Coreg] 6.25 mg PO AC-BID #60 tablet 04/07/22 06/01/22 Rx cloNIDine HCL [Catapres] 0.1 mg PO BID #60 tab 04/07/22 06/01/22 Rx hydrALAZINE HCL [Apresoline] 100 mg PO AC-TID #90 tablet 04/07/22 06/01/22 Rx Allergies Allergy/AdvReac Type Severity Reaction Status Date / Time No Known Allergies Allergy Verified 06/01/22 16:59 Physical Exam Vitals: Vital Signs Temp Pulse Resp BP Pulse Ox 06/07/22 10:00 65 18 169/69 06/07/22 08:00 98.6 F 61 15 164/62 98 06/07/22 06:00 71 10 L 155/64 06/07/22 04:00 74 17 173/74 06/07/22 02:00 35 L 16 06/07/22 00:08 60 15 152/63 06/07/22 00:00 61 15 152/63 06/06/22 22:00 66 15 06/06/22 20:00 98.9 F 81 17 164/90 94 L 06/06/22 18:00 75 18 06/06/22 16:00 84 14 06/06/22 14:00 99.1 F 77 15 165/65 92 L Intake and Output 06/06/22 06/07/22 06/07/22 22:59 06:59 14:59 Intake Total 320 320 Output Total 1350 1000 Balance -1030 -680 Intake: IV 320 320 0.9 NS @ 20 120 120 Meropenem 1 gm In Sodium 200 200 Chloride 0.9% 100 ml @ 33 .3 mls/hr IVPB Q8H [facility] Rx #:[id number] Output: Urine 1350 1000 Other: Voiding Method External Catheter External Catheter Weight 94 kg Results - Lab Results Most recent lab results Calcium 8.4 mg/dL (8.4-10.2) 06/07/22 03:45 Phosphorus 2.6 mg/dL (2.5-4.5) 06/07/22 03:45 Magnesium 1.5 mg/dL (1.6-2.3) L 06/07/22 03:45 06/07/22 03:45 06/07/22 03:45 Assessment and Plan Plan: assessment: 1. Chronic kidney disease stage IIIa with baseline creatinine 11.3. GFR at baseline. 2. Status post living unrelated renal allograft in 2003. 3. Klebsiella UTI and bacteremia on antibiotics. 4. GI bleed status post blood transfusion. EGD and colonoscopy showed no acute evidence of bleeding. Capsule endoscopy showed small bowel erosions without active bleeding. Hemoglobin stable at 8.6 today. 5. Diabetes mellitus. 6. Hypertension with chronic kidney disease. Plan: Maintain home immunosuppressive meds. Check sirolimus level. Resume home hydralazine 100 mg 3 times daily. Hold for systolic blood pressure less than 120. Possibly going to ECF today. Follow up outpatient in 1 week. Thank you for the consultation. I will continue to follow the patient with you during his hospital stay.
[2022-06-07] MEDS: hydrALAZINE HCL 50 MG TAB PO SCH ×3 (12:45→21:06)
[2022-06-07 16:21] LABS: Glucose,Whole Blood 182 mg/dL (70-110)
--- NOTE | 2022-06-07 17:06 | P.PN ---
Subjective Progress Note Date: 06/07/22 (delayed charting seen at 1105) Patient is an 82-year-old male status post renal transplant in 1999 for living donor, coronary artery disease status post CABG, and hypertension who initially presented to the hospital due to weakness. In the ER he underwent an extensive evaluation. His son have significant anemia with hemoglobin of 6.1. He was admitted for further monitoring. His hemoglobin continued to downtrend. And he was ultimately transferred to the ICU. His lowest hemoglobin was 4.8. He has received 4 units of packed red blood cells. He was seen by GI and underwent an EGD on 06/02 which showed no signs of bleeding but mild distal esophagitis, colonoscopy on 06/03 which demonstrated normal-appearing colon with no evidence of colitis or neoplasm, and then ultimately a small bowel capsule which per verbal report was negative. He was also found to have Klebsiella urinary tract infection with bacteremia and was followed by infectious disease. Hemoglobin has been stable since 06/04 with no recurrence of bleeding. Additional imaging: Renal ultrasound: Left lower quadrant transplant kidney without evidence of hydronephrosis, atrophic bilateral [place] kidneys without hydronephrosis or calculi, bladder wall thickening Echocardiogram: Normal left ventricular size and function Patient seen and examined at bedside. He denies any weakness, nausea, vomiting, chest pain, shortness breath. present at bedside. We discussed that he will likely return to rehab. General: nontoxic, no distress, appears at stated age Derm: warm, dry Head: atraumatic, normocephalic, symmetric Eyes: EOMI, no lid lag, anicteric sclera Mouth: no lip lesion, mucus membranes moist Cardiovascular: S1S2 reg, no murmur, positive posterior tibial pulse bilateral, Lungs: CTA bilateral, no rhonchi, no rales , no accessory muscle use Abdominal: soft, nontender to palpation, no guarding, no appreciable organomegaly Ext: no gross muscle atrophy, no edema, no contractures Neuro: CN II-XI grossly intact, no focal neuro deficits Psych: Alert, oriented, appropriate affect Assessment/plan: Severe anemia, suspect GI bleed -No active bleeding found on EGD, colonoscopy, or capsule endoscopy -Status post 4 units of packed red blood cells -Hemoglobin currently stable Klebsiella urinary tract infection with bacteremia -ID recommendations appreciated: Plan is for midline and to complete 10 additional days of Invanz therapy Renal transplantation IIIa Chronic kidney disease -Continue immunosuppressive agents -Consult nephrology Diabetes mellitus type 2, currently controlled -Continue with sliding scale, long-acting -Follow blood sugars Retention, poorly controlled -Continue with Coreg, hydralazine, Cozaar, nifedipine Hyperkalemia, Resolved Labs for discharge to senior living facility once midline is placed on authorization is obtained Active Medications Generic Name Dose Route Start Last Admin Trade Name Freq PRN Reason Stop Dose Admin Atorvastatin Calcium 40 mg 06/02/22 21:00 06/06/22 20:24 Atorvastatin 40 Mg Tab PO 40 mg HS [facility] Administration Carvedilol 6.25 mg 06/02/22 17:30 06/07/22 06:40 Carvedilol 6.25 Mg Tab PO 6.25 mg BID-W/MEALS [facility] Administration Clonidine 0.1 mg 06/02/22 21:00 06/07/22 08:35 Clonidine Hcl 0.1 Mg Tab PO 0.1 mg BID [facility] Administration Ferrous Sulfate 325 mg 06/04/22 17:30 06/07/22 06:40 Ferrous Sulfate 325 Mg Tab PO 325 mg BID-W/MEALS [facility] Administration Heparin Sodium (Porcine) 5,000 unit 06/07/22 09:00 06/07/22 08:34 Heparin Sodium,Porcine/Pf 5,000 Unit/0.5 Ml Syringe SQ 5,000 unit Q12HR [facility] Administration Hydralazine HCl 10 mg 06/02/22 08:12 06/07/22 02:41 Hydralazine Hcl 20 Mg/Ml 1 Ml Vial IVP 10 mg Q4HR PRN Administration Blood Pressure - High Hydralazine HCl 100 mg 06/07/22 12:30 06/07/22 12:45 Hydralazine Hcl 50 Mg Tab PO 100 mg TID [facility] Administration Meropenem 1 gm/ Sodium 100 mls @ 33.3 mls/hr 06/04/22 02:00 06/07/22 12:45 Chloride IVPB 33.3 mls/hr Q8H [facility] Administration Protocol Insulin Aspart 0 unit 06/02/22 07:30 06/07/22 11:39 Insulin Aspart (Novolog) 100 Unit/Ml Vial SQ 3 unit ACHS [facility] Administration Protocol Insulin Detemir 5 unit 06/03/22 07:00 06/07/22 06:14 Insulin Detemir (Levemir) 100 Unit/Ml Syr SQ 5 unit DAILY@0700 [facility] Administration Losartan Potassium 50 mg 06/03/22 09:00 06/07/22 08:34 Losartan 50 Mg Tab PO 50 mg DAILY [facility] Administration Melatonin 5 mg 06/05/22 22:56 06/06/22 20:24 Melatonin 5 Mg Tablet PO 5 mg HS PRN Administration Insomnia Miscellaneous Information 1 each 06/07/22 08:30 Magnesium Replacement Protocol 1 Each Misc MISCELLANE DAILY PRN Per Protocol Protocol Mycophenolate Sodium 360 mg 06/02/22 06:00 06/07/22 06:[address] 180 Mg Tablet.Dr PO 360 mg BID@0600,1900 [facility] Administration Nifedipine 90 mg 06/03/22 09:00 06/07/22 08:35 Nifedipine Xl 90 Mg Tab.Er.24 PO 90 mg DAILY [facility] Administration Sirolimus [Sirolimus 2 mg 06/03/22 11:15 06/07/22 06:13 ] 1 Mg Tablet PO 2 mg DAILY@0600 [facility] Administration Pantoprazole Sodium 40 mg 06/02/22 09:00 06/07/22 08:34 Pantoprazole 40 Mg/10 Ml Vial IVP 40 mg BID [facility] Administration Sertraline HCl 50 mg 06/02/22 21:00 06/06/22 20:24 Sertraline 50 Mg Tab PO 50 mg HS [facility] Administration Objective - Vital Signs Vital signs: Vital Signs Temp 98.6 F 06/07/22 08:00 Pulse 67 06/07/22 14:00 Resp 18 06/07/22 14:00 BP 157/84 06/07/22 14:00 Pulse Ox 98 06/07/22 08:00 FiO2 21 06/03/22 07:39 Intake & Output 06/06/22 06/07/22 06/07/22 18:59 06:59 18:59 Intake Total 320 320 Output Total 1999 1000 Balance -1680 -680 Weight 94 kg Intake: IV 320 320 0.9 NS @ 20 120 120 Meropenem 1 gm In Sodium 200 200 Chloride 0.9% 100 ml @ 33 .3 mls/hr IVPB Q8H [facility] Rx #:[id number] Output: Urine 1999 1000 Other: Voiding Method External Catheter External Catheter External Catheter - Labs CBC & Chem 7: 06/07/22 03:45 06/07/22 03:45 Labs: Abnormal Lab Results - Last 24 Hours (Table) 06/06/22 06/07/22 06/07/22 Range/Units 20:11 03:45 03:45 RBC 2.95 L (4.30-5.90) m/uL Hgb 8.6 L (13.0-17.5) gm/dL Hct 25.3 L (39.0-53.0) % RDW 17.3 H (11.5-15.5) % Sodium 136 L (137-145) mmol/L BUN 22 H (9-20) mg/dL Glucose 149 H (74-99) mg/dL POC Glucose (mg/dL) 213 H (70-110) mg/dL Magnesium 1.5 L (1.6-2.3) mg/dL 06/07/22 06/07/22 06/07/22 Range/Units 06:34 11:17 16:19 RBC (4.30-5.90) m/uL Hgb (13.0-17.5) gm/dL Hct (39.0-53.0) % RDW (11.5-15.5) % Sodium (137-145) mmol/L BUN (9-20) mg/dL Glucose (74-99) mg/dL POC Glucose (mg/dL) 191 H 158 H 182 H (70-110) mg/dL Magnesium (1.6-2.3) mg/dL Microbiology - Last 24 Hours (Table) 06/04/22 05:23 Blood Culture - Preliminary Blood No Growth after 72 hours 06/01/22 17:30 Blood Culture - Preliminary Blood No Growth after 120 hours
[2022-06-07 20:48] LABS: Glucose,Whole Blood 169 mg/dL (70-110)
[2022-06-07] MEDS: SERTRALINE 50 MG TAB PO SCH (21:06)
[2022-06-07] MEDS: MELATONIN 5 MG TABLET PO PRN (21:06)
[2022-06-07] MEDS: ATORVASTATIN 40 MG TAB PO SCH (21:06)
[2022-06-08] MEDS: MEROPENEM 1 GM in SODIUM CHLORIDE 0.9% 100 ML IVPB SCH ×2 (02:30→10:28)
[2022-06-08 06:13] LABS: Anisocytosis Slight; HCT 27.2 % (39.0-53.0); HGB 9.2 gm/dL (13.0-17.5); Hypochromasia Marked; MCH 29.8 pg (25.0-35.0); MCHC 33.6 g/dL (31.0-37.0); MCV 88.7 fL (80.0-100.0); Mean Platelet Volume 7.9; Platelet Count 316 k/uL (150-450); Poikilocytosis Slight; RBC 3.07 m/uL (4.30-5.90); RDW 17.2 % (11.5-15.5); WBC 7.5 k/uL (3.8-10.6)
[2022-06-08 06:17] VITALS: TEMP 98.1
[2022-06-08 06:32] LABS: African American GFR (CKD) >90 (>60 ml/min/1.73 sqM); Anion Gap 7 mmol/L; Blood Urea Nitrogen 17 mg/dL (9-20); Calcium 8.1 mg/dL (8.4-10.2); Carbon Dioxide 22 mmol/L (22-30); Chloride 107 mmol/L (98-107); Glucose 141 mg/dL (74-99); Magnesium 1.7 mg/dL (1.6-2.3); Non-African American GFR(CKD) 81 (>60 ml/min/1.73 sqM); Potassium 4.2 mmol/L (3.5-5.1); Sodium 136 mmol/L (137-145)
[2022-06-08 06:47] LABS: Glucose,Whole Blood 180 mg/dL (70-110)
[2022-06-08] MEDS: carvediloL 6.25 MG TAB PO SCH (06:50)
[2022-06-08] MEDS: INSULIN DETEMIR (LEVEMIR) 100 UNIT/ML SYR SQ SCH (06:50)
[2022-06-08] MEDS: FERROUS SULFATE 325 MG TAB PO SCH (06:50)
[2022-06-08] MEDS: INSULIN ASPART (NovoLOG) 100 UNIT/ML VIAL SQ SCH ×2 (06:50→11:46)
[2022-06-08] MEDS: SIROLIMUS 1 MG PO SCH (06:51)
[2022-06-08] MEDS: MYCOPHENOLATE SODIUM DR 180 MG TABLET.DR PO SCH (06:51)
[2022-06-08] MEDS: hydrALAZINE HCL 50 MG TAB PO SCH ×3 (07:18→16:05)
[2022-06-08] MEDS: NON FORMULARY DRUG (Sirolimus [Sirolimus] 1 MG Tablet) PO SCH (07:18)
--- NOTE | 2022-06-08 07:32 | P.PN ---
Subjective Progress Note Date: 06/07/22 Principal diagnosis: Transplant nephritis and bacteremia Patient is a 82-year-old male with multiple comorbidities and history of recurrent UTI presented to hospital with feeling tired and dizzy and weakness patient did have evidence of ESBL Klebsiella UTI and bacteremia On today's evaluation that is 06/07/2022, the patient remains to be afebrile, the patient is breathing comfortably on room air, the patient denies chest pain or shortness of breath or cough, the patient denies nausea no vomiting no abdominal pain no diarrhea, patient is overall feeling better Objective - Vital Signs Vital signs: Vital Signs Temp 98.6 F 06/07/22 08:00 Pulse 65 06/07/22 10:00 Resp 18 06/07/22 10:00 BP 169/69 06/07/22 10:00 Pulse Ox 98 06/07/22 08:00 FiO2 21 06/03/22 07:39 Intake & Output 06/06/22 06/07/22 06/07/22 18:59 06:59 18:59 Intake Total 320 320 Output Total 1999 1000 Balance -1680 -680 Weight 94 kg Intake: IV 320 320 0.9 NS @ 20 120 120 Meropenem 1 gm In Sodium 200 200 Chloride 0.9% 100 ml @ 33 .3 mls/hr IVPB Q8H [facility] Rx #:[id number] Output: Urine 1999 1000 Other: Voiding Method External Catheter External Catheter External Catheter - Exam GENERAL DESCRIPTION: An elderly male lying in bed in no distress RESPIRATORY SYSTEM: Unlabored breathing , decreased breath sounds at bases HEART: S1 S2 regular rate and rhythm , ABDOMEN: Soft , no tenderness EXTREMITIES: No edema feet - Labs CBC & Chem 7: 06/08/22 05:33 06/08/22 05:33 Labs: Abnormal Lab Results - Last 24 Hours (Table) 06/06/22 06/06/22 06/07/22 Range/Units 16:51 20:11 03:45 RBC 2.95 L (4.30-5.90) m/uL Hgb 8.6 L (13.0-17.5) gm/dL Hct 25.3 L (39.0-53.0) % RDW 17.3 H (11.5-15.5) % Sodium (137-145) mmol/L BUN (9-20) mg/dL Glucose (74-99) mg/dL POC Glucose (mg/dL) 145 H 213 H (70-110) mg/dL Magnesium (1.6-2.3) mg/dL 06/07/22 06/07/22 06/07/22 Range/Units 03:45 06:34 11:17 RBC (4.30-5.90) m/uL Hgb (13.0-17.5) gm/dL Hct (39.0-53.0) % RDW (11.5-15.5) % Sodium 136 L (137-145) mmol/L BUN 22 H (9-20) mg/dL Glucose 149 H (74-99) mg/dL POC Glucose (mg/dL) 191 H 158 H (70-110) mg/dL Magnesium 1.5 L (1.6-2.3) mg/dL Microbiology - Last 24 Hours (Table) 06/04/22 05:23 Blood Culture - Preliminary Blood No Growth after 72 hours 06/01/22 17:30 Blood Culture - Preliminary Blood No Growth after 120 hours Assessment and Plan (1) UTI (urinary tract infection) Current Visit: Yes Status: Acute Code(s): N39.0 - URINARY TRACT INFECTION, SITE NOT SPECIFIED SNOMED Code(s): 03374445 (2) Bacteremia Current Visit: No Status: Acute Code(s): R78.81 - BACTEREMIA SNOMED Code(s): 8561660 Plan: 1patient with ESBL Klebsiella UTI /transplant nephritis with secondary bacteremia 2patient did have ultrasound of the kidneys without evidence of any h ydronephrosis or abscess 3-blood cultures has been repeated which are negative 4patient has shown clinical improvement, the patient will continue with the meropenem , plan is for midline and to finish therapy with IV Invanz 1 g daily for 10 days on discharge Time with Patient: Less than 30
[2022-06-08] MEDS: HEPARIN SODIUM,PORCINE/PF 5,000 UNIT/0.5 ML SYRINGE SQ SCH (08:15)
[2022-06-08] MEDS: PANTOPRAZOLE 40 MG/10 ML VIAL IVP SCH (08:15)
[2022-06-08] MEDS: LOSARTAN 50 MG TAB PO SCH (08:15)
[2022-06-08] MEDS: cloNIDine HCL 0.1 MG TAB PO SCH (08:15)
[2022-06-08] MEDS: NIFEdipine XL 90 MG TAB.ER.24 PO SCH (08:18)
[2022-06-08 09:19] VITALS: BP 149/59; PULSE 68; RESP 17
--- NOTE | 2022-06-08 09:34 | P.PN ---
Subjective Patient is seen in follow-up for renal transplant management. GFR at baseline. Blood pressure 149/59 this morning. Denies chest pain or shortness of breath. Good urine output. No active complaints. Vital signs are stable. General: Awake. No acute distress. HEENT: Head exam is unremarkable. LUNGS: Breath sounds decreased. HEART: Rate and Rhythm are regular. ABDOMEN: Soft, no distention. EXTREMITITES: No edema. Objective - Vital Signs Vital signs: Vital Signs Temp 98.1 F 06/08/22 02:00 Pulse 68 06/08/22 09:18 Resp 17 06/08/22 09:18 BP 149/59 06/08/22 09:18 Pulse Ox 98 06/08/22 02:00 FiO2 21 06/03/22 07:39 Intake & Output 06/07/22 06/08/22 06/08/22 18:59 06:59 18:59 Intake Total 1200 100 Output Total 1300 1100 Balance -100 -1000 Weight 94 kg Intake: IV 200 100 Meropenem 1 gm In Sodium 200 100 Chloride 0.9% 100 ml @ 33 .3 mls/hr IVPB Q8H [facility] Rx #:[id number] Intake, IV Titration 200 Amount Magnesium Sulfate-D5w Pmx 200 1 gm In Dextrose/Water 1 100ml.bag @ 100 mls/hr IVPB Q1H [facility] Rx#: [id number] Oral 800 Output: Urine 1300 1100 Other: Voiding Method External Catheter External Catheter External Catheter - Labs CBC & Chem 7: 06/08/22 05:33 06/08/22 05:33 Labs: Abnormal Lab Results - Last 24 Hours (Table) 06/07/22 06/07/22 06/07/22 Range/Units 11:17 16:19 20:46 RBC (4.30-5.90) m/uL Hgb (13.0-17.5) gm/dL Hct (39.0-53.0) % RDW (11.5-15.5) % Sodium (137-145) mmol/L Glucose (74-99) mg/dL POC Glucose (mg/dL) 158 H 182 H 169 H (70-110) mg/dL Calcium (8.4-10.2) mg/dL 06/08/22 06/08/22 06/08/22 Range/Units 05:33 05:33 06:45 RBC 3.07 L (4.30-5.90) m/uL Hgb 9.2 L (13.0-17.5) gm/dL Hct 27.2 L (39.0-53.0) % RDW 17.2 H (11.5-15.5) % Sodium 136 L (137-145) mmol/L Glucose 141 H (74-99) mg/dL POC Glucose (mg/dL) 180 H (70-110) mg/dL Calcium 8.1 L (8.4-10.2) mg/dL Microbiology - Last 24 Hours (Table) 06/04/22 05:23 Blood Culture - Preliminary Blood No Growth after 96 hours 06/01/22 17:30 Blood Culture - Final Blood No Growth after 144 hours Assessment and Plan Plan: assessment: 1. Chronic kidney disease stage IIIa with baseline creatinine 1-1.3. GFR at baseline. 2. Status post living unrelated renal allograft in 2003. 3. Klebsiella UTI and bacteremia on antibiotics. 4. GI bleed status post blood transfusion. EGD and colonoscopy showed no acute evidence of bleeding. Capsule endoscopy showed small bowel erosions without active bleeding. Hemoglobin 9.2 today. 5. Diabetes mellitus. 6. Hypertension with chronic kidney disease. Plan: Maintain home immunosuppressive meds. Follow-up sirolimus level. Increase dose of nifedipine to 120 mg once daily. Possibly going to ECF today. Follow up outpatient in 1 week.
--- NOTE | 2022-06-08 09:57 | P.PN ---
Subjective Progress Note Date: 06/08/22 82-year-old male patient is being seen in follow-up in intensive care unit on 06/07/2022. The patient's is in the intensive care unit for GI bleeding which is essentially recovered. The patient had an EGD and a colonoscopy including a capsule endoscopy that turned out to be negative. There were some nonbleeding ulceration in the small bowel on capsule endoscopy. The patient is currently in the intensive care unit and we have made recommendations the patient can be transferred out to the medical floor. The patient has demonstrated no further episodes of bleeding. The patient has a gram-negative bacteremia secondary to a UTI with Klebsiella and the patient is covered with appropriate antibiotic. Noted the patient has hypertension and hyperlipidemia and diabetes mellitus and the patient has a kidney transplant. The patient is also known to have coronary artery disease and the patient has undergone previous bypass surgery. In terms of his blood work, the hemoglobin today 8.6 and a patient also has a platelet count of 267. Sodium is 136, BMs at 22 with a creatinine of 0.8. The patient remains on IV meropenem as the Klebsiella was a ESBL producing organism. The patient is also on Levemir insulin 5 units and a sliding scale coverage. The patient remains on mycophenolate 360 mg by mouth twice a day and the creatinine is stable at 0.89. On 06/08/2022, the patient's is still doing well and stable without any evidence of bleeding. Hemoglobin currently is at 9.2 which is slightly improved compared to yesterday. White cell count of 7.6. Electrolytes are all within normal limi ts. The patient's also has a Dony of 17 with a creatinine of 0.8. The patient has multiple medical problems and comorbidities. The patient has CAD with previous bypass surgery. He is a the second of a kidney transplant. 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 No fever. No chills. The patient is on mycophenolate as immunosuppressive agent. The repeat blood cultures from 06/04/2022 has been negative. No other new complaints otherwise for now. Objective - Vital Signs Vital signs: Vital Signs Temp 98.1 F 06/08/22 02:00 Pulse 68 06/08/22 09:18 Resp 17 10/11/22 09:18 BP 149/59 06/08/22 09:18 Pulse Ox 98 06/08/22 02:00 FiO2 21 06/03/22 07:39 Intake & Output 06/07/22 06/08/22 06/08/22 18:59 06:59 18:59 Intake Total 1200 100 Output Total 1300 1100 400 Balance -100 -1000 -400 Weight 94 kg Intake: IV 200 100 Meropenem 1 gm In Sodium 200 100 Chloride 0.9% 100 ml @ 33 .3 mls/hr IVPB Q8H [facility] Rx #:[id number] Intake, IV Titration 200 Amount Magnesium Sulfate-D5w Pmx 200 1 gm In Dextrose/Water 1 100ml.bag @ 100 mls/hr IVPB Q1H [facility] Rx#: [id number] Oral 800 Output: Urine 1300 1100 400 Other: Voiding Method External Catheter External Catheter External Catheter - Exam No acute distress, oriented 3. No respiratory distress. The patient's currently on room air. Saturations are 96%. HEENT examination is grossly unremarkable. Neck supple. Full range of motion. No adenopathy thyromegaly or neck vein distention. Cardiovascular examination reveals regular rhythm rate. S1-S2 normal. No S3 or S4. No discernible murmur noted. Heart rate 71 bpm. Lungs reveal clear breath sounds. Breath sounds are equal bilaterally. No adventitious lung sounds including wheezes rhonchi or crackles. Abdomen is soft, with normal bowel sounds. No masses or tenderness appreciated. Extremities are intact. No cyanosis clubbing or edema. Skin is without rash or lesion. Neurologic examination is brief but nonfocal. - Labs CBC & Chem 7: 06/08/22 05:33 06/08/22 05:33 Labs: Abnormal Lab Results - Last 24 Hours (Table) 06/07/22 06/07/22 06/07/22 Range/Units 11:17 16:19 20:46 RBC (4.30-5.90) m/uL Hgb (13.0-17.5) gm/dL Hct (39.0-53.0) % RDW (11.5-15.5) % Sodium (137-145) mmol/L Glucose (74-99) mg/dL POC Glucose (mg/dL) 158 H 182 H 169 H (70-110) mg/dL Calcium (8.4-10.2) mg/dL 06/08/22 06/08/22 06/08/22 Range/Units 05:33 05:33 06:45 RBC 3.07 L (4.30-5.90) m/uL Hgb 9.2 L (13.0-17.5) gm/dL Hct 27.2 L (39.0-53.0) % RDW 17.2 H (11.5-15.5) % Sodium 136 L (137-145) mmol/L Glucose 141 H (74-99) mg/dL POC Glucose (mg/dL) 180 H (70-110) mg/dL Calcium 8.1 L (8.4-10.2) mg/dL Microbiology - Last 24 Hours (Table) 06/04/22 05:23 Blood Culture - Preliminary Blood No Growth after 96 hours 06/01/22 17:30 Blood Culture - Final Blood No Growth after 144 hours Assessment and Plan Plan: Acute gastrointestinal bleed, with resultant anemia, EGD, June 02, revealed no active bleeding, and only mild distal esophagitis. Colonoscopy was nondiagnostic. Capsule endoscopy showed only small bowel erosions, without active bleeding. The hemoglobin is stable at 9.2 and the patient is not showing any signs of bleeding. Klebsiella pneumoniae bacteremia/UTI. The patient has an ESBL producing Kle bsiella and the patient remains on IV meropenem and the repeated blood cultures from 06/04/2022 were negative History of previous bypass grafting for CAD. History of kidney transplant. History of hypertension. History of CVA. History of hyperlipidemia. History of diabetes mellitus. History of recurrent urinary tract infections. the patient was septic due to a ESBL producing Klebsiella that was identified in the urine and in the blood. Prior history of tobacco use. Plan Hemoglobin stable at 9.2 Patient is not showing any further episodes of GI bleeding Patient is tolerating diet The patient is on immunosuppressive agents and the patient has a stable creatinine and the patient is a kidney transplant recipient Patient is on Levemir insulin and blood sugars under adequate control Patient remains on IV medical clinic regarding ESBL in the urine and the blood consistent with sepsis due to Klebsiella Hemodynamically stable and the patient is afebrile for now Patient is being transferred out of the intensive care unit. The patient is currently on room air oxygen. midline catheter insertion for ongoing antibiotic treatment Patient is currently on room air oxygen Discharge planning is in progress
[2022-06-08 11:37] LABS: Glucose,Whole Blood 168 mg/dL (70-110)
--- NOTE | 2022-06-08 12:36 | P.PN ---
Subjective Progress Note Date: 06/08/22 Principal diagnosis: Transplant nephritis and bacteremia Patient is a 82-year-old male with multiple comorbidities and history of recurrent UTI presented to hospital with feeling tired and dizzy and weakness patient did have evidence of ESBL Klebsiella UTI and bacteremia On today's evaluation that is 06/08/2022, the patient continues to be afebrile, the patient is breathing comfortably on room air, the patient denies chest pain or shortness of breath or cough, the patient denies nausea no vomiting no abdominal pain no diarrhea, patient with no new symptoms Objective - Vital Signs Vital signs: Vital Signs Temp 98.1 F 06/08/22 02:00 Pulse 68 06/08/22 09:18 Resp 17 06/08/22 09:18 BP 149/59 06/08/22 09:18 Pulse Ox 98 06/08/22 02:00 FiO2 21 06/03/22 07:39 Intake & Output 06/07/22 06/08/22 06/08/22 18:59 06:59 18:59 Intake Total 1200 100 Output Total 1300 1100 400 Balance -100 -1000 -400 Weight 94 kg Intake: IV 200 100 Meropenem 1 gm In Sodium 200 100 Chloride 0.9% 100 ml @ 33 .3 mls/hr IVPB Q8H [facility] Rx #:[id number] Intake, IV Titration 200 Amount Magnesium Sulfate-D5w Pmx 200 1 gm In Dextrose/Water 1 100ml.bag @ 100 mls/hr IVPB Q1H [facility] Rx#: [id number] Oral 800 Output: Urine 1300 1100 400 Other: Voiding Method External Catheter External Catheter External Catheter - Exam GENERAL DESCRIPTION: An elderly male lying in bed in no distress RESPIRATORY SYSTEM: Unlabored breathing , decreased breath sounds at bases HEART: S1 S2 regular rate and rhythm , ABDOMEN: Soft , no tenderness EXTREMITIES: No edema feet - Labs CBC & Chem 7: 06/08/22 05:33 06/08/22 05:33 Labs: Abnormal Lab Results - Last 24 Hours (Table) 06/07/22 06/07/22 06/08/22 Range/Units 16:19 20:46 05:33 RBC 3.07 L (4.30-5.90) m/uL Hgb 9.2 L (13.0-17.5) gm/dL Hct 27.2 L (39.0-53.0) % RDW 17.2 H (11.5-15.5) % Sodium (137-145) mmol/L Glucose (74-99) mg/dL POC Glucose (mg/dL) 182 H 169 H (70-110) mg/dL Calcium (8.4-10.2) mg/dL 06/08/22 06/08/22 06/08/22 Range/Units 05:33 06:45 11:34 RBC (4.30-5.90) m/uL Hgb (13.0-17.5) gm/dL Hct (39.0-53.0) % RDW (11.5-15.5) % Sodium 136 L (137-145) mmol/L Glucose 141 H (74-99) mg/dL POC Glucose (mg/dL) 180 H 168 H (70-110) mg/dL Calcium 8.1 L (8.4-10.2) mg/dL Microbiology - Last 24 Hours (Table) 06/04/22 05:23 Blood Culture - Preliminary Blood No Growth after 96 hours 06/01/22 17:30 Blood Culture - Final Blood No Growth after 144 hours Assessment and Plan (1) UTI (urinary tract infection) Current Visit: Yes Status: Acute Code(s): N39.0 - URINARY TRACT INFECTION, SITE NOT SPECIFIED SNOMED Code(s): 91280903 (2) Bacteremia Current Visit: No Status: Acute Code(s): R78.81 - BACTEREMIA SNOMED Code(s): 5026601 Plan: 1patient with ESBL Klebsiella UTI /transplant nephritis with secondary bacteremia 2patient did have ultrasound of the kidneys without evidence of any hydronephrosis or abscess 3 patient has shown clinical improvement, and the blood culture has been negative the patient will continue with the meropenem , plan is to finish the rapy with IV Invanz 1 g daily total duration of antibiotic should be 2 weeks Time with Patient: Less than 30
[2022-06-08] MEDS ORDERED: ERTAPENEM 1 GM in SODIUM CHLORIDE 0.9% 50 ML IVPB SCH (13:00)
--- NOTE | 2022-06-08 13:11 | P.DS ---
Providers Date of admission: 06/01/22 18:42 Expected date of discharge: 06/08/22 Attending physician: Octavia Rodriguez, Consults: 06/01/22 18:41 Consult Physician Urgent Consulting Provider: Vane Dotson Consult Reason/Comments: GI bleed Do you want consulting provider notified?: Yes 06/03/22 09:10 Consult Physician Routine Consulting Provider: Marciano Ruiz Consult Reason/Comments: ICU management Do you want consulting provider notified?: Already Contacted 06/03/22 17:32 Consult Physician Routine Consulting Provider: Sonny Montelongo Consult Reason/Comments: bacteremia Do you want consulting provider notified?: Yes 06/07/22 08:32 Consult Physician Routine Consulting Provider: Mich Márquez Consult Reason/Comments: Renal transplant Do you want consulting provider notified?: Yes Primary care physician: Iban Godinez Hospital Course: Discharge Diagnosis: Severe anemia Probable GI bleed Klebsiella urinary tract infection with bacteremia Renal transplantation Chronic kidney disease IIIa Diabetes mellitus type 2, currently controlled Hypertention, poorly controlled Hyperkalemia, Resolved Hospital Course: Patient is an 82-year-old male status post renal transplant in 1999 for living donor, coronary artery disease status post CABG, and hypertension who initially presented to the hospital due to weakness. In the ER he underwent an extensive evaluation. His son have significant anemia with hemoglobin of 6.1. He was admitted for further monitoring. His hemoglobin continued to downtrend. And he was ultimately transferred to the ICU. His lowest hemoglobin was 4.8. He has received 4 units of packed red blood cells. He was seen by GI and underwent an EGD on 06/02 which showed no signs of bleeding but mild distal esophagitis, colonoscopy on 06/03 which demonstrated normal-appearing colon with no evidence of colitis or neoplasm, and then ultimately a small bowel capsule which per verbal report was negative. He was also found to have Klebsiella urinary tract infection with bacteremia and was followed by infectious disease. Hemoglobin has been stable since 06/04 with no recurrence of bleeding. Additional imaging: Renal ultrasound: Left lower quadrant transplant kidney without evidence of hydronephrosis, atrophic bilateral cocopah kidneys without hydronephrosis or calculi, bladder wall thickening Echocardiogram: Normal left ventricular size and function Follow-up: Recommend weekly CBC to follow anemia, Sirolimus level pending and will need to be followed, Invanz for 10 days then remove PICC line. Follow-up Dr. Montelongo in 1 week, Follow with Dr. Yip in 2-4 weeks, Patient seen and examined at bedside. Denies pain, SOB, chest pain, still with diminished appeitie Vital signs reviewed and stable. General: nontoxic, no distress, appears at stated age Derm: warm, dry Head: atraumatic, normocephalic, symmetric Eyes: EOMI, no lid lag, anicteric sclera Mouth: no lip lesion, mucus membranes moist Cardiovascular: S1S2 reg, no murmur, positive posterior tibial pulse bilateral, Lungs: Decreased bs bilateral bilateral, no rhonchi, no rales , no accessory muscle use Abdominal: soft, nontender to palpation, no guarding, no appreciable organomegaly Ext: no gross muscle atrophy, 1+ edema, no contractures Neuro: CN II-XI grossly intact, no focal neuro deficits Psych: Alert, oriented, appropriate affect A total of 37 minutes of time were spent preparing this complex discharge summary. Patient was discharged on 06/08/22. Plan - Discharge Summary New Discharge Prescriptions: New Ertapenem [INVanz] 1 gm IVPB Q24H #10 each Losartan [Cozaar] 50 mg PO DAILY #0 tab Insulin Detemir (Levemir) [Levemir] 5 unit SQ DAILY@0700 each NIFEdipine XL [Procardia XL] 120 mg PO DAILY tab Ferrous Sulfate [Iron (65 MG Elemental)] 325 mg PO BID-W/MEALS tab INSULIN ASPART (NovoLOG) [NovoLOG (formulary)] 0 unit SQ ACHS each Pantoprazole [Protonix] 40 mg PO DAILY #30 tab Continue Cholecalciferol [Vitamin D3 (25 Mcg = 1000 Iu)] 50 mcg PO DAILY@0600 Sertraline [Zoloft] 50 mg PO DAILY@1900 Magnesium Oxide [Mag-Ox] 400 mg PO DAILY@0600 Atorvastatin [Lipitor] 40 mg PO DAILY@1900 Mycophenolate Sodium [Mycophenolic Acid] 360 mg PO BID@0600,1900 Vit C/E/Zn/Coppr/Lutein/Zeaxan [Preservision Areds 2 Softgel] 1 cap PO BID@0600,1900 Nitroglycerin Sl Tabs [Nitrostat] 0.4 mg SUBLINGUAL Q5M PRN PRN Reason: Chest Pain Multivitamins, Thera [Multivitamin (formulary)] 1 tab PO DAILY@0600 Sirolimus 2 mg PO DAILY@0600 cloNIDine HCL [Catapres] 0.1 mg PO BID #60 tab carvediloL [Coreg] 6.25 mg PO AC-BID #60 tablet hydrALAZINE HCL [Apresoline] 100 mg PO AC-TID #90 tablet Discontinued NIFEdipine XL [Procardia XL] 90 mg PO DAILY@0600 Insulin NPH Human Isophane [humuLIN N Kwikpen] 45 unit SQ DAILY@0600 Furosemide [Lasix] 20 mg PO MOWEFR Losartan Potassium 100 mg PO HS@2000 Insulin Lispro [humaLOG Kwikpen] See Protocol SQ AC-SUPPER PRN PRN Reason: HIGH BLOOD SUGAR Discharge Medication List Atorvastatin [Lipitor] 40 mg PO DAILY@189903/30/22 [History] Cholecalciferol [Vitamin D3 (25 Mcg = 1000 Iu)] 50 mcg PO DAILY@0603/30/22 [History] Magnesium Oxide [Mag-Ox] 400 mg PO DAILY@0603/30/22 [History] Multivitamins, Thera [Multivitamin (formulary)] 1 tab PO DAILY@0600 03/30/22 [History] Mycophenolate Sodium [Mycophenolic Acid] 360 mg PO BID@0600,189903/30/22 [History] Nitroglycerin Sl Tabs [Nitrostat] 0.4 mg SUBLINGUAL Q5M PRN 03/30/22 [History] Sertraline [Zoloft] 50 mg PO DAILY@19003/30/22 [History] Sirolimus 2 mg PO DAILY@0603/30/22 [History] Vit C/E/Zn/Coppr/Lutein/Zeaxan [Preservision Areds 2 Softgel] 1 cap PO BID@0600,1900 03/30/22 [History] carvediloL [Coreg] 6.25 mg PO AC-BID #60 tablet 04/07/22 [Rx] cloNIDine HCL [Catapres] 0.1 mg PO BID #60 tab 04/07/22 [Rx] hydrALAZINE HCL [Apresoline] 100 mg PO AC-TID #90 tablet 04/07/22 [Rx] Ertapenem [INVanz] 1 gm IVPB Q24H #10 each 06/08/22 [Rx] Ferrous Sulfate [Iron (65 MG Elemental)] 325 mg PO BID-W/MEALS tab 06/08/22 [Rx] INSULIN ASPART (NovoLOG) [NovoLOG (formulary)] 0 unit SQ ACHS each 06/08/22 [Rx] Insulin Detemir (Levemir) [Levemir] 5 unit SQ DAILY@0700 each 06/08/22 [Rx] Losartan [Cozaar] 50 mg PO DAILY #0 tab 06/08/22 [Rx] NIFEdipine XL [Procardia XL] 120 mg PO DAILY tab 06/08/22 [Rx] Pantoprazole [Protonix] 40 mg PO DAILY #30 tab 06/08/22 [Rx] Follow up Appointment(s)/Referral(s): Nonstaff,Physician [REFERRING] - 1-2 days Sonny Montelongo MD [STAFF PHYSICIAN] - 1 Week Vishnu Yip MD [STAFF PHYSICIAN] - 1 Week Activity/Diet/Wound Care/Special Instructions: Activity: as tolerated, fall precautions Diet: heart healthy Special Instructions: Recommend weekly CBC to follow anemia, Sirolimus level pending and will need to be followed, Invanz for 10 days then remove PICC line. In 4 weeks recommend iron studies Accucheck ACHS Discharge Disposition: HOME SELF-CARE
--- NOTE | 2022-06-11 15:50 | CDI ---
Documentation Clarification Form Date: 06/11/2022 03:15:00 PM From: Tierra Bowser Admit Date: 06/01/2022 06:42:00 PM Patient Name: Kapil Ramos Visit Number: [id number] Discharge Date: 06/08/2022 04:04:00 PM ATTENTION: The Clinical Documentation Specialists (CDI) and [facility] Coding Staff appreciate your assistance in clarifying documentation. Please respond to the clarification below the line at the bottom and electronically sign. The CDI & [facility] Coding staff will review the response and follow-up if needed. Please note: Queries are made part of the Legal Health Record. If you have any questions, please contact the author of this message via ITS. Dr. Octavia Rodriguez Sepsis is documented in progress notes from 06/07/22 and 06/08/22. Klebsiella urinary tract infection with bacteremia is documented throughout the record. Additional clarification is requested. History/Risk Factors: 82 year old male presented for generalized weakness. Cannot stand on his own. Recently treated for pyelonephritis. Diagnosed with a Klebsiella UTI. Hx of kidney transplant. Patient has anemia, GI bleed, pulmonary edema, CAD, CABG, CKD, HTN, DM Clinical Indicators: low grade fever, + urine culture Klebsiella Pneumoniae, + blood culture Klebsiella Pneumoniae WBC: 9.9 Lactic acid: 3.3 Blood cultures: + Klebsiella Pneumoniae Vitals signs: T: 100 F, P: 100, R: 20, BP: 135/44 O2: 98 room air Treatment: ID Consult: Nephrology, Pulmonary, GI, ICU Management Antibiotics: IV Rocephin changed to meropene, 4 unites PRBC In your professional opinion, please clarify if these findings signify one of the following conditions: [ ] Sepsis POA [ ] Sepsis, Not POA [ ] Sepsis ruled out [ ] Bacteremia due to Klebsiella Pneumoniae [X ] Other, please specify [ ] Unable to determine Does not meet sepsis criteria, No elevated WBC, Tempt not greater than 100.4, no end organ damage, lactic acid reflective of severe anemia MTDD
== END 2022-06-08 16:04 | DRG 369 ==
LOC: EC 16:53 → 5NMEDONC 18:42 → 2SICU 06-02 10:57
PROVIDERS: ADMIT Internal Medicine; ATTEND Internal Medicine
PROC: 30233N1 Transfusion of Nonautologous Red Blood Cells into Peripheral Vein, Percutaneous Approach (ICD-10-PCS; 2022-06-01)
PROC: 0DJ08ZZ Inspection of Upper Intestinal Tract, Via Natural or Artificial Opening Endoscopic (ICD-10-PCS; principal; 2022-06-02 08:30)
PROC: 0DJ08ZZ Inspection of Upper Intestinal Tract, Via Natural or Artificial Opening Endoscopic (ICD-10-PCS; 2022-06-03)
PROC: 0DJD8ZZ Inspection of Lower Intestinal Tract, Via Natural or Artificial Opening Endoscopic (ICD-10-PCS; 2022-06-03)
PROC: 05HF33Z Insertion of Infusion Device into Left Cephalic Vein, Percutaneous Approach (ICD-10-PCS; 2022-06-07)
DX: K21.01 Gastro-esophageal reflux disease with esophagitis, with bleeding (principal); D62 Acute posthemorrhagic anemia; N39.0 Urinary tract infection, site not specified; J90 Pleural effusion, not elsewhere classified; E87.20 Acidosis, unspecified; T86.13 Kidney transplant infection; Z94.0 Kidney transplant status; K63.3 Ulcer of intestine; D84.821 Immunodeficiency due to drugs; R78.81 Bacteremia; I25.10 Atherosclerotic heart disease of native coronary artery without angina pectoris; I48.91 Unspecified atrial fibrillation; N18.31 Chronic kidney disease, stage 3a; E87.70 Fluid overload, unspecified; I07.1 Rheumatic tricuspid insufficiency; I12.9 Hypertensive chronic kidney disease with stage 1 through stage 4 chronic kidney disease, or unspecified chronic kidney disease; B96.1 Klebsiella pneumoniae [K. pneumoniae] as the cause of diseases classified elsewhere; E87.5 Hyperkalemia; E78.5 Hyperlipidemia, unspecified; E11.22 Type 2 diabetes mellitus with diabetic chronic kidney disease; Z20.822 Contact with and (suspected) exposure to COVID-19; Z95.1 Presence of aortocoronary bypass graft; Z87.891 Personal history of nicotine dependence; Z86.73 Personal history of transient ischemic attack (TIA), and cerebral infarction without residual deficits; Z79.899 Other long term (current) drug therapy; Z79.624 Long term (current) use of inhibitors of nucleotide synthesis; Z79.4 Long term (current) use of insulin; Z87.440 Personal history of urinary (tract) infections
CPT/HCPCS: 36410; 36415; 43235; 45378; 71046; 76770; 76937; 80048; 80053; 80195; 81001; 82272; 83036; 83605; 83735; 83880; 84100; 84145; 85025; 85027; 85610; 85730; 86850; 86900; 86901; 86920; 87040; 87077; 87086; 87186; 87635; 91110; 93005; 93306; 96374; 96375; 99285

== ENCOUNTER 2022-07-28 12:39 | Inpatient (IN) | payer MEDICARE ==
--- NOTE | 2022-07-28 13:12 | ED ---
General Adult HPI - General Chief complaint: Skin/Abscess/Foreign Body Stated complaint: foot/toe infection Time Seen by Provider: 07/28/22 12:48 Source: patient, EMS, RN notes reviewed Mode of arrival: EMS Limitations: no limitations - History of Present Illness Initial comments: 82-year-old male with PMH of DMII and CAD, coming in today for right digit toe discoloration. was changing his bandages for his chronic heal ulcers last night and noticed L 5th digit was purple, this morning she's noticed that it has been worse. Patient receives wound care from a home care nurse and nurse practitioner who recommended the patient be evaluated in the ED. Patient has no specific complaints, but reports cough and decrease in appetite. Denies fever, chills, headache, CP, SOB, abdominal pain, N/V/D. - Related Data Home Medications Medication Instructions Recorded Confirmed Atorvastatin [Lipitor] 40 mg PO DAILY@189903/30/22 06/01/22 Cholecalciferol [Vitamin D3 (25 50 mcg PO DAILY@59903/30/22 06/01/22 Mcg = 1000 Iu)] Magnesium Oxide [Mag-Ox] 400 mg PO DAILY@59903/30/22 06/01/22 Multivitamins, Thera [Multivitamin 1 tab PO DAILY@59903/30/22 06/01/22 (formulary)] Mycophenolate Sodium [Mycophenolic 360 mg PO BID@0600,189903/30/22 06/01/22 Acid] Nitroglycerin Sl Tabs [Nitrostat] 0.4 mg SUBLINGUAL Q5M PRN 03/30/22 06/01/22 Sertraline [Zoloft] 50 mg PO DAILY@189903/30/22 06/01/22 Sirolimus 2 mg PO DAILY@59903/30/22 06/01/22 Vit C/E/Zn/Coppr/Lutein/Zeaxan 1 cap PO BID@0600,189903/30/22 06/01/22 [Preservision Areds 2 Softgel] Previous Rx's Medication Instructions Recorded carvediloL [Coreg] 6.25 mg PO AC-BID #60 tablet 04/07/22 cloNIDine HCL [Catapres] 0.1 mg PO BID #60 tab 04/07/22 hydrALAZINE HCL [Apresoline] 100 mg PO AC-TID #90 tablet 04/07/22 Ertapenem [INVanz] 1 gm IVPB Q24H #10 each 06/08/22 Ferrous Sulfate [Iron (65 MG 325 mg PO BID-W/MEALS tab 06/08/22 Elemental)] INSULIN ASPART (NovoLOG) [NovoLOG 0 unit SQ ACHS each 06/08/22 (formulary)] Insulin Detemir (Levemir) [Levemir] 5 unit SQ DAILY@0700 each 06/08/22 Losartan [Cozaar] 50 mg PO DAILY #0 tab 06/08/22 NIFEdipine XL [Procardia XL] 120 mg PO DAILY tab 06/08/22 Pantoprazole [Protonix] 40 mg PO DAILY #30 tab 06/08/22 Allergies Allergy/AdvReac Type Severity Reaction Status Date / Time No Known Allergies Allergy Verified 06/01/22 16:59 Review of Systems ROS Statement: Those systems with pertinent positive or pertinent negative responses have been documented in the HPI. ROS Other: All systems not noted in ROS Statement are negative. Past Medical History Past Medical History: Coronary Artery Disease (CAD), Chest Pain / Angina, CVA/TIA Additional Past Medical History / Comment(s): UTI History of Any Multi-Drug Resistant Organisms: ESBL Date of last positivie culture/infection: 06/01/22 ESBL MDRO Source:: Blood and Urine Additional Past Surgical History / Comment(s): Kidney Transplant Past Psychological History: No Psychological Hx Reported Smoking Status: Former smoker Past Alcohol Use History: None Reported Past Drug Use History: None Reported - Past Family History Father Family Medical History: Chest Pain / Angina General Exam Limitations: no limitations General appearance: alert, in no apparent distress Head exam: Present: atraumatic, normocephalic, normal inspection Eye exam: Present: normal appearance, PERRL, EOMI. Absent: scleral icterus, conjunctival injection, periorbital swelling ENT exam: Present: normal exam, mucous membranes moist Neck exam: Present: normal inspection. Absent: tenderness, meningismus, lymphadenopathy Respiratory exam: Present: normal lung sounds bilaterally. Absent: respiratory distress, wheezes, rales, rhonchi, stridor Cardiovascular Exam: Present: regular rate, normal rhythm, normal heart sounds. Absent: systolic murmur, diastolic murmur, rubs, gallop, clicks GI/Abdominal exam: Present: soft, normal bowel sounds. Absent: distended, tenderness, guarding, rebound, rigid Extremities exam: Present: normal inspection, other (1+ BLE edema. BL heal ulcers with purulent discharge. R) Course Vital Signs 07/28/22 07/28/22 12:45 15:25 Temperature 97.8 F Pulse Rate 88 92 Respiratory 22 20 Rate Blood Pressure 169/77 171/72 O2 Sat by Pulse 96 96 Oximetry EKG Findings - EKG Comments: EKG Findings:: Rate 91 bpm, NSR. CT interval 279, QRS 85 with first degree block Medical Decision Making - Medical Decision Making 82 year old male with significant PMH of DMII coming into the ED for L toe discoloration. I interpreted the following Xray images: CXR significant for persistent cardiomegaly, diffuse pulmonary infiltrates consistent with CHF. L foot XR remarkable for soft tissue ulcer to the lateral aspect of the forefoot with focal demineralization of the 5th metatarsal suggestive of early osteomyelitis. EKG interpreted by me. Labs remarkable for WBC 10.6, HGB 7.2, Lactic 1.1, troponin negative. Spoke with Dr. Quezada regarding patient who recommended a consult to Dr. Stanton, Vascular. Spoke with Dr. Stanton recommends discharging the patient and starting the patient on ABX and is comfortable with seeing the patient tomorrow in his office. Pt and Pt family updated on results and POC, per patients family, they are unable to get patient to follow up appointment. Dr. Quezada called again and accepts patient for admission. Case discussed with Dr. Owen. - Lab Data Result diagrams: 07/28/22 13:17 07/28/22 13:17 Lab Results 07/28/22 07/28/22 07/28/22 Range/Units 13:17 13:17 13:17 WBC 10.9 H (3.8-10.6) k/uL RBC 3.02 L (4.30-5.90) m/uL Hgb 7.2 L D (13.0-17.5) gm/dL Hct 23.7 L (39.0-53.0) % MCV 78.4 L D (80.0-100.0) fL MCH 23.8 L (25.0-35.0) pg MCHC 30.4 L (31.0-37.0) g/dL RDW 17.8 H (11.5-15.5) % Plt Count 506 H (150-450) k/uL MPV 7.8 Neutrophils % 79 % Lymphocytes % 9 % Monocytes % 9 % Eosinophils % 0 % Basophils % 0 % Neutrophils # 8.7 H (1.3-7.7) k/uL Lymphocytes # 1.0 (1.0-4.8) k/uL Monocytes # 1.0 (0-1.0) k/uL Eosinophils # 0.0 (0-0.7) k/uL Basophils # 0.0 (0-0.2) k/uL Hypochromasia Marked Poikilocytosis Slight Anisocytosis Slight Microcytosis Slight Sodium 135 L (137-145) mmol/L Potassium 4.6 (3.5-5.1) mmol/L Chloride 106 (98-107) mmol/L Carbon Dioxide 20 L (22-30) mmol/L Anion Gap 9 mmol/L BUN 20 (9-20) mg/dL Creatinine 0.97 (0.66-1.25) mg/dL Est GFR (CKD-EPI)AfAm 86 (>60 ml/min/1.73 sqM) Est GFR (CKD-EPI)NonAf 74 (>60 ml/min/1.73 sqM) Glucose 175 H (74-99) mg/dL Plasma Lactic Acid Connor 1.1 (0.7-2.0) mmol/L Calcium 8.6 (8.4-10.2) mg/dL Total Bilirubin 0.3 (0.2-1.3) mg/dL AST 25 (17-59) U/L ALT 21 (4-49) U/L Alkaline Phosphatase 130 H (38-126) U/L Troponin I (0.000-0.034) ng/mL Total Protein 5.5 L (6.3-8.2) g/dL Albumin 3.0 L (3.5-5.0) g/dL Coronavirus (PCR) (Not Detectd) 07/28/22 07/28/22 Range/Units 13:17 13:17 WBC (3.8-10.6) k/uL RBC (4.30-5.90) m/uL Hgb (13.0-17.5) gm/dL Hct (39.0-53.0) % MCV (80.0-100.0) fL MCH (25.0-35.0) pg MCHC (31.0-37.0) g/dL RDW (11.5-15.5) % Plt Count (150-450) k/uL MPV Neutrophils % % Lymphocytes % % Monocytes % % Eosinophils % % Basophils % % Neutrophils # (1.3-7.7) k/uL Lymphocytes # (1.0-4.8) k/uL Monocytes # (0-1.0) k/uL Eosinophils # (0-0.7) k/uL Basophils # (0-0.2) k/uL Hypochromasia Poikilocytosis Anisocytosis Microcytosis Sodium (137-145) mmol/L Potassium (3.5-5.1) mmol/L Chloride (98-107) mmol/L Carbon Dioxide (22-30) mmol/L Anion Gap mmol/L BUN (9-20) mg/dL Creatinine (0.66-1.25) mg/dL Est GFR (CKD-EPI)AfAm (>60 ml/min/1.73 sqM) Est GFR (CKD-EPI)NonAf (>60 ml/min/1.73 sqM) Glucose (74-99) mg/dL Plasma Lactic Acid Connor (0.7-2.0) mmol/L Calcium (8.4-10.2) mg/dL Total Bilirubin (0.2-1.3) mg/dL AST (17-59) U/L ALT (4-49) U/L Alkaline Phosphatase (38-126) U/L Troponin I 0.017 (0.000-0.034) ng/mL Total Protein (6.3-8.2) g/dL Albumin (3.5-5.0) g/dL Coronavirus (PCR) Not Detected (Not Detectd) Disposition Clinical Impression: Osteomyelitis, Diabetic ulcer of left heel associated with diabetes mellitus due to underlying condition, Diabetic foot ulcer associated with diabetes mellitus due to underlying condition Disposition: ADMITTED IP TO THIS [facility] Referrals: None,Stated [REFERRING] - 1-2 days Time of Disposition: 16:08
[2022-07-28 13:33] LABS: Anisocytosis Slight; Basophils % (A) 0 %; Eosinophils % (A) 0 %; HCT 23.7 % (39.0-53.0); Hypochromasia Marked; Lymphocytes % (A) 9 %; MCH 23.8 pg (25.0-35.0); MCHC 30.4 g/dL (31.0-37.0); Mean Platelet Volume 7.8; Microcytosis Slight; Monocytes % (A) 9 %; Neutrophils # (A) 8.7 k/uL (1.3-7.7); Neutrophils % (A) 79 %; Platelet Count 506 k/uL (150-450); Poikilocytosis Slight; RBC 3.02 m/uL (4.30-5.90); RDW 17.8 % (11.5-15.5); WBC 10.9 k/uL (3.8-10.6)
[2022-07-28 13:35] LABS: HGB 7.2 gm/dL (13.0-17.5); MCV 78.4 fL (80.0-100.0)
[2022-07-28 13:37] LABS: Calcium 8.6 mg/dL (8.4-10.2); Potassium 4.6 mmol/L (3.5-5.1); Total Bilirubin 0.3 mg/dL (0.2-1.3); Total Protein 5.5 g/dL (6.3-8.2)
--- NOTE | 2022-07-28 13:44 | XR ---
EXAMINATION TYPE: XR chest 2V DATE OF EXAM: 07/28/2022 COMPARISON: 06/01/2022 HISTORY: Shortness of breath TECHNIQUE: Frontal and lateral views of the chest are obtained. FINDINGS: Scattered senescent parenchymal changes noted. Hyperinflation compatible with COPD. Persistent cardiomegaly with pulmonary venous congestion scattered infiltrates as well as small effus ions suggest congestive failure. Infiltrates of other etiology difficult to exclude. Correlate clinic ally. Mediastinal structures are stable and grossly unremarkable. No evidence for hilar prominence. Degenerative changes dorsal spine. IMPRESSION: 1. Persistent cardiomegaly with pulmonary venous congestion scattered infiltrates as well as small ef fusions suggest congestive failure. Infiltrates of other etiology difficult to exclude. Correlate cli nically.
--- NOTE | 2022-07-28 14:11 | XR ---
EXAMINATION TYPE: XR foot complete bilateral DATE OF EXAM: 07/28/2022 Comparison: None Technique: 3 views each side Clinical History: 82-year-old male with pain, wound. Lateral aspect of the left foot and heel of the right foot. Findings: Left: There appears to be soft tissue ulcer along the lateral aspect of the forefoot. There is focal demine ralization along the plantar metatarsal head but no clear lytic destruction at this time. Generalized soft tissue swelling. Moderate sized plantar heel spur. Vascular calcification suggesting underlying diabetes and/or chronic kidney disease. Mild degenerative change first MTP joint. Bipartite fibular sesamoid. Questionable subtle focus of air/wound at the plantar heel on the lateral view. Right: Soft tissue swelling overlying the heel. No discrete underlying lytic destruction. Moderate to large plantar heel spur. There is suspected Charcot arthropathy with midfoot deformity, disorganization, an d extensive arthropathy. Suspect a concomitant degenerative bony ankylosis. Chronic deformity to the fifth proximal phalanx with fragmentary appearance. Hammertoes. IMPRESSION: Left: 1. There appears to be a soft tissue ulcer along the lateral aspect of the forefoot. There is focal d emineralization along the plantar fifth metatarsal head here that could reflect impending osteomyelit is. No focal bony destruction at this time. Close follow-up is recommended. 2. Questionable subtle focus of air along the plantar heel soft tissues on the lateral view. Query an y small ulcer in this location as well. Right: 3. Soft tissue swelling involving the heel. No discrete lytic destruction to suggest osteomyelitis by radiographs. 4. Query chronic Charcot arthropathy with mid foot deformity.
[2022-07-28] MEDS ORDERED: NALOXONE 0.4 MG/ML 1 ML VIAL IV PRN (16:12)
[2022-07-28] MEDS: INSULIN ASPART (NovoLOG) 100 UNIT/ML VIAL SQ SCH ×2 (17:23→23:25)
[2022-07-28 17:25] LABS: Glucose,Whole Blood 130 mg/dL (70-110)
[2022-07-28] MEDS ORDERED: NITROGLYCERIN SL TABS 0.4 MG TAB SUBLINGUAL PRN (18:40)
--- NOTE | 2022-07-28 20:01 | P.GSCN ---
History of Present Illness History of present illness: 82-year-old diabetic male patient came to the emergency room told distal some discoloration of the left foot fifth toe and patient has a followed or pressure ulcer on the left heel and also on the right heel there's a ulcer at the lateral aspect of the foot x-ray of the foot shows there is a possibility if of impending osteo-mellitus of the fifth metatarsal. Patient to has this heel ulcer since May and a which has been treated at home by the visiting nurses Medical history history of diabetes mellitus history of hypertension post coronary artery bypass surgical history patient has history of chronic renal failure had a kidney transplant done in the past Patient was seen in the emergency room chest is clear good and both lungs first and second sound doesn't Abdomen is soft nontender Vascular femorals are 1+ bilateral patient has a bilateral heel pressure ulcer followed or smell noted and also there is a ulcer on the lateral aspect of the left foot Plan is patient will need debridement of the both healed wound because of fall order smell and and deep culture the debridement will be done in the OR we will arrange Past Medical History Past Medical History: Coronary Artery Disease (CAD), Chest Pain / Angina, CVA/TIA Additional Past Medical History / Comment(s): UTI History of Any Multi-Drug Resistant Organisms: ESBL Year Discovered:: 06/01/22 ESBL MDRO Source:: Blood and Urine Additional Past Surgical History / Comment(s): Kidney Transplant Past Anesthesia/Blood Transfusion Reactions: No Reported Reaction Smoking Status: Former smoker - Past Family History Father Family Medical History: Chest Pain / Angina Medications and Allergies Home Medications Medication Instructions Recorded Confirmed Type Atorvastatin [Lipitor] 40 mg PO DAILY@189903/30/22 07/28/22 History Cholecalciferol [Vitamin D3 (25 50 mcg PO DAILY@59903/30/22 07/28/22 History Mcg = 1000 Iu)] Magnesium Oxide [Mag-Ox] 400 mg PO DAILY@59903/30/22 07/28/22 History Multivitamins, Thera [Multivitamin 1 tab PO DAILY@59903/30/22 07/28/22 History (formulary)] Mycophenolate Sodium [Mycophenolic 360 mg PO BID@0600,1900 03/30/22 07/28/22 History Acid] Nitroglycerin Sl Tabs [Nitrostat] 0.4 mg SUBLINGUAL Q5M PRN 03/30/22 07/28/22 History Sertraline [Zoloft] 50 mg PO DAILY@1900 03/30/22 07/28/22 History Sirolimus 2 mg PO DAILY@0600 03/30/22 07/28/22 History Vit C/E/Zn/Coppr/Lutein/Zeaxan 1 cap PO DAILY 03/30/22 07/28/22 History [Preservision Areds 2 Softgel] carvediloL [Coreg] 6.25 mg PO AC-BID #60 tablet 04/07/22 07/28/22 Rx hydrALAZINE HCL [Apresoline] 100 mg PO AC-TID #90 tablet 04/07/22 07/28/22 Rx Ferrous Sulfate [Iron (65 MG 325 mg PO BID-W/MEALS tab 06/08/22 07/28/22 Rx Elemental)] Pantoprazole [Protonix] 40 mg PO DAILY #30 tab 06/08/22 07/28/22 Rx Collagenase [Santyl Ointment] 1 applic TOPICAL DAILY 07/28/22 07/28/22 History Furosemide [Lasix] 20 mg PO MOWEFR 07/28/22 07/28/22 History Insulin Lispro [humaLOG Kwikpen] See Protocol SQ ACHS PRN 07/28/22 07/28/22 History Insulin NPH Human Isophane 45 unit SQ DAILY 07/28/22 07/28/22 History [humuLIN N Kwikpen] Losartan Potassium 100 mg PO DAILY 07/28/22 07/28/22 History NIFEdipine XL [Procardia Xl] 90 mg PO DAILY 07/28/22 07/28/22 History cloNIDine HCL [Catapres] 0.1 mg PO DAILY 07/28/22 07/28/22 History Allergies Allergy/AdvReac Type Severity Reaction Status Date / Time No Known Allergies Allergy Verified 07/28/22 17:06 Surgical - Exam Vital Signs Temp Pulse Resp BP Pulse Ox 97.8 F 88 22 169/77 96 07/28/22 12:45 07/28/22 12:45 07/28/22 12:45 07/28/22 12:45 07/28/22 12:45 Results - Labs 07/28/22 13:17 07/28/22 13:17 Abnormal Lab Results - Last 24 Hours (Table) 07/28/22 07/28/22 07/28/22 Range/Units 13:17 13:17 13:26 WBC 10.9 H (3.8-10.6) k/uL RBC 3.02 L (4.30-5.90) m/uL Hgb 7.2 L D (13.0-17.5) gm/dL Hct 23.7 L (39.0-53.0) % MCV 78.4 L D (80.0-100.0) fL MCH 23.8 L (25.0-35.0) pg MCHC 30.4 L (31.0-37.0) g/dL RDW 17.8 H (11.5-15.5) % Plt Count 506 H (150-450) k/uL Neutrophils # 8.7 H (1.3-7.7) k/uL Sodium 135 L (137-145) mmol/L Carbon Dioxide 20 L (22-30) mmol/L Glucose 175 H (74-99) mg/dL POC Glucose (mg/dL) (70-110) mg/dL Alkaline Phosphatase 130 H (38-126) U/L C-Reactive Protein 13.9 H (<1.0) mg/dL Total Protein 5.5 L (6.3-8.2) g/dL Albumin 3.0 L (3.5-5.0) g/dL 07/28/22 Range/Units 17:23 WBC (3.8-10.6) k/uL RBC (4.30-5.90) m/uL Hgb (13.0-17.5) gm/dL Hct (39.0-53.0) % MCV (80.0-100.0) fL MCH (25.0-35.0) pg MCHC (31.0-37.0) g/dL RDW (11.5-15.5) % Plt Count (150-450) k/uL Neutrophils # (1.3-7.7) k/uL Sodium (137-145) mmol/L Carbon Dioxide (22-30) mmol/L Glucose (74-99) mg/dL POC Glucose (mg/dL) 130 H (70-110) mg/dL Alkaline Phosphatase (38-126) U/L C-Reactive Protein (<1.0) mg/dL Total Protein (6.3-8.2) g/dL Albumin (3.5-5.0) g/dL Diabetes panel 07/28/22 Range/Units 13:17 Sodium 135 L (137-145) mmol/L Potassium 4.6 (3.5-5.1) mmol/L Chloride 106 (98-107) mmol/L Carbon Dioxide 20 L (22-30) mmol/L BUN 20 (9-20) mg/dL Creatinine 0.97 (0.66-1.25) mg/dL Glucose 175 H (74-99) mg/dL Calcium 8.6 (8.4-10.2) mg/dL AST 25 (17-59) U/L ALT 21 (4-49) U/L Alkaline Phosphatase 130 H (38-126) U/L Total Protein 5.5 L (6.3-8.2) g/dL Albumin 3.0 L (3.5-5.0) g/dL Calcium panel 07/28/22 Range/Units 13:17 Calcium 8.6 (8.4-10.2) mg/dL Albumin 3.0 L (3.5-5.0) g/dL Pituitary panel 07/28/22 Range/Units 13:17 Sodium 135 L (137-145) mmol/L Potassium 4.6 (3.5-5.1) mmol/L Chloride 106 (98-107) mmol/L Carbon Dioxide 20 L (22-30) mmol/L BUN 20 (9-20) mg/dL Creatinine 0.97 (0.66-1.25) mg/dL Glucose 175 H (74-99) mg/dL Calcium 8.6 (8.4-10.2) mg/dL Adrenal panel 07/28/22 Range/Units 13:17 Sodium 135 L (137-145) mmol/L Potassium 4.6 (3.5-5.1) mmol/L Chloride 106 (98-107) mmol/L Carbon Dioxide 20 L (22-30) mmol/L BUN 20 (9-20) mg/dL Creatinine 0.97 (0.66-1.25) mg/dL Glucose 175 H (74-99) mg/dL Calcium 8.6 (8.4-10.2) mg/dL Total Bilirubin 0.3 (0.2-1.3) mg/dL AST 25 (17-59) U/L ALT 21 (4-49) U/L Alkaline Phosphatase 130 H (38-126) U/L Total Protein 5.5 L (6.3-8.2) g/dL Albumin 3.0 L (3.5-5.0) g/dL
[2022-07-28 21:01] LABS: Glucose,Whole Blood 154 mg/dL (70-110)
--- NOTE | 2022-07-28 22:32 | P.HPIM ---
History of Present Illness H&P Date: 07/28/22 Chief Complaint: Left foot fifth toe discoloration This is a 82-year-old patient who follows with Dr. Hugo Suggs. Chronic stable medical conditions include renal transplant in [address] Brooks, , CAD with bypass, hypertension, Patient is accompanied by his in the ER. Patient has bilateral chronic heel ulcers with dressing changes at home. Home care nurse does come out. While doing the dressing patient nurse noted that there was discoloration of the left foot fifth toe. Some tenderness. No breakdown of skin. No fever no chills. Patient lower extremity does get swelling but does: At night. Patient nonambulatory. He does use a bedside commode. Review of systems: GEN.: Tired EYES: None HEENT: None NECK: None RESPIRATORY: None CARDIOVASCULAR: None GASTROINTESTINAL: None GENITOURINARY: None MUSCULOSKELETAL: As above LYMPHATICS: None HEMATOLOGICAL: None PSYCHIATRY: None NEUROLOGICAL: None Past medical history to include: Renal transplant 2003,, hypertension, CAD with bypass, chronic heel ulcers 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 EYES: Pupils equal. Conjunctiva normal. HEENT: External appearance of nose and ears normal, oral cavity grossly normal. NECK: JVD not raised; masses not palpable. HEART: First and second heart sounds are normal; no edema. LUNGS: Respiratory rate normal; decreased breath sounds. ABDOMEN: Soft, nontender, liver spleen not palpable, no masses palpable. PSYCH: Alert and oriented x3; mood and affect normal. MUSCULOSKELETAL:No Clubbing/cyanosis;muscles-grossly intact. Evidence of OA EXTREMITIES: Ulcers in both the heels. Her dressing.. See nursing notes wound history. Left foot small toe discoloration. No breakdown of skin. Tender. NEUROLOGICAL: Cranial nerves grossly intact; no facial asymmetry, power and sensation grossly intact. LYMPHATICS: No lymph nodes palpable in the axilla and neck INVESTIGATIONS, reviewed in the clinical context: White count 10.9 hemoglobin 7.2 platelets [id number] BUN 20 creatinine 0.97 troponin I 0.017 CRP 13.9 EKG tracing personally reviewed by me-normal sinus rhythm. Nonspecific T-wave changes. foot x-ray results noted. Chest x-ray film: Cardiomegaly, saphenous prominence Assessment and plan: -Acute left foot fifth toe, dactylitis, possible ischemic IV Unasyn -Bilateral infected decubitus heel ulcers Vascular surgery consulted. Seen by Dr. Perkins. For debridement. IV Unasyn -CAD with a prior history of bypass Lipitor, Coreg -Macrocytic anemia Check iron studies -Essential hypertension Hydralazine, Catapres, Coreg, -Diabetes mellitus type 2, chronically on insulin NPH 36 units. Sliding scale. -Depression Zoloft -Renal transplant 2003. Patient follows with Dr. edwin martin. Consult nephrology, IV Unasyn. Seen by vascular Dr. Perkins. Bilateral heel debridement tomorrow. Ayo wrap lower extremity. Resume medications. Follow Accu-Cheks. Consult nephrology. Care was discussed with the patient and the questions answered. Past Medical History Past Medical History: Coronary Artery Disease (CAD), Chest Pain / Angina, CV A/TIA Additional Past Medical History / Comment(s): UTI History of Any Multi-Drug Resistant Organisms: ESBL Date of last positivie culture/infection: 06/01/22 ESBL MDRO Source:: Blood and Urine Past Surgical History: Coronary Bypass/CABG Additional Past Surgical History / Comment(s): Kidney Transplant; quadruple bypass; bilateral cataracts Past Anesthesia/Blood Transfusion Reactions: No Reported Reaction Past Psychological History: No Psychological Hx Reported Smoking Status: Former smoker Past Alcohol Use History: None Reported Past Drug Use History: None Reported - Past Family History Father Family Medical History: Chest Pain / Angina Medications and Allergies Home Medications Medication Instructions Recorded Confirmed Type Atorvastatin [Lipitor] 40 mg PO DAILY@189903/30/22 07/28/22 History Cholecalciferol [Vitamin D3 (25 50 mcg PO DAILY@0600 03/30/22 07/28/22 History Mcg = 1000 Iu)] Magnesium Oxide [Mag-Ox] 400 mg PO DAILY@0600 03/30/22 07/28/22 History Multivitamins, Thera [Multivitamin 1 tab PO DAILY@0603/30/22 07/28/22 History (formulary)] Mycophenolate Sodium [Mycophenolic 360 mg PO BID@0600,1900 03/30/22 07/28/22 History Acid] Nitroglycerin Sl Tabs [Nitrostat] 0.4 mg SUBLINGUAL Q5M PRN 03/30/22 07/28/22 History Sertraline [Zoloft] 50 mg PO DAILY@1900 03/30/22 07/28/22 History Sirolimus 2 mg PO DAILY@0600 03/30/22 07/28/22 History Vit C/E/Zn/Coppr/Lutein/Zeaxan 1 cap PO DAILY 03/30/22 07/28/22 History [Preservision Areds 2 Softgel] carvediloL [Coreg] 6.25 mg PO AC-BID #60 tablet 04/07/22 07/28/22 Rx hydrALAZINE HCL [Apresoline] 100 mg PO AC-TID #90 tablet 04/07/22 07/28/22 Rx Ferrous Sulfate [Iron (65 MG 325 mg PO BID-W/MEALS tab 06/08/22 07/28/22 Rx Elemental)] Pantoprazole [Protonix] 40 mg PO DAILY #30 tab 06/08/22 07/28/22 Rx Collagenase [Santyl Ointment] 1 applic TOPICAL DAILY 07/28/22 07/28/22 History Furosemide [Lasix] 20 mg PO MOWEFR 07/28/22 07/28/22 History Insulin Lispro [humaLOG Kwikpen] See Protocol SQ ACHS PRN 07/28/22 07/28/22 History Insulin NPH Human Isophane 45 unit SQ DAILY 07/28/22 07/28/22 History [humuLIN N Kwikpen] Losartan Potassium 100 mg PO DAILY 07/28/22 07/28/22 History NIFEdipine XL [Procardia Xl] 90 mg PO DAILY 07/28/22 07/28/22 History cloNIDine HCL [Catapres] 0.1 mg PO DAILY 07/28/22 07/28/22 History Allergies Allergy/AdvReac Type Severity Reaction Status Date / Time No Known Allergies Allergy Verified 07/28/22 17:06 Physical Exam Vitals: Vital Signs Temp Pulse Pulse Resp BP BP Pulse Ox 07/28/22 20:57 99.8 F H 89 20 164/68 93 L 07/28/22 19:43 98.2 F 86 18 165/72 97 07/28/22 15:25 92 20 171/72 96 07/28/22 12:45 97.8 F 88 22 169/77 96 Intake and Output 07/28/22 07/28/22 07/28/22 06:59 14:59 22:59 Output Total 0 Balance 0 Output: Stool 0 Other: Weight 95.254 kg 95.254 kg Results CBC & Chem 7: 07/28/22 13:17 07/28/22 13:17 Labs: Abnormal Lab Results - Last 24 Hours (Table) 07/28/22 07/28/22 07/28/22 Range/Units 13:17 13:17 13:26 WBC 10.9 H (3.8-10.6) k/uL RBC 3.02 L (4.30-5.90) m/uL Hgb 7.2 L D (13.0-17.5) gm/dL Hct 23.7 L (39.0-53.0) % MCV 78.4 L D (80.0-100.0) fL MCH 23.8 L (25.0-35.0) pg MCHC 30.4 L (31.0-37.0) g/dL RDW 17.8 H (11.5-15.5) % Plt Count 506 H (150-450) k/uL Neutrophils # 8.7 H (1.3-7.7) k/uL Sodium 135 L (137-145) mmol/L Carbon Dioxide 20 L (22-30) mmol/L Glucose 175 H (74-99) mg/dL POC Glucose (mg/dL) (70-110) mg/dL Alkaline Phosphatase 130 H (38-126) U/L C-Reactive Protein 13.9 H (<1.0) mg/dL Total Protein 5.5 L (6.3-8.2) g/dL Albumin 3.0 L (3.5-5.0) g/dL 07/28/22 07/28/22 Range/Units 17:23 20:56 WBC (3.8-10.6) k/uL RBC (4.30-5.90) m/uL Hgb (13.0-17.5) gm/dL Hct (39.0-53.0) % MCV (80.0-100.0) fL MCH (25.0-35.0) pg MCHC (31.0-37.0) g/dL RDW (11.5-15.5) % Plt Count (150-450) k/uL Neutrophils # (1.3-7.7) k/uL Sodium (137-145) mmol/L Carbon Dioxide (22-30) mmol/L Glucose (74-99) mg/dL POC Glucose (mg/dL) 130 H 154 H (70-110) mg/dL Alkaline Phosphatase (38-126) U/L C-Reactive Protein (<1.0) mg/dL Total Protein (6.3-8.2) g/dL Albumin (3.5-5.0) g/dL Thrombosis Risk Factor Assmnt - Choose All That Apply Any of the Below Risk Factors Present?: Yes Each Factor Represents 1 point: Obesity (BMI >25), Swollen legs (current) Other Risk Factors: Yes Each Risk Factor Represents 3 Points: Age 75 years or older Other congenital or acquired thrombophilia - If yes, enter type in comment: No Thrombosis Risk Factor Assessment Total Risk Factor Score: 5 Thrombosis Risk Factor Assessment Level: High Risk
[2022-07-28 23:20] LABS: Glucose,Whole Blood 136 mg/dL (70-110)
[2022-07-28] MEDS: AMPICILLIN-SULBACTAM 1.5 GM in SODIUM CHLORIDE 0.9% 50 ML IVPB SCH (23:50)
[2022-07-28] MEDS: ATORVASTATIN 40 MG TAB PO SCH (23:54)
[2022-07-28] MEDS: hydrALAZINE HCL 50 MG TAB PO SCH (23:54)
[2022-07-28] MEDS: SERTRALINE 50 MG TAB PO SCH (23:54)
[2022-07-28] MEDS: LOSARTAN 50 MG TAB PO SCH (23:54)
[2022-07-28] MEDS: MYCOPHENOLATE SODIUM DR 180 MG TABLET.DR PO SCH (23:54)
[2022-07-28] MEDS: carvediloL 6.25 MG TAB PO SCH (23:54)
[2022-07-29] MEDS: ACETAMINOPHEN TAB 325 MG TAB PO PRN (01:41)
[2022-07-29 05:51] LABS: Glucose,Whole Blood 120 mg/dL (70-110)
[2022-07-29] MEDS: AMPICILLIN-SULBACTAM 1.5 GM in SODIUM CHLORIDE 0.9% 50 ML IVPB SCH ×3 (05:57→16:54)
[2022-07-29 07:35] LABS: Glucose,Whole Blood 125 mg/dL (70-110)
[2022-07-29] MEDS: MULTIVITAMINS, THERA 1 EACH TAB PO SCH (08:22)
[2022-07-29] MEDS: MYCOPHENOLATE SODIUM DR 180 MG TABLET.DR PO SCH ×2 (08:22→10:00)
[2022-07-29] MEDS: CHOLECALCIFEROL 25 MCG (1000 IU) TABLET PO SCH (08:22)
[2022-07-29] MEDS: MAGNESIUM OXIDE 400 MG TAB PO SCH (08:22)
[2022-07-29] MEDS: NON FORMULARY DRUG (Sirolimus [Sirolimus] 1 MG Tablet) PO SCH (08:23)
[2022-07-29] MEDS: INSULIN ASPART (NovoLOG) 100 UNIT/ML VIAL SQ SCH ×4 (09:31→22:19)
[2022-07-29] MEDS: FERROUS SULFATE 325 MG TAB PO SCH ×2 (10:00→16:53)
[2022-07-29] MEDS: PANTOPRAZOLE 40 MG TABLET PO SCH (10:00)
[2022-07-29] MEDS: hydrALAZINE HCL 50 MG TAB PO SCH ×3 (10:00→16:53)
[2022-07-29] MEDS: cloNIDine HCL 0.1 MG TAB PO SCH (10:00)
[2022-07-29] MEDS: NIFEdipine XL 90 MG TAB.ER.24 PO SCH (10:00)
[2022-07-29] MEDS: VIT A,C & E-LUTEIN-MINERALS 1 EACH TAB PO SCH (10:00)
[2022-07-29] MEDS: carvediloL 6.25 MG TAB PO SCH ×2 (10:00→16:53)
[2022-07-29] MEDS: COLLAGENASE 250 UNIT/GM OINTMENT 30 GM TUBE TOPICAL SCH (10:01)
[2022-07-29] MEDS: INSULIN NPH 100 UNIT/ML 10 ML VIAL SQ SCH (10:09)
[2022-07-29] MEDS: INSULIN DETEMIR (LEVEMIR) 100 UNIT/ML SYR SQ SCH (10:28)
[2022-07-29 11:06] LABS: % Iron Saturation 5.81 (15.00-50.00)
--- NOTE | 2022-07-29 11:51 | P.NPCON ---
History of Present Illness - History of Present Illness Patient is an 82-year-old male with history of living unrelated renal transplant in 2003 with baseline creatinine around 0.9 mg/dL. Patient is admitted to the hospital with discoloration of his toes particularly the left fifth toe. Patient has been evaluated by vascular surgery and is scheduled for debridement and possible amputation of the toe. No urinary symptoms No history of fever, chills, nausea, and vomiting, abdominal pain or diarrhea. Serum creatinine 0.97 on 07/28/2022 Hemoglobin 7.2 g/dL Review of Systems As per HPI, other systems negative Past Medical History Past Medical History: Coronary Artery Disease (CAD), Chest Pain / Angina, CVA/TIA Additional Past Medical History / Comment(s): UTI History of Any Multi-Drug Resistant Organisms: ESBL Date of last positivie culture/infection: 06/01/22 ESBL MDRO Source:: Blood and Urine Past Surgical History: Coronary Bypass/CABG Additional Past Surgical History / Comment(s): Kidney Transplant; quadruple bypass; bilateral cataracts Past Anesthesia/Blood Transfusion Reactions: No Reported Reaction Past Psychological History: No Psychological Hx Reported Smoking Status: Former smoker Past Alcohol Use History: None Reported Past Drug Use History: None Reported - Past Family History Father Family Medical History: Chest Pain / Angina Medications and Allergies Home Medications Medication Instructions Recorded Confirmed Type Atorvastatin [Lipitor] 40 mg PO DAILY@189903/30/22 07/28/22 History Cholecalciferol [Vitamin D3 (25 50 mcg PO DAILY@59903/30/22 07/28/22 History Mcg = 1000 Iu)] Magnesium Oxide [Mag-Ox] 400 mg PO DAILY@59903/30/22 07/28/22 History Multivitamins, Thera [Multivitamin 1 tab PO DAILY@59903/30/22 07/28/22 History (formulary)] Mycophenolate Sodium [Mycophenolic 360 mg PO BID@0600,189903/30/22 07/28/22 History Acid] Nitroglycerin Sl Tabs [Nitrostat] 0.4 mg SUBLINGUAL Q5M PRN 03/30/22 07/28/22 History Sertraline [Zoloft] 50 mg PO DAILY@189903/30/22 07/28/22 History Sirolimus 2 mg PO DAILY@59903/30/22 07/28/22 History Vit C/E/Zn/Coppr/Lutein/Zeaxan 1 cap PO DAILY 03/30/22 07/28/22 History [Preservision Areds 2 Softgel] carvediloL [Coreg] 6.25 mg PO AC-BID #60 tablet 04/07/22 07/28/22 Rx hydrALAZINE HCL [Apresoline] 100 mg PO AC-TID #90 tablet 04/07/22 07/28/22 Rx Ferrous Sulfate [Iron (65 MG 325 mg PO BID-W/MEALS tab 06/08/22 07/28/22 Rx Elemental)] Pantoprazole [Protonix] 40 mg PO DAILY #30 tab 06/08/22 07/28/22 Rx Collagenase [Santyl Ointment] 1 applic TOPICAL DAILY 07/28/22 07/28/22 History Furosemide [Lasix] 20 mg PO MOWEFR 07/28/22 07/28/22 History Insulin Lispro [humaLOG Kwikpen] See Protocol SQ ACHS PRN 07/28/22 07/28/22 History Insulin NPH Human Isophane 45 unit SQ DAILY 07/28/22 07/28/22 History [humuLIN N Kwikpen] Losartan Potassium 100 mg PO DAILY 07/28/22 07/28/22 History NIFEdipine XL [Procardia Xl] 90 mg PO DAILY 07/28/22 07/28/22 History cloNIDine HCL [Catapres] 0.1 mg PO DAILY 07/28/22 07/28/22 History Allergies Allergy/AdvReac Type Severity Reaction Status Date / Time No Known Allergies Allergy Verified 07/28/22 17:06 Physical Exam Vitals: Vital Signs Temp Pulse Pulse Resp BP BP Pulse Ox 07/29/22 07:53 98.1 F 83 18 158/68 94 L 07/29/22 01:13 99 F 83 18 165/58 94 L 07/29/22 01:11 92 20 07/28/22 23:37 92 186/72 93 L 07/28/22 20:57 99.8 F H 89 20 164/68 93 L 07/28/22 19:43 98.2 F 86 18 165/72 97 07/28/22 15:25 92 20 171/72 96 07/28/22 12:45 97.8 F 88 22 169/77 96 Intake and Output 07/28/22 07/29/22 07/29/22 22:59 06:59 14:59 Output Total 0 250 Balance 0 -250 Output: Urine 250 Stool 0 0 Other: # Voids 2 # Bowel Movements 1 Weight 95.254 kg Patient is awake, comfortable, no acute distress Examination of the heart S1 and S2 Examination of the lungs bilateral breath sounds are heard Abdomen is soft nontender Examination lower extremity shows 1+ edema bilaterally more in the left leg. 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 The kidneys from patient's . Renal function currently at baseline with serum creatinine is 0.9 mg/dL. Patient is maintained on serology was and [employer]. 2. Bilateral heel wounds with gangrenous changes in the left fifth toe scheduled for I&D and possible amputation of the toe 3. Hypertension currently controlled 4. Anemia with severe iron deficiency we will add IV iron 5. Possible osteomyelitis of the left fifth toe and possibly healed area as well Plan: Continue current immunosuppressive therapy IV iron 1 Continue with angiotensin receptor blockers. Continue empiric antibiotics Repeat labs in a.m. Avoid nephrotoxic agents Thank you for the consultation. We will continue to follow the patient with you during his hospitalization
[2022-07-29 12:06] LABS: Glucose,Whole Blood 112 mg/dL (70-110)
[2022-07-29 12:14] VITALS: BMI 26.9
--- NOTE | 2022-07-29 13:43 | P.PN ---
Progress Note - Text Progress Note Date: 07/29/22 Chief Complaint: Left foot fifth toe discoloration This is a 82-year-old patient who follows with Dr. Hugo Suggs. Chronic stable medical conditions include renal transplant in [address] Brooks, , CAD with bypass, hypertension, Patient is accompanied by his in the ER. Patient has bilateral chronic heel ulcers with dressing changes at home. Home care nurse does come out. While doing the dressing patient nurse noted that there was discoloration of the left foot fifth toe. Some tenderness. No breakdown of skin. No fever no chills. Patient lower extremity does get swelling but does: At night. Patient nonambulatory. He does use a bedside commode. 07/29/2022: Patient is going down for bilateral heel debridement because of foul odor-Dr. Stratton from vascular. Patient nothing by mouth. Discussed with the at the bedside. Active Medications Acetaminophen (Acetaminophen Tab 325 Mg Tab) 650 mg PO Q6HR PRN PRN Reason: Mild Pain or Fever > 100.5 Last Admin: 07/29/22 01:41 Dose: 650 mg Atorvastatin Calcium (Atorvastatin 40 Mg Tab) 40 mg PO DAILY@1900 [facility] Last Admin: 07/28/22 23:54 Dose: 40 mg Carvedilol (Carvedilol 6.25 Mg Tab) 6.25 mg PO AC-BID [facility] Last Admin: 07/29/22 10:00 Dose: 6.25 mg Cholecalciferol (Cholecalciferol 25 Mcg (1000 Iu) Tablet) 50 mcg PO DAILY@0600 [facility] Last Admin: 07/29/22 08:22 Dose: Not Given Clonidine (Clonidine Hcl 0.1 Mg Tab) 0.1 mg PO DAILY [facility] Last Admin: 07/29/22 10:00 Dose: 0.1 mg Ferrous Sulfate (Ferrous Sulfate 325 Mg Tab) 325 mg PO BID-W/MEALS [facility] Last Admin: 07/29/22 10:00 Dose: 325 mg Hydralazine HCl (Hydralazine Hcl 50 Mg Tab) 100 mg PO AC-TID [facility] Last Admin: 07/29/22 12:13 Dose: Not Given Ampicillin Sodium/Sulbactam (Sodium 1.5 gm/ Sodium Chloride) 50 mls @ 100 mls/hr IVPB Q6H [facility]; Protocol Last Admin: 07/29/22 10:28 Dose: 100 mls/hr Insulin Aspart (Insulin Aspart (Novolog) 100 Unit/Ml Vial) 0 unit SQ ACHS [facility] Last Admin: 07/29/22 12:12 Dose: Not Given Insulin Detemir (Insulin Detemir (Levemir) 100 Unit/Ml Syr) 5 unit SQ DAILY@0700 [facility] Last Admin: 07/29/22 10:28 Dose: 5 unit Insulin Human NPH (Insulin Nph 100 Unit/Ml 10 Ml Vial) 38 unit SQ DAILY [facility] Last Admin: 07/29/22 10:09 Dose: Not Given Losartan Potassium (Losartan 50 Mg Tab) 100 mg PO HS [facility] Last Admin: 07/28/22 23:54 Dose: 100 mg Magnesium Oxide (Magnesium Oxide 400 Mg Tab) 400 mg PO DAILY@0600 [facility] Last Admin: 07/29/22 08:22 Dose: Not Given Multivitamins (Multivitamins, Thera 1 Each Tab) 1 each PO DAILY@0600 [facility] Last Admin: 07/29/22 08:22 Dose: Not Given Multivitamins/Minerals (Vit A,C & X-Yzksxk-Xoxeawwc 1 Each Tab) 1 each PO DAILY [facility] Last Admin: 07/29/22 10:00 Dose: 1 each Mycophenolate Sodium (Mycophenolate Sodium Dr 180 Mg Tablet.Dr) 360 mg PO BID@0600,1900 [facility] Last Admin: 07/29/22 10:00 Dose: 360 mg Naloxone HCl (Naloxone 0.4 Mg/Ml 1 Ml Vial) 0.2 mg IV Q2M PRN PRN Reason: Opioid Reversal Nifedipine (Nifedipine Xl 90 Mg Tab.Er.24) 90 mg PO DAILY [facility] Last Admin: 07/29/22 10:00 Dose: 90 mg Nitroglycerin (Nitroglycerin Sl Tabs 0.4 Mg Tab) 0.4 mg SUBLINGUAL Q5M PRN PRN Reason: Chest Pain Collagenase 250 Unit /Gm Ointment 30 Gm Tube 1 each TOPICAL DAILY [facility]; Protocol Last Admin: 07/29/22 10:01 Dose: Not Given Non-Formulary Medication (Sirolimus [Sirolimus]) 2 mg PO DAILY@0600 [facility] Last Admin: 07/29/22 08:23 Dose: Not Given Pantoprazole Sodium (Pantoprazole 40 Mg Tablet) 40 mg PO AC-BRKFST [facility] Last Admin: 07/29/22 10:00 Dose: 40 mg Sertraline HCl (Sertraline 50 Mg Tab) 50 mg PO DAILY@1900 [facility] Last Admin: 07/28/22 23:54 Dose: 50 mg Past medical history to include: Renal transplant 2003,, hypertension, CAD with bypass, chronic heel ulcers 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 Conjunctiva normal. HEENT: External appearance of nose and ears normal, oral cavity grossly normal. NECK: JVD not raised; masses not palpable. HEART: First and second heart sounds are normal; no edema. LUNGS: Respiratory rate normal; decreased breath sounds. ABDOMEN: Soft, nontender, liver spleen not palpable, no masses palpable. PSYCH: Alert and oriented x3; mood and affect normal. MUSCULOSKELETAL:No Clubbing/cyanosis;muscles-grossly intact. Evidence of OA EXTREMITIES: Ulcers in both the heels. - dressing.. See nursing notes wound history. Left foot small toe discoloration. No breakdown of skin. Tender. INVESTIGATIONS, reviewed in the clinical context: Iron 8 TIBC 146% saturation 5.81 transferred 104 ferritin 331 White count 10.9 hemoglobin 7.2 platelets [id number] BUN 20 creatinine 0.97 troponin I 0.017 CRP 13.9 EKG tracing personally reviewed by me-normal sinus rhythm. Nonspecific T-wave changes. foot x-ray results noted. Chest x-ray film: Cardiomegaly, saphenous prominence Assessment and plan: -Acute left foot fifth toe, dactylitis, possible ischemic: Slow to respond IV Unasyn -Bilateral infected acute on chronic decubitus heel ulcers, with foul odor: Slow to respond Dr. Stratton:. For debridement today. IV Unasyn -CAD with a prior history of bypass Lipitor, Coreg -Microcytic anemia, iron deficiency anemia IV Ferrlecit 2 doses -Essential hypertension Hydralazine, Catapres, Coreg, -Diabetes mellitus type 2, chronically on insulin NPH 36 units. Sliding scale. -Depression Zoloft -Renal transplant 2003. Patient follows with Dr. edwin martin. Follow with nephrology, IV Unasyn. IV Ferrlecit 2 doses. Pending I&D debridement today. Patient nothing by mouth. Discussed with .
[2022-07-29] MEDS: SODIUM FERRIC GLUCONAT-SUCROSE 125 MG in SODIUM CHLORIDE 0.9% 100 ML IVPB SCH (14:28)
[2022-07-29] MEDS: ATORVASTATIN 40 MG TAB PO SCH (16:53)
[2022-07-29 17:13] LABS: Glucose,Whole Blood 65 mg/dL (70-110)
[2022-07-29] MEDS ORDERED: DEXTROSE 50% SYRINGE 50 ML IVP ONE (17:14)
[2022-07-29 17:35] LABS: Glucose,Whole Blood 101 mg/dL (70-110)
[2022-07-29] MEDS ORDERED: MIDAZOLAM 2 MG/2 ML VIAL ONE (20:39)
[2022-07-29] MEDS ORDERED: LACTATED RINGERS 500 ML IV ONE (20:39)
[2022-07-29] MEDS ORDERED: KETAMINE 10 MG/ML 20 ML VIAL ONE (20:39)
[2022-07-29] MEDS ORDERED: PROPOFOL 10 MG/ML 20 ML VIAL IV ONE (20:39)
[2022-07-29] MEDS ORDERED: LIDOCAINE 2% INJ 20 MG/ML SQ ONE (20:51)
[2022-07-29 22:20] LABS: Glucose,Whole Blood 48 mg/dL (70-110)
[2022-07-29 22:23] LABS: Glucose,Whole Blood 51 mg/dL (70-110)
[2022-07-29] MEDS: DEXTROSE 50% SYRINGE 50 ML IVP STA (22:30)
[2022-07-29 22:45] LABS: Glucose,Whole Blood 153 mg/dL (70-110)
--- NOTE | 2022-07-29 23:00 | P.CONS ---
History of Present Illness - Reason for Consult Consult date: 07/29/22 Antibiotics Requesting physician: Giancarlo Stratton - Chief Complaint Worsening left heel wound and discoloration of the left fifth toe x days - History of Present Illness Patient is a 82-year-old male with a past medical history significant for end-stage renal disease status post living unrelated renal transplant in 2003 in this patient who was recently admitted to [facility] from 06/01/2022 to 06/08/2022 the patient did have a ESBL E. coli UTI and bacteremia for the patient was treated with IV Invanz patient and going to a senior care patient apparently has developed pressure ulceration to the bilateral heel area with the was taking care of at home patient has not been brought to the hospital yesterday afternoon concerning for left fifth digit discoloration, patient was receiving wound care from the home care nurse and the nurse practitioner recommended the patient to go to the ER patient been complaining of pain mostly to the left fifth toe more for the laking to sharp unable to quantify any further he did have foul-smelling drainage from bilateral heel wound patient on presentation to the hospital was afebrile he did have low- grade fever of 99.8 last night patient did have white count of 10.9 with left shift creatinine has been normal liver enzymes are normal he did have a COVID test was negative patient did have a x-rays of the foot appears to be soft tissue ulcer along the lateral aspect of the forefoot focal demineralization questionable subtle focus of air along the plantar heel soft tissue on the lateral view patient has been evaluated by vascular surgery who is planning for possible amputation of the left fifth toe as well as debridement of the wound patient was started on Unasyn infectious disease was consulted for further management of antibiotic therapy Review of Systems Positive point has been mentioned in the HPI rest of the systems are negative Past Medical History Past Medical History: Coronary Artery Disease (CAD), Chest Pain / Angina, CVA/TIA Additional Past Medical History / Comment(s): UTI History of Any Multi-Drug Resistant Organisms: ESBL Year Discovered:: 06/01/22 ESBL MDRO Source:: Blood and Urine Past Surgical History: Coronary Bypass/CABG Additional Past Surgical History / Comment(s): Kidney Transplant; quadruple bypass; bilateral cataracts Past Anesthesia/Blood Transfusion Reactions: No Reported Reaction Past Psychological History: No Psychological Hx Reported Smoking Status: Former smoker Past Alcohol Use History: None Reported Past Drug Use History: None Reported - Past Family History Father Family Medical History: Chest Pain / Angina Medications and Allergies Home Medications Medication Instructions Recorded Confirmed Type Atorvastatin [Lipitor] 40 mg PO DAILY@1900 03/30/22 07/28/22 History Cholecalciferol [Vitamin D3 (25 50 mcg PO DAILY@0600 03/30/22 07/28/22 History Mcg = 1000 Iu)] Multivitamins, Thera [Multivitamin 1 tab PO DAILY@0600 03/30/22 07/28/22 History (formulary)] Mycophenolate Sodium [Mycophenolic 360 mg PO BID@0600,1900 03/30/22 07/28/22 History Acid] Nitroglycerin Sl Tabs [Nitrostat] 0.4 mg SUBLINGUAL Q5M PRN 03/30/22 07/28/22 History Sertraline [Zoloft] 50 mg PO DAILY@1900 03/30/22 07/28/22 History Sirolimus 2 mg PO DAILY@0600 03/30/22 07/28/22 History Vit C/E/Zn/Coppr/Lutein/Zeaxan 1 cap PO DAILY 03/30/22 07/28/22 History [Preservision Areds 2 Softgel] hydrALAZINE HCL [Apresoline] 100 mg PO AC-TID #90 tablet 04/07/22 07/28/22 Rx Ferrous Sulfate [Iron (65 MG 325 mg PO BID-W/MEALS tab 06/08/22 07/28/22 Rx Elemental)] Pantoprazole [Protonix] 40 mg PO DAILY #30 tab 06/08/22 07/28/22 Rx Collagenase [Santyl Ointment] 1 applic TOPICAL DAILY 07/28/22 07/28/22 History Insulin Lispro [humaLOG Kwikpen] See Protocol SQ ACHS PRN 07/28/22 07/28/22 History Losartan Potassium 100 mg PO DAILY 07/28/22 07/28/22 History NIFEdipine XL [Procardia XL] 90 mg PO DAILY 07/28/22 07/28/22 History Acetaminophen Tab [Tylenol] 650 mg PO Q6HR PRN tab 08/03/22 Rx Cefepime [Maxipime] 2 gm IVPB Q8H #126 each 08/03/22 Rx Vancomycin HCl in 5 % Dextrose 1.25 gm IV Q12HR #84 08/03/22 Rx [Vancomycin 1 Gram/250 ml-D5w] carvediloL [Coreg*] 12.5 mg PO BID-W/MEALS tab 08/03/22 Rx cloNIDine HCL [Catapres] 0.1 mg PO TID #0 08/03/22 07/28/22 Rx Allergies Allergy/AdvReac Type Severity Reaction Status Date / Time No Known Allergies Allergy Verified 07/28/22 17:06 Physical Exam Vitals: Vital Signs Temp Pulse Pulse Resp BP BP Pulse Ox 07/29/22 13:00 97.9 F 79 18 166/68 96 07/29/22 11:38 98.1 F 83 18 158/68 94 L 07/29/22 07:53 98.1 F 83 18 158/68 94 L 07/29/22 01:13 99 F 83 18 165/58 94 L 07/29/22 01:11 92 20 07/28/22 23:37 92 186/72 93 L 07/28/22 20:57 99.8 F H 89 20 164/68 93 L 07/28/22 19:43 98.2 F 86 18 165/72 97 Intake and Output 07/29/22 07/29/22 07/29/22 06:59 14:59 22:59 Output Total 250 550 Balance -250 -550 Output: Urine 250 550 Stool 0 Other: # Voids 2 # Bowel Movements 1 Weight 95.254 kg GENERAL DESCRIPTION: Elderly male lying in bed, no distress. No tachypnea or accessory muscle of respiration use. HEENT: Shows Pallor , no scleral icterus. Oral mucous membrane is dry. No pharyngeal erythema or thrush NECK: Trachea central, no thyromegaly. LUNGS: Unlabored breathing. Clear to auscultation anteriorly. No wheeze or crackle. HEART: S1, S2, regular rate and rhythm. No loud murmur ABDOMEN: Soft, no tenderness , guarding or rigidity, no organomegaly EXTREMITIES: Bilateral heel wound with significant slough tissue no surrounding redness left is worse than right and also have discoloration of the left fifth toe foul-smelling drainage SKIN: No rash, no masses palpable. NEUROLOGICAL: The patient is awake, alert, oriented x3, mood and affect normal. Results CBC & Chem 7: 07/28/22 13:17 08/03/22 05:56 Labs: Abnormal Lab Results - Last 24 Hours (Table) 07/28/22 07/28/22 07/28/22 Range/Units 13:26 17:23 20:56 POC Glucose (mg/dL) 130 H 154 H (70-110) mg/dL Iron (65-175) ug/dL TIBC (228-460) ug/dL % Saturation (15.00-50.00) Transferrin (204.0-354.0) mg/dL Ferritin (22.0-322.0) ng/mL C-Reactive Protein 13.9 H (<1.0) mg/dL 07/28/22 07/29/22 07/29/22 Range/Units 23:18 05:49 07:10 POC Glucose (mg/dL) 136 H 120 H (70-110) mg/dL Iron 8 L (65-175) ug/dL TIBC 146 L (228-460) ug/dL % Saturation 5.81 L (15.00-50.00) Transferrin 104.0 L (204.0-354.0) mg/dL Ferritin 331.0 H (22.0-322.0) ng/mL C-Reactive Protein (<1.0) mg/dL 07/29/22 07/29/22 Range/Units 07:33 12:04 POC Glucose (mg/dL) 125 H 112 H (70-110) mg/dL Iron (65-175) ug/dL TIBC (228-460) ug/dL % Saturation (15.00-50.00) Transferrin (204.0-354.0) mg/dL Ferritin (22.0-322.0) ng/mL C-Reactive Protein (<1.0) mg/dL Microbiology - Last 24 Hours (Table) 07/28/22 13:26 Blood Culture - Preliminary Blood No Growth after 24 hours 07/28/22 13:17 Blood Culture - Preliminary Blood No Growth after 24 hours Assessment and Plan (1) Diabetic foot ulcer associated with diabetes mellitus due to underlying condition Status: Acute Code(s): E08.621 - DIABETES MELLITUS DUE TO UNDERLYING CONDITION W FOOT ULCER; L97.509 - NON-PRESSURE CHRONIC ULCER OTH PRT UNSP FOOT W UNSP SEVERITY SNOMED Code(s): 887326127 (2) Diabetic ulcer of left heel associated with diabetes mellitus due to underlying condition Status: Acute Code(s): E08.621 - DIABETES MELLITUS DUE TO UNDERLYING CONDITION W FOOT ULCER; L97.429 - NON-PRS CHRONIC ULCER OF LEFT HEEL AND MIDFOOT W UNSP SEVERT SNOMED Code(s): 784620048 Plan: 1patient with bilateral heel unstageable pressure ulcer infected in this patient with underlying diabetes mellitus also renal transplant on immunosuppressive medication with recent admission to the hospital due to for ESBL E. coli UTI and bacteremia, keeping in mind his recent hospitalization as well as senior care placement and infection with a multidrug-resistant pathogen will need to cover with a possible antibiotic while waiting for the culture to finalize. 2await surgical debridement and deep culture. 3discontinue Unasyn. 4we will start the patient on meropenem 1 g every 8 hours while waiting for the culture to finalize. We will follow on clinical condition and cultures to further adjust medication if needed Thank you for this consultation will follow this patient along with you Time with Patient: Greater than 30
[2022-07-30] MEDS: MEROPENEM 1 GM in SODIUM CHLORIDE 0.9% 100 ML IVPB SCH ×3 (00:32→15:40)
[2022-07-30] MEDS: MYCOPHENOLATE SODIUM DR 180 MG TABLET.DR PO SCH ×3 (00:32→15:41)
[2022-07-30] MEDS: LOSARTAN 50 MG TAB PO SCH ×2 (00:32→22:34)
[2022-07-30] MEDS: SERTRALINE 50 MG TAB PO SCH ×2 (00:33→15:40)
[2022-07-30] MEDS: AMPICILLIN-SULBACTAM 1.5 GM in SODIUM CHLORIDE 0.9% 50 ML IVPB SCH (04:56)
[2022-07-30 06:06] LABS: Glucose,Whole Blood 153 mg/dL (70-110)
[2022-07-30] MEDS: FERROUS SULFATE 325 MG TAB PO SCH ×2 (06:31→15:40)
[2022-07-30] MEDS: CHOLECALCIFEROL 25 MCG (1000 IU) TABLET PO SCH (06:31)
[2022-07-30] MEDS: hydrALAZINE HCL 50 MG TAB PO SCH ×3 (06:31→15:40)
[2022-07-30] MEDS: MULTIVITAMINS, THERA 1 EACH TAB PO SCH (06:31)
[2022-07-30] MEDS: carvediloL 6.25 MG TAB PO SCH ×2 (06:31→15:40)
[2022-07-30] MEDS: MAGNESIUM OXIDE 400 MG TAB PO SCH (06:31)
[2022-07-30] MEDS: PANTOPRAZOLE 40 MG TABLET PO SCH (06:31)
[2022-07-30] MEDS: INSULIN DETEMIR (LEVEMIR) 100 UNIT/ML SYR SQ SCH (06:32)
[2022-07-30] MEDS: NON FORMULARY DRUG (Sirolimus [Sirolimus] 1 MG Tablet) PO SCH (06:32)
[2022-07-30] MEDS: INSULIN ASPART (NovoLOG) 100 UNIT/ML VIAL SQ SCH ×4 (06:43→22:31)
[2022-07-30] MEDS: SODIUM FERRIC GLUCONAT-SUCROSE 125 MG in SODIUM CHLORIDE 0.9% 100 ML IVPB SCH (09:24)
[2022-07-30] MEDS: cloNIDine HCL 0.1 MG TAB PO SCH (09:25)
[2022-07-30] MEDS: NIFEdipine XL 90 MG TAB.ER.24 PO SCH (09:26)
[2022-07-30] MEDS: VIT A,C & E-LUTEIN-MINERALS 1 EACH TAB PO SCH (09:26)
[2022-07-30] MEDS: INSULIN NPH 100 UNIT/ML 10 ML VIAL SQ SCH (09:27)
[2022-07-30] MEDS: COLLAGENASE 250 UNIT/GM OINTMENT 30 GM TUBE TOPICAL SCH (09:27)
--- NOTE | 2022-07-30 09:36 | OP ---
OPERATIVE REPORT PREOPERATIVE DIAGNOSES: 1. Necrotic pressure ulcer wound on the right heel. Measurement is 5 x 4 cm. 2. On the left foot, he has ischemic left fifth toe with open wound at the base of the fifth toe, measurement is 2 x 2 cm. POSTOPERATIVE DIAGNOSES: Right foot wound measurement is 5 x 4 x 1 cm, and the left foot wound is 2 x 2 cm and on the heel postop wound is 4 x 3 x 1 cm. DESCRIPTION OF PROCEDURE: This patient was brought to the operating room. Right and left foot was prepped and draped in usual sterile manner with local and IV sedation. Right foot heel wound has a necrotic wound. Using sharp knife, we did excision of the devitalized tissue down to subcutaneous tissue and the fascia. All the devitalized tissue was removed, which was very foul odor smell. The tissue was sent for deep culture. Bleeding pattern was controlled. After that, attention was paid to the left foot. This left 5th toe was ischemic and there was an ulcer at the base of the fifth toe. An elliptical incision was made on the dorsal aspect of the foot, went circumferentially around the fifth toe on the plantar aspect, deepened through skin, fat, and subcutaneous tissue noted with each metatarsal bone. Metatarsal bone was fragile and there was pocket of pus and necrotic tissue, which was excised with sharp knife using bone cutter. We divided the metatarsal bone. All the devitalized tissue was excised with sharp knife. The specimen was sent for deep culture. Hemostasis was well controlled. Then, attention was paid on the left heel. There was necrotic wound on the left heel. Using sharp knife under local IV sedation, I did the debridement and excised all the devitalized tissue down to subcutaneous tissue and the fat. Bleeding points were controlled and the wound was irrigated with hydrogen peroxide and saline. Excess silver rope was applied to both wounds, the right and left foot. Pressure dressing was applied. The patient was transferred to recovery room. Prognosis is guarded. MMODL / IJN: [id number] /
--- NOTE | 2022-07-30 10:22 | CDI ---
Documentation Clarification Form Date: 07/30/2022 10:06:13 AM From: Annmarie Jose CCS, CCDS Admit Date: 07/28/2022 05:00:00 PM Patient Name: Kapil Ramos Visit Number: [id number] Discharge Date: ATTENTION: The Clinical Documentation Specialists (CDI) and [facility] Coding Staff appreciate your assistance in clarifying documentation. Please respond to the clarification below the line at the bottom and electronically sign. The CDI & [facility] Coding staff will review the response and follow-up if needed. Please note: Queries are made part of the Legal Health Record. If you have any questions, please contact the author of this message via ITS. Dr. Jerry Quezada: CHF is documented in the ED Note on 07/28: I interpreted the following Xray images: CXR significant for persistent cardiomegaly, diffuse pulmonary infiltrates consistent with CHF. Cardiology was not consulted. Per the patient's home meds: Lasix 20 mg. (Comments: Discontinued Jennifer Discharge 06/08/2022, patient still taking. Last filled 05/30/2022 x30 days.) Additional information regarding the Type & Acuity of CHF is requested. History/Risk Factors per the 07/28 H/P: Renal transplant 2004, IDDM II, CAD status post CABG, Hypertension, Chronic Heel ulcers, Former smoker. Clinical Indicators: Presented to the ED 07/28 from home via EMS with chronic heel ulcers and left 5th digit purple. Admit with Osteomyelitis, Diabetic ulcer of left heel and Diabetic Foot Ulcer associated with Diabetes Mellitus due to underlying condition. 07/28 VS: T 97.8, 99.8; P 88, R 22, BP 169/77, PO 96 RA, 93 RA, BMI 27.0. 07/28 LAB: WBC 10.9, RBC 3.02, Hgb 7.2, Hct 23.7, Plt Ct 506, Neutrophils 8.7; Na 135, CO2 20, Glucose 175, Alk Phosphatase 130, CRP 13.9, total protein 13.9, Albumin 3.0. BNP: not done this admission. Echocardiogram Results (most recent 06/02/2022): EF est at 55-60%, Mildly increased left ventricular wall thickness. Mild pulmonary hypertension. Mildly increased left atrial area. Mild MR, Mod TR. Chest X Ray 07/28: Persistent cardiomegaly with pulmonary venous congestion scattered infiltrates as well as small effusions suggest congestive failure. Infiltrates of other etiology difficult to exclude. Correlate clinically. Treatment 07/28: Blood cultures, po Apresoline 100 mg TID, Nitro 0.4 mg sl, po Coreg 6.25 mg BID, po Cozaar 100 mg shahnaz. Lasix not given. In your professional opinion, can you please clarify the CHF: [ ] Chronic Diastolic Heart Failure [ ] Chronic Systolic & Diastolic Heart Failure [ ] CHF is ruled out [ ] Other, please specify [ ] Unable to determine (Template Last Revised: September 2020) No CHF MTDD
[2022-07-30 11:12] LABS: Glucose,Whole Blood 102 mg/dL (70-110)
[2022-07-30] MEDS: ACETAMINOPHEN TAB 325 MG TAB PO PRN (11:45)
[2022-07-30] MEDS ORDERED: SODIUM FERRIC GLUCONAT-SUCROSE 125 MG in SODIUM CHLORIDE 0.9% 100 ML IVPB SCH (12:00)
[2022-07-30] MEDS: ATORVASTATIN 40 MG TAB PO SCH (15:40)
[2022-07-30 16:14] LABS: Glucose,Whole Blood 32 mg/dL (70-110)
[2022-07-30] MEDS: DEXTROSE 50% SYRINGE 50 ML IVP STA (16:16)
[2022-07-30 16:33] LABS: Glucose,Whole Blood 73 mg/dL (70-110)
--- NOTE | 2022-07-30 17:04 | P.PN ---
Progress Note - Text Progress Note Date: 07/30/22 Chief Complaint: Left foot fifth toe discoloration This is a 82-year-old patient who follows with Dr. Hugo Suggs. Chronic stable medical conditions include renal transplant in [address] Brooks, , CAD with bypass, hypertension, Patient is accompanied by his in the ER. Patient has bilateral chronic heel ulcers with dressing changes at home. Home care nurse does come out. While doing the dressing patient nurse noted that there was discoloration of the left foot fifth toe. Some tenderness. No breakdown of skin. No fever no chills. Patient lower extremity does get swelling but does: At night. Patient nonambulatory. He does use a bedside commode. 07/29/2022: Patient is going down for bilateral heel debridement because of foul odor-Dr. Stratton from vascular. Patient nothing by mouth. Discussed with the at the bedside. 07/30/2022: Patient underwent left fifth toe amputation in a deep ulcer debridement by Dr. Stratton yesterday. On IV meropenem. Dressing changes to Dr. Perkins. Discussed with patient and . Active Medications Acetaminophen (Acetaminophen Tab 325 Mg Tab) 650 mg PO Q6HR PRN PRN Reason: Mild Pain or Fever > 100.5 Last Admin: 07/30/22 11:45 Dose: 650 mg Atorvastatin Calcium (Atorvastatin 40 Mg Tab) 40 mg PO DAILY@1900 [facility] Last Admin: 07/30/22 15:40 Dose: 40 mg Carvedilol (Carvedilol 6.25 Mg Tab) 6.25 mg PO AC-BID [facility] Last Admin: 07/30/22 15:40 Dose: 6.25 mg Cholecalciferol (Cholecalciferol 25 Mcg (1000 Iu) Tablet) 50 mcg PO DAILY@0600 [facility] Last Admin: 07/30/22 06:31 Dose: 50 mcg Clonidine (Clonidine Hcl 0.1 Mg Tab) 0.1 mg PO DAILY [facility] Last Admin: 07/30/22 09:25 Dose: 0.1 mg Ferrous Sulfate (Ferrous Sulfate 325 Mg Tab) 325 mg PO BID-W/MEALS [facility] Last Admin: 07/30/22 15:40 Dose: 325 mg Hydralazine HCl (Hydralazine Hcl 50 Mg Tab) 100 mg PO AC-TID [facility] Last Admin: 07/30/22 15:40 Dose: 100 mg Meropenem 1 gm/ Sodium (Chloride) 100 mls @ 33.3 mls/hr IVPB Q8HR [facility]; Protocol Last Admin: 07/30/22 15:40 Dose: 33.3 mls/hr Ferric Sodium Gluconate 125 mg (/ Sodium Chloride) 110 mls @ 100 mls/hr IVPB DAILY [facility] Stop: 08/02/22 10:05 Insulin Aspart (Insulin Aspart (Novolog) 100 Unit/Ml Vial) 0 unit SQ ACHS [facility]; Protocol Last Admin: 07/30/22 16:36 Dose: Not Given Insulin Detemir (Insulin Detemir (Levemir) 100 Unit/Ml Syr) 5 unit SQ DAILY@0700 [facility] Last Admin: 07/30/22 06:32 Dose: 5 unit Insulin Human NPH (Insulin Nph 100 Unit/Ml 10 Ml Vial) 38 unit SQ DAILY [facility] Last Admin: 07/30/22 09:27 Dose: 38 unit Losartan Potassium (Losartan 50 Mg Tab) 100 mg PO HS [facility] Last Admin: 07/30/22 00:32 Dose: 100 mg Magnesium Oxide (Magnesium Oxide 400 Mg Tab) 400 mg PO DAILY@0600 [facility] Last Admin: 07/30/22 06:31 Dose: 400 mg Multivitamins (Multivitamins, Thera 1 Each Tab) 1 each PO DAILY@0600 [facility] Last Admin: 07/30/22 06:31 Dose: 1 each Multivitamins/Minerals (Vit A,C & J-Xxcnfw-Zmvpicfj 1 Each Tab) 1 each PO DAILY [facility] Last Admin: 07/30/22 09:26 Dose: 1 each Mycophenolate Sodium (Mycophenolate Sodium Dr 180 Mg Tablet.) 360 mg PO BID@0600,1900 [facility] Last Admin: 07/30/22 15:41 Dose: 360 mg Naloxone HCl (Naloxone 0.4 Mg/Ml 1 Ml Vial) 0.2 mg IV Q2M PRN PRN Reason: Opioid Reversal Nifedipine (Nifedipine Xl 90 Mg Tab.Er.24) 90 mg PO DAILY [facility] Last Admin: 07/30/22 09:26 Dose: 90 mg Nitroglycerin (Nitroglycerin Sl Tabs 0.4 Mg Tab) 0.4 mg SUBLINGUAL Q5M PRN PRN Reason: Chest Pain Collagenase 250 Unit /Gm Ointment 30 Gm Tube 1 each TOPICAL DAILY [facility]; Protocol Last Admin: 07/30/22 09:27 Dose: Not Given Non-Formulary Medication (Sirolimus [Sirolimus]) 2 mg PO DAILY@0600 [facility] Last Admin: 07/30/22 06:32 Dose: 2 mg Pantoprazole Sodium (Pantoprazole 40 Mg Tablet) 40 mg PO AC-BRKFST [facility] Last Admin: 07/30/22 06:31 Dose: 40 mg Sertraline HCl (Sertraline 50 Mg Tab) 50 mg PO DAILY@1900 [facility] Last Admin: 07/30/22 15:40 Dose: 50 mg Past medical history to include: Renal transplant 2003,, hypertension, CAD with bypass, chronic heel ulcers 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 Conjunctiva normal. HEENT: External appearance of nose and ears normal, oral cavity grossly normal. NECK: JVD not raised; masses not palpable. HEART: First and second heart sounds are normal; no edema. LUNGS: Respiratory rate normal; decreased breath sounds. ABDOMEN: Soft, nontender, liver spleen not palpable, no masses palpable. PSYCH: Alert and oriented x3; mood and affect normal. MUSCULOSKELETAL:No Clubbing/cyanosis;muscles-grossly intact. Evidence of OA EXTREMITIES: Ulcers in both the heels. - dressing... INVESTIGATIONS, reviewed in the clinical context: Iron 8 TIBC 146% saturation 5.81 transferred 104 ferritin 331 White count 10.9 hemoglobin 7.2 platelets [id number] BUN 20 creatinine 0.97 troponin I 0.017 CRP 13.9 EKG tracing personally reviewed by me-normal sinus rhythm. Nonspecific T-wave changes. foot x-ray results noted. Chest x-ray film: Cardiomegaly, saphenous prominence Assessment and plan: -Acute left foot fifth toe, dactylitis, possible ischemic: Slow to respond Amputation by Dr. Perkins. IV cefepime -Bilateral infected acute on chronic decubitus heel ulcers, with foul odor: Left foot, debridement Dr. Stratton:-For debridement July 29. IV cefepime -CAD with a prior history of bypass Lipitor, Coreg -Microcytic anemia, iron deficiency anemia IV Ferrlecit 2 doses -Essential hypertension Hydralazine, Catapres, Coreg, -Diabetes mellitus type 2, chronically on insulin NPH 36 units. Sliding scale. -Depression Zoloft -Renal transplant 2003. Patient follows with Dr. edwin martin. Follow with nephrology, IV cefepime. Wound dressing. Other medications to continue. Discussed with patient and .
--- NOTE | 2022-07-30 17:36 | P.PN ---
Progress Note - Text Patient had a gangrene of the bilateral heel wound and a also involving the left foot fifth toe patient went for excessive debridement of the both wounds it involving the heel area and ray amputation of the fifth toe dressing is dry and intact. Matias her dressing tomorrow patient has been using Santyl cream at home we will continue with Santyl cream and changing the dressing tomorrow patient IV antibiotic under care of infectious disease
[2022-07-30 19:44] LABS: Glucose,Whole Blood 70 mg/dL (70-110)
[2022-07-31 02:32] LABS: Glucose,Whole Blood 48 mg/dL (70-110)
[2022-07-31 03:53] LABS: Glucose,Whole Blood 78 mg/dL (70-110)
[2022-07-31 05:56] LABS: Glucose,Whole Blood 68 mg/dL (70-110)
[2022-07-31] MEDS: MEROPENEM 1 GM in SODIUM CHLORIDE 0.9% 100 ML IVPB SCH ×4 (06:04→23:38)
[2022-07-31] MEDS: NON FORMULARY DRUG (Sirolimus [Sirolimus] 1 MG Tablet) PO SCH (06:08)
[2022-07-31] MEDS: MYCOPHENOLATE SODIUM DR 180 MG TABLET.DR PO SCH ×2 (06:09→17:37)
[2022-07-31] MEDS: CHOLECALCIFEROL 25 MCG (1000 IU) TABLET PO SCH (06:09)
[2022-07-31] MEDS: MULTIVITAMINS, THERA 1 EACH TAB PO SCH (06:09)
[2022-07-31] MEDS: MAGNESIUM OXIDE 400 MG TAB PO SCH (06:09)
[2022-07-31] MEDS: INSULIN DETEMIR (LEVEMIR) 100 UNIT/ML SYR SQ SCH (06:42)
[2022-07-31] MEDS: INSULIN ASPART (NovoLOG) 100 UNIT/ML VIAL SQ SCH ×4 (06:45→22:29)
[2022-07-31] MEDS: hydrALAZINE HCL 50 MG TAB PO SCH ×3 (06:46→17:37)
[2022-07-31] MEDS: carvediloL 6.25 MG TAB PO SCH (06:46)
[2022-07-31] MEDS: PANTOPRAZOLE 40 MG TABLET PO SCH (06:46)
[2022-07-31] MEDS: FERROUS SULFATE 325 MG TAB PO SCH ×2 (06:46→17:37)
[2022-07-31] MEDS: INSULIN NPH 100 UNIT/ML 10 ML VIAL SQ SCH (07:08)
[2022-07-31] MEDS: SODIUM FERRIC GLUCONAT-SUCROSE 125 MG in SODIUM CHLORIDE 0.9% 100 ML IVPB SCH (08:33)
[2022-07-31] MEDS: VIT A,C & E-LUTEIN-MINERALS 1 EACH TAB PO SCH (08:36)
[2022-07-31] MEDS: NIFEdipine XL 90 MG TAB.ER.24 PO SCH (08:36)
[2022-07-31] MEDS: cloNIDine HCL 0.1 MG TAB PO SCH (08:36)
[2022-07-31] MEDS: COLLAGENASE 250 UNIT/GM OINTMENT 30 GM TUBE TOPICAL SCH ×2 (08:38)
--- NOTE | 2022-07-31 10:01 | P.PN ---
Subjective Patient is seen for follow-up for post transplant care. He is status post left fifth toe amputation and excessive debridement of other wounds on bilateral feet. Surgery was performed on 07/29/2022 Pain is controlled No significant complaints today Renal function at baseline Objective - Vital Signs Vital signs: Vital Signs Temp 98.6 F 07/31/22 02:00 Pulse 81 07/31/22 02:00 Resp 17 07/31/22 02:00 BP 191/53 07/31/22 06:46 Pulse Ox 93 L 07/31/22 07:50 FiO2 Intake & Output 07/30/22 07/31/22 07/31/22 18:59 06:59 18:59 Intake Total 200 Output Total 375 Balance 200 -375 Intake: Intake, IV Titration 200 Amount Meropenem 1 gm In Sodium 100 Chloride 0.9% 100 ml @ 33 .3 mls/hr IVPB Q8HR [facility] Rx#:[id number] Sodium Ferric Gluconat- 100 Sucrose 125 mg In Sodium Chloride 0.9% 100 ml @ 100 mls/hr IVPB DAILY [facility] Rx#:[id number] Output: Urine 375 Stool 0 Other: Voiding Method Indwelling Catheter # Voids 5 - Exam Patient is awake, comfortable, no acute distress Examination of the heart S1 and S2 Examination of the lungs bilateral breath sounds are heard Abdomen is soft nontender Examination lower extremity shows edema 1+ bilaterally both feet are wrapped - Labs CBC & Chem 7: 07/28/22 13:17 07/28/22 13:17 Labs: Abnormal Lab Results - Last 24 Hours (Table) 07/30/22 07/31/22 07/31/22 Range/Units 16:12 02:27 05:56 POC Glucose (mg/dL) 32 L 48 L 68 L (70-110) mg/dL Microbiology - Last 24 Hours (Table) 07/29/22 21:10 Gram Stain - Preliminary Toe - Left Fifth Tissue Culture - Preliminary Gram Neg Bacilli Group D Enterococcus 07/29/22 21:10 Acid Fast Bacilli Smear - Final Toe - Left Fifth Acid Fast Bacilli Culture - Preliminary 07/28/22 13:26 Blood Culture - Preliminary Blood No Growth after 48 hours 07/28/22 13:17 Blood Culture - Preliminary Blood No Growth after 48 hours Assessment and Plan Assessment: 1. 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 The kidneys from patient's . Renal function currently at baseline with serum creatinine is 0.9 mg/dL. Patient is maintained on sirolimus and Myfortic. 2. Bilateral heel wounds with gangrenous changes in the left fifth toe status post left fifth toe amputation and debridement of wounds both heels 3. Hypertension currently controlled 4. Anemia with severe iron deficiency , on IV iron 5. Possible osteomyelitis of the left fifth toe and possibly heel area as well Plan: Continue current immunosuppressive therapy Check labs today Check serologies was level Increase Coreg as blood pressure remains elevated
[2022-07-31 11:39] LABS: African American GFR (CKD) >90 (>60 ml/min/1.73 sqM); Anion Gap 7 mmol/L; Blood Urea Nitrogen 18 mg/dL (9-20); Calcium 8.5 mg/dL (8.4-10.2); Carbon Dioxide 22 mmol/L (22-30); Chloride 108 mmol/L (98-107); Glucose 129 mg/dL (74-99); Non-African American GFR(CKD) 81 (>60 ml/min/1.73 sqM); Potassium 4.6 mmol/L (3.5-5.1); Sodium 137 mmol/L (137-145)
[2022-07-31 12:31] LABS: Glucose,Whole Blood 208 mg/dL (70-110)
[2022-07-31] MEDS ORDERED: INSULIN DETEMIR (LEVEMIR) 100 UNIT/ML SYR SQ ONE (13:30)
[2022-07-31] MEDS: ACETAMINOPHEN TAB 325 MG TAB PO PRN (14:38)
--- NOTE | 2022-07-31 15:46 | P.PN ---
Progress Note - Text Progress Note Date: 07/31/22 Chief Complaint: Left foot fifth toe discoloration This is a 82-year-old patient who follows with Dr. Hugo Suggs. Chronic stable medical conditions include renal transplant in [address] Pineda, , CAD with bypass, hypertension, Patient is accompanied by his in the ER. Patient has bilateral chronic heel ulcers with dressing changes at home. Home care nurse does come out. While doing the dressing patient nurse noted that there was discoloration of the left foot fifth toe. Some tenderness. No breakdown of skin. No fever no chills. Patient lower extremity does get swelling but does: At night. Patient nonambulatory. He does use a bedside commode. 07/29/2022: Patient is going down for bilateral heel debridement because of foul odor-Dr. Stratton from vascular. Patient nothing by mouth. Discussed with the at the bedside. 07/30/2022: Patient underwent left fifth toe amputation in a deep ulcer debridement by Dr. Stratton yesterday. On IV meropenem. Dressing changes to Dr. Perkins. Discussed with patient and . 07/31/2022: Dressing changes per vascular. Decreased appetite. Patient encouraged to eat. Discussed with the and nurse. Continue IV meropenem. IV Ferrlecit. Cultures in place. Blood pressure running high. Coreg adjusted. Active Medications Acetaminophen (Acetaminophen Tab 325 Mg Tab) 650 mg PO Q6HR PRN PRN Reason: Mild Pain or Fever > 100.5 Last Admin: 07/31/22 14:38 Dose: 650 mg Atorvastatin Calcium (Atorvastatin 40 Mg Tab) 40 mg PO DAILY@1800 [facility] Carvedilol (Carvedilol 12.5 Mg Tab) 12.5 mg PO AC-BID [facility] Cholecalciferol (Cholecalciferol 25 Mcg (1000 Iu) Tablet) 50 mcg PO DAILY@0600 [facility] Last Admin: 07/31/22 06:09 Dose: 50 mcg Clonidine (Clonidine Hcl 0.1 Mg Tab) 0.1 mg PO DAILY [facility] Last Admin: 07/31/22 08:36 Dose: 0.1 mg Collagenase (Collagenase 250 Unit/Gm Ointment 30 Gm Tube) 1 applic TOPICAL DAILY [facility]; Protocol Last Admin: 07/31/22 08:38 Dose: 1 applic Ferrous Sulfate (Ferrous Sulfate 325 Mg Tab) 325 mg PO BID-W/MEALS [facility] Last Admin: 07/31/22 06:46 Dose: 325 mg Hydralazine HCl (Hydralazine Hcl 50 Mg Tab) 100 mg PO AC-TID [facility] Last Admin: 07/31/22 12:52 Dose: 100 mg Meropenem 1 gm/ Sodium (Chloride) 100 mls @ 33.3 mls/hr IVPB Q8HR [facility]; Protocol Last Admin: 07/31/22 09:28 Dose: 33.3 mls/hr Ferric Sodium Gluconate 125 mg (/ Sodium Chloride) 110 mls @ 100 mls/hr IVPB DAILY [facility] Stop: 08/02/22 10:05 Last Admin: 07/31/22 08:33 Dose: 100 mls/hr Insulin Aspart (Insulin Aspart (Novolog) 100 Unit/Ml Vial) 0 unit SQ ACHS [facility]; Protocol Last Admin: 07/31/22 12:52 Dose: 4 unit Insulin Detemir (Insulin Detemir (Levemir) 100 Unit/Ml Syr) 15 unit SQ DAILY@0700 [facility] Losartan Potassium (Losartan 50 Mg Tab) 100 mg PO HS [facility] Last Admin: 07/30/22 22:34 Dose: 100 mg Magnesium Oxide (Magnesium Oxide 400 Mg Tab) 400 mg PO DAILY@0600 [facility] Last Admin: 07/31/22 06:09 Dose: 400 mg Multivitamins (Multivitamins, Thera 1 Each Tab) 1 each PO DAILY@0600 [facility] Last Admin: 07/31/22 06:09 Dose: 1 each Multivitamins/Minerals (Vit A,C & Q-Siltsp-Jovdpjyr 1 Each Tab) 1 each PO DAILY [facility] Last Admin: 07/31/22 08:36 Dose: 1 each Mycophenolate Sodium (Mycophenolate Sodium Dr 180 Mg Tablet.Dr) 360 mg PO BID@0600,1800 [facility] Naloxone HCl (Naloxone 0.4 Mg/Ml 1 Ml Vial) 0.2 mg IV Q2M PRN PRN Reason: Opioid Reversal Nifedipine (Nifedipine Xl 90 Mg Tab.Er.24) 90 mg PO DAILY [facility] Last Admin: 07/31/22 08:36 Dose: 90 mg Nitroglycerin (Nitroglycerin Sl Tabs 0.4 Mg Tab) 0.4 mg SUBLINGUAL Q5M PRN PRN Reason: Chest Pain Non-Formulary Medication (Sirolimus [Sirolimus]) 2 mg PO DAILY@0600 [facility] Last Admin: 07/31/22 06:08 Dose: 2 mg Pantoprazole Sodium (Pantoprazole 40 Mg Tablet) 40 mg PO AC-BRKFST [facility] Last Admin: 07/31/22 06:46 Dose: 40 mg Sertraline HCl (Sertraline 50 Mg Tab) 50 mg PO DAILY@1800 [facility] Past medical history to include: Renal transplant 2003,, hypertension, CAD with bypass, chronic heel ulcers 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 Conjunctiva normal. HEENT: External appearance of nose and ears normal, oral cavity grossly normal. NECK: JVD not raised; masses not palpable. HEART: First and second heart sounds are normal; no edema. LUNGS: Respiratory rate normal; decreased breath sounds. ABDOMEN: Soft, nontender, liver spleen not palpable, no masses palpable. PSYCH: Alert and oriented x3; mood and affect normal. MUSCULOSKELETAL:No Clubbing/cyanosis;muscles-grossly intact. Evidence of OA EXTREMITIES: Ulcers in both the heels. - dressing... INVESTIGATIONS, reviewed in the clinical context: 07/31/2022: Potassium 4.6 creatinine 0.8 date Iron 8 TIBC 146% saturation 5.81 transferred 104 ferritin 331 White count 10.9 hemoglobin 7.2 platelets [id number] BUN 20 creatinine 0.97 troponin I 0.017 CRP 13.9 EKG tracing personally reviewed by me-normal sinus rhythm. Nonspecific T-wave changes. foot x-ray results noted. Chest x-ray film: Cardiomegaly, saphenous prominence Assessment and plan: -Acute left foot fifth toe, dactylitis, possible ischemic: Culture growing group D enterococcus Amputation by Dr. Perkins. IV meropenem -Bilateral infected acute on chronic decubitus heel ulcers, with foul odor: Left foot, debridement: Cultures pending Dr. Stratton:-For debridement July 29. 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 Baseline creatinine 0.9. sirolimus,myfortic -CAD with a prior history of bypass Lipitor, Coreg -Microcytic anemia, iron deficiency anemia IV Ferrlecit 2 doses -Essential hypertension: Uncontrolled Hydralazine, Catapres, increase Coreg 12.5 mg twice a day, -Diabetes mellitus type 2, chronically on insulin NPH 36 units-hold. Sliding scale. Levemir 15 units subcu daily -Depression Zoloft -Renal transplant 2003. Patient follows with Dr. pineda sirolimus. Follow with nephrology, IV meropenem Wound care per Dr. Perkins. Increase Coreg. Care was discussed with the nurse patient and .
[2022-07-31 16:21] LABS: Glucose,Whole Blood 141 mg/dL (70-110)
[2022-07-31] MEDS ORDERED: carvediloL 12.5 MG TAB PO SCH ×2 (17:30)
[2022-07-31] MEDS: SERTRALINE 50 MG TAB PO SCH (17:37)
[2022-07-31] MEDS: ATORVASTATIN 40 MG TAB PO SCH (17:37)
[2022-07-31] MEDS: carvediloL 12.5 MG TAB PO SCH (17:38)
[2022-07-31 20:36] LABS: Glucose,Whole Blood 152 mg/dL (70-110)
[2022-07-31] MEDS: LOSARTAN 50 MG TAB PO SCH (22:29)
[2022-08-01] LABS: Glucose,Whole Blood 76 mg/dL (70-110)
[2022-08-01] MEDS ORDERED: VANCOMYCIN IV PER PHARMACY 1 EACH MISC MISCELLANE PRN (00:27)
--- NOTE | 2022-08-01 00:32 | P.PN ---
Subjective Progress Note Date: 07/30/22 Principal diagnosis: Bilateral heel infected pressure ulcer Patient is a 82-year-old male with a past medical history significant for renal transplant recent admission to the hospital for ESBL E. coli UTI and bacteremia presenting with the infected bilateral heel pressure ulcer and left fifth toe gangrene status post amputation of the left fifth toe and debridement of bilateral heel wound completed on 07/29/2022 On today's evaluation that is 07/30/2022, the patient denies having any fever or chills the patient pain to bilateral heel is controlled patient denies having any chest pain or shortness of breath or cough. Patient denies nausea no vomiting no abdominal pain no diarrhea Objective - Vital Signs Vital signs: Vital Signs Temp 98.1 F 07/30/22 08:00 Pulse 86 07/30/22 08:00 Resp 16 07/30/22 08:00 BP 178/75 07/30/22 08:00 Pulse Ox 93 L 07/30/22 08:00 FiO2 Intake & Output 07/29/22 07/30/22 07/30/22 18:59 06:59 18:59 Intake Total 250 Output Total 950 425 Balance -950 -175 Weight 95.254 kg Intake: IV 250 Output: Urine 950 400 Stool 0 Estimated Blood Loss 25 Other: Voiding Method External Catheter Indwelling Catheter # Voids 2 # Bowel Movements 1 - Exam GENERAL DESCRIPTION: An elderly male lying in bed in no distress RESPIRATORY SYSTEM: Unlabored breathing , decreased breath sounds at bases HEART: S1 S2 regular rate and rhythm , ABDOMEN: Soft , no tenderness EXTREMITIES: Bilateral heel wounds are currently dressed - Labs CBC & Chem 7: 07/28/22 13:17 07/31/22 11:04 Labs: Abnormal Lab Results - Last 24 Hours (Table) 07/29/22 07/29/22 07/29/22 Range/Units 17:08 22:19 22:21 POC Glucose (mg/dL) 65 L 48 L 51 L (70-110) mg/dL 07/29/22 07/30/22 Range/Units 22:44 06:04 POC Glucose (mg/dL) 153 H 153 H (70-110) mg/dL Microbiology - Last 24 Hours (Table) 07/29/22 21:10 Gram Stain - Preliminary Toe - Left Fifth Tissue Culture - Preliminary 07/29/22 21:10 Fungal Culture - Preliminary Toe - Left Fifth 07/29/22 21:10 Acid Fast Bacilli Culture - Preliminary Toe - Left Fifth 07/29/22 21:10 Anaerobic Culture - Preliminary Toe - Left Fifth 07/28/22 13:26 Blood Culture - Preliminary Blood No Growth after 24 hours 07/28/22 13:17 Blood Culture - Preliminary Blood No Growth after 24 hours Assessment and Plan (1) Diabetic foot ulcer associated with diabetes mellitus due to underlying condition Current Visit: Yes Status: Acute Code(s): E08.621 - DIABETES MELLITUS DUE TO UNDERLYING CONDITION W FOOT ULCER; L97.509 - NON-PRESSURE CHRONIC ULCER OTH PRT UNSP FOOT W UNSP SEVERITY SNOMED Code(s): 485808743 (2) Diabetic ulcer of left heel associated with diabetes mellitus due to underlying condition Current Visit: Yes Status: Acute Code(s): E08.621 - DIABETES MELLITUS DUE TO UNDERLYING CONDITION W FOOT ULCER; L97.429 - NON-PRS CHRONIC ULCER OF LEFT HEEL AND MIDFOOT W UNSP SEVERT SNOMED Code(s): 250867599 Plan: 1patient with bilateral heel unstageable pressure ulcer infected in this patient with underlying diabetes mellitus also renal transplant on immunosuppressive medication with recent admission to the hospital due to for ESBL E. coli UTI and bacteremia, keeping in mind his recent hospitalization as well as senior living placement and infection with a multidrug-resistant pathogen will need to cover with a broad-spectrum antibiotic while waiting for the culture to finalize. 2patient is status post surgical debridement of bilateral heel along with amputation of the left fifth toe and deep culture which are currently pending. 3patient will continue with meropenem 1 g every 8 hours while waiting for the culture to finalize. Time with Patient: Less than 30
--- NOTE | 2022-08-01 00:34 | P.PN ---
Subjective Progress Note Date: 07/31/22 Principal diagnosis: Bilateral heel infected pressure ulcer Patient is a 82-year-old male with a past medical history significant for renal transplant recent admission to the hospital for ESBL E. coli UTI and bacteremia presenting with the infected bilateral heel pressure ulcer and left fifth toe gangrene status post amputation of the left fifth toe and debridement of bilateral heel wound completed on 07/29/2022 On today's evaluation that is 07/31/2022, the patient remains to be afebrile, the patient pain to bilateral heel is controlled with the current medication, patient denies having any chest pain or shortness of breath or cough. Patient denies nausea no vomiting no abdominal pain no diarrhea Objective - Vital Signs Vital signs: Vital Signs Temp 98.9 F 07/31/22 12:49 Pulse 78 07/31/22 12:49 Resp 16 07/31/22 12:49 BP 189/61 07/31/22 12:49 Pulse Ox 100 07/31/22 12:49 FiO2 Intake & Output 07/30/22 07/31/22 07/31/22 18:59 06:59 18:59 Intake Total 200 Output Total 375 Balance 200 -375 Intake: Intake, IV Titration 200 Amount Meropenem 1 gm In Sodium 100 Chloride 0.9% 100 ml @ 33 .3 mls/hr IVPB Q8HR [facility] Rx#:[id number] Sodium Ferric Gluconat- 100 Sucrose 125 mg In Sodium Chloride 0.9% 100 ml @ 100 mls/hr IVPB DAILY [facility] Rx#:[id number] Output: Urine 375 Stool 0 Other: Voiding Method Indwelling Catheter # Voids 5 - Exam GENERAL DESCRIPTION: An elderly male lying in bed in no distress RESPIRATORY SYSTEM: Unlabored breathing , decreased breath sounds at bases HEART: S1 S2 regular rate and rhythm , ABDOMEN: Soft , no tenderness EXTREMITIES: Bilateral heel wounds are currently dressed, no drainage on dressing. - Labs CBC & Chem 7: 07/28/22 13:17 07/31/22 11:04 Labs: Abnormal Lab Results - Last 24 Hours (Table) 07/30/22 07/31/22 07/31/22 Range/Units 16:12 02:27 05:56 Chloride (98-107) mmol/L Glucose (74-99) mg/dL POC Glucose (mg/dL) 32 L 48 L 68 L (70-110) mg/dL 07/31/22 07/31/22 Range/Units 11:04 12:29 Chloride 108 H (98-107) mmol/L Glucose 129 H (74-99) mg/dL POC Glucose (mg/dL) 208 H (70-110) mg/dL Microbiology - Last 24 Hours (Table) 07/29/22 21:10 Gram Stain - Preliminary Toe - Left Fifth Tissue Culture - Preliminary Gram Neg Bacilli Group D Enterococcus 07/29/22 21:10 Acid Fast Bacilli Smear - Final Toe - Left Fifth Acid Fast Bacilli Culture - Preliminary 07/28/22 13:26 Blood Culture - Preliminary Blood No Growth after 48 hours 07/28/22 13:17 Blood Culture - Preliminary Blood No Growth after 48 hours Assessment and Plan (1) Diabetic ulcer of left heel associated with diabetes mellitus due to underlying condition Current Visit: Yes Status: Acute Code(s): E08.621 - DIABETES MELLITUS DUE TO UNDERLYING CONDITION W FOOT ULCER; L97.429 - NON-PRS CHRONIC ULCER OF LEFT HEEL AND MIDFOOT W UNSP SEVERT SNOMED Code(s): 474704011 Plan: 1patient with bilateral heel unstageable pressure ulcer infected in this patient with underlying diabetes mellitus also renal transplant on immunosuppressive medication with recent admission to the hospital due to for ESBL E. coli UTI and bacteremia. 2patient is status post surgical debridement of bilateral heel along with amputation of the left fifth toe and deep culture which are currently growing enterococcus and gram-negative with ID sensitivities pending 3patient to continue with meropenem 1 g every 8 hours while waiting for the culture to finalize. Time with Patient: Less than 30
[2022-08-01] MEDS ORDERED: CEFEPIME 2 GM in SODIUM CHLORIDE 0.9% 100 ML IVPB SCH (01:00)
[2022-08-01] MEDS ORDERED: VANCOMYCIN 1,500 MG in SODIUM CHLORIDE 0.9% 500 ML 500 ML IVPB SCH (01:00)
[2022-08-01 03:15] LABS: Glucose,Whole Blood 63 mg/dL (70-110)
[2022-08-01 03:43] LABS: Glucose,Whole Blood 63 mg/dL (70-110)
[2022-08-01 04:12] LABS: Glucose,Whole Blood 164 mg/dL (70-110)
[2022-08-01 06:23] LABS: Glucose,Whole Blood 77 mg/dL (70-110)
[2022-08-01] MEDS: INSULIN ASPART (NovoLOG) 100 UNIT/ML VIAL SQ SCH ×4 (06:26→21:14)
[2022-08-01] MEDS: MYCOPHENOLATE SODIUM DR 180 MG TABLET.DR PO SCH ×2 (06:31→17:14)
[2022-08-01] MEDS: FERROUS SULFATE 325 MG TAB PO SCH ×2 (06:31→17:14)
[2022-08-01] MEDS: hydrALAZINE HCL 50 MG TAB PO SCH ×3 (06:31→17:14)
[2022-08-01] MEDS: MULTIVITAMINS, THERA 1 EACH TAB PO SCH (06:32)
[2022-08-01] MEDS: MAGNESIUM OXIDE 400 MG TAB PO SCH (06:32)
[2022-08-01] MEDS: CHOLECALCIFEROL 25 MCG (1000 IU) TABLET PO SCH (06:32)
[2022-08-01] MEDS: NON FORMULARY DRUG (Sirolimus [Sirolimus] 1 MG Tablet) PO SCH (06:32)
[2022-08-01] MEDS: PANTOPRAZOLE 40 MG TABLET PO SCH (06:32)
[2022-08-01] MEDS: carvediloL 12.5 MG TAB PO SCH ×2 (06:32→17:15)
[2022-08-01 06:41] LABS: Glucose,Whole Blood 92 mg/dL (70-110)
[2022-08-01] MEDS ORDERED: INSULIN DETEMIR (LEVEMIR) 100 UNIT/ML SYR SQ SCH (07:00)
[2022-08-01] MEDS: SODIUM FERRIC GLUCONAT-SUCROSE 125 MG in SODIUM CHLORIDE 0.9% 100 ML IVPB SCH (09:05)
[2022-08-01] MEDS: NIFEdipine XL 90 MG TAB.ER.24 PO SCH (09:06)
[2022-08-01] MEDS: VIT A,C & E-LUTEIN-MINERALS 1 EACH TAB PO SCH (09:06)
[2022-08-01] MEDS: cloNIDine HCL 0.1 MG TAB PO SCH (09:06)
[2022-08-01] MEDS: COLLAGENASE 250 UNIT/GM OINTMENT 30 GM TUBE TOPICAL SCH (09:06)
[2022-08-01] MEDS: VANCOMYCIN 1,500 MG in SODIUM CHLORIDE 0.9% 500 ML 500 ML IVPB SCH ×2 (10:26→21:13)
[2022-08-01 12:02] LABS: Glucose,Whole Blood 144 mg/dL (70-110)
[2022-08-01] MEDS: CEFEPIME 2 GM in SODIUM CHLORIDE 0.9% 100 ML IVPB SCH ×2 (13:54→21:14)
--- NOTE | 2022-08-01 14:10 | P.PN ---
Progress Note - Text Progress Note Date: 08/01/22 Chief Complaint: Left foot fifth toe discoloration This is a 82-year-old patient who follows with Dr. Hugo Suggs. Chronic stable medical conditions include renal transplant in [address] Brooks, , CAD with bypass, hypertension, Patient is accompanied by his in the ER. Patient has bilateral chronic heel ulcers with dressing changes at home. Home care nurse does come out. While doing the dressing patient nurse noted that there was discoloration of the left foot fifth toe. Some tenderness. No breakdown of skin. No fever no chills. Patient lower extremity does get swelling but does: At night. Patient nonambulatory. He does use a bedside commode. 07/29/2022: Patient is going down for bilateral heel debridement because of foul odor-Dr. Stratton from vascular. Patient nothing by mouth. Discussed with the at the bedside. 07/30/2022: Patient underwent left fifth toe amputation in a deep ulcer debridement by Dr. Stratton yesterday. On IV meropenem. Dressing changes to Dr. Perkins. Discussed with patient and . 07/31/2022: Dressing changes per vascular. Decreased appetite. Patient encouraged to eat. Discussed with the and nurse. Continue IV meropenem. IV Ferrlecit. Cultures in place. Blood pressure running high. Coreg adjusted. 08/01/2022: In bed. Comfortable. Dressing changes. IV cefepime and vancomycin. Blood pressure better. Active Medications Acetaminophen (Acetaminophen Tab 325 Mg Tab) 650 mg PO Q6HR PRN PRN Reason: Mild Pain or Fever > 100.5 Last Admin: 07/31/22 14:38 Dose: 650 mg Atorvastatin Calcium (Atorvastatin 40 Mg Tab) 40 mg PO DAILY@1800 [facility] Last Admin: 07/31/22 17:37 Dose: 40 mg Carvedilol (Carvedilol 12.5 Mg Tab) 12.5 mg PO BID-W/MEALS [facility] Last Admin: 08/01/22 06:32 Dose: 12.5 mg Cholecalciferol (Cholecalciferol 25 Mcg (1000 Iu) Tablet) 50 mcg PO DAILY@0600 [facility] Last Admin: 08/01/22 06:32 Dose: 50 mcg Clonidine (Clonidine Hcl 0.1 Mg Tab) 0.1 mg PO DAILY [facility] Last Admin: 08/01/22 09:06 Dose: 0.1 mg Collagenase (Collagenase 250 Unit/Gm Ointment 30 Gm Tube) 1 applic TOPICAL DAILY [facility]; Protocol Last Admin: 08/01/22 09:06 Dose: 1 applic Ferrous Sulfate (Ferrous Sulfate 325 Mg Tab) 325 mg PO BID-W/MEALS [facility] Last Admin: 08/01/22 06:31 Dose: 325 mg Hydralazine HCl (Hydralazine Hcl 50 Mg Tab) 100 mg PO AC-TID [facility] Last Admin: 08/01/22 12:18 Dose: 100 mg Ferric Sodium Gluconate 125 mg (/ Sodium Chloride) 110 mls @ 100 mls/hr IVPB DAILY [facility] Stop: 08/02/22 10:05 Last Admin: 08/01/22 09:05 Dose: 100 mls/hr Cefepime HCl 2 gm/ Sodium (Chloride) 100 mls @ 25 mls/hr IVPB Q8H [facility]; Protocol Last Admin: 08/01/22 13:54 Dose: 25 mls/hr Vancomycin HCl 1,500 mg/ (Sodium Chloride) 500 mls @ 167 mls/hr IVPB Q12H [facility] Last Admin: 08/01/22 10:26 Dose: 167 mls/hr Insulin Aspart (Insulin Aspart (Novolog) 100 Unit/Ml Vial) 0 unit SQ ACHS [facility]; Protocol Last Admin: 08/01/22 12:10 Dose: Not Given Insulin Detemir (Insulin Detemir (Levemir) 100 Unit/Ml Syr) 15 unit SQ DAILY@0700 [facility] Last Admin: 08/01/22 06:26 Dose: Not Given Losartan Potassium (Losartan 50 Mg Tab) 100 mg PO HS [facility] Last Admin: 07/31/22 22:29 Dose: 100 mg Magnesium Oxide (Magnesium Oxide 400 Mg Tab) 400 mg PO DAILY@0600 [facility] Last Admin: 08/01/22 06:32 Dose: 400 mg Miscellaneous Information (Vancomycin Trough Due 1 Each Misc) 1 each MISCELLANE ONCE ONE Stop: 08/02/22 21:01 Multivitamins (Multivitamins, Thera 1 Each Tab) 1 each PO DAILY@0600 [facility] Last Admin: 08/01/22 06:32 Dose: 1 each Multivitamins/Minerals (Vit A,C & F-Mayvvn-Lgsrwasl 1 Each Tab) 1 each PO DAILY [facility] Last Admin: 08/01/22 09:06 Dose: 1 each Mycophenolate Sodium (Mycophenolate Sodium Dr 180 Mg Tablet.) 360 mg PO BID@0600,1800 [facility] Last Admin: 08/01/22 06:31 Dose: 360 mg Naloxone HCl (Naloxone 0.4 Mg/Ml 1 Ml Vial) 0.2 mg IV Q2M PRN PRN Reason: Opioid Reversal Nifedipine (Nifedipine Xl 90 Mg Tab.Er.24) 90 mg PO DAILY [facility] Last Admin: 08/01/22 09:06 Dose: 90 mg Nitroglycerin (Nitroglycerin Sl Tabs 0.4 Mg Tab) 0.4 mg SUBLINGUAL Q5M PRN PRN Reason: Chest Pain Non-Formulary Medication (Sirolimus [Sirolimus]) 2 mg PO DAILY@0600 [facility] Last Admin: 08/01/22 06:32 Dose: 2 mg Pantoprazole Sodium (Pantoprazole 40 Mg Tablet) 40 mg PO AC-BRKFST [facility] Last Admin: 08/01/22 06:32 Dose: 40 mg Sertraline HCl (Sertraline 50 Mg Tab) 50 mg PO DAILY@1800 [facility] Last Admin: 07/31/22 17:37 Dose: 50 mg Past medical history to include: Renal transplant 2003,, hypertension, CAD with bypass, chronic heel ulcers 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 Conjunctiva normal. HEENT: External appearance of nose and ears normal, oral cavity grossly normal. NECK: JVD not raised; masses not palpable. HEART: First and second heart sounds are normal; no edema. LUNGS: Respiratory rate normal; decreased breath sounds. ABDOMEN: Soft, nontender, liver spleen not palpable, no masses palpable. PSYCH: Alert and oriented x3; mood and affect normal. MUSCULOSKELETAL:No Clubbing/cyanosis;muscles-grossly intact. Evidence of OA EXTREMITIES: Ulcers in both the heels. - dressing... INVESTIGATIONS, reviewed in the clinical context: 07/31/2022: Potassium 4.6 creatinine 0.8 date Iron 8 TIBC 146% saturation 5.81 transferred 104 ferritin 331 White count 10.9 hemoglobin 7.2 platelets [id number] BUN 20 creatinine 0.97 troponin I 0.017 CRP 13.9 EKG tracing personally reviewed by me-normal sinus rhythm. Nonspecific T-wave changes. foot x-ray results noted. Chest x-ray film: Cardiomegaly, saphenous prominence Assessment and plan: -Acute left foot fifth toe, dactylitis, possible ischemic: Culture growing group D enterococcus, presumptive MRSA Amputation by Dr. Stratton. IV cefepime, IV vancomycin -Bilateral infected acute on chronic decubitus heel ulcers, with foul odor: Left foot, debridement: Cultures pending Dr. Stratton:-debridement July 29. 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 Baseline creatinine 0.9. sirolimus,myfortic -CAD with a prior history of bypass Lipitor, Coreg -Microcytic anemia, iron deficiency anemia IV Ferrlecit 2 doses -Essential hypertension: Hydralazine, Catapres, Coreg 12.5 mg twice a day, -Diabetes mellitus type 2, chronically on insulin NPH 36 units-hold. Sliding scale. Levemir 10 units subcu daily at bedtime -Depression Zoloft -Renal transplant 2003. Patient follows with Dr. edwin martin. Follow with nephrology, IV meropenem IV vancomycin. Wound care per Dr. Perkins. Follow blood pressure.. Care was discussed with the . Patient probably need rehab.
[2022-08-01 16:56] LABS: Glucose,Whole Blood 228 mg/dL (70-110)
[2022-08-01] MEDS: SERTRALINE 50 MG TAB PO SCH (17:14)
[2022-08-01] MEDS: ATORVASTATIN 40 MG TAB PO SCH (17:14)
[2022-08-01 20:17] LABS: Glucose,Whole Blood 198 mg/dL (70-110)
[2022-08-01] MEDS: LOSARTAN 50 MG TAB PO SCH (21:14)
[2022-08-01] MEDS: INSULIN DETEMIR (LEVEMIR) 100 UNIT/ML SYR SQ SCH (21:26)
--- NOTE | 2022-08-01 23:24 | P.PN ---
Subjective Progress Note Date: 08/01/22 Principal diagnosis: Bilateral heel infected pressure ulcer Patient is a 82-year-old male with a past medical history significant for renal transplant recent admission to the hospital for ESBL E. coli UTI and bacteremia presenting with the infected bilateral heel pressure ulcer and left fifth toe gangrene status post amputation of the left fifth toe and debridement of bilateral heel wound completed on 07/29/2022 On today's evaluation that is 08/01/2022, the patient continues to be afebrile, the patient pain to bilateral heel is controlled, patient denies having any chest pain or shortness of breath or cough. Patient denies nausea no vomiting no abdominal pain no diarrhea, no new symptoms Objective - Vital Signs Vital signs: Vital Signs Temp 98.2 F 08/01/22 20:14 Pulse 70 08/01/22 20:14 Resp 17 08/01/22 20:14 BP 144/56 08/01/22 20:14 Pulse Ox 99 08/01/22 20:14 FiO2 Intake & Output 08/01/22 08/01/22 08/02/22 06:59 18:59 06:59 Output Total 350 Balance -350 Output: Urine 350 Other: # Voids 4 # Bowel Movements 1 1 - Exam GENERAL DESCRIPTION: An elderly male lying in bed in no distress RESPIRATORY SYSTEM: Unlabored breathing , decreased breath sounds at bases HEART: S1 S2 regular rate and rhythm , ABDOMEN: Soft , no tenderness EXTREMITIES: Bilateral heel wounds are currently dressed, no drainage on dressing. - Labs CBC & Chem 7: 07/28/22 13:17 07/31/22 11:04 Labs: Abnormal Lab Results - Last 24 Hours (Table) 08/01/22 08/01/22 08/01/22 Range/Units 03:13 03:42 04:10 POC Glucose (mg/dL) 63 L 63 L 164 H (70-110) mg/dL 08/01/22 08/01/22 08/01/22 Range/Units 11:55 16:54 20:16 POC Glucose (mg/dL) 144 H 228 H 198 H (70-110) mg/dL Microbiology - Last 24 Hours (Table) 07/29/22 21:10 Gram Stain - Final Toe - Left Fifth Tissue Culture - Final Pseudomonas aeruginosa Enterococcus faecalis Methicillin resist S. aureus 07/28/22 13:26 Blood Culture - Preliminary Blood No Growth after 96 hours 07/28/22 13:17 Blood Culture - Preliminary Blood No Growth after 96 hours 07/29/22 21:10 Anaerobic Culture - Preliminary Toe - Left Fifth Assessment and Plan (1) Diabetic ulcer of left heel associated with diabetes mellitus due to underlying condition Current Visit: Yes Status: Acute Code(s): E08.621 - DIABETES MELLITUS DUE TO UNDERLYING CONDITION W FOOT ULCER; L97.429 - NON-PRS CHRONIC ULCER OF LEFT HEEL AND MIDFOOT W UNSP SEVERT SNOMED Code(s): 477756945 Plan: 1patient with bilateral heel unstageable pressure ulcer infected in this radha ent with underlying diabetes mellitus also renal transplant on immunosuppressive medication with recent admission to the hospital due to for ESBL E. coli UTI and bacteremia. 2patient is status post surgical debridement of bilateral heel along with amputation of the left fifth toe and deep culture which are currently growing enterococcus MRSA and pseudomonas 3patient antibiotic has been adjusted to cefepime and vancomycin patient will need a PICC line for outpatient IV antibiotic therapy Time with Patient: Less than 30
[2022-08-02 02:57] LABS: Glucose,Whole Blood 102 mg/dL (70-110)
[2022-08-02] MEDS: CEFEPIME 2 GM in SODIUM CHLORIDE 0.9% 100 ML IVPB SCH ×3 (05:50→21:50)
[2022-08-02] MEDS: carvediloL 12.5 MG TAB PO SCH ×2 (05:51→17:29)
[2022-08-02] MEDS: hydrALAZINE HCL 50 MG TAB PO SCH ×3 (05:51→17:29)
[2022-08-02] MEDS: MAGNESIUM OXIDE 400 MG TAB PO SCH (05:51)
[2022-08-02] MEDS: MULTIVITAMINS, THERA 1 EACH TAB PO SCH (05:51)
[2022-08-02] MEDS: PANTOPRAZOLE 40 MG TABLET PO SCH (05:51)
[2022-08-02] MEDS: CHOLECALCIFEROL 25 MCG (1000 IU) TABLET PO SCH (05:51)
[2022-08-02] MEDS: FERROUS SULFATE 325 MG TAB PO SCH ×2 (05:51→17:29)
[2022-08-02] MEDS: NON FORMULARY DRUG (Sirolimus [Sirolimus] 1 MG Tablet) PO SCH (05:59)
[2022-08-02] MEDS: MYCOPHENOLATE SODIUM DR 180 MG TABLET.DR PO SCH ×2 (05:59→17:29)
[2022-08-02 06:19] LABS: Glucose,Whole Blood 71 mg/dL (70-110)
[2022-08-02 06:45] LABS: Glucose,Whole Blood 101 mg/dL (70-110)
[2022-08-02] MEDS: INSULIN ASPART (NovoLOG) 100 UNIT/ML VIAL SQ SCH ×4 (07:07→21:51)
[2022-08-02] MEDS: cloNIDine HCL 0.1 MG TAB PO SCH ×3 (09:13→21:50)
[2022-08-02] MEDS: NIFEdipine XL 90 MG TAB.ER.24 PO SCH (09:13)
[2022-08-02] MEDS: VIT A,C & E-LUTEIN-MINERALS 1 EACH TAB PO SCH (09:13)
[2022-08-02] MEDS: SODIUM FERRIC GLUCONAT-SUCROSE 125 MG in SODIUM CHLORIDE 0.9% 100 ML IVPB SCH (09:13)
[2022-08-02] MEDS: COLLAGENASE 250 UNIT/GM OINTMENT 30 GM TUBE TOPICAL SCH (09:13)
[2022-08-02] MEDS: VANCOMYCIN 1,500 MG in SODIUM CHLORIDE 0.9% 500 ML 500 ML IVPB SCH ×2 (10:44→22:05)
--- NOTE | 2022-08-02 11:29 | P.PN ---
Subjective Patient is seen in follow-up for renal transplant management. Resting in bed. Blood pressure on the higher side. On nasal cannula. Denies chest pain or shortness of breath. Oral intake fair. Has been voiding. Nonoliguric. Vital signs are stable. General: Awake. No acute distress. HEENT: Head exam is unremarkable. On nasal cannula. LUNGS: Breath sounds decreased. HEART: Rate and Rhythm are regular. ABDOMEN: Soft, no distention. EXTREMITITES: No edema. No drainage. Objective - Vital Signs Vital signs: Vital Signs Temp 97.8 F 08/02/22 08:00 Pulse 69 08/02/22 08:00 Resp 17 08/02/22 08:00 BP 176/54 08/02/22 08:00 Pulse Ox 99 08/02/22 08:00 FiO2 Intake & Output 08/01/22 08/02/22 08/02/22 18:59 06:59 18:59 Output Total 600 Balance -600 Output: Urine 600 Other: # Voids 4 # Bowel Movements 1 - Labs CBC & Chem 7: 07/28/22 13:17 08/02/22 09:18 Labs: Abnormal Lab Results - Last 24 Hours (Table) 08/01/22 08/01/22 08/01/22 Range/Units 11:55 16:54 20:16 POC Glucose (mg/dL) 144 H 228 H 198 H (70-110) mg/dL Microbiology - Last 24 Hours (Table) 07/29/22 21:10 Anaerobic Culture - Final Toe - Left Fifth 07/29/22 21:10 Gram Stain - Final Toe - Left Fifth Tissue Culture - Final Pseudomonas aeruginosa Enterococcus faecalis Methicillin resist S. aureus 07/28/22 13:26 Blood Culture - Preliminary Blood No Growth after 96 hours 07/28/22 13:17 Blood Culture - Preliminary Blood No Growth after 96 hours Assessment and Plan Plan: Assessment: 1. Status post living unrelated renal transplant in 2003. Renal function stable. Creatinine 0.96 today. 2. Bilateral heel ulcerations. Underwent debridement with amputation of left fifth toe. On antibiotics per ID. 3. Hypertension with chronic kidney disease. 4. Diabetes mellitus. 5. Anemia. Rule out iron deficiency. 6. Chronic kidney disease stage II with baseline creatinine near 0.9-1. Plan: Encourage oral intake. Increase clonidine to 0.1 mg 3 times daily - hold for systolic blood pressure less than 120. Check sirolimus level. Avoid nephrotoxins. Check iron studies.
[2022-08-02 11:33] LABS: Glucose,Whole Blood 117 mg/dL (70-110)
--- NOTE | 2022-08-02 17:14 | P.PN ---
Progress Note - Text Progress Note Date: 08/02/22 Chief Complaint: Left foot fifth toe discoloration This is a 82-year-old patient who follows with Dr. Hugo Suggs. Chronic stable medical conditions include renal transplant in [address] Brooks, , CAD with bypass, hypertension, Patient is accompanied by his in the ER. Patient has bilateral chronic heel ulcers with dressing changes at home. Home care nurse does come out. While doing the dressing patient nurse noted that there was discoloration of the left foot fifth toe. Some tenderness. No breakdown of skin. No fever no chills. Patient lower extremity does get swelling but does: At night. Patient nonambulatory. He does use a bedside commode. 07/29/2022: Patient is going down for bilateral heel debridement because of foul odor-Dr. Stratton from vascular. Patient nothing by mouth. Discussed with the at the bedside. 07/30/2022: Patient underwent left fifth toe amputation in a deep ulcer debridement by Dr. Stratton yesterday. On IV meropenem. Dressing changes to Dr. Perkins. Discussed with patient and . 07/31/2022: Dressing changes per vascular. Decreased appetite. Patient encouraged to eat. Discussed with the and nurse. Continue IV meropenem. IV Ferrlecit. Cultures in place. Blood pressure running high. Coreg adjusted. 08/01/2022: In bed. Comfortable. Dressing changes. IV cefepime and vancomycin. Blood pressure better. 08/02/2022: Comfortable. Spoke to ID. 4 midline and oral antibiotics. Spoke to case reviewer. Looking at the same. Blood pressure running on the high side still. Catapres increased to 0.1 mg 3 times a day discussed with patient and . Active Medications Acetaminophen (Acetaminophen Tab 325 Mg Tab) 650 mg PO Q6HR PRN PRN Reason: Mild Pain or Fever > 100.5 Last Admin: 07/31/22 14:38 Dose: 650 mg Atorvastatin Calcium (Atorvastatin 40 Mg Tab) 40 mg PO DAILY@1800 [facility] Last Admin: 08/01/22 17:14 Dose: 40 mg Carvedilol (Carvedilol 12.5 Mg Tab) 25 mg PO BID-W/MEALS [facility] Cholecalciferol (Cholecalciferol 25 Mcg (1000 Iu) Tablet) 50 mcg PO DAILY@0600 [facility] Last Admin: 08/02/22 05:51 Dose: 50 mcg Clonidine (Clonidine Hcl 0.1 Mg Tab) 0.1 mg PO TID [facility] Last Admin: 08/02/22 15:52 Dose: 0.1 mg Collagenase (Collagenase 250 Unit/Gm Ointment 30 Gm Tube) 1 applic TOPICAL DAILY [facility]; Protocol Last Admin: 08/02/22 09:13 Dose: 1 applic Ferrous Sulfate (Ferrous Sulfate 325 Mg Tab) 325 mg PO BID-W/MEALS [facility] Last Admin: 08/02/22 05:51 Dose: 325 mg Hydralazine HCl (Hydralazine Hcl 50 Mg Tab) 100 mg PO AC-TID [facility] Last Admin: 08/02/22 13:04 Dose: 100 mg Cefepime HCl 2 gm/ Sodium (Chloride) 100 mls @ 25 mls/hr IVPB Q8H [facility]; Protocol Last Admin: 08/02/22 14:39 Dose: 25 mls/hr Vancomycin HCl 1,500 mg/ (Sodium Chloride) 500 mls @ 167 mls/hr IVPB Q12H [facility] Last Admin: 08/02/22 10:44 Dose: 167 mls/hr Insulin Aspart (Insulin Aspart (Novolog) 100 Unit/Ml Vial) 0 unit SQ [facility]; Protocol Last Admin: 08/02/22 12:08 Dose: Not Given Insulin Detemir (Insulin Detemir (Levemir) 100 Unit/Ml Syr) 10 unit SQ [facility] Last Admin: 08/01/22 21:26 Dose: 10 unit Losartan Potassium (Losartan 50 Mg Tab) 100 mg PO [facility] Last Admin: 08/01/22 21:14 Dose: 100 mg Magnesium Oxide (Magnesium Oxide 400 Mg Tab) 400 mg PO DAILY@0600 [facility] Last Admin: 08/02/22 05:51 Dose: 400 mg Miscellaneous Information (Vancomycin Trough Due 1 Each Misc) 1 each MISCELLANE ONCE ONE Stop: 08/02/22 21:01 Multivitamins (Multivitamins, Thera 1 Each Tab) 1 each PO DAILY@0600 [facility] Last Admin: 08/02/22 05:51 Dose: 1 each Multivitamins/Minerals (Vit A,C & F-Bbwssx-Ntljzsra 1 Each Tab) 1 each PO DAILY [facility] Last Admin: 08/02/22 09:13 Dose: 1 each Mycophenolate Sodium (Mycophenolate Sodium Dr 180 Mg Tablet.) 360 mg PO BID@0600,1800 [facility] Last Admin: 08/02/22 05:59 Dose: 360 mg Naloxone HCl (Naloxone 0.4 Mg/Ml 1 Ml Vial) 0.2 mg IV Q2M PRN PRN Reason: Opioid Reversal Nifedipine (Nifedipine Xl 90 Mg Tab.Er.24) 90 mg PO DAILY [facility] Last Admin: 08/02/22 09:13 Dose: 90 mg Nitroglycerin (Nitroglycerin Sl Tabs 0.4 Mg Tab) 0.4 mg SUBLINGUAL Q5M PRN PRN Reason: Chest Pain Non-Formulary Medication (Sirolimus [Sirolimus]) 2 mg PO DAILY@0600 [facility] Last Admin: 08/02/22 05:59 Dose: 2 mg Pantoprazole Sodium (Pantoprazole 40 Mg Tablet) 40 mg PO AC-BRKFST [facility] Last Admin: 08/02/22 05:51 Dose: 40 mg Sertraline HCl (Sertraline 50 Mg Tab) 50 mg PO DAILY@1800 [facility] Last Admin: 08/01/22 17:14 Dose: 50 mg Past medical history to include: Renal transplant 2003,, hypertension, CAD with bypass, chronic heel ulcers 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 Conjunctiva normal. HEENT: External appearance of nose and ears normal, oral cavity grossly normal. NECK: JVD not raised; masses not palpable. HEART: First and second heart sounds are normal; no edema. LUNGS: Respiratory rate normal; decreased breath sounds. ABDOMEN: Soft, nontender, liver spleen not palpable, no masses palpable. PSYCH: Alert and oriented x3; mood and affect normal. MUSCULOSKELETAL:No Clubbing/cyanosis;muscles-grossly intact. Evidence of OA EXTREMITIES: Ulcers in both the heels. - dressing... INVESTIGATIONS, reviewed in the clinical context: 07/31/2022: Potassium 4.6 creatinine 0.8 date Iron 8 TIBC 146% saturation 5.81 transferred 104 ferritin 331 White count 10.9 hemoglobin 7.2 platelets 506-2135 BUN 20 creatinine 0.97 troponin I 0.017 CRP 13.9 EKG tracing personally reviewed by me-normal sinus rhythm. Nonspecific T-wave changes. foot x-ray results noted. Chest x-ray film: Cardiomegaly, saphenous prominence Assessment and plan: -Acute left foot fifth toe, dactylitis, possible ischemic: Culture growing group D enterococcus, presumptive MRSA Amputation by Dr. Stratton. IV cefepime, IV vancomycin -Bilateral infected acute on chronic decubitus heel ulcers, with foul odor: Left foot, debridement: Cultures pending Dr. Stratton:-debridement July 29. 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 Baseline creatinine 0.9. sirolimus,myfortic -CAD with a prior history of bypass Lipitor, Coreg -Microcytic anemia, iron deficiency anemia IV Ferrlecit 2 doses -Essential hypertension: Uncontrolled Hydralazine 100 mg 3 times a day, increase Catapres 0.1 mg 3 times a day, Coreg 12.5 mg twice a day, -Diabetes mellitus type 2, chronically on insulin NPH 36 units-hold. Sliding scale. Levemir 10 units subcu daily at bedtime -Depression Zoloft -Renal transplant 2003. Patient follows with Dr. edwin martin. Follow with nephrology, IV meropenem IV vancomycin. Wound care per Dr. Perkins. Increase Catapres 0.1 mg 3 times a day. Discussed with patient and case reviewer, ID.
[2022-08-02 17:27] LABS: Glucose,Whole Blood 289 mg/dL (70-110)
[2022-08-02] MEDS: SERTRALINE 50 MG TAB PO SCH (17:29)
[2022-08-02] MEDS: ATORVASTATIN 40 MG TAB PO SCH (17:29)
[2022-08-02] MEDS ORDERED: carvediloL 12.5 MG TAB PO SCH (17:30)
--- NOTE | 2022-08-02 20:48 | PN ---
PROGRESS NOTE This is an 82-year-old gentleman, who has chronic wound, both heel. We did the extensive debridement. Also, the patient had a left foot fifth toe with gangrene changes and went with ray amputation. We have been treating wound with Santyl cream. Culture came back as Pseudomonas aeruginosa, Enterococcus faecalis, and methicillin- resistant Staphylococcus aureus. The patient is under care of Infectious Disease. The right heel wound is less infected. Left foot wound post ray amputation of the fifth toe has some flap necrosis, and distal metatarsal bone is visualized. The left heel also has a large area, and we have been using Santyl cream. At this point, the patient is going to go to the long-term. Discussed with if the patient goes to the long-term, they should continue the Santyl cream. The patient will need to follow up in the wound clinic. 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 In the meantime, continue with Santyl cream and follow up in the wound clinic. MMODL / IJN: [id number] /
[2022-08-02] MEDS ORDERED: VANCOMYCIN TROUGH DUE 1 EACH MISC MISCELLANE ONE (21:00)
[2022-08-02 21:10] LABS: Glucose,Whole Blood 199 mg/dL (70-110)
[2022-08-02] MEDS: LOSARTAN 50 MG TAB PO SCH (21:50)
[2022-08-02] MEDS: INSULIN DETEMIR (LEVEMIR) 100 UNIT/ML SYR SQ SCH (21:51)
[2022-08-03 02:32] LABS: Glucose,Whole Blood 127 mg/dL (70-110)
[2022-08-03 06:10] LABS: Glucose,Whole Blood 79 mg/dL (70-110)
[2022-08-03 06:43] LABS: African American GFR (CKD) >90 (>60 ml/min/1.73 sqM); Anion Gap 6 mmol/L; Blood Urea Nitrogen 26 mg/dL (9-20); Calcium 8.5 mg/dL (8.4-10.2); Carbon Dioxide 18 mmol/L (22-30); Chloride 112 mmol/L (98-107); Glucose 69 mg/dL (74-99); Magnesium 1.8 mg/dL (1.6-2.3); Non-African American GFR(CKD) 82 (>60 ml/min/1.73 sqM); Potassium 4.9 mmol/L (3.5-5.1); Sodium 136 mmol/L (137-145)
[2022-08-03] MEDS: CHOLECALCIFEROL 25 MCG (1000 IU) TABLET PO SCH (06:49)
[2022-08-03] MEDS: carvediloL 12.5 MG TAB PO SCH (06:49)
[2022-08-03] MEDS: hydrALAZINE HCL 50 MG TAB PO SCH ×2 (06:49→11:55)
[2022-08-03] MEDS: FERROUS SULFATE 325 MG TAB PO SCH (06:49)
[2022-08-03] MEDS: PANTOPRAZOLE 40 MG TABLET PO SCH (06:49)
[2022-08-03] MEDS: MYCOPHENOLATE SODIUM DR 180 MG TABLET.DR PO SCH (06:50)
[2022-08-03] MEDS: NON FORMULARY DRUG (Sirolimus [Sirolimus] 1 MG Tablet) PO SCH (06:50)
[2022-08-03] MEDS: MAGNESIUM OXIDE 400 MG TAB PO SCH (06:50)
[2022-08-03] MEDS: CEFEPIME 2 GM in SODIUM CHLORIDE 0.9% 100 ML IVPB SCH ×2 (06:50→14:06)
[2022-08-03] MEDS: MULTIVITAMINS, THERA 1 EACH TAB PO SCH (06:50)
[2022-08-03] MEDS: INSULIN ASPART (NovoLOG) 100 UNIT/ML VIAL SQ SCH ×2 (06:55→12:02)
[2022-08-03 06:57] VITALS: TEMP 97.9
[2022-08-03] MEDS: cloNIDine HCL 0.1 MG TAB PO SCH (08:21)
[2022-08-03] MEDS: NIFEdipine XL 90 MG TAB.ER.24 PO SCH (08:21)
[2022-08-03] MEDS: VIT A,C & E-LUTEIN-MINERALS 1 EACH TAB PO SCH (08:21)
[2022-08-03] MEDS: COLLAGENASE 250 UNIT/GM OINTMENT 30 GM TUBE TOPICAL SCH (08:22)
[2022-08-03] MEDS ORDERED: VANCOMYCIN 1,250 MG in SODIUM CHLORIDE 0.9% 250 ML IVPB SCH (10:00)
[2022-08-03 11:18] LABS: Glucose,Whole Blood 93 mg/dL (70-110)
--- NOTE | 2022-08-03 11:23 | P.PN ---
Subjective Patient is seen in follow-up for renal transplant management. Resting in bed. Blood pressure on the higher side. On room air. Denies chest pain or shortness of breath. Oral intake fair. Has been voiding. Nonoliguric. Vital signs are stable. General: Awake. No acute distress. HEENT: Head exam is unremarkable. LUNGS: Breath sounds decreased. HEART: Rate and Rhythm are regular. ABDOMEN: Soft, no distention. EXTREMITITES: No edema. No drainage. Objective - Vital Signs Vital signs: Vital Signs Temp 97.9 F 08/03/22 06:56 Pulse 81 08/03/22 06:56 Resp 15 08/03/22 06:56 BP 175/56 08/03/22 06:56 Pulse Ox 97 08/03/22 06:56 FiO2 Intake & Output 08/02/22 08/03/22 08/03/22 18:59 06:59 18:59 Output Total 800 1600 Balance -800 -1600 Weight 95.254 kg Output: Urine 800 1600 Other: Voiding Method External Catheter - Labs CBC & Chem 7: 07/28/22 13:17 08/03/22 05:56 Labs: Abnormal Lab Results - Last 24 Hours (Table) 08/02/22 08/02/22 08/02/22 Range/Units 11:31 17:26 21:09 Sodium (137-145) mmol/L Chloride (98-107) mmol/L Carbon Dioxide (22-30) mmol/L BUN (9-20) mg/dL Glucose (74-99) mg/dL POC Glucose (mg/dL) 117 H 289 H 199 H (70-110) mg/dL 08/03/22 08/03/22 Range/Units 02:31 05:56 Sodium 136 L (137-145) mmol/L Chloride 112 H (98-107) mmol/L Carbon Dioxide 18 L (22-30) mmol/L BUN 26 H (9-20) mg/dL Glucose 69 L (74-99) mg/dL POC Glucose (mg/dL) 127 H (70-110) mg/dL Microbiology - Last 24 Hours (Table) 07/28/22 13:26 Blood Culture - Preliminary Blood No Growth after 120 hours 07/28/22 13:17 Blood Culture - Preliminary Blood No Growth after 120 hours Assessment and Plan Plan: Assessment: 1. Status post living unrelated renal transplant in 2003. Renal function stable. Creatinine 0.85 today. 2. Bilateral heel ulcerations. Underwent debridement with amputation of left fifth toe. On antibiotics per ID. 3. Hypertension with chronic kidney disease. 4. Diabetes mellitus. 5. Anemia. Rule out iron deficiency. 6. Chronic kidney disease stage II with baseline creatinine near 0.9-1. 7. Non-gap acidosis from IV fluids he's receiving with antibiotics. Plan: Encourage oral intake. Increase clonidine to 0.2 mg 3 times daily - hold for systolic blood pressure less than 120. Follow-up sirolimus level. Avoid nephrotoxins. Follow-up iron studies. Add oral bicarbonate. Check orthostatic vital signs.
[2022-08-03] MEDS ORDERED: SODIUM BICARBONATE TAB 650 MG TAB PO SCH (11:30)
--- NOTE | 2022-08-03 12:51 | P.DS ---
Providers Date of admission: 07/28/22 17:00 Expected date of discharge: 08/03/22 Attending physician: Jerry Quezada Consults: 07/28/22 16:12 Consult Physician Urgent Consulting Provider: Giancarlo Stratton Consult Reason/Comments: gangrene, diabetic ulcer Do you want consulting provider notified?: Already Contacted 07/28/22 20:16 Consult Physician Routine Consulting Provider: Shae Morgan Consult Reason/Comments: renal transplant Do you want consulting provider notified?: Yes 07/29/22 15:33 Consult Physician Routine Consulting Provider: Sonny Jo Consult Reason/Comments: abx Do you want consulting provider notified?: Already Contacted Primary care physician: [facility] Course: Chief Complaint: Left foot fifth toe discoloration This is a 82-year-old patient who follows with Dr. Hugo Suggs. Chronic stable medical conditions include renal transplant in [address] Brooks, , CAD with bypass, hypertension, Patient is accompanied by his in the ER. Patient has bilateral chronic heel ulcers with dressing changes at home. Home care nurse does come out. While doing the dressing patient nurse noted that there was discoloration of the left foot fifth toe. Some tenderness. No breakdown of skin. No fever no chills. Patient lower extremity does get swelling but does: At night. Patient nonambulatory. He does use a bedside commode. 07/29/2022: Patient is going down for bilateral heel debridement because of foul odor-Dr. Stratton from vascular. Patient nothing by mouth. Discussed with the at the bedside. 07/30/2022: Patient underwent left fifth toe amputation in a deep ulcer debridement by Dr. Stratton yesterday. On IV meropenem. Dressing changes to Dr. Perkins. Discussed with patient and . 07/31/2022: Dressing changes per vascular. Decreased appetite. Patient encouraged to eat. Discussed with the and nurse. Continue IV meropenem. IV Ferrlecit. Cultures in place. Blood pressure running high. Coreg adjusted. 08/01/2022: In bed. Comfortable. Dressing changes. IV cefepime and vancomycin. Blood pressure better. 08/02/2022: Comfortable. Spoke to ID. 4 midline and oral antibiotics. Spoke to nurse case management. Looking at the same. Blood pressure running on the high side still. Catapres increased to 0.1 mg 3 times a day discussed with patient and . 08/03/2020: Discussed with Dr. Perkins from vascular. Patient to continue with Santyl dressing. We'll see him back in the office. Discussed with the yesterday about possible amputation depending on the clinical course. Patient to continue with IV cefepime and vancomycin and will follow with ID. Discussed with patient. Discussion and discharge planning more than 35 minutes Past medical history to include: Renal transplant 2003,, hypertension, CAD with bypass, chronic heel ulcers 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 Conjunctiva normal. HEENT: External appearance of nose and ears normal, oral cavity grossly normal. NECK: JVD not raised; masses not palpable. HEART: First and second heart sounds are normal; no edema. LUNGS: Respiratory rate normal; decreased breath sounds. ABDOMEN: Soft, nontender, liver spleen not palpable, no masses palpable. PSYCH: Alert and oriented x3; mood and affect normal. MUSCULOSKELETAL:No Clubbing/cyanosis;muscles-grossly intact. Evidence of OA EXTREMITIES: Ulcers in both the heels. - dressing... INVESTIGATIONS, reviewed in the clinical context: Left fifth toe culture: MRSA, Enterococcus faecalis, pseudomonas aeruginosa 08/03/2022: Potassium 4.9 creatinine 0.85 07/31/2022: Potassium 4.6 creatinine 0.8 date Iron 8 TIBC 146% saturation 5.81 transferred 104 ferritin 331 White count 10.9 hemoglobin 7.2 platelets 506-2135 BUN 20 creatinine 0.97 troponin I 0.017 CRP 13.9 EKG tracing personally reviewed by me-normal sinus rhythm. Nonspecific T-wave changes. foot x-ray results noted. Chest x-ray film: Cardiomegaly, saphenous prominence Assessment and plan: -Acute left foot fifth toe, dactylitis, possible ischemic, followed by amputation by Dr. Stratton.: Culture growing Pseudomonas MRSA IV cefepime, IV vancomycin -Bilateral infected acute on chronic decubitus heel ulcers, secondary to diabetes. Left also deeper than the right. Left foot debridement Dr. Stratton:-debridement July 29. IV cefepime. Patient to continue with antibiotics. Continue Santyl wound dressing. He'll follow-up in his office next Tuesday, possibility of amputation down the road depending on clinical course. 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 Baseline creatinine 0.9. sirolimus,myfortic -CAD with a prior history of bypass Lipitor, Coreg -Microcytic anemia, iron deficiency anemia IV Ferrlecit 2 doses -Essential hypertension: Hydralazine 100 mg 3 times a day, Catapres 0.1 mg 3 times a day, Coreg 12.5 mg twice a day, -Diabetes mellitus type 2, chronically on insulin NPH 36 units-hold. Sliding scale. -Depression Zoloft -Renal transplant 2003. Patient follows with Dr. edwin martin. Follow with nephrology, Disposition: ECF/[facility] Plan - Discharge Summary New Discharge Prescriptions: New carvediloL [Coreg*] 12.5 mg PO BID-W/MEALS tab Acetaminophen Tab [Tylenol] 650 mg PO Q6HR PRN tab PRN Reason: Mild Pain Or Fever > 100.5 Continue Cholecalciferol [Vitamin D3 (25 Mcg = 1000 Iu)] 50 mcg PO DAILY@0600 Sertraline [Zoloft] 50 mg PO DAILY@1900 Atorvastatin [Lipitor] 40 mg PO DAILY@1900 Mycophenolate Sodium [Mycophenolic Acid] 360 mg PO BID@0600,1900 Losartan Potassium 100 mg PO DAILY Insulin Lispro [humaLOG Kwikpen] See Protocol SQ ACHS PRN PRN Reason: HIGH BLOOD SUGAR Collagenase [Santyl Ointment] 1 applic TOPICAL DAILY Vit C/E/Zn/Coppr/Lutein/Zeaxan [Preservision Areds 2 Softgel] 1 cap PO DAILY Nitroglycerin Sl Tabs [Nitrostat] 0.4 mg SUBLINGUAL Q5M PRN PRN Reason: Chest Pain Multivitamins, Thera [Multivitamin (formulary)] 1 tab PO DAILY@0600 Sirolimus 2 mg PO DAILY@0600 hydrALAZINE HCL [Apresoline] 100 mg PO AC-TID #90 tablet Ferrous Sulfate [Iron (65 MG Elemental)] 325 mg PO BID-W/MEALS tab Pantoprazole [Protonix] 40 mg PO DAILY #30 tab NIFEdipine XL [Procardia XL] 90 mg PO DAILY Changed cloNIDine HCL [Catapres] 0.1 mg PO TID #0 Discontinued Magnesium Oxide [Mag-Ox] 400 mg PO DAILY@0600 Insulin NPH Human Isophane [humuLIN N Kwikpen] 45 unit SQ DAILY carvediloL [Coreg] 6.25 mg PO AC-BID #60 tablet Furosemide [Lasix] 20 mg PO MOWEFR Discharge Medication List Atorvastatin [Lipitor] 40 mg PO DAILY@19003/30/22 [History] Cholecalciferol [Vitamin D3 (25 Mcg = 1000 Iu)] 50 mcg PO DAILY@0603/30/22 [History] Multivitamins, Thera [Multivitamin (formulary)] 1 tab PO DAILY@0603/30/22 [History] Mycophenolate Sodium [Mycophenolic Acid] 360 mg PO BID@0600,189903/30/22 [Hist ory] Nitroglycerin Sl Tabs [Nitrostat] 0.4 mg SUBLINGUAL Q5M PRN 03/30/22 [History] Sertraline [Zoloft] 50 mg PO DAILY@189903/30/22 [History] Sirolimus 2 mg PO DAILY@0603/30/22 [History] Vit C/E/Zn/Coppr/Lutein/Zeaxan [Preservision Areds 2 Softgel] 1 cap PO DAILY 03/30/22 [History] hydrALAZINE HCL [Apresoline] 100 mg PO AC-TID #90 tablet 04/07/22 [Rx] Ferrous Sulfate [Iron (65 MG Elemental)] 325 mg PO BID-W/MEALS tab 06/08/22 [Rx] Pantoprazole [Protonix] 40 mg PO DAILY #30 tab 06/08/22 [Rx] Collagenase [Santyl Ointment] 1 applic TOPICAL DAILY 07/28/22 [History] Insulin Lispro [humaLOG Kwikpen] See Protocol SQ ACHS PRN 07/28/22 [History] Losartan Potassium 100 mg PO DAILY 07/28/22 [History] NIFEdipine XL [Procardia XL] 90 mg PO DAILY 07/28/22 [History] Acetaminophen Tab [Tylenol] 650 mg PO Q6HR PRN tab 08/03/22 [Rx] carvediloL [Coreg*] 12.5 mg PO BID-W/MEALS tab 08/03/22 [Rx] cloNIDine HCL [Catapres] 0.1 mg PO TID #0 08/03/22 [Rx] Follow up Appointment(s)/Referral[facility]s): [facility] - As Needed Care,[facility] [NON-STAFF] - As Needed Hugo Sanders DO [Primary Care Provider] - 1 Week None,Stated [REFERRING] - 1-2 days [facility] [NON-STAFF] - 08/16/22 1:45 pm (First available appointment) [facility], [NON-STAFF] - As Needed Giancarlo Stratton MD [STAFF PHYSICIAN] - 1-2 days Activity/Diet/Wound Care/Special Instructions: [facility] f/u wound care clinic dr stratton wound care per dr stratton antibiotics per dr jo
[2022-08-03] MEDS ORDERED: LIDOCAINE 1% INJ 10MG/ML (30 ML VIAL-PF) IV ONE (12:54)
--- NOTE | 2022-08-03 13:14 | IR ---
PICC LINE PLACEMENT: HISTORY: Infection requiring long-term antibiotic therapy PROCEDURE: Ultrasound and fluoroscopic guidance of PICC line placement. COMPLICATIONS: None ANESTHESIA: 1. 1% Lidocaine locally. FINDINGS/TECHNIQUE: The procedure was explained to the patient. The risks, complications, benefits and alternatives were discussed and any questions were answered. Informed consent was obtained. The patient was placed supine on the fluoroscopic table and prepped and draped in the usual sterile fash ion. Utilizing a 21 gauge needle and sonographic and fluoroscopic guidance, access in the left basi lic vein was achieved and there is placement of a 0.018 guidewire. The vein is patent. A 4-F sheath was placed over the guidewire. The guidewire and dilator were removed and a 4-F. PICC line was plac ed through the sheath with the tip at the level of the SVC. The sheath was removed, the catheter was flushed and sutured into position. The patient was stable throughout the procedure and remained sta ble upon discharge from the Department of Radiology. The vein puncture was patent under ultrasound. A orellana scale image was obtained to document patency of the vein punctured. All elements of the maximal barrier technique were utilized. FLUOROSCOPY TIME: 0.1 minutes and 1 images submitted. IMPRESSION: Successful PICC line placement under ultrasound and fluoroscopic guidance.
[2022-08-03 13:45] LABS: % Iron Saturation 14.57 (15.00-50.00)
[2022-08-03] MEDS: ACETAMINOPHEN TAB 325 MG TAB PO PRN (14:19)
[2022-08-03 14:28] VITALS: BP 139/43; PULSE 83; RESP 20
[2022-08-03] MEDS ORDERED: cloNIDine HCL 0.2 MG TAB PO SCH (16:00)
[2022-08-03 16:28] LABS: Glucose,Whole Blood 169 mg/dL (70-110)
--- NOTE | 2022-08-10 11:26 | P.PN ---
Subjective Progress Note Date: 08/02/22 Principal diagnosis: Bilateral heel infected pressure ulcer Patient is a 82-year-old male with a past medical history significant for renal transplant recent admission to the hospital for ESBL E. coli UTI and bacteremia presenting with the infected bilateral heel pressure ulcer and left fifth toe gangrene status post amputation of the left fifth toe and debridement of bilateral heel wound completed on 07/29/2022 On today's evaluation that is 08/02/2022, the patient remains to be afebrile, the patient pain to bilateral heel wound area is controlled, patient denies h aving any chest pain or shortness of breath or cough. Patient denies nausea no vomiting no abdominal pain no diarrhea, Objective - Vital Signs Vital signs: Vital Signs Temp 97.8 F 08/02/22 08:00 Pulse 69 08/02/22 08:00 Resp 17 08/02/22 08:00 BP 176/54 08/02/22 08:00 Pulse Ox 99 08/02/22 08:00 FiO2 Intake & Output 08/01/22 08/02/22 08/02/22 18:59 06:59 18:59 Output Total 600 Balance -600 Weight 95.254 kg Output: Urine 600 Other: # Voids 4 # Bowel Movements 1 - Exam GENERAL DESCRIPTION: An elderly male lying in bed in no distress RESPIRATORY SYSTEM: Unlabored breathing , decreased breath sounds at bases HEART: S1 S2 regular rate and rhythm , ABDOMEN: Soft , no tenderness EXTREMITIES: Bilateral heel wounds are currently dressed, no drainage on dressing. - Labs CBC & Chem 7: 07/28/22 13:17 08/03/22 05:56 Labs: Abnormal Lab Results - Last 24 Hours (Table) 08/01/22 08/01/22 08/02/22 Range/Units 16:54 20:16 11:31 POC Glucose (mg/dL) 228 H 198 H 117 H (70-110) mg/dL Microbiology - Last 24 Hours (Table) 07/29/22 21:10 Anaerobic Culture - Final Toe - Left Fifth 07/29/22 21:10 Gram Stain - Final Toe - Left Fifth Tissue Culture - Final Pseudomonas aeruginosa Enterococcus faecalis Methicillin resist S. aureus 07/28/22 13:26 Blood Culture - Preliminary Blood No Growth after 96 hours 07/28/22 13:17 Blood Culture - Preliminary Blood No Growth after 96 hours Assessment and Plan (1) Diabetic ulcer of left heel associated with diabetes mellitus due to underlying condition Status: Acute Code(s): E08.621 - DIABETES MELLITUS DUE TO UNDERLYING CONDITION W FOOT ULCER; L97.429 - NON-PRS CHRONIC ULCER OF LEFT HEEL AND MIDFOOT W UNSP SEVERT SNOMED Code(s): 187992832 Plan: 1patient with bilateral heel unstageable pressure ulcer infected in this patient with underlying diabetes mellitus also renal transplant on i mmunosuppressive medication with recent admission to the hospital due to for ESBL E. coli UTI and bacteremia. 2patient is status post surgical debridement of bilateral heel along with amputation of the left fifth toe and deep culture which are currently growing enterococcus MRSA and pseudomonas 3patient to continue with cefepime and vancomycin patient will need a PICC line for outpatient IV antibiotic therapy, currently waiting for outpatient IV antibiotic arrangement Time with Patient: Less than 30
--- NOTE | 2022-08-10 11:27 | P.PN ---
Subjective Progress Note Date: 08/03/22 Principal diagnosis: Bilateral heel infected pressure ulcer Patient is a 82-year-old male with a past medical history significant for renal transplant recent admission to the hospital for ESBL E. coli UTI and bacteremia presenting with the infected bilateral heel pressure ulcer and left fifth toe gangrene status post amputation of the left fifth toe and debridement of bilateral heel wound completed on 07/29/2022 On today's evaluation that is 08/03/2022, the patient denies any fever or any chills, the patient pain to bilateral heel wound area is controlled with the current medication, patient denies having any chest pain or shortness of breath or cough. Patient denies nausea no vomiting no abdominal pain no diarrhea, patient did get a PICC line and is on way to the [facility] Objective - Vital Signs Vital signs: Vital Signs Temp 97.9 F 08/03/22 06:56 Pulse 81 08/03/22 06:56 Resp 15 08/03/22 06:56 BP 175/56 08/03/22 06:56 Pulse Ox 97 08/03/22 06:56 FiO2 Intake & Output 08/02/22 08/03/22 08/03/22 18:59 06:59 18:59 Output Total 800 1600 Balance -800 -1600 Weight 95.254 kg Output: Urine 800 1600 Other: Voiding Method External Catheter - Exam GENERAL DESCRIPTION: An elderly male lying in bed in no distress RESPIRATORY SYSTEM: Unlabored breathing , decreased breath sounds at bases HEART: S1 S2 regular rate and rhythm , ABDOMEN: Soft , no tenderness EXTREMITIES: Bilateral heel wounds are currently dressed, no drainage on dressing. - Labs CBC & Chem 7: 07/28/22 13:17 08/03/22 05:56 Labs: Abnormal Lab Results - Last 24 Hours (Table) 08/02/22 08/02/22 08/03/22 Range/Units 17:26 21:09 02:31 Sodium (137-145) mmol/L Chloride (98-107) mmol/L Carbon Dioxide (22-30) mmol/L BUN (9-20) mg/dL Glucose (74-99) mg/dL POC Glucose (mg/dL) 289 H 199 H 127 H (70-110) mg/dL 08/03/22 Range/Units 05:56 Sodium 136 L (137-145) mmol/L Chloride 112 H (98-107) mmol/L Carbon Dioxide 18 L (22-30) mmol/L BUN 26 H (9-20) mg/dL Glucose 69 L (74-99) mg/dL POC Glucose (mg/dL) (70-110) mg/dL Microbiology - Last 24 Hours (Table) 07/28/22 13:26 Blood Culture - Preliminary Blood No Growth after 120 hours 07/28/22 13:17 Blood Culture - Preliminary Blood No Growth after 120 hours Assessment and Plan (1) Diabetic ulcer of left heel associated with diabetes mellitus due to underlying condition Status: Acute Code(s): E08.621 - DIABETES MELLITUS DUE TO UNDERLYING CONDITION W FOOT ULCER; L97.429 - NON-PRS CHRONIC ULCER OF LEFT HEEL AND MIDFOOT W UNSP SEVERT SNOMED Code(s): 761107868 Plan: 1patient with bilateral heel unstageable pressure ulcer infected in this patient with underlying diabetes mellitus also renal transplant on immunosuppressive medication with recent admission to the hospital due to for ESBL E. coli UTI and bacteremia. 2patient is status post surgical debridement of bilateral heel along with amputation of the left fifth toe and deep culture which are currently growing enterococcus MRSA and pseudomonas 3patient has shown clinical improvement and plan is to continue with cefepime and vancomycin 6 weeks on discharge and close outpatient follow-up with concern for acute osteomyelitis to the left heel area Time with Patient: Less than 30
== END 2022-08-03 16:48 | DRG 617 ==
LOC: EC 12:39 → 4SSUR 17:00
PROVIDERS: ADMIT Hospitalist; ATTEND Hospitalist
PROC: 0JBQ0ZZ Excision of Right Foot Subcutaneous Tissue and Fascia, Open Approach (ICD-10-PCS; principal; 2022-07-29 10:15)
PROC: 0JBR0ZZ Excision of Left Foot Subcutaneous Tissue and Fascia, Open Approach (ICD-10-PCS; principal; 2022-07-29 10:15)
PROC: 0Y6Y0Z0 Detachment at Left 5th Toe, Complete, Open Approach (ICD-10-PCS; principal; 2022-07-29 10:15)
PROC: 02HV33Z Insertion of Infusion Device into Superior Vena Cava, Percutaneous Approach (ICD-10-PCS; 2022-08-03)
DX: E11.69 Type 2 diabetes mellitus with other specified complication (principal); E11.52 Type 2 diabetes mellitus with diabetic peripheral angiopathy with gangrene; E87.20 Acidosis, unspecified; I13.11 Hypertensive heart and chronic kidney disease without heart failure, with stage 5 chronic kidney disease, or end stage renal disease; Z94.0 Kidney transplant status; M86.172 Other acute osteomyelitis, left ankle and foot; N18.6 End stage renal disease; B96.5 Pseudomonas (aeruginosa) (mallei) (pseudomallei) as the cause of diseases classified elsewhere; B95.62 Methicillin resistant Staphylococcus aureus infection as the cause of diseases classified elsewhere; L89.629 Pressure ulcer of left heel, unspecified stage; L97.529 Non-pressure chronic ulcer of other part of left foot with unspecified severity; L89.619 Pressure ulcer of right heel, unspecified stage; D50.9 Iron deficiency anemia, unspecified; D53.9 Nutritional anemia, unspecified; D63.1 Anemia in chronic kidney disease; E11.22 Type 2 diabetes mellitus with diabetic chronic kidney disease; B95.2 Enterococcus as the cause of diseases classified elsewhere; E11.621 Type 2 diabetes mellitus with foot ulcer; E11.622 Type 2 diabetes mellitus with other skin ulcer; F32.A Depression, unspecified; I25.10 Atherosclerotic heart disease of native coronary artery without angina pectoris; Z79.4 Long term (current) use of insulin; Z20.822 Contact with and (suspected) exposure to COVID-19; Z79.2 Long term (current) use of antibiotics; Z79.899 Other long term (current) drug therapy; Z86.73 Personal history of transient ischemic attack (TIA), and cerebral infarction without residual deficits; Z87.891 Personal history of nicotine dependence; Z95.1 Presence of aortocoronary bypass graft; Z87.440 Personal history of urinary (tract) infections
CPT/HCPCS: 36415; 36573; 71046; 80048; 80053; 80195; 80202; 82565; 82728; 83540; 83550; 83605; 83735; 84484; 85025; 86140; 87040; 87070; 87075; 87077; 87102; 87116; 87186; 87205; 87206; 87635; 93005; 94760; 99285